=== PATIENT | male | born 1935 | race Caucasian/White ===

== ENCOUNTER → 2016-07-06 | Outpatient (REF) | payer MEDICARE, OTHER ==
[2016-07-06 15:37] LABS: ALBUMIN 3.6 GM/DL (3.2-5.2); ALBUMIN/GLOBULIN RATIO 1.38 (1.00-1.93); ALKALINE PHOSPHATASE 65 U/L (45-117); ALT/SGPT 30 U/L (12-78); ANION GAP 6 MEQ/L (8-16); AST/SGOT 16 U/L (15-37); BILIRUBIN,TOTAL 0.9 MG/DL (0.2-1.0); BLOOD UREA NITROGEN 25 MG/DL (7-18); CALCIUM LEVEL 9.1 MG/DL (8.8-10.2); CARBON DIOXIDE LEVEL 32 MEQ/L (21-32); CHLORIDE LEVEL 106 MEQ/L (98-107); CHOLESTEROL LEVEL 185 MG/DL (<200); GLOMERULAR FILTRATION RATE > 60.0 (>42); GLUCOSE, FASTING 101 MG/DL (83-110); POTASSIUM SERUM 4.3 MEQ/L (3.5-5.1); SODIUM LEVEL 144 MEQ/L (136-145); TOTAL PROTEIN 6.2 GM/DL (6.4-8.2); TRIGLYCERIDES LEVEL 104 MG/DL (<150)
== END ==
LOC: M SFHCLACO 08:57
PROVIDERS: ATTEND Physician Assistant
DX: I10 Essential (primary) hypertension (principal); E78.2 Mixed hyperlipidemia

== ENCOUNTER → 2016-10-05 | Outpatient (REF) | payer MEDICARE, OTHER ==
[2016-10-05 16:08] LABS: ALBUMIN 3.3 GM/DL (3.2-5.2); ALBUMIN/GLOBULIN RATIO 1.32 (1.00-1.93); ALKALINE PHOSPHATASE 64 U/L (45-117); ALT/SGPT 25 U/L (12-78); ANION GAP 6 MEQ/L (8-16); AST/SGOT 15 U/L (15-37); BLOOD UREA NITROGEN 17 MG/DL (7-18); CALCIUM LEVEL 8.7 MG/DL (8.8-10.2); CARBON DIOXIDE LEVEL 30 MEQ/L (21-32); CHLORIDE LEVEL 109 MEQ/L (98-107); CHOLESTEROL LEVEL 171 MG/DL (<200); CREATININE FOR GFR 1.12 MG/DL (0.70-1.30); GLOMERULAR FILTRATION RATE > 60.0 (>42); GLUCOSE, FASTING 102 MG/DL (83-110); POTASSIUM SERUM 4.6 MEQ/L (3.5-5.1); SODIUM LEVEL 145 MEQ/L (136-145); TOTAL PROTEIN 5.8 GM/DL (6.4-8.2); TRIGLYCERIDES LEVEL 112 MG/DL (<150)
== END ==
LOC: M SFHCLACO 09:07
PROVIDERS: ATTEND Physician Assistant
DX: I10 Essential (primary) hypertension (principal); E29.1 Testicular hypofunction; J44.9 Chronic obstructive pulmonary disease, unspecified; M25.562 Pain in left knee

== ENCOUNTER → 2016-10-12 | Outpatient (REF) | payer MEDICARE, OTHER ==
[2016-10-12 16:04] LABS: MEAN CORPUSCULAR HEMOGLOBIN 33.4 pg (27.0-33.0); MEAN CORPUSCULAR HGB CONC 33.9 g/dl (32.0-36.5); MEAN CORPUSCULAR VOLUME 98.7 fl (80.0-96.0); RED CELL DISTRIBUTION WIDTH 12.1 % (11.5-14.5); WHITE BLOOD COUNT 6.4 K/mm3 (4.0-10.0)
[2016-10-15 00:07] LABS: Lyme Disease IgG/IgM Antibodie <0.91 ISR (0.00-0.90); Lyme Disease IgM Ab Quantitati <0.80 index (0.00-0.79)
== END ==
LOC: M SFHCLACO 13:36
PROVIDERS: ATTEND Physician Assistant
DX: J44.9 Chronic obstructive pulmonary disease, unspecified (principal); R53.83 Other fatigue; W57.XXXA Bitten or stung by nonvenomous insect and other nonvenomous arthropods, initial encounter; X58.XXXA Exposure to other specified factors, initial encounter; Y92.9 Unspecified place or not applicable; Y93.9 Activity, unspecified; Y99.9 Unspecified external cause status
CPT/HCPCS: 36415; 85027; 86617; G0463

== ENCOUNTER → 2017-04-21 | Outpatient (REF) | payer MEDICARE, OTHER ==
[2017-04-21 15:09] LABS: ALBUMIN 3.5 GM/DL (3.2-5.2); ALBUMIN/GLOBULIN RATIO 1.35 (1.00-1.93); ALKALINE PHOSPHATASE 54 U/L (45-117); ALT/SGPT 25 U/L (12-78); ANION GAP 6 MEQ/L (8-16); AST/SGOT 15 U/L (7-37); BILIRUBIN,TOTAL 1.1 MG/DL (0.2-1.0); BLOOD UREA NITROGEN 23 MG/DL (7-18); CALCIUM LEVEL 9.1 MG/DL (8.8-10.2); CARBON DIOXIDE LEVEL 32 MEQ/L (21-32); CHLORIDE LEVEL 106 MEQ/L (98-107); CHOLESTEROL LEVEL 192 MG/DL (<200); CREATININE FOR GFR 1.16 MG/DL (0.70-1.30); GLOMERULAR FILTRATION RATE > 60.0 (>42); GLUCOSE, FASTING 107 MG/DL (83-110); POTASSIUM SERUM 4.7 MEQ/L (3.5-5.1); SODIUM LEVEL 144 MEQ/L (136-145); TOTAL PROTEIN 6.1 GM/DL (6.4-8.2); TRIGLYCERIDES LEVEL 109 MG/DL (<150)
== END ==
LOC: M SFHCLACO 09:32
PROVIDERS: ATTEND Physician Assistant
DX: I10 Essential (primary) hypertension (principal); E78.2 Mixed hyperlipidemia; E29.1 Testicular hypofunction

== ENCOUNTER → 2017-11-08 | Outpatient (REF) | payer MEDICARE, OTHER ==
[2017-11-08 14:58] LABS: ALBUMIN 3.5 GM/DL (3.2-5.2); ALBUMIN/GLOBULIN RATIO 1.21 (1.00-1.93); ALKALINE PHOSPHATASE 61 U/L (45-117); ALT/SGPT 27 U/L (12-78); ANION GAP 5 MEQ/L (8-16); AST/SGOT 16 U/L (7-37); BLOOD UREA NITROGEN 22 MG/DL (7-18); CALCIUM LEVEL 8.7 MG/DL (8.8-10.2); CARBON DIOXIDE LEVEL 31 MEQ/L (21-32); CHLORIDE LEVEL 109 MEQ/L (98-107); CHOLESTEROL LEVEL 172 MG/DL (<200); CHOLESTEROL RISK RATIO 3.071 (<5); GLUCOSE, FASTING 95 MG/DL (70-100); HDL CHOLESTEROL 56 MG/DL (>40); NON-HDL-C 116 MG/DL; POTASSIUM SERUM 4.7 MEQ/L (3.5-5.1); SODIUM LEVEL 145 MEQ/L (136-145); TOTAL PROTEIN 6.4 GM/DL (6.4-8.2); TRIGLYCERIDES LEVEL 105 MG/DL (<150)
== END ==
LOC: M SFHCLACO 08:46
DX: I10 Essential (primary) hypertension (principal); E78.2 Mixed hyperlipidemia
CPT/HCPCS: 80053

== ENCOUNTER → 2018-10-02 | Outpatient (REF) | payer MEDICARE, OTHER ==
[2018-10-02 15:33] LABS: BASO % 0.5 % (0.0-1.0); EOS # 0.2 10^3/uL (0.0-0.50); EOS % 3.1 % (0.0-3.0); HEMATOCRIT 45.8 % (42.0-52.0); HEMOGLOBIN 15.2 g/dl (13.5-17.5); LYMPH # 1.7 10^3/uL (1.5-4.5); LYMPH % 23.1 % (24.0-44.0); MEAN CORPUSCULAR HEMOGLOBIN 32.6 pg (27.0-33.0); MEAN CORPUSCULAR HGB CONC 33.2 g/dl (32.0-36.5); MEAN CORPUSCULAR VOLUME 98.3 fl (80.0-96.0); MONO # 0.7 10^3/uL (0.0-0.8); MONO % 10.1 % (0.0-5.0); NEUTROPHILS # 4.6 10^3/uL (1.8-7.7); NEUTROPHILS % 62.9 % (36.0-66.0); PLATELET COUNT, AUTOMATED 163 10^3/uL (150-450); RED BLOOD COUNT 4.66 10^6/uL (4.30-6.10); WHITE BLOOD COUNT 7.4 10^3/uL (4.0-10.0)
[2018-10-02 15:44] LABS: ALBUMIN 3.6 GM/DL (3.2-5.2); BILIRUBIN,TOTAL 0.9 MG/DL (0.2-1.0); CALCIUM LEVEL 9.1 MG/DL (8.8-10.2); CREATININE FOR GFR 1.25 MG/DL (0.70-1.30); GLOMERULAR FILTRATION RATE 59.2 (>35); INR 0.93; MAGNESIUM LEVEL 2.2 MG/DL (1.8-2.4); POTASSIUM SERUM 4.2 MEQ/L (3.5-5.1); PROTHROMBIN TIME 12.6 SECONDS (12.1-14.4)
[2018-10-02 15:45] LABS: PARTIAL THROMBOPLASTIN TIME 28.9 SECONDS (25.4-37.6)
== END ==
LOC: M SFHCPLAZ 13:10
PROVIDERS: ATTEND Family Medicine
DX: Z01.818 Encounter for other preprocedural examination (principal); M17.0 Bilateral primary osteoarthritis of knee; Z79.01 Long term (current) use of anticoagulants; I50.32 Chronic diastolic (congestive) heart failure
CPT/HCPCS: 80053; 83735; 83880; 85025; 85610; 85730; G0463

== ENCOUNTER 2019-01-04 15:46 | Emergency (ER) | payer MEDICARE, OTHER ==
[~2019-01-04] VITALS: Ht 177.8 cm; Wt 114.3 kg
[2019-01-04] MEDS ORDERED: EPLE25TA (16:18)
[2019-01-04] MEDS ORDERED: NABU-119 (16:18)
[2019-01-04] MEDS ORDERED: METO1TAB33 (16:18)
[2019-01-04] MEDS ORDERED: LISI-538 (16:18)
[2019-01-04] MEDS ORDERED: CRES20TA2 (16:18)
[2019-01-04] MEDS ORDERED: PROAAER10 (16:18)
[2019-01-04] MEDS ORDERED: FURO40TA2 (16:18)
[2019-01-04] MEDS ORDERED: ISOVUE-370 76% 100ML VIAL (Q9967) As Ordered ONE (17:13)
[2019-01-04 17:39] LABS: BASO % 0.5 % (0.0-1.0); EOS # 0.2 10^3/uL (0.0-0.50); EOS % 3.7 % (0.0-3.0); HEMATOCRIT 40.5 % (42.0-52.0); HEMOGLOBIN 13.3 g/dl (13.5-17.5); LYMPH # 1.3 10^3/uL (1.5-4.5); MEAN CORPUSCULAR HEMOGLOBIN 31.6 pg (27.0-33.0); MEAN CORPUSCULAR HGB CONC 32.8 g/dl (32.0-36.5); MEAN CORPUSCULAR VOLUME 96.2 fl (80.0-96.0); MONO # 0.6 10^3/uL (0.0-0.8); MONO % 10.2 % (0.0-5.0); NEUTROPHILS # 3.8 10^3/uL (1.8-7.7); NEUTROPHILS % 63.3 % (36.0-66.0); PLATELET COUNT, AUTOMATED 184 10^3/uL (150-450); RED BLOOD COUNT 4.21 10^6/uL (4.30-6.10)
[2019-01-04 17:51] LABS: BLOOD UREA NITROGEN 13 MG/DL (7-18); CALCIUM LEVEL 8.8 MG/DL (8.8-10.2); CARBON DIOXIDE LEVEL 34 MEQ/L (21-32); CHLORIDE LEVEL 106 MEQ/L (98-107); CREATININE FOR GFR 1.13 MG/DL (0.70-1.30); GLOMERULAR FILTRATION RATE > 60.0 (>35); GLUCOSE, FASTING 92 MG/DL (70-100); SODIUM LEVEL 146 MEQ/L (136-145)
--- NOTE | 2019-01-04 18:50 | REPVR ---
EXAM: CT Angiography Chest With Contrast EXAM DATE/TIME: 01/04/2019 5:11 PM CLINICAL HISTORY: 83 years old, male; Dyspnea; Additional info: R/O pe TECHNIQUE: Imaging protocol: Axial computed tomographic angiography images of the chest with intravenous contrast using CT angiography protocol. Coronal and sagittal reformatted images were created and reviewed. 3D rendering: MIP reconstructed images were created and reviewed. Radiation optimization: All CT scans at this facility use at least one of these dose optimization techniques: automated exposure control; mA and/or kV adjustment per patient size (includes targeted exams where dose is matched to clinical indication); or iterative reconstruction. Contrast material: ISOVUE 370;Contrast volume: 75 ml;Contrast route: IV; COMPARISON: CR CHEST 2 VIEWS 01/04/2019 10:48 AM FINDINGS: Pulmonary arteries: No pulmonary emboli. Aorta: No aortic aneurysm. No aortic dissection. Lungs: Bilateral scattered atelectasis and/or scarring. Mild paraseptal emphysematous changes. No focal infiltrate, consolidation, or mass. Mild bilateral bronchial wall thickening. Pleural space: No pneumothorax. No pleural effusion. Heart: No cardiomegaly. No pericardial effusion. Mediastinum: Small hiatal hernia. Liver: Hepatic cysts measuring up to 4.5 cm. Kidneys and ureters: Partially visualized probable right renal cyst. Lymph nodes: Unremarkable. No enlarged lymph nodes. Bones/joints: No acute fracture. Normal alignment. Degenerative changes in the spine. Soft tissues: Bilateral gynecomastia. IMPRESSION: 1. No pulmonary embolism. 2. Mild bronchitis. 3. Nonacute/incidental findings above. Electronically signed by: Fidel Jiménez On 01/04/2019 18:50:04 PM
[2019-01-04] MEDS ORDERED: PRED10TA2 PO (19:15)
[2019-01-04 20:04] VITALS: BP 130/77
== END 2019-01-04 20:35 | disposition home or self-care (01) ==
LOC: M ED 15:46
DX: J44.9 Chronic obstructive pulmonary disease, unspecified (principal); R60.9 Edema, unspecified; I11.0 Hypertensive heart disease with heart failure; I50.9 Heart failure, unspecified; E78.5 Hyperlipidemia, unspecified; Z79.899 Other long term (current) drug therapy; Z88.0 Allergy status to penicillin
CPT/HCPCS: 36415; 71046; 71275; 80048; 83880; 85025; 85027; 85379; 93041; 94760; 99285; Q9967

== ENCOUNTER → 2019-01-04 | Outpatient (CLI) | payer MEDICARE, OTHER ==
[~2019-01-04] MED LIST: CRES20TA2; EPLE25TA; FURO40TA2; LISI-538; METO1TAB33; NABU-119; PRED10TA2 PO; PROAAER10
--- NOTE | 2019-01-04 11:11 | REP ---
Clinical: Dyspnea. Technique: PA and lateral. Comparison: 08/31/2010. Findings: Cardiomegaly cannot be excluded. Lung evans demonstrate chronic interstitial changes. Subtle superimposed atelectasis cannot definitively be excluded. No consolidation. No effusion. No pneumothorax. Skeletal structures intact. Impression: Mild cardiomegaly suggested. Chronic changes. Subtle basilar atelectasis cannot be excluded. Electronically Signed by Duglas Jordan MD 01/04/2019 11:02 A
[2019-01-04 14:01] LABS: HEMATOCRIT 42.1 % (42.0-52.0); HEMOGLOBIN 13.5 g/dl (13.5-17.5); MEAN CORPUSCULAR HEMOGLOBIN 31.3 pg (27.0-33.0); MEAN CORPUSCULAR HGB CONC 32.1 g/dl (32.0-36.5); MEAN CORPUSCULAR VOLUME 97.7 fl (80.0-96.0); PLATELET COUNT, AUTOMATED 200 10^3/uL (150-450); RED BLOOD COUNT 4.31 10^6/uL (4.30-6.10); WHITE BLOOD COUNT 6.5 10^3/uL (4.0-10.0)
== END ==
LOC: M SMT 10:37
PROVIDERS: ATTEND Internal Medicine Pulmonary Disease
DX: R06.00 Dyspnea, unspecified (principal)

== ENCOUNTER 2020-07-23 21:10 | Emergency (ER) | payer MEDICARE, OTHER ==
[~2020-07-23] VITALS: Ht 177.8 cm; Wt 122.7 kg
[~2020-07-23 21:10] MED LIST changes: -LISI-538; +LISI20TA33; -NABU-119; +NABU-53 PO
--- OUTSIDE RECORDS SUMMARY | 2020-07-23 21:15 | CCD | Continuity of Care Document ---
Author Author Virtual Assistant, [employer] Organization Unknown Address Unknown Phone Unavailable Care Team Providers Care Park Worker Supervisor Name Role Phone Alex Orosco Unavailable Uriah Andujar MD Unavailable Pulmonary, Rehab Unavailable Unavailable Leno Oakley MD Unavailable Unavailable Problems ASTHMA (J45.909) (493.90) MD Luis Felipe Andujar Comments: possible. Elevated exhaled nitric oxide level CAD (CORONARY ARTERY DISEASE) (I25.10) MD Vianey Andujar (414.00) CARDIOMYOPATHY (I42.9) (425.4) MD Luis Felipe Andujar CAROTID ARTERY DISORDER (I77.9) (447.9) MD Luis Felipe Andujar CHEST PAIN (R07.9) (786.50) MD Luis Felipe Andujar COPD, SEVERE (J44.9) (496) MD Luis Felipe Andujar Prognosis: Clinically stable but remained short of breath. Refill on hi s medication sent to the pharmacy. Reassess in 6 months. He raised the question of endobronchial valves which would require referral to a specialized center.The patient was seen using telephone health communications. The patient understands that telemedicine i s the use of electronic information and communication technologies by a healthcare provider to deliver services to individuals when he/she is located a t a different site than the provider, and understands that there is some level of risk that the individuals PHI could be heard or otherwise accessed by a third constitution party while in transit. Consent for telephone health services was hereby verbally obtained in order to provide health care services to the patient via telemedicine.We spent 15 min. via eduardo o conferencing, reviewing symptoms, diagnosis and medications. as of 15-Apr-2020 DYSPHAGIA (R13.10) (537.20) MD Luis Felipe Andujar Comments : chokes on liquids following Prognosis: The patient states his attempted passage of nasogastric tube. dysphagia is better at this time. I Modified bariu m swallow not done due to told him if it recurs to let us know and Covid 19. we will reorder the modified barium swallow. as of 15-Apr-2020 EMPHYSEMA (J43.9) (492.8) MD Luis Felipe Andujar HEART FAILURE (I50.9) (428.9) MD Luis Felipe Andujar HYPERLIPIDEMIA (E78.5) (272.4) MD Luis Felipe Andujar HYPERTENSION (I10) (401.9) MD Luis Felipe Andujar PROSTATE CA (C61) (185) MD Luis Felipe Andujar SHORTNESS OF BREATH (R06.02) (786.05) MD Luis Felipe Andujar Comments: with exertion VALVULAR HEART DISEASE (I38) (424.90) MD Aroldo Andujar Allergies and Adverse Reactions No Known Drug Allergies (Allergy) Onset: 25-Jul-2019 Penicillins (Allergy) Reaction: Hives Medications Aspirin 81 MG Oral Tablet Delayed Release; daily (81 MG) Carvedilol 12.5 MG Oral Tablet; two times daily (12.5 MG) Crestor 20 MG Oral Tablet; daily (20 MG) Diclofenac Sodium 75 MG Oral Tablet Delayed Release; two times daily (75 MG) Eplerenone 25 MG Oral Tablet; daily (2 5 MG) Furosemide 40 MG Oral Tablet; daily (4 0 MG) Lisinopril 20 MG Oral Tablet; daily (2 0 MG) Metoprolol Succinate ER 100 MG Oral Tablet Extended Release 24 Hour; daily (100 MG) Multiple Vitamin Oral Tablet; 1 (one) daily Nabumetone 750 MG Oral Tablet; (750 MG ) ProAir HFA 108 (90 Base) MCG/ACT Ordered: 31-Jul-2019 Sta rt: 31-Jul-2019 Inhalation Aerosol Solution; 2 Puff Comments: Medi cation taken as needed. four times daily as needed for 30 days Quantity: 1 {Inhaler} Refills: 5 Stiolto Respimat 2.5-2.5 MCG/ACT Ordered: 15-May-2020 Sta rt: 15-May-2020 Inhalation Aerosol Solution; 2 (two) Aerosol Soln daily for 30 days Quantity: 1 {Inhaler} Refills: 5 Procedures EXHALED NITRIC OXIDE MEASUREMENT (99961) Status: Co mpleted 31-Jul-2019 REST/ EXERCISE OXIMETRY (64739) Status: Completed 2 11-Jul-2019 Alpha 1 antitrypsin level Status: Completed 2019 Comments: Normal. MM, 129 Chest X-ray Status: Completed 0 Comments: [place]. mild hyperinflation. Slight right basilar atelectasis. Similar 01/04/19. Colectomy Status: Completed CTA Status: Completed 9 Comments: No pulmonary embolus. Few scattered areas of atelectasis or scarring. FeNO Status: Completed Comments: 07/31/2019 76 ppb Hernia Repair Status: Completed Comments: 3 PFT Status: Completed 31-Jul-19 20 Comments: Severe Obstruction. Without Reversibility. Forced vital capacity 2.57 (64%), FEV1 1.28 (45%), FEV1/FVC 50%. Tonsillectomy Status: Completed PRE AND POST (75493)Result: Hemoptysis: Status: Comp leted No 31-Jul-2019 Family History Brother 1 Status: Active Comments: Emphysema . Father Status: Active Comments: Emphysema . Social History Alcohol use:; Denies alcohol use. Marital status:; . 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 Tobacco use:; Former smoker. Comments: [age], 1 ppd Ex-smoker Male Plan of Treatment EXHALED GAS NITRIC OXIDE MEASUREMENT Start: 04-Apr-2020 I ntent (MOLES/VOLUME) (91025) PRE AND POST W/ RT (25671) Start: 04-Apr-2020 Intent DLCO (CARBON MONOXIDE DIFFUSING Start: 30-Sep-2019 Intent CAPACITY) (86524) EXHALED GAS NITRIC OXIDE MEASUREMENT Start: 30-Sep-2019 I ntent (MOLES/VOLUME) (72200) PRE AND POST (75059) Start: 30-Sep-2019 Intent THORACIC GAS VOLUME: AIRWAY CLOSING Start: 30-Sep-2019 In tent VOLUME MEASUREMENT: PULM FUNCTION TEST BY GAS (85657) TOTAL VITAL CAPACITY (78397) Start: 30-Sep-2019 Intent MODIFIED BARIUM SWALLOW (79603) Start: 31-Jul-2019 Intent [id number] (55314) Start: 31-Jul-[address] 10:34 COPD, SEVERE : Chronic Obstructive Pulmonary Disease (COPD) Indication:COPD, SEVERE Results No Known Results No Result Information Available Vital Signs 15-Apr-2020 14:30 Weight 270 lb Height 70 in BMI 38.74 kg/m2 BSA 2.37 m2 31-Jul-2019 9:59 Comments: spo2 with exertio n 97% Temperature 97.8 f Pulse 80 /min Comments: Pattern: Regular Respiration Rate 20 Comments: Pattern: Unlabore d /min O2 SAT 98 % Comments: Room air BP Systolic 118 Comments: Patient Position: Sitting; mm[Hg] Cuff Location: Left Arm; Cu ff Size: Large BP Diastolic 70 Comments: Patient Position: Sitting; mm[Hg] Cuff Location: Left Arm; Cu ff Size: Large Weight 265 lb Height 70 in BMI 38.02 kg/m2 BSA 2.35 m2 Advance Directives HIPAA - Effective on 07/31/2019. Effective: Expiration date unspecified 31-Jul-2019 Encounters Office Visit 15-Apr-2020 14:15 Encounter Reason: To 15-Apr-2020 14:37 COPD - The referring [facility] provider is OLE DORADO (The patient [facility] has a history of CAD, and cardiomyopathy. Ejection fraction 2013 was 40-45% and more recent study in September 2018 was normal. He also has carotid artery disorder, valvular heart disease with mitral regurgitation. His had congestive heart failure in e past. Also hypertension, dyslipidemia, prostate carcinoma, and COPD. He denies childhood respiratory diseas e or asthma. Denies allergic rhinitis. He has never had pneumonia. He smoked one pack of cigarettes daily from age 17 to age 52. His brother and father had emphysema. He was previously seen by a manager sterile in [place], Dr. Castañeda. He states he was tried on Incruse ellipta and Trelegy ellipta but they made him worse. He states he has never been hospitalized for lung disease or required prednisone. His exertional dyspnea which sometimes results in urinary incontinence. Denies cough or wheezing. He states during her hospitalization for small bowel obstruction as an attempt to pass a nasogastric tube whic h resulted in pain in his throat. He reports dysphagia for liquids since that time unless he bends forward.). last office visit was 6 month(s) ago. N o changes in management were made at the last visit. 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 Symptoms include dyspnea on exertion (ANY ACTIVITY, BEFORE), while symptoms do not include wheezing, non-productive cough or productive cough. Onset was gradual. There is no known event that preceded symptom onset. The patient describes this as severe and unchanged. Symptoms are exacerbated by activity, while symptoms are not exacerbated by smoking . Symptoms are relieved by inhaler use an d rest. Associated symptoms include leg edema (LEFT, AFTER KNEE REPLACEMENT), while associated symptoms do not includ e fever. Current treatment includes inhaled albuterol, inhaled long-acting beta-2 agonists and inhaled anticholinergics. By report there is good compliance with treatment, good tolerance of treatment and fair symptom control. Pertinent medical history includes smoking (has quit), while pertinent medical history does not include steroid dependency, prior intubation and ventilator therapy or tracheostomy. The patient is currently able to do activities of daily living with limitations., [ADDITIONAL REASON] ASTHMA, FOLLOW UP - The patient's asthm a causes daytime symptoms 1 to 2 times pe r month. The patient's asthma is not disturbing sleep. Encounter Diagnosis: COPD, SEVERE, ASTHMA, DYSPHAGIA Office Visit 05-Oct-2019 13:00 To Encounter Reason: 05-Oct-2019 13:08 COPD - The referring [facility] provider is OLE DORADO (The patient [facility] has a history of CAD, and cardiomyopathy. Ejection fraction 2013 was 40-45% and more recent study in September 2018 was normal. He also has carotid artery disorder, valvular heart disease with mitral regurgitation. His had congestive heart failure in past. Also hypertension, dyslipidemia, prostate carcinoma, and COPD. He denies childhood respiratory diseas e or asthma. Denies allergic rhinitis. He has never had pneumonia. He smoked one pack of cigarettes daily from age 17 to age 52. His brother and father had emphysema. He was previously seen by a manager sterile in [place], Dr. Castañeda. He states he was tried on Incruse ellipta and Trelegy ellipta but they made him worse. He states he has never been hospitalized for lung disease or required prednisone. His exertional dyspnea which sometimes results in urinary incontinence. Denies cough or wheezing. He states during her hospitalization for small bowel obstruction as an attempt to pass a nasogastric tube whic h resulted in pain in his throat. He reports dysphagia for liquids since that time unless he bends forward.). Th e last office visit was 2 month(s) ago. Management changes made at the last visit include adding STIOLTO and ordering BLOOD WORK AND MBS. 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 Symptoms include dyspnea on exertion (ANY ACTIVITY, GRADUALLY WORSE) and non-productive cough (OCCASIONALLY), while symptoms do not include wheezing or productive cough. Onset was gradual. There is no known event that preceded symptom onset. The patient describes this as severe and unchanged. Symptoms are exacerbated by activity, while symptoms are not exacerbated by smoking . Symptoms are relieved by inhaler use. Associated symptoms include leg edema, while associated symptoms do not includ e hemoptysis. Current treatment includes inhaled albuterol, inhaled long-acting beta-2 agonists and inhaled anticholinergics. By report there is good compliance with treatment, good tolerance of treatment and fair symptom control. Pertinent medical history includes smoking (has quit), while pertinent medical history does not include steroid dependency, prior intubation and ventilator therapy or tracheostomy. The patient is currently able to do activities of daily living with limitations., [ADDITIONAL REASON] ASTHMA, FOLLOW UP - The patient's asthm a causes daytime symptoms 1 to 2 times pe r month. The patient's asthma is not disturbing sleep. Encounter Diagnosis: ASTHMA, COPD, SEVERE, DYSPHAGIA Historical Summary 08-Aug-2019 13:06 To 08-Aug-2019 13:07 [facility] Office Historical Summary 31-Jul-2019 10:00 To 31-Jul-2019 10:15 [facility] Historical Summary 31-Jul-2019 10:00 To 25-Jul-2019 8:26 [facility] Office Visit 31-Jul-2019 10:00 Encounter Reason: To 31-Jul-2019 10:52 COPD - The referring [facility] provider is OLE DORADO (The patient [facility] has a history of CAD, and cardiomyopathy. Ejection fraction 2013 was 40-45% and more recent study in September 2018 was normal. He also has carotid artery disorder, valvular heart disease with mitral regurgitation. His had congestive heart failure in the past. Also hypertension, dyslipidemia, prostate carcinoma, and COPD. He denie s childhood respiratory disease or asthma . Denies allergic rhinitis. He has never had pneumonia. He smoked one pack of cigarettes daily from age 17 to age 52. His brother and father had emphysema. He was previously seen by a manager sterile in [place], Dr. Castañeda. He states he was tried on Incruse ellipta and Trelegy ellipta but they made him worse. He states he has never been hospitalized for lung disease or required prednisone. His exertional dyspnea which sometimes results in urinary incontinence. Denies cough or wheezing. He states during her hospitalization for small bowel obstruction as an attempt to pass a nasogastric tube which resulted in pain in his throat. He reports dysphagia fo r liquids since that time unless he bends forward.). 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 Symptoms include dyspnea on exertion (ANY ACTIVITY), while symptoms do not include wheezing, non-productive cough or productive cough. Onset was gradual. There is no known event that preceded symptom onset . The patient describes this as severe an d unchanged. Symptoms are exacerbated by activity, while symptoms are not exacerbated by smoking. Symptoms are relieved by inhaler use. Associated symptoms include leg edema, while associated symptoms do not include hemoptysis. Current treatment includes inhaled albuterol. By report there is good compliance with treatment, good tolerance of treatment and fair symptom control. Pertinent medical history includes smoking (has quit), while pertinent medical history does not include steroid dependency, prior intubation and ventilator therapy or tracheostomy. The patient is currently able to do activities of daily living with limitations. Encounter Diagnosis: ASTHMA, EMPHYSEMA, COPD, SEVERE, DYSPHAGIA Payers Medicare [place] Group Number: NONE [address] [facility] [address] [place] tel: [facility] Group Number: NONE [address] [facility] [id number] [place] tel: COVID19 [facility] Group Number: [id number] [facility] [id number] [place] tel: Jamey Norton [address] [place] [id number] [place] tel:
--- OUTSIDE RECORDS SUMMARY | 2020-07-23 21:15 | CCD | Continuity of Care Document ---
Author Author Salesforce Developer, [employer] Organization Unknown Address Unknown Phone Unavailable Care Team Providers Care Underliner Name Role Phone Alex Orosco Unavailable Uriah [...] heard or otherwise accessed by a third alliance party while in transit. Consent for telephone health services was hereby verbally obtained in order to provide health care services to the patient via telemedicine.We spent 15 min. via eduardo o conferencing, reviewing symptoms, diagnosis and medications. as of 15-Apr-2020 DYSPHAGIA (R13.10) (037.20) MD Luis Felipe Andujar Comments : chokes [...] Refills: 5 Procedures EXHALED NITRIC OXIDE MEASUREMENT (04517) Status: Co mpleted 31-Jul-2019 REST/ EXERCISE OXIMETRY (92286) Status: Completed 2 11-Jul-2019 Alpha 1 antitrypsin level Status: Completed 2019 Comments: Normal. MM, 129 Chest X-ray Status: Completed 0 Comments: [place]. mild hyperinflation. Slight right basilar atelectasis. Similar [...] 50%. Tonsillectomy Status: Completed PRE AND POST (97053)Result: Hemoptysis: Status: Comp leted No 31-Jul-2019 Family History Brother 1 Status: Active Comments: Emphysema . Father Status: Active Comments: Emphysema . Social History Alcohol use:; Denies alcohol use. Marital status:; . 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 Tobacco use:; Former smoker. Comments: [age], 1 ppd Ex-smoker Male Plan of Treatment EXHALED GAS NITRIC OXIDE MEASUREMENT Start: 04-Apr-2020 I ntent (MOLES/VOLUME) (12412) PRE AND POST W/ RT (14734) Start: 04-Apr-2020 Intent DLCO (CARBON MONOXIDE DIFFUSING Start: 30-Sep-2019 Intent CAPACITY) (45748) EXHALED GAS NITRIC OXIDE MEASUREMENT Start: 30-Sep-2019 I ntent (MOLES/VOLUME) (88902) PRE AND POST (69530) Start: 30-Sep-2019 Intent THORACIC GAS VOLUME: AIRWAY CLOSING Start: 30-Sep-2019 In tent VOLUME MEASUREMENT: PULM FUNCTION TEST BY GAS (65559) TOTAL VITAL CAPACITY (78307) Start: 30-Sep-2019 Intent MODIFIED BARIUM SWALLOW (99127) Start: 31-Jul-2019 Intent [id number] (97670) Start: 31-Jul-[address] 10:34 COPD, SEVERE [...] To 15-Apr-2020 14:37 COPD - The referring [facility] provider is OLE DORADO (The patient [...] emphysema. He was previously seen by a die cutter operator in [place], Dr. Castañeda. He states he was tried [...] Reason: 05-Oct-2019 13:08 COPD - The referring [facility] provider is OLE DORADO (The patient [...] emphysema. He was previously seen by a die cutter operator in [place], Dr. Castañeda. He states he was tried [...] Historical Summary 08-Aug-2019 13:06 To 08-Aug-2019 13:07 [facility] Office Historical Summary 31-Jul-2019 10:00 To 25-Jul-2019 8:26 [facility] Office Office Visit 31-Jul-2019 10:00 Encounter Reason: To 31-Jul-2019 10:52 COPD - The referring [facility] provider is OLE DORADO (The patient [facility] has a history of CAD, and cardiomyopathy. Ejection fraction 2012 was 40-45% and more recent study in [...] emphysema. He was previously seen by a die cutter operator in [place], Dr. Castañeda. He states he was tried [...] Encounter Diagnosis: ASTHMA, EMPHYSEMA, COPD, SEVERE, DYSPHAGIA Historical Summary 31-Jul-2019 10:00 To 31-Jul-2019 10:15 [facility] Office Payers Medicare [place] Group Number: NONE [address] [facility] [address] tel: [facility] Group Number: NONE [address] [facility] [id number] [place] tel: COVID19 [facility] Group Number: [id number] [facility] [id number] [place] tel: Jamey Norton [address] [place] [id number] [place] tel:
--- OUTSIDE RECORDS SUMMARY | 2020-07-23 21:15 | CCD | Summary of Care ---
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 [place] [address] Allergies Comments Active Allergy Reactions Severity Noted Date Spironolactone 05/05/2017 Reaction: RASH Penicillins 10/12/2012 documented as of this encounter (statuses as of 07/16/2020) Medications End Date Status Medication Sig Dispensed Refills Start Date Active metoprolol (TOPROL-XL) 50 Take 100 mg 0 MG 24 hr tablet by mouth daily Active simvastatin (ZOCOR) 20 MG Take 20 mg by 0 tablet mouth nightly Active lisinopril Take 20 mg by 0 (PRINIVIL,ZESTRIL) 20 MG mouth daily tablet Active eplerenone (INSPRA) 25 MG Take 25 mg by 0 tablet mouth daily Active furosemide (LASIX) 40 MG Take 40 mg by 0 tablet mouth Two Times Daily Active aspirin 81 MG tablet Take 81 mg by 0 mouth daily Active nabumetone (RELAFEN) 500 Take 750 mg 0 MG tablet by mouth Two Times Daily Active PROAIR HFA 108 (90 Base) Inhale 2 0 09/20 /201 MCG/ACT inhaler puffs into 7 the lungs as needed Active albuterol (PROVENTIL) daily 0 05/04/20 1 (2.5 MG/3ML) 0.083% 7 nebulizer solution Active Ibuprofen (ADVIL) 200 MG Take 400 mg 0 CAPS by mouth every morning 11/19/2020 Active leuprolide (LUPRON DEPOT) Inject 22.5 1 each 12 injection 22.5 mg for mg into the 0 3-month administration muscle every 3 (three) months Additional Information Patient not taking. Reported on 07/16/2020 10:01 AM Active Stiolto Respimat 2.5-2.5 0 MCG/ACT Inhalation 0 Aerosol Solution Active Tamsulosin HCl 0.4 MG Take 1 30 capsule 2 Oral Capsule capsule by 0 (FLOMAX)Indications: mouth daily Prostate cancer Active Ketoconazole 2 % External 0 Cream (NIZORAL) 0 12/23/2020 Active Rosuvastatin Calcium 20 Take 20 mg by 0 MG Oral Tablet (Crestor) mouth 0 documented as of this encounter (statuses as of 07/16/2020) Active Problems Problem Noted Date Prostate cancer 03/30/2019 Cancer Staging: Clinical stage from : Stage IIC (cT1c, cN0, cM0, PSA: 8.6, Grade Group: 4) - Signed by A gustavo Mcleod MD on 12/13/2019 Elevated PSA Enlarged prostate Low testosterone in male documented as of this encounter (statuses as of 07/16/2020) Social History Date Tobacco Use Types Packs/Day Years Used Quit: 1989 Former Smoker Cigarettes 1 Smokeless Tobacco: Chew Current User Drinks/Week oz/Week Comments Alcohol Use daily Yes Sex Assigned at Date Recorded Not on file Date Recorded COVID-19 Exposure Response 07/16/2020 9:52 AM EST In the last month, have you been in contact with No / Unsure someone who was confirmed or suspected to have Coronavirus / COVID-19? documented as of this encounter Last Filed Vital Signs Reading Time Taken Comments Vital Sign - - Blood Pressure - - Pulse - - Temperature - - Respiratory Rate - - Oxygen Saturation - - Inhaled Oxygen Concentration - - Weight 177.8 cm (5' 10") 07/16/2020 9:53 AM EST Height - - Body Mass Index documented in this encounter Progress Notes * Justin Pfeiffer MD - 07/16/2020 10:30 AM EST Radiation Oncology Prostate Cancer Follow-up Due to Covid pandemic, this is a telephonic visit which was performed without th e use of video technology due to patient inability to connect with video. The pa tient was informed of the risks including security breach, technological failure , inability to perform a physical exam which could delay or prevent an accurate diagnosis, and potential complications from treatment decisions rendered over a telephonic platform. The patient understands and consented to the use of a telep honic visit/telephone call. 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 The patient has completed a course radiotherapy. Radiation: Pelvic lymphatics and prostate to a dose of 4500 cGy in 180 cGy daily fractions using 6 MV photons (25 fractions total). Sequential boost to prostate to a dose of 3420 cGy in 180 cGy daily fractions us ing 6 MV photons (19 fractions total). Radiation Completed Date 02/12/2020 Systemic Therapy: LT ADT initiated 03/24/2019. Latest 3month- depot 03/2020. Oncologic follow up note: Mr. Norton is a 84 y.o. y.o. gentleman with the above history of prostate cance r who completed radiotherapy last month. He feels well and has no new/progressi ve bony pains. He has no other symptoms concerning for locoregional prostate can cer recurrence of suspicious for its distal spread. IPSS is 13/35 with significa nt urgency. No hematuria or BRBPR. ALEXANDRU is N/A. With regard to the rest of his g eneral health he is stable. Current Outpatient Medications on File Prior to Visit Medication Sig Dispense Refill albuterol (PROVENTIL) (2.5 MG/3ML) 0.083% nebulizer solution daily aspirin 81 MG tablet Take 81 mg by mouth daily eplerenone (INSPRA) 25 MG tablet Take 25 mg by mouth daily furosemide (LASIX) 40 MG tablet Take 40 mg by mouth Two Times Daily Ibuprofen (ADVIL) 200 MG CAPS Take 400 mg by mouth every morning Ketoconazole 2 % External Cream (NIZORAL) lisinopril (PRINIVIL,ZESTRIL) 20 MG tablet Take 20 mg by mouth daily metoprolol (TOPROL-XL) 50 MG 24 hr tablet Take 100 mg by mouth daily nabumetone (RELAFEN) 500 MG tablet Take 750 mg by mouth Two Times Daily PROAIR HFA 108 (90 Base) MCG/ACT inhaler Inhale 2 puffs into the lungs as needed Rosuvastatin Calcium 20 MG Oral Tablet (Crestor) Take 20 mg by mouth simvastatin (ZOCOR) 20 MG tablet Take 20 mg by mouth nightly Stiolto Respimat 2.5-2.5 MCG/ACT Inhalation Aerosol Solution Tamsulosin HCl 0.4 MG Oral Capsule (FLOMAX) Take 1 capsule by mouth daily 30 capsule 2 leuprolide (LUPRON DEPOT) injection 22.5 mg for 3-month administration In ject 22.5 mg into the muscle every 3 (three) months (Patient not taking: Stacia holbrook on 07/16/2020) 1 each 12 No current facility-administered medications on file prior to visit. Allergies Allergen Reactions Aldactone [Spironolactone] Penicillins Reaction: RASH Exam: Not applicable as this is a telephonic encounter Post-RT Labs: PSA TST 07/2020 0.06 <3 03/2020 0.16 <3 Assessment Plan: Mr. Norton completed his radiation therapy 1 month ago and has no evidence of recurrence. PSA is in keeping with biochemical response. Patient tells me that he decided to discontinue further ADT. He has had close to 18 months in total. I would like to see him in 6 months for continued follow-up with PSA/TST prior t o return. He knows to contact my office with any concerns at any point, should t hey arise. Thank you very much for continuing to involve me in care of this pleasant gentle man. Sincerely, Justin Pfeiffer MD, [facility] Radiation Oncologist Branch Store Manager [facility] documented in this encounter Nursing Notes * Mala Barone LPN - 07/16/2020 10:30 AM EST Patient has a phone telemedicine visit with Dr. Pfeiffer. I completed the IP SS score sheet, patient has a score of 13/35. He is mostly satisfied with his q uality of life due to urinary symptoms. Patient states he is not going to receiv e any further Lupron injections and he would like to discuss with Dr. Coronado documented in this encounter Plan of Treatment Order Schedule Name Type Priority Associated Diag noses Expected: 01/05/2021 (Approximate), Expi res: 07/16/2021 PSA Diagnostic Lab Routine Prostate cancer Expected: 01/05/2021 (Approximate), Expi res: 07/16/2021 Testosterone total male Lab Routine Prosta te cancer Health Maintenance Due Date Last Done Comments MMR Vaccines (1 of 1 - 1936 Standard series) Varicella Vaccines (1 of 1936 2 - 2-dose childhood series) Pneumococcal Vaccine: 12/01/1941 Pediatrics (0 to 5 Years) and At-Risk Patients (6 to 64 Years) (1 of 3 - PCV13) Zoster Vaccines (1 of 2) 12/01/1987 DTaP,Tdap,and Td Vaccines 02/27/1999 01/30/1999 (2 - Tdap) Pneumococcal Vaccine: 65+ 2002 Years (1 of 1 - PPSV23) Influenza Vaccine 03/06/2020 03/07/2019, 04/20/2018, 03/21/2017, Additional history exists HIB Vaccines Aged Out No longer eligible based on patient's age to complete this topic Hepatitis A Vaccines Aged Out No longer eligibl e based on patient's age to complete this topic Hepatitis B Vaccines Aged Out No longer eligibl e based on patient's age to complete this topic IPV Vaccines Aged Out No longer eligible based on patient's age to complete this topic documented as of this encounter Results Not on filedocumented in this encounter Visit Diagnoses Diagnosis Prostate cancer - Primary Malignant neoplasm of prostate documented in this encounter
--- OUTSIDE RECORDS SUMMARY | 2020-07-23 21:16 | CCD ---
Author Author [facility] Organization [facility] Address Unknown Phone Unavailable Care Team Providers Care Bale Piler Name Role Phone Vianey JEFFERS Unavailable Unavailable Michael DIEGO MD Unavailable Unavailable Michael DIEGO MD Unavailable Unavailable Michael DIEGO MD Unavailable Unavailable Michael DIEGO MD Unavailable Unavailable Michael DIEGO MD Unavailable Unavailable Michael DIEGO MD Unavailable Unavailable Michael DIEGO MD Unavailable Unavailable Michael DIEGO MD Unavailable Unavailable Michael DIEGO MD Unavailable Unavailable Michael DIEGO MD Unavailable Unavailable Michael DIEGO MD Unavailable Unavailable Michael DIEGO MD Unavailable Unavailable Michael DIEGO MD Unavailable Unavailable Michael DIEGO MD Unavailable Unavailable Michael DIEGO MD Unavailable Unavailable Michael DIEGO MD Unavailable Unavailable Michael DIEGO MD Unavailable Unavailable Michael DIEGO MD Unavailable Unavailable Michael DIEGO MD Unavailable Unavailable Michael DIEGO MD Unavailable Unavailable Michael DIEGO MD Unavailable Unavailable Michael DIEGO MD Unavailable Unavailable Michael DIEGO MD Unavailable Unavailable Michael DIEGO MD Unavailable Unavailable FULEIHAN, Michael GARCIA MD Unavailable Unavailable FULEIHAN, Michael GARCIA MD Unavailable Unavailable FULEIHAN, Michael GARCIA MD Unavailable Unavailable FULEIHAN, Michael GARCIA MD Unavailable Unavailable FULEIHAN, Michael GARCIA MD Unavailable Unavailable FULEIHAN, Michael GARCIA MD Unavailable Unavailable FULEIHAN, Michael GARCIA MD Unavailable Unavailable FULEIHAN, Michael GARCIA MD Unavailable Unavailable FULEIHAN, Michael GARCIA MD Unavailable Unavailable FULEIHAN, Michael GARCIA MD Unavailable Unavailable FULEIHAN, Michael GARCIA MD Unavailable Unavailable FULEIHAN, Michael GARCIA MD Unavailable Unavailable FULEIHAN, Michael GARCIA MD Unavailable Unavailable FULEIHAN, Michael GARCIA MD Unavailable Unavailable FULEIHAN, Michael GARCIA MD Unavailable Unavailable FULEIHAN, Michael GARCIA MD Unavailable Unavailable FULEIHAN, Michael GARCIA MD Unavailable Unavailable FULEIHAN, Michael GARCIA MD Unavailable Unavailable FULEIHAN, Michael GARCIA MD Unavailable Unavailable FULEIHAN, Michael GARCIA MD Unavailable Unavailable FULEIHAN, Michael GARCAI MD Unavailable Unavailable FULEIHAN, Michael GARCIA MD Unavailable Unavailable FULEIHAN, Michael GARCIA MD Unavailable Unavailable FULEIHAN, Michael GARCIA MD Unavailable Unavailable FULEIHAN, Michael GARCIA MD Unavailable Unavailable FULEIHAN, Michael GARCIA MD Unavailable Unavailable FULEIHAN, Michael GARCIA MD Unavailable Unavailable FULEIHAN, Michael GARCIA MD Unavailable Unavailable FULEIHAN, Michael GARCIA MD Unavailable Unavailable FULEIHAN, Michael GARCIA MD Unavailable Unavailable FULEIHAN, Michael GARCIA MD Unavailable Unavailable FULEIHAN, Michael GARCIA MD Unavailable Unavailable FULEIHAN, Michael GARCIA MD Unavailable Unavailable FULEIHAN, Michael GARCIA MD Unavailable Unavailable FULEIHAN, Michael GARCIA MD Unavailable Unavailable FULEIHAN, Michael GARCIA MD Unavailable Unavailable FULEIHAN, Michael GARCIA MD Unavailable Unavailable FULEIHAN, Michael GARCIA MD Unavailable Unavailable FULEIHAN, Michael GARCIA MD Unavailable Unavailable FULEIHAN, Michael GARCIA MD Unavailable Unavailable FULEIHAN, Michael GARCIA MD Unavailable Unavailable FULEIHAN, Michael GARCIA MD Unavailable Unavailable FULEIHAN, Michael GARCIA MD Unavailable Unavailable FULEIHAN, Michael GARCIA MD Unavailable Unavailable FULEIHAN, Michael GARCIA MD Unavailable Unavailable FULEIHAN, Michael GARCIA MD Unavailable Unavailable FULEIHAN, Michael GARCIA MD Unavailable Unavailable FULEIHAN, Michael GARCIA MD Unavailable Unavailable FULEIHAN, Michael GARCIA MD Unavailable Unavailable FULEIHAN, Michael GARCIA MD Unavailable Unavailable FULEIHAN, Michael GARCIA MD Unavailable Unavailable FULEIHAN, Michael GARCIA MD Unavailable Unavailable FULEIHAN, Michael GARCIA MD Unavailable Unavailable FULEIHAN, Michael GARCIA MD Unavailable Unavailable FULEIHAN, Michael GARCIA MD Unavailable Unavailable FULEIHAN, Michael GARCIA MD Unavailable Unavailable FULEIHAN, Michael GARCIA MD Unavailable Unavailable FULEIHAN, Michael GARCIA MD Unavailable Unavailable FULEIHAN, Michael GARCIA MD Unavailable Unavailable FULEIHAN, Michael GARCIA MD Unavailable Unavailable FULEIHAN, Michael GARCIA MD Unavailable Unavailable Makhuli, N Zahi Unavailable Unavailable Makhuli, N Zahi Unavailable Unavailable Makhuli, N Zahi Unavailable Unavailable Makhuli, N Zahi Unavailable Unavailable Makhuli, N Zahi Unavailable Unavailable Makhuli, N Zahi Unavailable Unavailable Makhuli, N Zahi Unavailable Unavailable Makhuli, N Zahi Unavailable Unavailable Makhuli, N Zahi Unavailable Unavailable Makhuli, N Zahi Unavailable Unavailable Makhuli, N Zahi Unavailable Unavailable Makhuli, N Zahi Unavailable Unavailable Makhuli, N Zahi Unavailable Unavailable Makhuli, N Zahi Unavailable Unavailable Makhuli, N Zahi Unavailable Unavailable Makhuli, N Zahi Unavailable Unavailable Makhuli, N Zahi Unavailable Unavailable Makhuli, N Zahi Unavailable Unavailable Makhuli, N Zahi Unavailable Unavailable Makhuli, N Zahi Unavailable Unavailable Makhuli, N Zahi Unavailable Unavailable Makhuli, N Zahi Unavailable Unavailable Makhuli, N Zahi Unavailable Unavailable Makhuli, N Zahi Unavailable Unavailable Makhuli, N Zahi Unavailable Unavailable Makhuli, N Zahi Unavailable Unavailable Makhuli, N Zahi Unavailable Unavailable Makhuli, N Zahi Unavailable Unavailable Makhuli, N Zahi Unavailable Unavailable Makhuli, N Zahi Unavailable Unavailable Makhuli, N Zahi Unavailable Unavailable Makhuli, N Zahi Unavailable Unavailable Makhuli, N Zahi Unavailable Unavailable Makhuli, N Zahi Unavailable Unavailable Makhuli, N Zahi Unavailable Unavailable Makhuli, N Zahi Unavailable Unavailable Makhuli, N Zahi Unavailable Unavailable Makhuli, N Zahi Unavailable Unavailable Makhuli, N Zahi Unavailable Unavailable Makhuli, N Zahi Unavailable Unavailable Makhuli, N Zahi Unavailable Unavailable Makhuli, N Zahi Unavailable Unavailable Makhuli, N Zahi Unavailable Unavailable Makhuli, N Zahi Unavailable Unavailable Makhuli, N Zahi Unavailable Unavailable Makhuli, N Zahi Unavailable Unavailable Alex HERRERA Unavailable Unavailable Fish, B Alexandro POLK Unavailable Unavailable Fish, B Alexandro POLK Unavailable Unavailable Fish, B Alexandro POLK Unavailable Unavailable Fish, B Alexandro POLK Unavailable Unavailable Fish, B Alexandro POLK Unavailable Unavailable Fish, B Alexandro POLK Unavailable Unavailable Fish, B Alexandro POLK Unavailable Unavailable Fish, B Alexandro POLK Unavailable Unavailable Fish, B Alexandro POLK Unavailable Unavailable Fish, B Alexandro POLK Unavailable Unavailable Fish, B Alexandro POLK Unavailable Unavailable Fish, B Alexandro POLK Unavailable Unavailable Fish, B Alexandro POLK Unavailable Unavailable Fish, B Alexandro POLK Unavailable Unavailable Fish, B Alexandro POLK Unavailable Unavailable Fish, B Alexandro POLK Unavailable Unavailable Fish, B Alexandro POLK Unavailable Unavailable Fish, B Alexandro POLK Unavailable Unavailable Fish, B Alexandro POLK Unavailable Unavailable Fish, B Alexandro POLK Unavailable Unavailable Fish, B Alexandro POLK Unavailable Unavailable Fish, B Alexandro POLK Unavailable Unavailable Fish, B Alexandro POLK Unavailable Unavailable Fish, B Alexandro POLK Unavailable Unavailable Fish, B Alexandro POLK Unavailable Unavailable Fish, B Alexandro POLK Unavailable Unavailable Fish, B Alexandro POLK Unavailable Unavailable Fish, B Alexandro POLK Unavailable Unavailable Fish, B Alexandro POLK Unavailable Unavailable Fish, B Alexandro POLK Unavailable Unavailable Fish, B Alexandro POLK Unavailable Unavailable Fish, B Alexandro POLK Unavailable Unavailable Fish, B Alexandro POLK Unavailable Unavailable Fish, B Alexandro POLK Unavailable Unavailable Fish, B Alexandro POLK Unavailable Unavailable Fish, B Alexandro POLK Unavailable Unavailable Fish, B Alexandro POLK Unavailable Unavailable Fish, B Alexandro POLK Unavailable Unavailable Fish, B Alexandro POLK Unavailable Unavailable Fish, B Alexandro POLK Unavailable Unavailable Fish, B Alexandro POLK Unavailable Unavailable Fish, B Alexandro POLK Unavailable Unavailable Fish, B Alexandro POLK Unavailable Unavailable Fish, B Alexandro POLK Unavailable Unavailable Fish, B Alexandro POLK Unavailable Unavailable Fish, B Alexandro POLK Unavailable Unavailable Fish, B Alexandro POLK Unavailable Unavailable Fish, B Alexandro POLK Unavailable Unavailable Fish, B Alexandro POLK Unavailable Unavailable Fish, B Alexandro POLK Unavailable Unavailable Fish, B Alexandro POLK Unavailable Unavailable Fish, B Alexandro POLK Unavailable Unavailable Fish, B Alexandro POLK Unavailable Unavailable Alex TURNER Unavailable Unavailable Alex TURNER Unavailable Unavailable Alex TURNER Unavailable Unavailable Alex TURNER Unavailable Unavailable YUE, M CHRISSIE PA Unavailable Unavailable YUE, M CHRISSIE PA Unavailable Unavailable YUE, M CHRISSIE PA Unavailable Unavailable YUE, M CHRISSIE PA Unavailable Unavailable YUE, M CHRISSIE PA Unavailable Unavailable YUE, M CHRISSIE PA Unavailable Unavailable YUE, M CHRISSIE PA Unavailable Unavailable YUE, M CHRISSIE PA Unavailable Unavailable YUE, M CHRISSIE PA Unavailable Unavailable YUE, M CHRISSIE PA Unavailable Unavailable YUE, M CHRISSIE PA Unavailable Unavailable YUE, M CHRISSIE PA Unavailable Unavailable YUE, M CHRISSIE PA Unavailable Unavailable YUE, M CHRISSIE PA Unavailable Unavailable YUE, M CHRISSIE PA Unavailable Unavailable YUE, M CHRISSIE PA Unavailable Unavailable YUE, M CHRISSIE PA Unavailable Unavailable YUE, M CHRISSIE PA Unavailable Unavailable YUE, M CHRISSIE PA Unavailable Unavailable YUE, M CHRISSIE PA Unavailable Unavailable YUE, M CHRISSIE PA Unavailable Unavailable YUE, M CHRISSIE PA Unavailable Unavailable YUE, M CHRISSIE PA Unavailable Unavailable YUE, M CHRISSIE PA Unavailable Unavailable YUE, M CHRISSIE PA Unavailable Unavailable YUE, M CHRISSIE PA Unavailable Unavailable YUE, M CHRISSIE PA Unavailable Unavailable YUE, M CHRISSIE PA Unavailable Unavailable YUE, M CHRISSIE PA Unavailable Unavailable YUE, M CHRISSIE PA Unavailable Unavailable YUE, M CHRISSIE PA Unavailable Unavailable YUE, M CHRISSIE PA Unavailable Unavailable YUE, M CHRISSIE PA Unavailable Unavailable YUE, M CHRISSIE PA Unavailable Unavailable YUE, M CHRISSIE PA Unavailable Unavailable YUE, M CHRISSIE PA Unavailable Unavailable YUE, M CHRISSIE PA Unavailable Unavailable YUE, M CHRISSIE PA Unavailable Unavailable YUE, M CHRISSIE PA Unavailable Unavailable YUE, M CHRISSIE PA Unavailable Unavailable YUE, M CHRISSIE PA Unavailable Unavailable YUE, M CHRISSIE PA Unavailable Unavailable YUE, M CHRISSIE PA Unavailable Unavailable YUE, M CHRISSIE PA Unavailable Unavailable YUE, M CHRISSIE PA Unavailable Unavailable YUE, M CHRISSIE PA Unavailable Unavailable YUE, M CHRISSIE PA Unavailable Unavailable YUE, M CHRISSIE PA Unavailable Unavailable YUE, M CHRISSIE PA Unavailable Unavailable YUE, M CHRISSIE PA Unavailable Unavailable YUE, M CHRISSIE PA Unavailable Unavailable YUE, M CHRISSIE PA Unavailable Unavailable YUE, M CHRISSIE PA Unavailable Unavailable YUE, M CHRISSIE PA Unavailable Unavailable YUE, M CHRISSIE PA Unavailable Unavailable YUE, M CHRISSIE PA Unavailable Unavailable YUE, M CHRISSIE PA Unavailable Unavailable YUE, M CHRISSIE PA Unavailable Unavailable YUE, M CHRISSIE PA Unavailable Unavailable YUE, M CHRISSIE PA Unavailable Unavailable YUE, M CHRISSIE PA Unavailable Unavailable YUE, M CHRISSIE PA Unavailable Unavailable YUE, M CHRISSIE PA Unavailable Unavailable YUE, M CHRISSIE PA Unavailable Unavailable YUE, M CHRISSIE PA Unavailable Unavailable YUE, M CHRISSIE PA Unavailable Unavailable YUE, M CHRISSIE PA Unavailable Unavailable YUE, M CHRISSIE PA Unavailable Unavailable Alex Mittal MD Unavailable Unavailable Alex Mittal MD Unavailable Unavailable Alex Mittal MD Unavailable Unavailable Alex Mittal MD Unavailable Unavailable Alex Mittal MD Unavailable Unavailable Alex Mittal MD Unavailable Unavailable Alex Mittal MD Unavailable Unavailable Alex Mittal MD Unavailable Unavailable Alex Mittal MD Unavailable Unavailable Alex Mittal MD Unavailable Unavailable Alex Mittal MD Unavailable Unavailable Alex Mittal MD Unavailable Unavailable Alex Mittal MD Unavailable Unavailable Alex Mittal MD Unavailable Unavailable Alex Mittal MD Unavailable Unavailable Alex Mittal MD Unavailable Unavailable Alex Mittal MD Unavailable Unavailable Alex Mittal MD Unavailable Unavailable Alex Mittal MD Unavailable Unavailable Alex Mittal MD Unavailable Unavailable Alex Mittal MD Unavailable Unavailable Alex Mittal MD Unavailable Unavailable Alex Mittal MD Unavailable Unavailable Alex Mittal MD Unavailable Unavailable Alex Mittal MD Unavailable Unavailable Alex Mittal MD Unavailable Unavailable Alex Mittal MD Unavailable Unavailable Alex Mittal MD Unavailable Unavailable Alex Mittal MD Unavailable Unavailable Alex Mittal MD Unavailable Unavailable Alex Mittal MD Unavailable Unavailable Alex Mittal MD Unavailable Unavailable Alex Mittal MD Unavailable Unavailable Alex Mittal MD Unavailable Unavailable Alex Mittal MD Unavailable Unavailable Alex Mittal MD Unavailable Unavailable Alex Mittal MD Unavailable Unavailable Alex Mittal MD Unavailable Unavailable Alex Mittal MD Unavailable Unavailable Alex Mittal MD Unavailable Unavailable Alex Mittal MD Unavailable Unavailable Alex Mittal MD Unavailable Unavailable Alex Mittal MD Unavailable Unavailable Alex Mittal MD Unavailable Unavailable Alex Mittal MD Unavailable Unavailable Alex Mittal MD Unavailable Unavailable Alex Mittal MD Unavailable Unavailable Alex Mittal MD Unavailable Unavailable Alex Mittal MD Unavailable Unavailable Alex Mittal MD Unavailable Unavailable Alex Mittal MD Unavailable Unavailable Alex Mittal MD Unavailable Unavailable Alex Mittal MD Unavailable Unavailable Alex Mittal MD Unavailable Unavailable Alex Mittal MD Unavailable Unavailable Alexis, J Elaina TAG CLERK Unavailable Unavailable Alexis, J Elaina TAG CLERK Unavailable Unavailable Alexis, J Elaina TAG CLERK Unavailable Unavailable Alexis, J Elaina TAG CLERK Unavailable Unavailable Alexis, J Elaina TAG CLERK Unavailable Unavailable Alexis, J Elaina TAG CLERK Unavailable Unavailable Alexis, J Elaina TAG CLERK Unavailable Unavailable Alexis, J Elaina TAG CLERK Unavailable Unavailable Alexis, J Elaina TAG CLERK Unavailable Unavailable Alexis, J Elaina TAG CLERK Unavailable Unavailable Alexis, J Elaina TAG CLERK Unavailable Unavailable Alexis, J Elaina TAG CLERK Unavailable Unavailable Alexis, J Elaina TAG CLERK Unavailable Unavailable Alexis, J Elaina TAG CLERK Unavailable Unavailable Alexis, J Elaina TAG CLERK Unavailable Unavailable Alexis, J Elaina TAG CLERK Unavailable Unavailable Alexis, J Elaina TAG CLERK Unavailable Unavailable Alexis, J Elaina TAG CLERK Unavailable Unavailable Alexis, J Elaina TAG CLERK Unavailable Unavailable Alexis, J Elaina TAG CLERK Unavailable Unavailable Alexis, J Elaina TAG CLERK Unavailable Unavailable Alexis, J Elaina TAG CLERK Unavailable Unavailable Alexis, J Elaina TAG CLERK Unavailable Unavailable Alexis, J Elaina TAG CLERK Unavailable Unavailable Alexis, J Elaina TAG CLERK Unavailable Unavailable Alexis, J Elaina TAG CLERK Unavailable Unavailable Alexis, J Elaina TAG CLERK Unavailable Unavailable Alexis, J Elaina TAG CLERK Unavailable Unavailable Alexis, J Elaina TAG CLERK Unavailable Unavailable Alexis, J Elaina TAG CLERK Unavailable Unavailable Alexis, J Elaina TAG CLERK Unavailable Unavailable Alexis, J Elaina TAG CLERK Unavailable Unavailable Alexis, J Elaina TAG CLERK Unavailable Unavailable Alexis, J Elaina TAG CLERK Unavailable Unavailable Makhuli, N Zahi Unavailable Unavailable Makhuli, N Zahi Unavailable Unavailable Makhuli, N Zahi Unavailable Unavailable Makhuli, N Zahi Unavailable Unavailable Makhuli, N Zahi Unavailable Unavailable Makhuli, N Zahi Unavailable Unavailable Makhuli, N Zahi Unavailable Unavailable Makhuli, N Zahi Unavailable Unavailable Makhuli, N Zahi Unavailable Unavailable Makhuli, N Zahi Unavailable Unavailable Makhuli, N Zahi Unavailable Unavailable Makhuli, N Zahi Unavailable Unavailable Makhuli, N Zahi Unavailable Unavailable Makhuli, N Zahi Unavailable Unavailable Makhuli, N Zahi Unavailable Unavailable Makhuli, N Zahi Unavailable Unavailable Makhuli, N Zahi Unavailable Unavailable Makhuli, N Zahi Unavailable Unavailable Makhuli, N Zahi Unavailable Unavailable Makhuli, N Zahi Unavailable Unavailable Makhuli, N Zahi Unavailable Unavailable Makhuli, N Zahi Unavailable Unavailable Makhuli, N Zahi Unavailable Unavailable Makhuli, N Zahi Unavailable Unavailable Makhuli, N Zahi Unavailable Unavailable Makhuli, N Zahi Unavailable Unavailable Makhuli, N Zahi Unavailable Unavailable Makhuli, N Zahi Unavailable Unavailable Makhuli, N Zahi Unavailable Unavailable Makhuli, N Zahi Unavailable Unavailable Makhuli, N Zahi Unavailable Unavailable Makhuli, N Zahi Unavailable Unavailable Makhuli, N Zahi Unavailable Unavailable Makhuli, N Zahi Unavailable Unavailable Makhuli, N Zahi Unavailable Unavailable Makhuli, N Zahi Unavailable Unavailable Makhuli, N Zahi Unavailable Unavailable Makhuli, N Zahi Unavailable Unavailable Makhuli, N Zahi Unavailable Unavailable Makhuli, N Zahi Unavailable Unavailable Makhuli, N Zahi Unavailable Unavailable Makhuli, N Zahi Unavailable Unavailable Makhuli, N Zahi Unavailable Unavailable Makhuli, N Zahi Unavailable Unavailable Makhuli, N Zahi Unavailable Unavailable Makhuli, N Zahi Unavailable Unavailable Justin Pfeiffer MD Unavailable Unavailable Justin Pfeiffer MD Unavailable Unavailable Justin Pfeiffer MD Unavailable Unavailable Justin Pfeiffer MD Unavailable Unavailable Justin Pfeiffer MD Unavailable Unavailable Justin Pfeiffer MD Unavailable Unavailable Justin Pfeiffer MD Unavailable Unavailable Justin Pfeiffer MD Unavailable Unavailable Justin Pfeiffer MD Unavailable Unavailable Justin Pfeiffer MD Unavailable Unavailable Justin Pfeiffer MD Unavailable Unavailable Justin Pfeiffer MD Unavailable Unavailable Justin Pfeiffer MD Unavailable Unavailable Justin Pfeiffer MD Unavailable Unavailable Justin Pfeiffer MD Unavailable Unavailable Justin Pfeiffer MD Unavailable Unavailable Justin Pfeiffer MD Unavailable Unavailable Justin Pfeiffer MD Unavailable Unavailable Justin Pfeiffer MD Unavailable Unavailable Justin Pfeiffer MD Unavailable Unavailable Justin Pfeiffer MD Unavailable Unavailable Justin Pfeiffer MD Unavailable Unavailable Justin Pfeiffer MD Unavailable Unavailable Justin Pfeiffer MD Unavailable Unavailable Justin Pfeiffer MD Unavailable Unavailable Justin Pfeiffer MD Unavailable Unavailable Justin Pfeiffer MD Unavailable Unavailable Justin Pfeiffer MD Unavailable Unavailable Justin Pfeiffer MD Unavailable Unavailable Justin Pfeiffer MD Unavailable Unavailable Justin Pfeiffer MD Unavailable Unavailable Justin Pfeiffer MD Unavailable Unavailable Justin Pfeiffer MD Unavailable Unavailable Justin Pfeiffer MD Unavailable Unavailable Justin Pfeiffer MD Unavailable Unavailable Justin Pfeiffer MD Unavailable Unavailable Justin Pfeiffer MD Unavailable Unavailable Margarette, Justin POLK Unavailable Unavailable Justin Pfeiffer MD Unavailable Unavailable FULEIHAN, Michael GARCIA MD Unavailable Unavailable FULEIHAN, Michael GARCIA MD Unavailable Unavailable FULEIHAN, Michael GARCIA MD Unavailable Unavailable FULEIHAN, Michael GARCIA MD Unavailable Unavailable FULEIHAN, Michael GARCIA MD Unavailable Unavailable FULEIHAN, Michael GARCIA MD Unavailable Unavailable FULEIHAN, Michael GARCIA MD Unavailable Unavailable FULEIHAN, Michael GARCIA MD Unavailable Unavailable FULEIHAN, Michael GARCIA MD Unavailable Unavailable FULEIHAN, Michael GARCIA MD Unavailable Unavailable FULEIHAN, Michael GARCIA MD Unavailable Unavailable FULEIHAN, Michael GARCIA MD Unavailable Unavailable FULEIHAN, Michael GARCIA MD Unavailable Unavailable FULEIHAN, Michael GARCIA MD Unavailable Unavailable FULEIHAN, Michael GARCIA MD Unavailable Unavailable FULEIHAN, Michael GARCIA MD Unavailable Unavailable FULEIHAN, Michael GARCIA MD Unavailable Unavailable FULEIHAN, Michael GARCIA MD Unavailable Unavailable FULEIHAN, Michael GARCIA MD Unavailable Unavailable FULEIHAN, Michael GARCIA MD Unavailable Unavailable FULEIHAN, Michael GARCIA MD Unavailable Unavailable FULEIHAN, Michael GARCIA MD Unavailable Unavailable FULEIHAN, Michael GARCIA MD Unavailable Unavailable FULEIHAN, Michael GARCIA MD Unavailable Unavailable FULEIHAN, Michael GARCIA MD Unavailable Unavailable FULEIHAN, Michael GARCIA MD Unavailable Unavailable FULEIHAN, Michael GARCIA MD Unavailable Unavailable FULEIHAN, Michael GARCIA MD Unavailable Unavailable FULEIHAN, Michael GARCIA MD Unavailable Unavailable FULEIHAN, Michael GARCIA MD Unavailable Unavailable FULEIHAN, Michael GARCIA MD Unavailable Unavailable FULEIHAN, Michael GARCIA MD Unavailable Unavailable FULEIHAN, Michael GARCIA MD Unavailable Unavailable FULEIHAN, Michael GARCIA MD Unavailable Unavailable FULEIHAN, Michael GARCIA MD Unavailable Unavailable FULEIHAN, Michael GARCIA MD Unavailable Unavailable FULEIHAN, Michael GARCIA MD Unavailable Unavailable FULEIHAN, Michael GARCIA MD Unavailable Unavailable FULEIHAN, Michael GARCIA MD Unavailable Unavailable FULEIHAN, Michael GARCIA MD Unavailable Unavailable FULEIHAN, Michael GARCIA MD Unavailable Unavailable FULEIHAN, Michael GARCIA MD Unavailable Unavailable FULEIHAN, Michael GARCIA MD Unavailable Unavailable FULEIHAN, Michael GARCIA MD Unavailable Unavailable FULEIHAN, Michael GARCIA MD Unavailable Unavailable FULEIHAN, Michael GARCIA MD Unavailable Unavailable FULEIHAN, Michael GARCIA MD Unavailable Unavailable FULEIHAN, Michael GARCIA MD Unavailable Unavailable FULEIHAN, Michael GARCIA MD Unavailable Unavailable FULEIHAN, Michael GARCIA MD Unavailable Unavailable FULEIHAN, Michael GARCIA MD Unavailable Unavailable FULEIHAN, Michael GARCIA MD Unavailable Unavailable FULEIHAN, Michael GARCIA MD Unavailable Unavailable FULEIHAN, Michael GARCIA MD Unavailable Unavailable FULEIHAN, Michael GARCIA MD Unavailable Unavailable FULEIHAN, Michael GARCIA MD Unavailable Unavailable FULEIHAN, Michael GARCIA MD Unavailable Unavailable FULEIHAN, Michael GARCIA MD Unavailable Unavailable FULEIHAN, Michael GARCIA MD Unavailable Unavailable FULEIHAN, Michael GARCIA MD Unavailable Unavailable FULEIHAN, Michael GARCIA MD Unavailable Unavailable FULEIHAN, Michael GARCIA MD Unavailable Unavailable FULEIHAN, Michael GARCIA MD Unavailable Unavailable FULEIHAN, Michael GARCIA MD Unavailable Unavailable FULEIHAN, Michael GARCIA MD Unavailable Unavailable FULEIHAN, Michael GARCIA MD Unavailable Unavailable FULEIHAN, Michael GARCIA MD Unavailable Unavailable FULEIHAN, Michael GARCIA MD Unavailable Unavailable FULEIHAN, Michael GARCIA MD Unavailable Unavailable FULEIHAN, Michael GARCIA MD Unavailable Unavailable FULEIHAN, Michael GARCIA MD Unavailable Unavailable FULEIHAN, Michael GARCIA MD Unavailable Unavailable FULEIHAN, Michael GARCIA MD Unavailable Unavailable FULEIHAN, Michael GARCIA MD Unavailable Unavailable FULEIHAN, Michael GARCIA MD Unavailable Unavailable FULEIHAN, Michael GARCIA MD Unavailable Unavailable FULEIHAN, Michael GARCIA MD Unavailable Unavailable FULEIHAN, Michael GARCIA MD Unavailable Unavailable FULEIHAN, Michael GARCIA MD Unavailable Unavailable FULEIHAN, Michael GARCIA MD Unavailable Unavailable FULEIHAN, Michael GARCIA MD Unavailable Unavailable FULEIHAN, Michael GARCIA MD Unavailable Unavailable FULEIHAN, Michael GARCIA MD Unavailable Unavailable FULEIHAN, Michael GARCIA MD Unavailable Unavailable FULEIHAN, Michael GARCIA MD Unavailable Unavailable Aridgides, Nat Goldman MD Unavailable Unavailable AridgidesNat MD Unavailable Unavailable AridgidesNat MD Unavailable Unavailable AridgidesNat MD Unavailable Unavailable Aridgides, Nat Goldman MD Unavailable Unavailable Aridgides, Nat Goldman MD Unavailable Unavailable Aridgides, Nat Goldman MD Unavailable Unavailable AridgidesNat MD Unavailable Unavailable Aridgides, Nat Goldman MD Unavailable Unavailable AridgidesNat MD Unavailable Unavailable AridgidesNat MD Unavailable Unavailable Aridgides, Nat Goldman MD Unavailable Unavailable Aridgides, Nat Goldman MD Unavailable Unavailable Aridgides, Nat Jones MD Unavailable Unavailable Nat Acevedo MD Unavailable Unavailable Nat Acevedo MD Unavailable Unavailable Nat Acevedo MD Unavailable Unavailable Nat Acevedo MD Unavailable Unavailable Nat Acevedo MD Unavailable Unavailable Nat Acevedo MD Unavailable Unavailable Nat Acevedo MD Unavailable Unavailable Nat Acevedo MD Unavailable Unavailable Nat Acevedo MD Unavailable Unavailable Nat Acevedo MD Unavailable Unavailable Nat Acevedo MD Unavailable Unavailable Nat Acevedo MD Unavailable Unavailable Nat Acevedo MD Unavailable Unavailable Nat Acevedo MD Unavailable Unavailable Nat Acevedo MD Unavailable Unavailable Nat Acevedo MD Unavailable Unavailable GREENKY, B JE MD Unavailable Unavailable GREENKY, B EJ MD Unavailable Unavailable GREENKY, B EJ MD Unavailable Unavailable GREENKY, B EJ MD Unavailable Unavailable GREENKY, B EJ MD Unavailable Unavailable GREENKY, B EJ MD Unavailable Unavailable GREENKY, B EJ MD Unavailable Unavailable GREENKY, B EJ MD Unavailable Unavailable GREENKY, B EJ MD Unavailable Unavailable GREENKY, B EJ MD Unavailable Unavailable GREENKY, B EJ MD Unavailable Unavailable GREENKY, B EJ MD Unavailable Unavailable GREENKY, B EJ MD Unavailable Unavailable GREENKY, B EJ MD Unavailable Unavailable GREENKY, B EJ MD Unavailable Unavailable GREENKY, B EJ MD Unavailable Unavailable GREENKY, B EJ MD Unavailable Unavailable GREENKY, B EJ MD Unavailable Unavailable GREENKY, B EJ MD Unavailable Unavailable GREENKY, B EJ MD Unavailable Unavailable GREENKY, B EJ MD Unavailable Unavailable GREENKY, B EJ MD Unavailable Unavailable GREENKY, B EJ MD Unavailable Unavailable GREENKY, B EJ MD Unavailable Unavailable GREENKY, B EJ MD Unavailable Unavailable GREENKY, B EJ MD Unavailable Unavailable GREENKY, B EJ MD Unavailable Unavailable GREENKY, B EJ MD Unavailable Unavailable GREENKY, B EJ MD Unavailable Unavailable GREENKY, B EJ MD Unavailable Unavailable GREENKY, B EJ MD Unavailable Unavailable GREENKY, B EJ MD Unavailable Unavailable GREENKY, B EJ MD Unavailable Unavailable GREENKY, B EJ MD Unavailable Unavailable GREENKY, B EJ MD Unavailable Unavailable GREENKY, B EJ MD Unavailable Unavailable GREENKY, B EJ MD Unavailable Unavailable GREENKY, B EJ MD Unavailable Unavailable GREENKY, B EJ MD Unavailable Unavailable GREENKY, B EJ MD Unavailable Unavailable GREENKY, B EJ MD Unavailable Unavailable GREENKY, B EJ MD Unavailable Unavailable GREENKY, B EJ MD Unavailable Unavailable GREENKY, B EJ MD Unavailable Unavailable GREENKY, B EJ MD Unavailable Unavailable GREENKY, B EJ MD Unavailable Unavailable GREENKY, B EJ MD Unavailable Unavailable GREENKY, B EJ MD Unavailable Unavailable GREENKY, B EJ MD Unavailable Unavailable GREENKY, B EJ MD Unavailable Unavailable GREENKY, B EJ MD Unavailable Unavailable GREENKY, B EJ MD Unavailable Unavailable GREENKY, B EJ MD Unavailable Unavailable GREENKY, B EJ MD Unavailable Unavailable GREENKY, B EJ MD Unavailable Unavailable GREENKY, B EJ MD Unavailable Unavailable GREENKY, B EJ MD Unavailable Unavailable GREENKY, B EJ MD Unavailable Unavailable GREENKY, B EJ MD Unavailable Unavailable GREENKY, B EJ MD Unavailable Unavailable GREENKY, B EJ MD Unavailable Unavailable GREENKY, B EJ MD Unavailable Unavailable GREENKY, B EJ MD Unavailable Unavailable GREENKY, B EJ MD Unavailable Unavailable GREENKY, B EJ MD Unavailable Unavailable GREENKY, B EJ MD Unavailable Unavailable GREENKY, B EJ MD Unavailable Unavailable GREENKY, B EJ MD Unavailable Unavailable GREENKY, B EJ MD Unavailable Unavailable GREENKY, B EJ MD Unavailable Unavailable GREENKY, B EJ MD Unavailable Unavailable GREENKY, B EJ MD Unavailable Unavailable GREENKY, B EJ MD Unavailable Unavailable GREENKY, B EJ MD Unavailable Unavailable GREENKY, B EJ MD Unavailable Unavailable GREENKY, B EJ MD Unavailable Unavailable GREENKY, B EJ MD Unavailable Unavailable GREENKY, B EJ MD Unavailable Unavailable GREENKY, B EJ MD Unavailable Unavailable GREENKY, B EJ MD Unavailable Unavailable GREENKY, B EJ MD Unavailable Unavailable GREENKY, B EJ MD Unavailable Unavailable GREENKY, B EJ MD Unavailable Unavailable GREENKY, B EJ MD Unavailable Unavailable GREENKY, B EJ MD Unavailable Unavailable GREENKY, B EJ MD Unavailable Unavailable GREENKY, B EJ MD Unavailable Unavailable GREENKY, B EJ MD Unavailable Unavailable GREENKY, B EJ MD Unavailable Unavailable GREENKY, B EJ MD Unavailable Unavailable BONIFACIO De La O, Marialuisa Unavailable Justin Pfeiffer MD Unavailable Unavailable Justin Pfeiffer MD Unavailable Unavailable Justin Pfeiffer MD Unavailable Unavailable Justin Pfeiffer MD Unavailable Unavailable Justin Pfeiffer MD Unavailable Unavailable Justin Pfeiffer MD Unavailable Unavailable Justin Pfeiffer MD Unavailable Unavailable Justin Pfeiffer MD Unavailable Unavailable Justin Pfeiffer MD Unavailable Unavailable Justin Pfeiffer MD Unavailable Unavailable Justin Pfeiffer MD Unavailable Unavailable Justin Pfeiffer MD Unavailable Unavailable Justin Pfeiffer MD Unavailable Unavailable Justin Pfeiffer MD Unavailable Unavailable Justin Pfeiffer MD Unavailable Unavailable Justin Pfeiffer MD Unavailable Unavailable Justin Pfeiffer MD Unavailable Unavailable Justin Pfeiffer MD Unavailable Unavailable Justin Pfeiffer MD Unavailable Unavailable Justin Pfeiffer MD Unavailable Unavailable Justin Pfeiffer MD Unavailable Unavailable Justin Pfeiffer MD Unavailable Unavailable Justin Pfeiffer MD Unavailable Unavailable Justin Pfeiffer MD Unavailable Unavailable Justin Pfeiffer MD Unavailable Unavailable Justin Pfeiffer MD Unavailable Unavailable Justin Pfeiffer MD Unavailable Unavailable Justin Pfeiffer MD Unavailable Unavailable Justin Pfeiffer MD Unavailable Unavailable Justin Pfeiffer MD Unavailable Unavailable Justin Pfeiffer MD Unavailable Unavailable Justin Pfeiffer MD Unavailable Unavailable Justin Pfeiffer MD Unavailable Unavailable Justin Pfeiffer MD Unavailable Unavailable Justin Pfeiffer MD Unavailable Unavailable Justin Pfeiffer MD Unavailable Unavailable Justin Pfeiffer MD Unavailable Unavailable Justin Pfeiffer MD Unavailable Unavailable Justin Pfeiffer MD Unavailable Unavailable DOWNCANDIDO, T EDMK POLK Unavailable Unavailable DOWNING, T EDWARD MD Unavailable Unavailable DOWNING, T EDWARD MD Unavailable Unavailable DOWNING, T EDWARD MD Unavailable Unavailable DOWNING, T EDWARD MD Unavailable Unavailable DOWNING, T EDWARD MD Unavailable Unavailable DOWNING, T EDWARD MD Unavailable Unavailable DOWNING, T EDWARD MD Unavailable Unavailable DOWNING, T EDWARD MD Unavailable Unavailable DOWNING, T EDWARD MD Unavailable Unavailable DOWNING, T EDWARD MD Unavailable Unavailable DOWNING, T EDWARD MD Unavailable Unavailable DOWNING, T EDWARD MD Unavailable Unavailable DOWNING, T EDWARD MD Unavailable Unavailable DOWNING, T EDWARD MD Unavailable Unavailable DOWNING, T EDWARD MD Unavailable Unavailable DOWNING, T EDWARD MD Unavailable Unavailable DOWNING, T EDWARD MD Unavailable Unavailable DOWNING, T EDWARD MD Unavailable Unavailable DOWNING, T EDWARD MD Unavailable Unavailable DOWNING, T EDWARD MD Unavailable Unavailable DOWNING, T EDWARD MD Unavailable Unavailable DOWNING, T EDWARD MD Unavailable Unavailable DOWNING, T EDWARD MD Unavailable Unavailable DOWNING, T EDWARD MD Unavailable Unavailable DOWNING, T EDWARD MD Unavailable Unavailable DOWNING, T EDWARD MD Unavailable Unavailable DOWNING, T EDWARD MD Unavailable Unavailable DOWNING, T EDWARD MD Unavailable Unavailable DOWNING, T EDWARD MD Unavailable Unavailable DOWNING, T EDWARD MD Unavailable Unavailable DOWNING, T EDWARD MD Unavailable Unavailable DOWNING, T EDWARD MD Unavailable Unavailable DOWNING, T EDWARD MD Unavailable Unavailable DOWNING, T EDWARD MD Unavailable Unavailable DOWNING, T EDWARD MD Unavailable Unavailable DOWNING, T EDWARD MD Unavailable Unavailable DOWNING, T EDWARD MD Unavailable Unavailable DOWNING, T EDWARD MD Unavailable Unavailable DOWNING, T EDWARD MD Unavailable Unavailable DOWNING, T EDWARD MD Unavailable Unavailable DOWNING, T EDWARD MD Unavailable Unavailable DOWNING, T EDWARD MD Unavailable Unavailable DOWNING, T EDWARD MD Unavailable Unavailable DOWNING, T EDWARD MD Unavailable Unavailable DOWNING, T EDWARD MD Unavailable Unavailable DOWNING, T EDWARD MD Unavailable Unavailable DOWNING, T EDWARD MD Unavailable Unavailable DOWNING, T EDWARD MD Unavailable Unavailable DOWNING, T EDWARD MD Unavailable Unavailable DOWNING, T EDWARD MD Unavailable Unavailable DOWNING, T EDWARD MD Unavailable Unavailable DOWNING, T EDWARD MD Unavailable Unavailable DOWNING, T EDWARD MD Unavailable Unavailable DOWNING, T EDWARD MD Unavailable Unavailable DOWNING, T EDWARD MD Unavailable Unavailable DOWNING, T EDWARD MD Unavailable Unavailable DOWNING, T EDWARD MD Unavailable Unavailable DOWNING, T EDWARD MD Unavailable Unavailable DOWNING, T EDWARD MD Unavailable Unavailable DOWNING, T EDWARD MD Unavailable Unavailable DOWNING, T EDWARD MD Unavailable Unavailable DOWNING, T EDWARD MD Unavailable Unavailable DOWNING, T EDWARD MD Unavailable Unavailable DOWNING, T EDWARD MD Unavailable Unavailable DOWNING, T EDWARD MD Unavailable Unavailable lAex TURNER Unavailable Unavailable Alex TURNER Unavailable Unavailable Alex TURNER Unavailable Unavailable Alex TURNER Unavailable Unavailable YUE, M CHRISSIE PA Unavailable Unavailable YUE, M CHRISSIE PA Unavailable Unavailable YUE, M CHRISSIE PA Unavailable Unavailable YUE, M CHRISSIE PA Unavailable Unavailable YUE, M CHRISSIE PA Unavailable Unavailable YUE, M CHRISSIE PA Unavailable Unavailable YUE, M CHRISSIE PA Unavailable Unavailable YUE, M CHRISSIE PA Unavailable Unavailable YUE, M CHRISSIE PA Unavailable Unavailable YUE, M CHRISSIE PA Unavailable Unavailable YUE, M CHRISSIE PA Unavailable Unavailable YUE, M CHRISSIE PA Unavailable Unavailable YEU, M CHRISSIE PA Unavailable Unavailable YUE, M CHRISSIE PA Unavailable Unavailable YUE, M CHRISSIE PA Unavailable Unavailable YUE, M CHRISSIE PA Unavailable Unavailable YUE, M CHRISSIE PA Unavailable Unavailable YUE, M CHRISSIE PA Unavailable Unavailable YUE, M CHRISSIE PA Unavailable Unavailable YUE, M CHRISSIE PA Unavailable Unavailable YUE, M CHRISSIE PA Unavailable Unavailable YUE, M CHRISSIE PA Unavailable Unavailable YUE, M CHRISSIE PA Unavailable Unavailable YUE, M CHRISSIE PA Unavailable Unavailable YUE, M CHRISSIE PA Unavailable Unavailable YUE, M CHRISSIE PA Unavailable Unavailable YUE, M CHRISSIE PA Unavailable Unavailable YUE, M CHRISSIE PA Unavailable Unavailable YUE, M CHRISSIE PA Unavailable Unavailable YUE, M CHRISSIE PA Unavailable Unavailable YUE, M CHRISSIE PA Unavailable Unavailable YUE, M CHRISSIE PA Unavailable Unavailable YUE, M CHRISSIE PA Unavailable Unavailable YUE, M CHRISSIE PA Unavailable Unavailable YUE, M CHRISSIE PA Unavailable Unavailable YUE, M CHRISSIE PA Unavailable Unavailable YUE, M CHRISSIE PA Unavailable Unavailable YUE, M CHRISSIE PA Unavailable Unavailable YUE, M CHRISSIE PA Unavailable Unavailable YUE, M CHRISSIE PA Unavailable Unavailable YUE, M CRHISSIE PA Unavailable Unavailable YUE, M CHRISSIE PA Unavailable Unavailable YUE, M CHRISSIE PA Unavailable Unavailable YUE, M CHRISSIE PA Unavailable Unavailable YUE, M CHRISSIE PA Unavailable Unavailable YUE, M CHRISSIE PA Unavailable Unavailable YUE, M CHRISSIE PA Unavailable Unavailable YUE, M CHRISSIE PA Unavailable Unavailable YUE, M CHRISSIE PA Unavailable Unavailable YUE, M CHRISSIE PA Unavailable Unavailable YUE, M CHRISSIE PA Unavailable Unavailable YUE, M CHRISSIE PA Unavailable Unavailable YUE, M CHRISSIE PA Unavailable Unavailable YUE, M CHRISSIE PA Unavailable Unavailable YUE, M CHRISSIE PA Unavailable Unavailable YUE, M CHRISSIE PA Unavailable Unavailable YUE, M CHRISSIE PA Unavailable Unavailable YUE, M CHRISSIE PA Unavailable Unavailable YUE, M CHRISSIE PA Unavailable Unavailable YUE, M CHRISSIE PA Unavailable Unavailable YEU, M CHRISSIE PA Unavailable Unavailable YUE, M CHRISSIE PA Unavailable Unavailable YUE, M CHRISSIE PA Unavailable Unavailable YUE, M CHRISSIE PA Unavailable Unavailable YUEAlex NAYAK Unavailable Unavailable Alex TURNER Unavailable Unavailable Alex TURNER Unavailable Unavailable YUEAlex NAYAK Unavailable Unavailable Re-disclosure Warning The records that you are about to access may contain information from federally-assisted alcohol or drug abuse programs. If such information is present, then the following federally mandated warning applies: This information has been disclosed to you from records protected by federal confidentiality rules (42 CFR part 2). The federal rules prohibit you from making any further disclosure of this information unless further disclosure is expressly permitted by the written consent of the person to whom it pertains or as otherwise permitted by 42 CFR part 2. A general authorization for the release of medical or other information is NOT sufficient for this purpose. The Federal rules restrict any use of the information to criminally investigate or prosecute any alcohol or drug abuse patient.The records that you are about to access may contain highly sensitive health information, the redisclosure of which is protected by Article 27-F of the [facility] Public Health law. If you continue you may have access to information: Regarding HIV / AIDS; Provided by facilities licensed or operated by the [facility] Office of Mental Health; or Provided by the [facility] Office for People With Developmental Disabilities. If such information is present, then the following [facility] mandated warning applies: This information has been disclosed to you from confidential records which are protected by state law. State law prohibits you from making any further disclosure of this information without the specific written consent of the person to whom it pertains, or as otherwise permitted by law. Any unauthorized further disclosure in violation of state law may result in a fine or intermediate sentence or both. A general authorization for the release of medical or other information is NOT sufficient authorization for further disc losure. 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 Expiration date unspecified Vonda murrieta [facility] ([facility] ) Allergies and Adverse Reactions Type Description Substance Reaction Status Data Source(s ) Allergy Allergy No Known Drug Allergies Active A [facility] ([facility]) Drug allergy Penicillins Penicillins Active [place] ( [facility]) Drug allergy Spironolactone Spironolactone Active [place] ([facility]) Drug allergy Penicillins Penicillins Active JESSICA ( [facility]) Drug allergy Spironolactone Spironolactone Active [place] ([facility]) Drug allergy Penicillins Penicillins Active JESSICA ( [facility]) Drug allergy Spironolactone Spironolactone Active [place] ([facility]) Drug allergy Penicillins Penicillins Active JESSICA ( [facility]) Drug allergy Spironolactone Spironolactone Active [place] ([facility]) Family History Family Member Name Family Member Gender Family Member Status Date o f Status Description Data Source(s) Unknown Female Problem [facility] ([facility]) Encounters Encounter Providers Location Date Indications Data Source(s ) Outpatient Attender: Justin Pfeiffer MD 01/21/2021 12:00:00 AM [facility] Outpatient Attender: Justin Pfeiffer [facility] 12:00:00 AM EST Malignant neoplasm of prostate [facility] Malignant neoplasm of prostate Outpatient Attender: Justin Pfeiffer MD 07/11/2020 02:50:00 PM [facility] Outpatient Attender: Justin Pfeiffer MD 06/18/2020 12:00:00 AM [facility] Office Visit<td><content ID="_[id number]">Office Visit</content>
<content><content styleCode="xLabel xSecondary">Encounter Reason</content>: <content [id number]" styleCode="xSecondary">COPD - The referring provider is CHRISSIE DORADO (The patient has a history of CAD, and cardiomyopathy. Ejection fraction 2013 was 40-45% and more recent study in September 2018 was normal. He also has carotid artery disorder, valvular heart disease with mitral regurgitation. His had congestive heart failure in the past. Also hypertension, dyslipidemia, prostate carcinoma, and COPD. He denies childhood respiratory disease or asthma. Denies allergic rhinitis. He has never had pneumonia. He smoked one pack of cigarettes daily from age 17 to age 52. His brother and father had emphysema. He was previously seen by a bench worker binding in [place], Dr. Castañeda. He states he was tried [...] that time unless he bends forward.). The last office visit was 6 month(s) ago. No changes in management were made at the [...] by smoking. Symptoms are relieved by inhaler use and rest. Associated symptoms include leg edema (LEFT, AFTER KNEE REPLACEMENT), while associated symptoms do not include fever. Current treatment includes inhaled albuterol, inhaled [...] to do activities of daily living with limitations.</content><content styleCode="xSecondary">, </content><content [id number]" styleCode="xSecondary"> [ADDITIONAL REASON] ASTHMA, FOLLOW UP - The patient's asthma causes daytime symptoms 1 to 2 times per month. The patient's asthma is not disturbing sleep. </content></content>
<content><content styleCode="xSecondary xLabel">Encounter Diagnosis</content>: <content ID="_[id number]" styleCode="xSecondary">COPD, SEVERE</content><content styleCode="xSecondary">, </content><content [id number]" styleCode="xSecondary">ASTHMA</content><content styleCode="xSecondary">, </content><content ID="_[id number]" styleCode="xSecondary">DYSPHAGIA</content></content></td><td><content styleCode="xSecondary">15-Apr-2020 14:15 </content><content styleCode="xLabel xSecondary"> To </content><content styleCode="xSecondary">15-Apr-2020 14:37</content>
<content styleCode="xSecondary">[facility] Office</content></td><td></td> [facility] 04/15/2020 02:15:00 PM EST - 04/15/2020 02:37:34 PM EST [ADDITIONAL REASON] ASTHMA, FOLLOW UP - The patient's asthma causes daytime symptoms 1 to 2 times per month. The patient's asthma is not disturbing sleep.COPD - The referring provider is CHRISSIE DORADO (The patient has a history of CAD, and cardiomyopathy. Ejection fraction 2013 was 40-45% and more recent study in September 2018 was normal. He also has carotid artery disorder, valvular heart disease with mitral regurgitation. His had congestive heart failure in the past. Also hypertension, dyslipidemia, prostate carcinoma, and COPD. He denies childhood respiratory disease or asthma. Denies allergic rhinitis. He has never had pneumonia. He smoked one pack of cigarettes daily from age 17 to age 52. His brother and father had emphysema. He was previously seen by a bench worker binding in [place], Dr. Castañeda. He states he was tried [...] since that time unless he bends forward.). T he last office visit was 6 month(s) ago. No changes in management were made at the [...] by smoking. Symptoms are relieved by inhaler use and rest. Associated symptoms include leg edema (LEFT, AFTER KNEE REPLACEMENT), while associated symptoms do not include fever. Current treatment includes inhaled albuterol, inhaled long-acting beta-2 agonists and inhaled anticholinergics. By report there is good compliance with treatment, good tolerance of treatment and fair symptom control. Pertinent medical history includes smoking (has quit), while pertinent medical history does not include steroid dependency, prior i ntubation and ventilator therapy or tracheostomy. The patient is currently able to do activities of daily living with limitations.DYSPHAGIAASTHMACOPD, SEVERE [employer] ([facility]) [ADDITIONAL REASON] ASTHMA, FOLLOW UP - The patient's asthma causes daytime symptoms 1 to 2 times per month. The patient's asthma is not disturbing sleep. COPD - The referring provider is CHRISSIE DORADO (The patient has a history of CAD, and cardiomyopathy. Ejection fraction 2013 was 40-45% and more recent study in September 2018 was normal. He also has carotid artery disorder, valvular heart disease with mitral regurgitation. His had congestive heart failure in the past. Also hypertension, dyslipidemia, prostate carcinoma, and COPD. He denies childhood respiratory disease or asthma. Denies allergic rhinitis. He has never had pneumonia. He smoked one pack of cigarettes daily from age 17 to age 52. His brother and father had emphysema. He was previously seen by a bench worker binding in [place], Dr. Castañeda. He states he was tried [...] since that time unless he bends forward.). T he last office visit was 6 month(s) ago. No changes in management were made at the [...] by smoking. Symptoms are relieved by inhaler use and rest. Associated symptoms include leg edema (LEFT, AFTER KNEE REPLACEMENT), while associated symptoms do not include fever. Current treatment includes inhaled albuterol, inhaled long-acting beta-2 agonists and inhaled anticholinergics. By report there is good compliance with treatment, good tolerance of treatment and fair symptom control. Pertinent medical history includes smoking (has quit), while pertinent medical history does not include steroid dependency, prior i ntubation and ventilator therapy or tracheostomy. The patient is currently able to do activities of daily living with limitations. DYSPHAGIA ASTHMA COPD, SEVERE Unknown<td ID="encounterTypeDescriptionI D0">Chart Update</td><td>Marialuisa De La O RN</td><td></td><td>03/28/2020</td><td></td> Attender: Marialuisa De La O RN 03/28/2020 05:38:00 PM EDT - 03/28/2020 11:59:00 PM EDT [place] ([facility]) Outpatient<td ID="encounterTypeDescripti onID1">Medication Order</td><td>Chrissie DORADO</td><td></td><td>03/25/2020</td><td></td> Attender: CHRISSIE DORADO 03/25/2020 05:00:00 PM EDT - 03/25/2020 11:59:00 PM EDT [place] ([facility]) Outpatient Attender: FAWAD JEFFERS 2019 12:00:00 AM EDT - 03/24/2020 02:04:07 PM EDT Malignant neoplasm of prostate [facility] Malignant neoplasm of prostate Outpatient Attender: Justin Pfeiffer MD 03/13/2020 12:00:[address] [facility] Outpatient Attender: Justin Pfeiffer MDReferrer: Matt BarA-[facility] 03/12/2020 12:00:00 AM EDT Malignant neoplasm of prostate [facility] Malignant neoplasm of prostate Outpatient Attender: Justin Pfeiffer MD 03/07/2020 02:44:00 PM EDT [facility] Outpatient Attender: Justin Pfeiffer MD [id number] 02/14/2020 10:30:24 AM [facility] Outpatient Attender: JOSE DIEGO MD [email or web address] 02/2020 12:00:00 AM EDT - 02/13/2020 01:24:17 PM EDT [facility] Outpatient Attender: Justin Pfeiffer MD 02/07/2020 12:00:00 AM [facility] Outpatient Attender: Justin Pfeiffer MDReferrer: Matt BarA-OSRONC 02/06/2020 12:00:00 AM EDT Malignant neoplasm of [facility] Malignant neoplasm of prostate Outpatient Referrer: Uriel Barboza 02/05/2020 12:00:00 AM E [facility] Unknown<td ID="encounterTypeDescriptionI D2">Correspondence</td><td>Chrissie DORADO</td><td></td><td>01/30/2020</td><td></td> Attender: CHRISSIE DORADO 01/30/2020 02:33:00 PM EDT - 01/30/2020 11:59:00 PM EDT [place] ([facility]) Outpatient Attender: Justin Pfeiffer MDReferrer: Matt BarA-[facility] 01/30/2020 12:00:00 AM [facility] Unknown<td ID="encounterTypeDescriptionI D3">PATIENT NOT SEEN</td><td>Chrissie Calderon Yue ESTRADA</td><td>[facility]</td><td>01/28/2020</td><td></td> Attender: CHRISSIE [facility] 01/28/2020 02:20:00 PM EDT - 01/28/2020 04:15:05 PM [facility]) Outpatient Attender: Jones Acevedo MD 01/25/2020 12:00:00 AM [facility] Outpatient Attender: Jones Acevedo MDReferrer: Edmond haskins MD OSRON 01/24/2020 12:00:00 AM [facility] Outpatient Attender: Justin Pfeiffer MDReferrer: Matt Barboza OSRON 01/17/2020 12:00:00 AM [facility] Outpatient Attender: Jones Acevedo MDReferrer: Uriel Capps i OSRON 01/10/2020 12:00:00 AM [facility] Outpatient Referrer: Uriel Barboza 01/07/2020 12:00:00 AM [facility] Outpatient Attender: Justin Ochoa rer: Edmond Mittal MD OSRON 01/03/2020 12:00:00 AM [facility] Outpatient Attender: Justin Ochoa rer: Edmond Mittal MD OSRON 12/27/2019 12:00:00 AM [facility] Outpatient Attender: Justin Pfeiffer MD 12/26/2019 12:00:00 AM [facility] Outpatient Attender: Justin Pfeiffer MDReferrer: Matt Barboza OSRONC 12/20/2019 12:00:00 AM [facility] Outpatient Referrer: ZAC CRAIG MD 12/18/2019 12:00:00 AM [facility] Outpatient Referrer: ZAC CRAIG MD 12/17/2019 12 :00:[address] [facility] Outpatient Attender: Justin Pfeiffer MDReferrer: Matt Barboza 07A-OSRONC 12/13/2019 12:00:[address] [facility] Outpatient Referrer: Uriel Saeedamalia 12/05/2019 12:00:[address] E [address] [facility] Outpatient Attender: ARLEEN HERRERA 2019 12:00:00 AM EDT - 11/26/2019 03:11:51 PM EDT Malignant neoplasm of prostate [facility] Malignant neoplasm of prostate Outpatient Attender: Justin Margarette MDRefer rer: Uriel Saeedamalia DipikaA-RONCACTR 11/26/2019 12:00:00 AM EDT - 11/26/2019 03:07:52 PM ED T Malignant neoplasm of prostate [facility] Malignant neoplasm of prostate Outpatient Referrer: Uriel Barboza 11/26/2019 12:00:00 AM E DT [facility] nurse Outpatient Attender: EJ MARQUEZ MDReferrer: CHRISSIE DORADO 11/20/2019 01:03:38 PM EDT [facility] Recurring Patient Attender: EJ MARQUEZ MDReferrer: CHRISSIE DORADO 11/19/2019 01:08:17 PM EDT [facility] Outpatient Referrer: ZAC CRAIG MD 10/18/2019 12:00:00 AM [facility] Office Visit<td><content ID="_[id number]">Office Visit</content>
<content><content styleCode="xLabel xSecondary">Encounter Reason</content>: <content [id number]" styleCode="xSecondary">COPD - The referring provider is CHRISSIE DORADO (The patient has a history of CAD, and cardiomyopathy. Ejection fraction 2013 was 40-45% and more recent study in September 2018 was normal. He also has carotid artery disorder, valvular heart disease with mitral regurgitation. His had congestive heart failure in the past. Also hypertension, dyslipidemia, prostate carcinoma, and COPD. He denies childhood respiratory disease or asthma. Denies allergic rhinitis. He has never had pneumonia. He smoked one pack of cigarettes daily from age 17 to age 52. His brother and father had emphysema. He was previously seen by a bench worker binding in [place], Dr. Castañeda. He states he was tried [...] that time unless he bends forward.). The last office visit was 2 month(s) ago. Management changes made at the last visit include adding STIOLTO and ordering BLOOD WORK AND MBS. 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 Symptoms include dyspnea on exertion (ANY ACTIVITY, GRADUALLY WORSE) and non-productive cough (OCCASIONALLY), while s ymptoms do not include wheezing or productive cough. Onset was gradual. There is no known event that preceded symptom onset. The patient describes this as severe and unchanged. Symptoms are exacerbated by activity, while symptoms are not exacerbated by smoking. Symptoms are relieved by inhaler use. Associated symptoms include leg edema, while associated symptoms do not include hemoptysis. Current treatment includes inhaled albuterol, inhaled [...] to do activities of daily living with limitations.</content><content styleCode="xSecondary">, </content><content ID="_[id number]" styleCode="xSecondary"> [ADDITIONAL REASON] ASTHMA, FOLLOW UP - The patient's asthma causes daytime symptoms 1 to 2 times per month. The patient's asthma is not disturbing sleep. </content></content>
<content><content styleCode="xSecondary xLabel">Encounter Diagnosis</content>: <content [id number]" styleCode="xSecondary">ASTHMA</content><content styleCode="xSecondary">, </content><content [id number]" styleCode="xSecondary">COPD, SEVERE</content><content styleCode="xSecondary">, </content><content [id number]" styleCode="xSecondary">DYSPHAGIA</content></content></td><td><content styleCode="xSecondary">05-Oct-2019 13:00 </content><content styleCode="xLabel xSecondary"> To </content><content styleCode="xSecondary">05-Oct-2019 13:08</content>
<content styleCode="xSecondary">[facility] Office</content></td><td></td> [facility] Office 10/05/2019 01:00:00 PM EDT - 10/05/2019 01:08:05 PM EDT [ADDITIONAL REASON] ASTHMA, FOLLOW UP - The patient's asthma causes daytime symptoms 1 to 2 times per month. The patient's asthma is not disturbing sleep.COPD - The referring provider is CHRISSIE DORADO (The patient has a history of CAD, and cardiomyopathy. Ejection fraction 2013 was 40-45% and more recent study in September 2018 was normal. He also has carotid artery disorder, valvular heart disease with mitral regurgitation. His had congestive heart failure in the past. Also hypertension, dyslipidemia, prostate carcinoma, and COPD. He denies childhood respiratory disease or asthma. Denies allergic rhinitis. He has never had pneumonia. He smoked one pack of cigarettes daily from age 17 to age 52. His brother and father had emphysema. He was previously seen by a bench worker binding in [place], Dr. Castañeda. He states he was tried [...] since that time unless he bends forward.). T he last office visit was 2 month(s) ago. [...] not include hemoptysis. Current treatment includes inhaled albuterol, inhaled [...] to do activities of daily living with limitations.DYSPHAGIACOPD, SEVEREASTHMA [facility] ([facility]) [ADDITIONAL REASON] ASTHMA, FOLLOW UP - The patient's asthma causes daytime symptoms 1 to 2 times per month. The patient's asthma is not disturbing sleep. COPD - The referring provider is CHRISSIE DORADO (The patient has a history of CAD, and cardiomyopathy. Ejection fraction 2013 was 40-45% and more recent study in September 2018 was normal. He also has carotid artery disorder, valvular heart disease with mitral regurgitation. His had congestive heart failure in the past. Also hypertension, dyslipidemia, prostate carcinoma, and COPD. He denies childhood respiratory disease or asthma. Denies allergic rhinitis. He has never had pneumonia. He smoked one pack of cigarettes daily from age 17 to age 52. His brother and father had emphysema. He was previously seen by a bench worker binding in [place], Dr. Castañeda. He states he was tried [...] since that time unless he bends forward.). T he last office visit was 2 month(s) ago. [...] not include hemoptysis. Current treatment includes inhaled albuterol, inhaled [...] do activities of daily living with limitations. DYSPHAGIA COPD, SEVERE ASTHMA Outpatient Referrer: Alexandro Conte MD 10/05/2019 10:05:00 AM EDT [facility] Outpatient Referrer: ZAC CRAIG MD 10/02/2019 12:00:[address] [facility] Outpatient 08/30/2019 12:00:[address] [facility] Outpatient Attender: Uriel Barboza 08/30/2019 12:00:00 AM E [facility] Outpatient Attender: Justin Ochoa rer: dEmond Mittal MD 07A-OSRONC 08/24/2019 12:00:00 AM EDT Malignant neoplasm of prostate [facility] Malignant neoplasm of prostate Outpatient Attender: Justin Ochoa rer: Uriel BarA-RONCACTR 08/17/2019 12:00:00 AM EDT - 08/17/2019 04:00:29 PM ED T Malignant neoplasm of prostate [facility] Malignant neoplasm of prostate Outpatient Attender: Justin Pfeiffer MDRefer rer: Uriel Barboza 07A-RONCACTR 08/17/2019 12:00:00 AM EDT - 08/17/2019 03:57:55 PM ED T Malignant neoplasm of prostate [facility] Malignant neoplasm of prostate Outpatient Attender: Uriel Barboza 08/13/2019 02:30:00 PM E DT [facility] Historical Summary<td><content [id number]">Historical Summary</content></td><td><content styleCode="xSecondary">08-Aug-2019 13:06 </content><content styleCode="xLabel xSecondary"> To </content><content styleCode="xSecondary">08-Aug-2019 13:07</content>
<content styleCode="xSecondary">[facility] Office</content></td><td></td> [facility] Office 08/08/2019 01:06:39 PM EST - 08/08/2019 01:07:33 PM EST [facility] ([facility]) Outpatient Attender: Elaina Espinoza NPAttender: GREG DIEGO MD [email or web address] 08/08/2019 12:00:00 AM EST - 08/08/2019 12:59:26 PM EST [facility] Outpatient Attender: ZAC CRAIG MD 07/31/2019 02:50:00 PM EST Lab [facility] Historical Summary<td><content [id number]">Historical Summary</content></td><td><content styleCode="xSecondary">31-Jul-2019 10:00 </content><content styleCode="xLabel xSecondary"> To </content><content styleCode="xSecondary">31-Jul-2019 10:15</content>
<content styleCode="xSecondary">[facility]</content></td><td></td> [facility] 07/31/2019 10:00:00 AM EST - 07/31/2019 10:15:39 AM EST [facility] ([facility]) Outpatient<td><content ID="_[id number]">Office Visit</content>
<content><content styleCode="xLabel xSecondary">Encounter Reason</content>: <content [id number]" styleCode="xSecondary">COPD - The referring provider is CHRISSIE DORADO (The patient has a history of CAD, and cardiomyopathy. Ejection fraction 2013 was 40-45% and more recent study in September 2018 was normal. He also has carotid artery disorder, valvular heart disease with mitral regurgitation. His had congestive heart failure in the past. Also hypertension, dyslipidemia, prostate carcinoma, and COPD. He denies childhood respiratory disease or asthma. Denies allergic rhinitis. He has never had pneumonia. He smoked one pack of cigarettes daily from age 17 to age 52. His brother and father had emphysema. He was previously seen by a bench worker binding in [place], Dr. Castañeda. He states he was tried on Incruse ellipt a and Trelegy ellipta but they made him [...] to do activities of daily living with limitations.</content></content>
<content><content styleCode="xSecondary xLabel">Encounter Diagnosis</content>: <content ID="_[id number]" styleCode="xSecondary">ASTHMA</content><content styleCode="xSecondary">, </content><content ID="_[id number]" styleCode="xSecondary">EMPHYSEMA</content><content styleCode="xSecondary">, </content><content [id number]" styleCode="xSecondary">COPD, SEVERE</content><content styleCode="xSecondary">, </content><content [id number]" styleCode="xSecondary">DYSPHAGIA</content></content></td><td><content styleCode="xSecondary">31-Jul-2019 10:00 </content><content styleCode="xLabel xSecondary"> To </content><content styleCode="xSecondary">31-Jul-2019 10:52</content>
<content styleCode="xSecondary">[facility] Office</content></td><td></td> [facility] Office 07/31/2019 10:00:00 AM EST - 07/31/2019 10:52:23 AM EST COPD - The referring provider is CHRISSIE DORADO (The patient has a history of CAD, and cardiomyopathy. Ejection fraction 2012 was 40-45% and more recent study in September 2018 was normal. He also has carotid artery disorder, valvular heart disease with mitral regurgitation. His had congestive heart failure in the past. Also hypertension, dyslipidemia, prostate carcinoma, and COPD. He denies childhood respiratory disease or asthma. Denies allergic rhinitis. He has never had pneumonia. He smoked one pack of cigarettes daily from age 17 to age 52. His brother and father had emphysema. He was previously seen by a bench worker binding in [place], Dr. Castañeda. He states he was tried [...] to do activities of daily living with limitations.DYSPHAGIACOPD, SEVEREEMPHYSEMAASTHMA [facility] ([facility]) COPD - The referring provider is CHRISSIE DORADO (The patient has a history of CAD, and cardiomyopathy. Ejection fraction 2012 was 40-45% and more recent study in September 2018 was normal. He also has carotid artery disorder, valvular heart disease with mitral regurgitation. His had congestive heart failure in the past. Also hypertension, dyslipidemia, prostate carcinoma, and COPD. He denies childhood respiratory disease or asthma. Denies allergic rhinitis. He has never had pneumonia. He smoked one pack of cigarettes daily from age 17 to age 52. His brother and father had emphysema. He was previously seen by a bench worker binding in [place], Dr. Castañeda. He states he was tried [...] do activities of daily living with limitations. DYSPHAGIA COPD, SEVERE EMPHYSEMA ASTHMA Historical Summary<td><content [id number]">Historical Summary</content></td><td><content styleCode="xSecondary">31-Jul-2019 10:00 </content><content styleCode="xLabel xSecondary"> To </content><content styleCode="xSecondary">25-Jul-2019 8:26</content>
<content styleCode="xSecondary">[facility]</content></td><td></td> [facility] Office 07/31/2019 10:00:00 AM EST - 07/25/2019 08:26:43 AM EST [facility] ([facility]) Unknown<td ID="encounterTypeDescriptionI D4">[Patient Encounter]</td><td>Chrissie DORADO</td><td></td><td>06/27/2019</td><td></td> Attender: CHRISSIE DORADO 06/27/2019 10:04:00 AM EST - 06/27/2019 11:59:00 PM EST [facility] ([facility]) Unknown<td ID="encounterTypeDescriptionI D5">Correspondence</td><td>Chrissie DORADO</td><td></td><td>06/13/2019</td><td></td> Attender: CHRISSIE DORADO 06/13/2019 11:26:00 AM EST - 06/13/2019 11:59:00 PM EST [facility] ([facility]) Outpatient Attender: CHRISSIE DORADO 06/08/2019 09:18:00 A M EST xray,lab [facility] xray,lab Unknown<td ID="encounterTypeDescriptionI D6">Chart Update</td><td>Marialuisa De La O RN</td><td></td><td>06/04/2019</td><td></td> Attender: Marialuisa De La O RN 06/04/2019 04:38:00 PM EST - 06/04/2019 11:59:00 PM EST [facility] ([facility]) Unknown<td ID="encounterTypeDescriptionI D7">Chart Update</td><td>Marialuisa De La O RN</td><td></td><td>06/04/2019</td><td></td> Attender: Marialuisa De La O RN 06/04/2019 07:38:00 AM EST - 06/04/2019 11:59:00 PM EST [facility] ([facility]) Unknown<td ID="encounterTypeDescriptionI D8">Problem List Update</td><td>Marialuisa De La O RN</td><td></td><td>05/28/2019</td><td></td> Attender: Marialuisa De La O RN 05/28/2019 04:21:00 PM EST - 05/28/2019 11:59:00 PM EST [place] ([facility]) Unknown<td ID="encounterTypeDescriptionI D9">Chart Update</td><td>Marialuisa De La O RN</td><td></td><td>05/25/2019</td><td></td> Attender: Marialuisa De La O RN 05/25/2019 01:25:00 PM EST - 05/25/2019 11:59:00 PM EST [place] ([facility]) Outpatient Attender: Uriel BarbozaReferrer: JOSE DIEGO MD 07A-XXHAURO 05/24/2019 12:00:00 AM EST - 05/24/2019 12:23:04 PM EST Other specified abnormal findings of blood chemistry [facility] Other specified abnormal findings of blo od chemistry Immunizations Vaccine Date Status Description Data Source(s) Influenza, high dose seasonal 03/26/2020 05:38:00 PM EDT complet ed Influenza, high-dose (over 65) 7 03/26/2020 Complete (Reported) Yenifer ent [place] ([facility]) INFLUENZA VIRUS VACCINE QUADRIVAL SPLIT 2019-(65 YR UP)/PF 03/26/2020 12:00:00 AM EDT completed [facility] Medications Medication Brand Name Start Date Product Form Dose Route Admi nistrative Instructions Pharmacy Instructions Status Indications Reaction Description Data Source(s) Stiolto Respimat 2.5-2.5 MCG/ACT Inhalation Aerosol Solution [id number] 05/15/2020 12:00:00 AM EST 2 {Aerosol_Soln} [id number] active Stiolto Respimat [facility] ([facility]) nabumetone 750 MG Oral Tablet Nabumetone 750 MG Oral T ablet Nabumetone 750 MG Oral Tablet 03/25/2020 12:00:00 AM EDT 1 active nabumetone 750 MG Oral Tablet [facility] Tamsulosin hydrochloride 0.4 MG Oral Cap ramon Tamsulosin HCl 0.4 MG Oral Capsule (FLOMAX) Tamsulosin HCl 0.4 MG Oral Capsule (FLOMAX) 03/12/2020 12:00 :00 AM EDT 0.4 mg Oral active Prostate cancer Take 1 c apsule by mouth daily [facility] Prostate cancer nabumetone 750 MG Oral Tablet Nabumetone 750 MG Oral T ablet Nabumetone 750 MG Oral Tablet 02/04/2020 12:00:00 AM EDT 1 aborte d nabumetone 750 MG Oral Tablet [facility] ([facility]) nabumetone 750 MG Oral Tablet Nabumetone 750 MG OR TAB S Nabumetone 750 MG OR TABS 12/27/2019 12:00:00 AM EDT 1 aborted nabumetone 750 MG Oral Tablet [facility] nabumetone 750 MG Oral Tablet Nabumetone 750 MG Oral T ablet Nabumetone 750 MG Oral Tablet 12/27/2019 12:00:00 AM EDT 1 aborte d nabumetone 750 MG Oral Tablet [facility] Furosemide 40 MG Oral Tablet Furosemide 40 MG Oral Tablet 12:00:00 AM EDT active furosemide 40 MG Oral Tablet [facility] 24 HR metoprolol succinate 100 MG Extend ed Release Oral Tablet Metoprolol Succinate ER 100 MG Oral Tablet Extended Release 24 Hour Metoprolol Succinate ER 100 MG Oral Tablet Extended Release 24 Hour 12/25/2019 12:00:00 AM EDT active 24 HR metoprolol succinate 1 00 MG Extended Release Oral Tablet [facility] Rosuvastatin calcium 20 MG Oral Tablet R osuvastatin Calcium 20 MG Oral Tablet (Crestor) Rosuvastatin Calcium 20 MG Oral Tablet (Crestor) 12/23 12:00:00 AM EDT 20 mg Oral active Take 20 mg by riri th [facility] Ketoconazole 20 MG/ML Topical Cream Ketoconazole 2 % E xternal Cream (NIZORAL) Ketoconazole 2 % External Cream (NIZORAL) 12/07/2019 12:00:00 AM EDT active [facility] 1.5 ML Leuprolide Acetate 15 MG/ML Prefi lled Syringe leuprolide (LUPRON DEPOT) injection 22.5 mg for 3-month administration leuprolide (LUPRON DEPOT) injection 22.5 mg for 3-month administration 11/21/2019 12:00:00 AM EDT 22 .5 mg Intramuscular active Inject 22.5 mg into the muscle every 3 (three) months [facility] Stiolto Respimat 2.5-2.5 MCG/ACT Inhalation Aerosol Solution [id number] 10/31/2019 12:00:00 AM EDT active [facility] Stiolto Respimat 2.5-2.5 MCG/ACT Inhalation Aerosol So lution Stiolto Respimat 2.5-2.5 MCG/ACT Inhalation Aerosol Solution 08/03/2019 12:00:00 AM EST active 10 ACTUAT olodat sandy 0.0025 MG/ACTUAT / tiotropium 0.0025 MG/ACTUAT Inhalation Titus [Stiolto] [facility] 200 ACTUAT Albuterol 0.09 MG/ACTUAT Mete red Dose Inhaler [ProAir] ProAir HFA 108 (90 Base) MCG/ACT Inhalation Aerosol Solution ProAir HFA 108 (90 Base) MCG/ACT Inhalation Aerosol Solution 07/31/2019 12:00:00 AM EST 2 {Puff} [id number] active ProAir HFA [facility] ([facility]) Medication taken as needed. Lisinopril 20 MG Oral Tablet Lisinopril 20 MG Oral Tablet 12:00:00 AM EST active lisinopril 20 MG Oral Tablet [facility] 24 HR metoprolol succinate 100 MG Extend ed Release Oral Tablet Metoprolol Succinate ER 100 MG Oral Tablet Extended Release 24 Hour Metoprolol Succinate ER 100 MG Oral Tablet Extended Release 24 Hour 05/29/2019 12:00:00 AM EST completed 24 HR metoprolol succinate 1 00 MG Extended Release Oral Tablet [facility] 200 ACTUAT Albuterol 0.09 MG/ACTUAT Mete red Dose Inhaler [ProAir] ProAir HFA 108 (90 Base) MCG/ACT Inhalation Aerosol Solution ProAir HFA 108 (90 Base) MCG/ACT Inhalation Aerosol Solution 05/29/2019 12:00:00 AM EST completed [id number] 200 ACTUAT albuterol 0.09 MG/ACTUAT Metered Dose Inhaler [ProAir] [facility] ([facility]) nabumetone 750 MG Oral Tablet Nabumetone 750 MG Oral T ablet Nabumetone 750 MG Oral Tablet 05/29/2019 12:00:00 AM EST aborte d nabumetone 750 MG Oral Tablet [facility] ([facility]) Furosemide 40 MG Oral Tablet Furosemide 40 MG Oral Tablet 12:00:00 AM EST 1 completed furosemide 40 MG Oral Tablet [facility] ([facility]) Adult Aspirin Regimen 81 MG Oral Tablet Delayed Releas e Adult Aspirin Regimen 81 MG Oral Tablet Delayed Release 05/29/2019 12:00:00 AM EST 1 active Miniprin [facility] ([facility]) Multiple Vitamin Oral Capsule Multiple Vitamin Oral Capsule 05/29/2019 12:00:00 AM EST active Multiple Vitamin [facility] ([facility]) Rosuvastatin 20 MG Oral Tablet Rosuvastatin 20 MG Oral Table t 05/29/2019 12:00:00 AM EST 1 active Rosuvast atin [facility] ([facility]) eplerenone 25 MG Oral Tablet Eplerenone 25 MG Oral Tab let Eplerenone 25 MG Oral Tablet 05/29/2019 12:00:00 AM EST 1 completed eplerenone 25 MG Oral Tablet [place] ([facility]) carvedilol 12.5 MG Oral Tablet Carvedilol 12.5 MG Oral Tablet Carvedilol 12.5 MG Oral Tablet 05/21/2019 12:00:00 AM EST abort ed carvedilol 12.5 MG Oral Tablet [place] ([facility]) Adult Aspirin Regimen 81 MG Oral Tablet Delayed Releas e Adult Aspirin Regimen 81 MG Oral Tablet Delayed Release 05/21/2019 12:00:00 AM EST aborted Miniprin [facility] ([facility]) Diclofenac Sodium 75 MG Delayed Release Oral Tablet Diclofenac Sodium 75 MG Oral Tablet Delayed Release Diclofenac Sodium 75 MG Oral Tablet Delayed Release 05/21/2019 12:00:00 AM EST aborted diclofenac sodium 75 MG Delayed Release Oral Tablet [facility] ([facility]) Rosuvastatin calcium 20 MG Oral Tablet [Crestor] Crest or 20 MG Oral Tablet Crestor 20 MG Oral Tablet 05/21/2019 12:00:00 AM EST completed rosuvastatin calcium 20 MG Oral Tablet [Crestor] [facility] ([facility]) Lisinopril 20 MG Oral Tablet Lisinopril 20 MG Oral Tablet 12:00:00 AM EST aborted lisinopril 20 MG Oral Tablet [facility] ([facility]) 24 HR metoprolol succinate 100 MG Extend ed Release Oral Tablet Metoprolol Succinate ER 100 MG Oral Tablet Extended Release 24 Hour Metoprolol Succinate ER 100 MG Oral Tablet Extended Release 24 Hour 05/21/2019 12:00:00 AM EST aborted 24 HR metoprolol succinate 1 00 MG Extended Release Oral Tablet [facility] ([facility]) nabumetone 750 MG Oral Tablet Nabumetone 750 MG Oral T ablet Nabumetone 750 MG Oral Tablet 05/21/2019 12:00:00 AM EST aborte d nabumetone 750 MG Oral Tablet [facility] ([facility]) Centravites Adults Oral Tablet Centravites Adults Oral Table t 05/21/2019 12:00:00 AM EST aborted Centrav ites Adults [facility] [facility]) 200 ACTUAT Albuterol 0.09 MG/ACTUAT Mete red Dose Inhaler [ProAir] ProAir HFA 108 (90 Base) MCG/ACT Inhalation Aerosol Solution ProAir HFA 108 (90 Base) MCG/ACT Inhalation Aerosol Solution 05/21/2019 12:00:00 AM EST aborted [id number] 200 ACTUAT albuterol 0.09 MG/ACTUAT Metered Dose Inhaler [ProAir] JESSICA ([facility]) Rosuvastatin 20 MG Oral Tablet Rosuvastatin 20 MG Oral Table t 05/21/2019 12:00:00 AM EST aborted Rosuvas tatin JESSICA ([facility]) eplerenone 25 MG Oral Tablet Eplerenone 25 MG Oral Tab let Eplerenone 25 MG Oral Tablet 05/21/2019 12:00:00 AM EST aborted eplerenone 25 MG Oral Tablet JESSICA ([facility]) Furosemide 40 MG Oral Tablet Furosemide 40 MG Oral Tablet 12:00:00 AM EST aborted furosemide 40 MG Oral Tablet JESSICA ([facility]) Insurance Providers Payer name Policy type / Coverage type Policy ID Covered republican ID Covered republican's relationship to palomares Policy Palomares Plan Information MEDICARE [id number] SP [id number] FOR LIFE [id number] SP [id number] MEDICARE A [id number] Self [id number] E92 FOR LIFE U [id number] Self [id number] SELF PAY FOR LIFE [id number] SP [id number] MEDICARE PART A [id number] SP [id number] SELF PAY MEDICARE PART A [id number] SP [id number] FOR LIFE [id number] SP 0 [id number] Medicare Part A [facility] Other 0 Self 0 MEDICARE [id number] Bettye [id number] E92 [id number] Bettye [id number] Medicare Part A [facility] Other 0 Self 0 DME Jurisdiction A NHIC C [id number] SELF [id number] For Life F [id number] SELF [id number] Medicare C [id number] SELF [id number] E92 MEDICARE C [id number] S [id number] E92 FOR LIFE O [id number] S [id number] SELF PAY FOR LIFE [id number] SP 0 [id number] MEDICARE PART A [id number] SP [id number] SELF PAY FOR LIFE [id number] SP 0 [id number] MEDICARE PART A [id number] SP [id number] [id number] MEDICARE PART A [id number] SP [id number] SELF PAY FOR LIFE [id number] SP 0 [id number] MEDICARE PART A [id number] SP [id number] Medicare Part A [facility] Other 0 Self 0 Medicare Part A [facility] Other 0 Self 0 Medicare Part A [facility] Other 0 Self 0 Medicare Part A [facility] Other 0 Self 0 NORIDIAN JE PART B C [id number] S [id number] Medicare Part B [facility] Other 0 Se lf 0 Medicare Part A [facility] Other 0 Self 0 ANSI-Commercial [id number] ANSI-Medicare Part B [id number] ANSI-Commercial [id number] ANSI-Medicare Part B [id number] Medicare Part B of [place] Other 0 Se lf 0 Medicare Part A of [place] Other 0 Self 0 SELF PAY FOR LIFE [id number] SP [id number] MEDICARE PART A [id number] SP [id number] ANSI-Commercial [id number] ANSI-Medicare Part B [id number] ANSI-Medicare Part B [id number] ANSI-Commercial [id number] PI PI MEDICARE PI PI ANSI-Commercial [id number] ANSI-Medicare Part B [id number] ANSI-Medicare Part B [id number] ANSI-Commercial [id number] ANSI-Commercial [id number] ANSI-Medicare Part B [id number] DME Jurisdiction A [facility] [id number] SELF [id number] MEDICARE [id number] SP [id number] A ANSI-Commercial [id number] ANSI-Medicare Part B [id number] SELF PAY FOR LIFE [id number] SP 0 [id number] MEDICARE PART A [id number] SP [id number] Medicare Part B [facility] Other 0 Se lf 0 Medicare Part A [facility] Other 0 Self 0 MEDICARE A [id number] Self [id number] A [place] [facility] (TFL) Medigap Part B [id number] Self [id number] Medicare Dme Supplies Medigap Part B [id number] Self [id number] Medicare [place] Medicare Primary [id number] Self [id number] SELF PAY FOR LIFE [id number] SP 0 [id number] MEDICARE PART A [id number] SP [id number] [place] [facility] (TFL) Medigap Part B [id number] Self [id number] Medicare Dme Supplies Medigap Part B [id number] Self [id number] Medicare [place] Medicare Primary [id number] Self [id number] ANSI-Medicare Part B [id number] ANSI-Commercial [id number] SELF PAY FOR LIFE SP 0 [id number] MEDICARE PART A [id number] SP [id number] ANSI-Medicare Part B [id number] ANSI-Commercial [id number] [employer] [facility] [id number] 0 [id number] Medicare Part B [facility] [id number] 0 [id number] FOR LIFE SP 0 [id number] MEDICARE [id number] SP [id number] A [facility] [id number] SP [id number] FOR LIFE U [id number] Self 0 [id number] FOR LIFE U [id number] Self [id number] [place] [facility] (TFL) Medigap Part B [id number] Self [id number] Medicare Dme Supplies Medigap Part B [id number] Self [id number] Medicare [place] Medicare Primary [id number] Self [id number] [place] [facility] (TFL) Medigap Part B Self Medicare Dme Supplies Medigap Part B Self Medicare [place] Medicare Primary Self FOR LIFE O [id number] S [id number] MEDICARE C [id number] S [id number] A [facility] [id number] SP [id number] SELF PAY 2 UNAVAILABLE 1 UNAVAILA BLE 6 [id number] MEDICARE 4 [id number] 1 [id number] A [facility] VONDA MCINTYRE [id number] UNAV AILABLE [address] [place] UNAVAILABLE [id number] UNAVAI LABLE [id number] A Problems, Conditions, and Diagnoses Code Display Name Description Problem Type Effective Dates Data Source(s) C61 Malignant neoplasm of prostate C61 - Malignant n eoplasm of prostate Diagnosis 07/11/2020 02:50:00 PM [facility] R06.02 Shortness of breath Shortness of breath Diagnosis 0 02/13/2020 12:39:06 PM EDT [facility] R60.0 Localized edema Localized edema Diagnosis 02/13/2020 12:3 9:06 PM EDT [facility] 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 and stenosis of bilateral [place] Diagnosis 02/13/2020 12:39:06 PM EDT [facility] J44.9 Chronic obstructive pulmonary disease, u nspecified Chronic obstructive pulmonary disease, u Diagnosis 02/13/2020 12:39:06 PM EDT [facility] I10 Essential (primary) hypertension Essential (primary) h ypertension Diagnosis 02/13/2020 12:39:06 PM EDT [facility] 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, unspecif ied Rheumatic mitral valve disease, unspecif Diagnosis 02/13/2020 12:39:06 PM EDT [facility] I42.9 Cardiomyopathy, unspecified Cardiomyopathy, unspecifie d Diagnosis 02/13/2020 12:39:06 PM EDT [facility] E78.2 Mixed hyperlipidemia Mixed hyperlipidemia Diagnosis 02/13/2020 12:39:06 PM EDT [facility] I50.82 Biventricular heart failure Biventricular heart failur e Diagnosis 02/13/2020 12:39:06 PM EDT [facility] ST SWALLOWING ST SWALLOWING Diagnosis 12/17/2019 02:30:[address] [facility] ct general ct general Diagnosis 11/26/2019 01:19:46 PM ED [facility] nurse nurse Diagnosis 11/26/2019 01:19:21 PM ED [facility] sim sim Diagnosis 08/24/2019 02:28:27 PM ED T [facility] Z79.899 Other senior care (current) drug therapy [employer] 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) drug therapy Diagnosis 08/08/2019 12:16:52 PM EST [facility] J44.9 Chronic obstructive pulmonary disease, u nspecified J44.9 - Chronic obstructive pulmonary disease, unspecified Diagnosis 07/31/2019 02:50: 00 PM EST [facility] R73.01 Impaired fasting glucose R73.01 - Impaired fasting glu cose Diagnosis 06/08/2019 09:18:00 AM [facility] I50.9 Heart failure, unspecified I50.9 - Heart failure, unsp ecified Diagnosis 06/08/2019 09:18:00 AM [facility] I10 Essential (primary) hypertension I10 - Essential (primary) hypertension Diagnosis 06/08/2019 09:18:00 AM [facility] E78.5 Hyperlipidemia, unspecified E78.5 - Hyperlipidemia, un specified Diagnosis 06/08/2019 09:18:00 AM [facility] R07.9 Chest pain, unspecified R07.9 - Chest pain, unspecifie d Diagnosis 06/08/2019 09:18:00 AM [facility] Surgeries/Procedures Procedure Description Date Indications Data Source(s) PHYSICIAN TELEPHONE EVALUATION 11-20 MIN 04/15/2020 02:15:00 PM EST - 04/15/2020 02:37:34 PM EST [facility] THER RAD SIMULAJ-AIDED FIELD SETTING COMPLEX CT SIMUL ATION AT RAD ONC (IN OFFICE) Routine 11/26/2019 2:02 PM EDT Prostate cancer 11/26/2019 06:02:00 PM EDT Prostate cancer [facility] Prostate cancer PHYSICIAN TELEPHONE EVALUATION 21-30 MIN 10/05/2019 01:00:00 PM EDT - 10/05/2019 01:08:05 PM EDT [facility] ([facility]) THER RAD SIMULAJ-AIDED FIELD SETTING COMPLEX CT SIMUL ATION AT RAD ONC (IN OFFICE) Routine 08/17/2019 10:01 AM EDT Prostate cancer 08/17/2019 02:01:00 PM EDT Prostate cancer [facility] Prostate cancer OFFICE OUTPATIENT NEW 60 MINUTES 020 10:00:00 AM EST - 07/31/2019 10:52:23 AM EST [facility] ([facility]) BRNCDILAT RSPSE SPMTRY PRE&POST-BRNCDILAT ADMN PRE AND POST ([id number])Result: Hemoptysis: No Status: Completed 31-Jul-201907/31/2019 09:59:11 AM EST - 07/31/2019 10:00:05 AM EST [facility] ([facility]) PFT PFT Status: Completed 0 07/31/2019 12:00:00 AM EST - 07/31/2019 12:00:00 AM EST [facility] ([facility]) Severe Obstruction. Without Reversibilit y. Forced vital capacity 2.57 (64%), FEV1 1.28 (45%), FEV1/FVC 50%. Alpha 1 antitrypsin level Alpha 1 antitrypsin level Status: Completed 31-Jul-201907/31/2019 12:00:00 AM EST - 07/31/2019 12:00:00 AM EST [facility] ([facility]) Normal. MM, 129 NONINVASIVE EAR/PULSE OXIMETRY MULTIPLE DETER REST/ EXERCIS E OXIMETRY (85336) Status: Completed 31-Jul-201907/31/2019 12:00:00 AM EST - 07/31/2019 12:00:00 AM EST [facility] ([facility]) NITRIC OXIDE GAS DETERMINATION EXHALED NITRIC OXIDE MEASUREMENT ([id number]) Status: Completed 31-Jul-2019 0 12:00:00 AM EST - 07/31/2019 12:00:00 AM EST [facility] ([facility]) Thoracic structure (body structure) Chest X-ray Status: Completed 08-Jun-201906/08/2019 12:00:00 AM EST - 06/08/2019 12:00:00 AM EST [facility] ([facility]) [place]. mild hyperinflation. Slight ri ght basilar atelectasis. Similar 01/04/19. Surgical / procedural history September 5- small bowel obstruction requiring small bowel resection Surgical / procedural history September 5- small bowel obstruction requiring small bowel resection 05/28/2019 12:00:00 AM EST [facility] of hernia repair x 2 History of hernia repair x 2 05/28/2019 12:00:00 AM EST [facility] Results ID Date Data Source [id number] 07/16/2020 10:26:41 AM EST [facility] Name Value Range Interpretation Code Description Data Carmela rce(s) Supporting Document(s) Progress Note [facility] LOTGSw0cCaTPDfSv35/VJAvxPZMja2IdQKohEQs6YPmuBQFyG6NeUSU9kC4oDFB3KQkGAtPgFcJpOaFl lbm [file] AgICAgICAgICAgICAgICAgICAgICAgICAgICAgICAgICAgICAgICAgICAgICAgICAgICAgICAgICAgIC AgICAgICAgICANCiAgICAgICAgICAgICAgICAgICAg ICAgICAgICAgICAgICAgICAgICAgICAgICAgICAgICAgICAgICAgICAgICAgICAgICAgICAgICAgICAg ICAgICAgICAgICAgICAgICAgICANCiAgICAgICAgICAgICAgICAgICAgICAgICAgICAgICAgICAgICAg ICAgICAgICAgICAgICAgICAgICAgICAgICAgICAgIC AgICAgICAgICAgICAgICAgICAgICAgICAgICAgICANCiAgICAgICAgICAgICAgICAgICAgICAgICAgIC AgICAgICAgICAgICAgICAgICAgICAgICAgICAgICAgICAgICAgICAgICAgICAgICAgICAgICAgICAgIC AgICAgICAgICAgICANCiAgICAgICAgICAgICAgICAg ICAgICAgICAgICAgICAgICAgICAgICAgICAgICAgICAgICAgICAgICAgICAgICAgICAgICAgICAgICAg ICAgICAgICAgICAgICAgICAgICAgICANCiAgICAgICAgICAgICAgICAgICAgICAgICAgICAgICAgICAg ICAgICAgICAgICAgICAgICAgICAgICAgICAgICAgIC AgICAgICAgICAgICAgICAgICAgICAgICAgICAgICAgICANCiAgICAgICAgICAgICAgICAgICAgICAgIC AgICAgICAgICAgICAgICAgICAgICAgICAgICAgICAgICAgICAgICAgICAgICAgICAgICAgICAgICAgIC AgICAgICAgICAgICAgICANCiAgICAgICAgICAgICAg ICAgICAgICAgICAgICAgICAgICAgICAgICAgICAgICAgICAgICAgICAgICAgICAgICAgICAgICAgICAg ICAgICAgICAgICAgICAgICAgICAgICAgICANCiAgICAgICAgICAgICAgICAgICAgICAgICAgICAgICAg ICAgICAgICAgICAgICAgICAgICAgICAgICAgICAgIC AgICAgICAgICAgICAgICAgICAgICAgICAgICAgICAgICAgICANCiAgICAgICAgICAgICAgICAgICAgIC AgICAgICAgICAgICAgICAgICAgICAgICAgICAgICAgICAgICAgICAgICAgICAgICAgICAgICAgICAgIC AgICAgICAgICAgICAgICAgICANCjw/tMToO7nleMXf qkQ6E3vbWh8CAc9RVO1sp3DmHWEjUMbbssOgWicLIrFbESMhKgiLRns0RXlyHZ9SiRAqK5XlU9PhPCje AH4IDJDuSFNbeJOyADYtYGUfIpE5ZSQrQZtzOY6ZtUIjCEpsODGoUFZfRoYgANClAIYoSVAcMQ7OFABn G927pgDlYp7XFz2NZyOnWG8fsj3KFmHzOJTxBckDMn l7KXqrTJ5MoRCanTAvAuPzZEQAEdLhZ7zsz1YlHpieZUJLRTskAM7Fx1KbhBGdTCc+Lv2UYF0hu5XfIW kwRuOhAA3apz5GTMjMDwIoJ9MemRgoLOTfm4esVLDcKV3axWKnCPO4EQWeUYlkmlRwfyDFKB8vv6rzAM EfH2srPynaPZVsUUYaPv9oPL1zYYSwLACwJtTwFUIX XX0KFJKpIQQzpXOhXWOoQQTJSV2NIYlhIDK7MLDgkcQjaHGkBSgxDN3CTWOraxJiYrKwJMEYQDz+Pg0K TC3gk3PeARmlJOCsUA7vmf7SXLfDQkWtQ9R8aEWuH9K1JIqxTo9IIFPjWDSyKzNdGSLKMDceNW3KCR7n dvQ5FZ5XrBWuHDDoTQTlvCUzOQc5G82rhYXuNDytIN 0KICA+Yaya+Kj0PXUQvVNEsOHOmRpMcYYBHObTwT5ImY4KGh3FyU3GxFR00xKlasqDjNFnuVX9FMG2mTF EnYBAJZF3LaBHmrQ8ymqNrKzUgGPWBLwYhD56uxJJoEIPlSMY6OYJqQo0WUNQbF3TlflRokPgsjpSeDQ UvATWQLP9DWTnkdtAkxSSeuKakBQ39tThhPS7IWl8F QkWoLI1jag0ItGJnSj4OLVSeGV1EUOCfIWAfAAXlHCD1GCTvVzFcJMxbMMBmWOAlMET2HBGgIUPiND3D CxYaVLClObP7RaDpPVNgLNZujm9FHHPfMIAgUvUjOEIbZAFsUGUkCCteWKAxVQNmMNQ5KZThMHGkCV2F MzIzCQZcNVZ6SLBhNQHeHLFbtq7JPXOjYVCwSXEvJT YaXTXwNIOnNWvqBRGjHCQ4KRJ7KMQiRPDsLO8FUvPsADYnZStfZTPjSKClLFOluj1OEPSxFMKqPPp7RT UoXXUlNKPhEXwwACBqMIY6JNi6QYGlHSPzOX2RYqKqTJIwYGVqKAYmSMDkZRIgno7VIEGuNIYuUGV7Fk FySEXaFYPvWHjhSXUyUUOfKDT6KYKvAKYiYO0ZNrHp JIMzPJV5DOQaKUYwSOFgtc5MKEOvQDUkOKN8XxVgPPCuBBNsODvySTVeXYZxANc4NGOaPUFkMI4ZCmMe CICfWaOeKXIaEWEtJKLbtp0VNLJuAFPfOoGgNJAhGYVhALNgCMhhMJDgGBPcVXF8UWTqFNWtOF9RJmJx KRPtPkAqFIdqKEVaWKOimh7PXOSgQQNkPCFkDNTrBP GlMHFtXRnpCJNuYEX2WYk7JAGnHKRrBP3FDtZaGXVfKqJkPvFmDPJvWOMwoj4RTFZwKDItLLL6MLAkHY AoOTKwIXcrEIMhRSA1MDTkFMEhZXFwQI3HLoDeJTAjPfd3OZPrVWNtLHPkvc3XHWPpJUHwGbU7UzYeIQ PkYFZuATroDQUgVVQ8OxVcYLFjQHIyJE0YKfPfNSol DBXJVmm3ORrnH4x2PWPyGR3ND9Hwz9EwDciyGSBVDEwbFE7mjyQsLLOfZr2JI9qQJaurAqGnLGO6I1Ax LZTvDjrzD7PwXwy6XTjrZHIwJDHcRa5sAWHeOXB0HOU5ENR8NCWiH4A1UnL3LXbnQ0HuLVR3ADLlVrIg AH9ZTb2HHvY6NSP3vSQgBx1FHmi7BSTGMpDsZP4PMZl= ID Date Data Source [id number] 07/11/2020 06:08:00 PM [facility] Name Value Range Interpretation Code Description Data Carmela rce(s) Supporting Document(s) PROSTATE SPECIFIC ANTIGEN 0.06 NG/ML 0.06-4.00 N [facility] [place] Do not interpret PSA results as absolut e evidence of the presence or absence of Malignant Disease. The obtained PSA value should be used in conjunction with information available from clinical evaluation and other diagnostic procedures. Following post-radical prostatectomy, the guidelines for biochemical recurrence of prostate cancer is a detectable or rising PSA value that is greater than or equal to 0.2 ng/ml with a second confirmatory level of greater than or equal to 0.2 ng/ml. The result for the PSA is determined using the [employer] System that utilizes a direct chemiluminometric technology. The result is not interchangeble with different assay methods. ID Date Data Source [id number] 07/14/2020 02:49:00 PM [facility] Access Point Name Value Range Interpretation Code Description Data Carmela rce(s) Supporting Document(s) Testosterone,Total,S < 3 ng/dL 264-916 L [facility] Adult male reference interval is based on a population of healthy nonobese males (BMI <30) between 19 and 39 years old. Safia et.al. JCEM 2017,102;5943-0475. PMID: [id number]. Performed at: RN - [facility] [address] [id number] [employer] Program Coordinator: Jillian Hernandez MD, Phone: [phone] ID Date Data Source [id number] 03/12/2020 12:39:38 PM EDT [facility] Name Value Range Interpretation Code Description Data Carmela rce(s) Supporting Document(s) Progress Note [facility] AANIRb1nJtVNEbCy58/AJQahGKNjb7GdBHojAIs2PIohZCFcJ4NiRGF6pS2kOHL8WBzJLrLzUsRbJTN1 [facility] [file] AgICAgICAgICAgICAgICAgICAgICAgICAgICAgICAgICAgICAgICAgICAgICAgICAgICAgICAgICAgIC AgICAgICAgICAgICAgICAgICAgICAgICANCiAgICAg ICAgICAgICAgICAgICAgICAgICAgICAgICAgICAgICAgICAgICAgICAgICAgICAgICAgICAgICAgICAg ICAgICAgICAgICAgICAgICAgICAgICAgICAgICAgICAgICANCiAgICAgICAgICAgICAgICAgICAgICAg ICAgICAgICAgICAgICAgICAgICAgICAgICAgICAgIC AgICAgICAgICAgICAgICAgICAgICAgICAgICAgICAgICAgICAgICAgICAgICANCiAgICAgICAgICAgIC AgICAgICAgICAgICAgICAgICAgICAgICAgICAgICAgICAgICAgICAgICAgICAgICAgICAgICAgICAgIC AgICAgICAgICAgICAgICAgICAgICAgICAgICANCiAg ICAgICAgICAgICAgICAgICAgICAgICAgICAgICAgICAgICAgICAgICAgICAgICAgICAgICAgICAgICAg ICAgICAgICAgICAgICAgICAgICAgICAgICAgICAgICAgICAgICANCiAgICAgICAgICAgICAgICAgICAg ICAgICAgICAgICAgICAgICAgICAgICAgICAgICAgIC AgICAgICAgICAgICAgICAgICAgICAgICAgICAgICAgICAgICAgICAgICAgICAgICANCiAgICAgICAgIC AgICAgICAgICAgICAgICAgICAgICAgICAgICAgICAgICAgICAgICAgICAgICAgICAgICAgICAgICAgIC AgICAgICAgICAgICAgICAgICAgICAgICAgICAgICAN CiAgICAgICAgICAgICAgICAgICAgICAgICAgICAgICAgICAgICAgICAgICAgICAgICAgICAgICAgICAg ICAgICAgICAgICAgICAgICAgICAgICAgICAgICAgICAgICAgICAgICANCiAgICAgICAgICAgICAgICAg ICAgICAgICAgICAgICAgICAgICAgICAgICAgICAgIC AgICAgICAgICAgICAgICAgICAgICAgICAgICAgICAgICAgICAgICAgICAgICAgICAgICANCiAgICAgIC AgICAgICAgICAgICAgICAgICAgICAgICAgICAgICAgICAgICAgICAgICAgICAgICAgICAgICAgICAgIC AgICAgICAgICAgICAgICAgICAgICAgICAgICAgICAg ICANCjw/cGKvX7ywaYIeqlM2P5nrBq6DCt4QHU5rf9OxLFOfJAstkwNxLmtRLcFyHWJkZdeXCyt3RKnj IP9TtPSfC7AyF1KhVXroDQ6SLUKfDXUofRIyELVwIGXtMpW3FZUxBOgqTP6WlEDyCMlmGNUeKYRlHeKr SGUlWEChKJXtMS8YCSHuZ724laTlKl3WXi8ZGuAeAN 5lzc7BMeKxNUVqPyhXLeb5GJvsBB4BnAUkqICpOwRjXEYGTzMpS2lsz8WbIgjhZXYANVedAR6Js9BaeC AxDQo+Ae1HXS2vz1IhHRdoEbXkFN9lbp7OHWqOHlGpL1BaaDpsVVNcr2imJANtPV4rsNZjLNW3WDEgHF enzkZscdGAVS3ls9flIZEsQ7sqJpqsJFHcDYReODTb Qh7jUWDpQHQuRpAmUVXEXF7MIYDgUUWicLVdTZClOLRTOC6TFReyWOM5YZQaseUcpRAmJFhrPP6LKMBl bnQgMjYgMCBSDQo+Xd3BHE3ju0UuAAdwDNSbFA0knr7FSYuXOyPoV8Y7bWSuS7M2SQfaCu0OFWBzZHKa DkZyWXAIZCfqMS1RHS3nupM2MZ2RlJRiHDJaXVAnjE NtJYy5Z10ozQXmIJfhPN3COFV+Yaya+Ah0VPEWkOWKmVJRqCuSjHJIBQgMeO5HvV1UAu5RnB1YsJI29yB iytrEuUThnFR2ABA3nYSMePCGIWC0LbRRatZ0zcdLaIgMeBQWZWnXpY66duSPpIHSkIIR4KFFzSj8ADD HvS5SqygFnnBvcxhStSQVyAEYOIK3KDVaxhaYuoZFc fGwjXK26nUzlAQ8IQh2JCjBmCP2bxe5LmEVdWr7GFBWxMP5TJYAuVNDmFWPfVKS0UGXxUqFaJAbzEAGn ZWUgMVX3XGVvVKDyHT4JRvBoQOCsTwU6HbXmGEDzAKTjyg3WNJVhMSOxLyamQCQqSEPuSVRjPSadCTZi PMGhFFK5WQZmQJUaUE4ZEpNiMHLrNLC5MWijNKGuAP Wqjk3NGUMhKIPeZHXtXvLvBHGzCWWgFYhnCZCbILY0QZA0CESoGQNtNF2FWgJgHEWlOTd8SJDiEFChQW Xtkx8IIIGuRPHdAVW0DJZaAMRoMRMsCOuwGWWzHXT3HAn6HKMpQVTtEQ7YPbVtMRGuFLj8LBJgPGMwZP Vkhi5IJQZeGCIuYBr5HYHsRFKqMFJwSTecUIAkRDC4 MOV6RMJzCANiHH2NYmOxKHQzWZF2GMZtFGAqWKDatg6ORTJpTLNhPJE7RXRbOPTnVDYnTJwmHZFaJTZu AcmxKUIeZCItAI0GBsFfJIPcThC8UTJmPKXqNNUxbn7QUAFaRVOvAwCyZNNpYNFeDZHbDIwhZHGbRNNn ZrN6VSHcJCTaHJ7QNyMfLBBaEfI8KTpvNJSwHLXhbi 3GOOHoIXPzObY8WpSxKEGpVAIuBObcGDDaQSS5XNt4IVXmAJFyXP4VUpSaZJZaTbG2GtTsHPVqUDLwvs 1YVYWyQSDaINl2CrAzXBCuDOFuDHgoLGPhUYQ5QtfoOGZxFSNcHM4QDvKhLIGuHzV1JgBtAPYrKHCjcv 5PVVVmHRQnViz3HVTmYZBoSXHrOFxzZJExLDN8WKHo DBQaTBLhOV3SOsIrEFkaCAGCTem7UIfaQ8k8SEAiZO3DB0Gji3GhXvwtXSGNZCcoDO7thgCfZXAqDw9H E1bTXcg2IwS4DyJiHVNgPLNmUVIfKQN5QJm3MwB6GjUyQBW4ES0oRJmbFYqsBHIuL2D3KWP6C4W7RpXm PHZsLvvoYWS5Zjo8McKbEB7WZw0KTvE0NQC7hFTkEk5MUyynWVTRZfZyVA2NMPo= ID Date Data Source [id number] 03/07/2020 06:07:00 PM [employer] Access Point Name Value Range Interpretation Code Description Data Carmela rce(s) Supporting Document(s) PROSTATE SPECIFIC ANTIGEN 0.16 NG/ML 0.06-4.00 N [facility] Do not interpret PSA results as absolut e evidence of the presence or absence of Malignant Disease. The obtained PSA value should be used in conjunction with information available from clinical evaluation and other diagnostic procedures. Following post-radical prostatectomy, the guidelines for biochemical recurrence of prostate cancer is a detectable or rising PSA value that is greater than or equal to 0.2 ng/ml with a second confirmatory level of greater than or equal to 0.2 ng/ml. The result for the PSA is determined using the [employer] System that utilizes a direct chemiluminometric technology. The result is not interchangeble with different assay methods. ID Date Data Source [id number] 03/09/2020 07:12:00 PM [employer] Access Point Name Value Range Interpretation Code Description Data Carmela rce(s) Supporting Document(s) Testosterone,Total,S < 3 ng/dL [phone] L [facility] Adult male reference interval is based on a population of healthy nonobese males (BMI <30) between 19 and 39 years old. Safia et.al. JCEM 2017,102;9571-8193. PMID: [id number]. Performed at: [facility] [address] [id number] [employer] Safety Program Coordinator: Jillian Hernandez MD, Phone: [phone] ID Date Data Source [id number] 02/14/2020 10:30:24 AM EDT [facility] Name Value Range Interpretation Code Description Data Carmela rce(s) Supporting Document(s) Progress Note [facility] PSEZBf9tFdWZKmTe53/ENTknRRJji2YjSSvbQVy5OCfuPUUpT5LkMJE8eD8xIGI4IFbUDeTsSnQvYMAy lbm [file] AgICAgICAgICAgICAgICAgICAgICAgICAgICAgICAg ICAgICAgICAgICAgICAgICAgICAgICAgICAgICAgICAgICAgICAgICAgICAgICAgICAgICAgDQogICAg ICAgICAgICAgICAgICAgICAgICAgICAgICAgICAgICAgICAgICAgICAgICAgICAgICAgICAgICAgICAg ICAgICAgICAgICAgICAgICAgICAgICAgICAgICAgIC AgICAgDQogICAgICAgICAgICAgICAgICAgICAgICAgICAgICAgICAgICAgICAgICAgICAgICAgICAgIC AgICAgICAgICAgICAgICAgICAgICAgICAgICAgICAgICAgICAgICAgICAgICAgDQogICAgICAgICAgIC AgICAgICAgICAgICAgICAgICAgICAgICAgICAgICAg ICAgICAgICAgICAgICAgICAgICAgICAgICAgICAgICAgICAgICAgICAgICAgICAgICAgICAgICAgDQog ICAgICAgICAgICAgICAgICAgICAgICAgICAgICAgICAgICAgICAgICAgICAgICAgICAgICAgICAgICAg ICAgICAgICAgICAgICAgICAgICAgICAgICAgICAgIC AgICAgICAgDQogICAgICAgICAgICAgICAgICAgICAgICAgICAgICAgICAgICAgICAgICAgICAgICAgIC AgICAgICAgICAgICAgICAgICAgICAgICAgICAgICAgICAgICAgICAgICAgICAgICAgDQogICAgICAgIC AgICAgICAgICAgICAgICAgICAgICAgICAgICAgICAg ICAgICAgICAgICAgICAgICAgICAgICAgICAgICAgICAgICAgICAgICAgICAgICAgICAgICAgICAgICAg DQogICAgICAgICAgICAgICAgICAgICAgICAgICAgICAgICAgICAgICAgICAgICAgICAgICAgICAgICAg ICAgICAgICAgICAgICAgICAgICAgICAgICAgICAgIC AgICAgICAgICAgDQogICAgICAgICAgICAgICAgICAgICAgICAgICAgICAgICAgICAgICAgICAgICAgIC AgICAgICAgICAgICAgICAgICAgICAgICAgICAgICAgICAgICAgICAgICAgICAgICAgICAgDQogICAgIC AgICAgICAgICAgICAgICAgICAgICAgICAgICAgICAg ICAgICAgICAgICAgICAgICAgICAgICAgICAgICAgICAgICAgICAgICAgICAgICAgICAgICAgICAgICAg KZNgHDs0Z9ozZHQoCXUuQN1fDKr3Fi3+IBsHHmJzSVA4cvWqqA3WAX1ca4MgPPbsIVFkf9EePDe3JF4L NVVkLOnmHS4WTFtveg6SNTCvEUOniJBRq9onQsVkWH B4IBZcFcvhXQ5GMNLpB9cembArUZPtRVMPXFfbDGCNWM3XQbZfQ0SyfJ23CMIASx9+DQplbmRvYmoNCj D3WKAaq9PoNQe3EA9QZGNbDvzqx4MxTaXrAAZHKHsoGE6OJNR3VDV1AZRaSi5DBVQvA414ujXuVL0WSb 2QOpNxXX6chx4NXiUyCTMoDftMQsa8NFqpCV0GwCDo GLtEss0byoFyeoTTb8SeezJzwKKVfYY7EO2aPMSkWwXwRYNxi2J4kAVoECSrVJ0WRMX2VBqyRY8fWLXz OWDqVaR8WJWPUH2UEWLmVBTszREcEPIxXOYAFP9WZMbdRQJ7EOMgboGeyEAyOKjwUK2FBRRziiFiUiXj MCBSDQo+Hx6JTQ6oz8QzZUlgOnJrKW3jjs1BDFpHXb WsR2O9lKIhI3V8LIjfSe2EURYlGNWkCuOvRCQBXKdpSG8CGV8ymeL6FA0TcVHfYXDfMGHlyIBvZOi5X8 8qnBKxVFlpZL7HVLP+Yaya+Qp3NGDUaRNAuHVIfIgQiJFGDTrElW8SoQ6GGh4YpU3SaSD44qAnvelUrAQ khKV8XRN8dZJNsUWZDDS1YhRVrlG0jsfKuLHRmTCOE VxLnA05qcXAtSPFiZYTtZPUvLe3RVAQzZ2CbatItkLfrcgYmPBSdYXCBWI4ECQyojxXqkOCxeJcjPY36 hIeyOA3LVu0OSnGqGI5vni2JpDEmAx1PSRQrQu1WPIKtDMXqQVGmONX8OGMoZcLuXZesTHHdORKwEUW5 QHHfPFHfUL7XXeHdWQPvHeSkSFjcOBJaVZAlka7NWF EbALCfCmbaEbHwKEXaHLVyNPgzXRXqQRIoMDO8EYPaGLWhRL1CHfFkKBJoEXN5OJYcUNDxAPMfsk7WOK JwGHEbHzkgWvAgJWWbQCVmYEmaVANcSVT1SrC8KIAuMNBdUM3JAeOxNVKyTGV3LzilLANaPBDuje4CLN QnQECpCIa2KnZhATHqDPZhJExnUHZnHBE1QVayBNRi CZCbLM1TObJvFGDsANWdIuMaPPCuCFEdbf9YPCEfEWYjAoPmPxSuWRSpJJCrLGnrLDJyIJP0QwF7SRQw TZWdSK9CJyKeFEDgIOn7RJDgFEAwUCNwwf9NQKJtKMUpHHp2XLKyPEJcOJEoCIaiIEMqHDZ6JVd0XWLm COSlQC9ILmIuYLMhCEwbYLMyAHBqMXTniw9XZPSfFZ AgBJIlKkWkESPeMJPgEVdjNONlFHL0Dxn8WHNmAUNcZA7HYtOfFMAfPfB5ZuIvJWQoAWNlls0WYACwPI LjOGlxDXDfETBwVYOlSMidHVXwJHZeWDm7IIOjHLQpWZ9OIhXdPZAnClK4MNLxEKRsBNDghy2UZEVaHE ZdKqrxTxRhIAWmEFOlWRmaBMTiIDSkRDB2BORgTWPp RZ1VYuLjWRRcNhKoZcOlEYWaWZWrxp3BpCDzcOrzsg2YWUbRYp0ZbBcbWIN5ZKbdWl4hkROlPkAnNHWG Vr1AhcKxELWxCEHKDAfbILXjOTXqFTEtOnX1JpNbOoBeHIf7QNpwXBD6RFLvGHBdWMx7BfW6C2XwIRNx CSolQWIaULYqAtZ0FRY1Gpe0RJEvKNI8TWI+IF0g DQo+Qu6Ky8JgwyT2skUrHIazBrZdHQ9UAPWFT7RTMm== ID Date Data Source [id number] 02/06/2020 10:21:11 AM EDT [facility] Name Value Range Interpretation Code Description Data Carmela rce(s) Supporting Document(s) Progress Note [facility] WAPPXw3lBfNRVsLk28/RIVbmDIKqy8EuSKesDFi7TSqbCJIiO2AgBCX1hL4bZBY5MAsTEnRaJzGwVGWx lbm [file] BMhpGJRlSNT8ANZ+WH0vXTm+Jp2Ud0EtjkR3unKlBYkiCbp7VV0EXORXD1TFYw== ID Date Data Source [id number] 01/30/2020 09:46:46 AM EDT [facility] Name Value Range Interpretation Code Description Data Carmela rce(s) Supporting Document(s) Progress Note [facility] VCOYHz0xFzHAZtUj87/VXZcyWLQxg6TaXOedGJc3KUasCWFiY8KgLCY9lK7jCYX4PEwATzJjXcZdCRQ4 lbm [file] AgICAgICAgICAgICAgICAgICAgICAgICAgICAgICAgICAgICAgICAgICAgICAgICAgICAgICAgICAgIC AgICAgICAgICAgICANCiAgICAgICAgICAgICAgICAg ICAgICAgICAgICAgICAgICAgICAgICAgICAgICAgICAgICAgICAgICAgICAgICAgICAgICAgICAgICAg ICAgICAgICAgICAgICAgICAgICAgICANCiAgICAgICAgICAgICAgICAgICAgICAgICAgICAgICAgICAg ICAgICAgICAgICAgICAgICAgICAgICAgICAgICAgIC AgICAgICAgICAgICAgICAgICAgICAgICAgICAgICAgICANCiAgICAgICAgICAgICAgICAgICAgICAgIC AgICAgICAgICAgICAgICAgICAgICAgICAgICAgICAgICAgICAgICAgICAgICAgICAgICAgICAgICAgIC AgICAgICAgICAgICAgICANCiAgICAgICAgICAgICAg ICAgICAgICAgICAgICAgICAgICAgICAgICAgICAgICAgICAgICAgICAgICAgICAgICAgICAgICAgICAg ICAgICAgICAgICAgICAgICAgICAgICAgICANCiAgICAgICAgICAgICAgICAgICAgICAgICAgICAgICAg ICAgICAgICAgICAgICAgICAgICAgICAgICAgICAgIC AgICAgICAgICAgICAgICAgICAgICAgICAgICAgICAgICAgICANCiAgICAgICAgICAgICAgICAgICAgIC AgICAgICAgICAgICAgICAgICAgICAgICAgICAgICAgICAgICAgICAgICAgICAgICAgICAgICAgICAgIC AgICAgICAgICAgICAgICAgICANCiAgICAgICAgICAg ICAgICAgICAgICAgICAgICAgICAgICAgICAgICAgICAgICAgICAgICAgICAgICAgICAgICAgICAgICAg ICAgICAgICAgICAgICAgICAgICAgICAgICAgICANCiAgICAgICAgICAgICAgICAgICAgICAgICAgICAg ICAgICAgICAgICAgICAgICAgICAgICAgICAgICAgIC AgICAgICAgICAgICAgICAgICAgICAgICAgICAgICAgICAgICAgICANCiAgICAgICAgICAgICAgICAgIC AgICAgICAgICAgICAgICAgICAgICAgICAgICAgICAgICAgICAgICAgICAgICAgICAgICAgICAgICAgIC AgICAgICAgICAgICAgICAgICAgICANCjw/kZLbV6lz zIQcgoY0N8ztKh6NIf8MJI2pl7PdXXMhVDvtcgYcUqnRFwLpTUCaAfxKKpd5SLrhZT3OyEDvO9ZaQ2Cm NUscKM8CNSKrGSCzgQJfDBDxFDMtHbR0IAGiNYghHH6ZpBZaVQsdGYImZMZuMkLzYEUjLHKdNRKtWL2K AIGyC048tlUjHu3SXg8CRhNjAT9xnq2FJaGdWRVdZu xSNch7TXihZY7TgVAygTMrNuWtNGQKLoMsR2ecx7UbLdhfYTFUGYnnFH3Bh0QmhTAyRVy+Zb0GYX9or3 WbEOfgHoGcGO8vah8EIRoXXmIfV8AoyUouTHEee8aaQBNkAQ8btCTyCVS4OMKnBQhoykYoxaZCWQ6nw9 efSLSkM6hmZkfiIQXuCSItDG9hMh3kUYYqHIJ8KkK9 LDRVNX3MFGCjZTEocWHxBIBxVYRUMG1SALeyTBT1YSNwdoSngZQuGBhgHH8OIJPousEgTeZcGUJKKNi+ Jp0JQE1yj4FjFSzzHBUoPG7cdv9SDLiCNuZfD9Q3fQKdY1L4IIptSq6SHNMwBWDfBxVfAZUOZUxwYE6K WQ3drfE3MJ8LfMRfUSEpZAWwuXRbXKe3F47lnHUjDC bcIJ6HUWR+Yaya+Vo5XNGVbTIQyLZSjSbVuRASYOoDdG5ZyQ9UVe9PlL6VvWJ06vPwscrMmYDkbTF6NNA 6gZCPdUKGZSA7GaTDnqS2kgoNzEaUkNXUJZqVcY61nsLMdKOKuWTS4KVHzEz1RJRNlM0LzorCyeNpzwa TfJHZkPNLHSD2SQMmzeoPadBJtsCpmPT21iOvhUH8I Qg8PKoPkRL2rwe8NiPUfDm2NHHQrCV1RIZUhUVImYGXaKUH5LRZcGxFvHRjmVCQuBGOsUYA2FRAnNGJk CV6KAnIfVKSgWlX0LiTtNQXeERPdrr4VUPZzUFYjWlF1QZLcVPNmYEQrCZlpNUKeZIXeTXC8PRLfODSz PK4GGrYvAWQcVWV8JNgrLAPeEPMhvj2TLWNoJHNwZa F5QyZgCNEkTBLbNDdvPGBlDLZ9QHxcQLApTGKuSF0YHxSyGHRcRUrjXuDiQZJlGWSvmz0NCORyBDAfFU L6LHLcPYWeEODcRBkwMQOsXZC3Oco6EUSnVPYyBY5MWmIyOHGmAYkvCgqiCWAqUVGxpj3AMNFxGIFaJU BnQbFuYVOxKCMjIXheAALzJZB8IfM5WNZaEGGtWS9U YnGnAYJaITE3CpktDJSbGLHlyo4ALZUgRQRvRIm5OCYgSCEhOKZjGKrdYBXzDYYaDRR0WNFuVFFaRJ0R ApApBDVxBbTxUUusQIDfPIZkbt1BPHOsZBAgAzroLkEiLRAmKGVqNWeqRHRwOFXhQCUlCUVcNPNfDR4S KzPxWZIrWgMjZLIbANGjJWFkyk7JYZOfMDXmLfHkLO VrKDXyROTaYTyzIOJnHOM7DbbqEANaGLBoLN7FLhMdFSYkVhN8BiGgVGCjYOLclc9FGBDaMBJfBSUuWX TgUZBzEKZxZNnePKIaKHT9AGI7NXLrFEEdAF3TAwXgKFFrTtG0CXYsMLMnHEOxhw3ZRVGoCZKkMmH4Xm QfECRtDWHcTFdlIJDvIKH2OcK1APUhDBHoDI7MXlSa MRayNGGCFle3LDdcX1d4BMTkXH6GV1Joa5RbRmsgOELAONrpRP3kgnUfOLXnWk4PY6wSAzemKczwDLXv NBm9HVEjQVXsVcs8OnOnISP1ZLG7Jeb2Qt2zFNHgK6RgFWXePKu6YzJ8KyVvEyZsISCeDQB4MItxENW1 RvWjSJ9JSm2SWuL2MZB5xZJlKt9MXkR0QqlVLfQfHE7MSZx= ID Date Data Source [id number] 01/30/2020 09:46:25 AM EDT [facility] Name Value Range Interpretation Code Description Data Carmela rce(s) Supporting Document(s) Progress Note [facility] MVAPZh4mLfNXGrRl31/ROWujSOUyq6XcCBoxLHx6PCtjTWJkZ6CqUAG5vJ2bSVF8SEuRGhRnRwYiPSX0 lbm [file] N9MmmbTZurHo3sSELRVf3+VXvwmBWtnGjwUEAKRbJ4ARZ3NExnZMYGEz4X ID Date Data Source [id number] 01/24/2020 09:58:05 AM EDT [facility] Name Value Range Interpretation Code Description Data Carmela rce(s) Supporting Document(s) Progress Note [facility] RZIGFr9lGeVTBkGx68/GYNjjPWKis5RcFLpzTDs7VFdqJFNhK8BnBNE2oE8pEOQ8VFvPEsRmGoGrTDVh lbm [file] ID Date Data Source [id number] 01/10/2020 10:05:41 AM EDT [facility] Name Value Range Interpretation Code Description Data Carmela rce(s) Supporting Document(s) Progress Note [facility] UNVGUi7fXbESJgAt32/ZOHiwEJPmx5QaOGfrFQy0YKwdFLQsA8RrGSX7xL2cMNO7ALyXEvZaFlUwXJC6 lbm [file] QyXjHOSaYQNzVZI0CxSbQY2oMBLKJq3+HQegtGEnzXqpINWNVdS1QILcFBelSPCSRd6N ID Date Data Source [id number] 01/03/2020 10:14:44 AM EDT [facility] Name Value Range Interpretation Code Description Data Carmela rce(s) Supporting Document(s) Progress Note [facility] YJDQOr8yVaBTSoDs44/NSAzjKVTpb1DcWKwaMUa3IDgwLYSwZ0XeLFC6fH7gSNP1ECyIEjVcXbGgSvKs lbm [file] AwMDAwMzQwOSAwMDAwMCBuDQowMDAwMDAzNjEzIDAw RRPgOL9CXwKmSJQtNWL4ZOpcKUOyVYOrnb5CJMRfAGAzTkBiBdRmYTFuUKRnKKssZSQhCXM3ZeJwAJUb DDWgKE8SWgRrXNRhGMz1VzVeAPYvWLKosk5OJQTsTRJdJQQ4JJRvPKHoXXMcJTpvQEGoUTL0HYlcAPSn KSTzKY5FDvZrBKZwMEz0IdArGAIvVLJleu9ZOWAwYO XdUFjdVIHdRJRpWXOtPSkhBXCmWHWqCUS7FTJhIUQaWF7RGpTbOKHaYQNqTBOrHBMvHBQzwp8HMIIbSW QtQhF3GPLbRERzKWKjRJaaQCMmFKWuWBV6UYRdSRKzTH5GBsJnRLZzDwUiChooQZWbWAQlqd1XUYBzVB KkKjPiQSUdFVYmMCMpTTnyWSAfQDXvJCh2ZRCbOKEu YZ3BQlNyRTIbWpX3ZBgaIYSvONHcmn2UQPEeAONyZXAcEnPcHWIaQKTyXTfgJOOrGMK5Onw3WXYtHMWd XJ1QQgHdAPVgWoMsIUHrJYZzDRKbxr2BYORhTWUaOjU2VSLmDMUlHNJzRNvkCSNiVTI7OyTkMHHaRHSz IP4TRsWbWIZbQdI1GFFnXKNxNAGlgf7OfKDxrDvjgq 8CBByAGe0QsRwvJNZ7BPxyAb3orOIiLEEcUCMVVl3CylMeXFHuOZJWRGtlYVLsOTSlXJMlKLZ3LGV6XB MvJyApPBolRNWzAgmtZKN6QIk3UvJ3YfRpYLYpZGW5EBRlVSYqRUQ5RGG4JFH9L2MnRYKyRAi+IF0gDQ o+Oa1Tv8JmvwD9vvEwUXucSkKbKQ0QRLEJJ8GYPm== ID Date Data Source [id number] 12/27/2019 10:20:57 AM EDT [facility] Name Value Range Interpretation Code Description Data Carmela rce(s) Supporting Document(s) Progress Note [facility] LKGUCb4dFsEHJnBs63/JKTtySENzh5CkYHagIFi7CDqxTJHtO5TnECT4rE3yTJL1OReYNcBcPbJgBqCw lbm [file] AgICAgICAgICAgICAgICAgICAgICAgICAgICAgICAg ICAgICAgICAgICAgICAgICAgICAgICAgICAgICAgICAgICAgICAgICAgICAgICAgICAgICAgICAgICAg ICAgICAgICANCiAgICAgICAgICAgICAgICAgICAgICAgICAgICAgICAgICAgICAgICAgICAgICAgICAg ICAgICAgICAgICAgICAgICAgICAgICAgICAgICAgIC AgICAgICAgICAgICAgICAgICANCiAgICAgICAgICAgICAgICAgICAgICAgICAgICAgICAgICAgICAgIC AgICAgICAgICAgICAgICAgICAgICAgICAgICAgICAgICAgICAgICAgICAgICAgICAgICAgICAgICAgIC ANCiAgICAgICAgICAgICAgICAgICAgICAgICAgICAg ICAgICAgICAgICAgICAgICAgICAgICAgICAgICAgICAgICAgICAgICAgICAgICAgICAgICAgICAgICAg ICAgICAgICAgICANCiAgICAgICAgICAgICAgICAgICAgICAgICAgICAgICAgICAgICAgICAgICAgICAg ICAgICAgICAgICAgICAgICAgICAgICAgICAgICAgIC AgICAgICAgICAgICAgICAgICAgICANCiAgICAgICAgICAgICAgICAgICAgICAgICAgICAgICAgICAgIC AgICAgICAgICAgICAgICAgICAgICAgICAgICAgICAgICAgICAgICAgICAgICAgICAgICAgICAgICAgIC AgICANCiAgICAgICAgICAgICAgICAgICAgICAgICAg ICAgICAgICAgICAgICAgICAgICAgICAgICAgICAgICAgICAgICAgICAgICAgICAgICAgICAgICAgICAg ICAgICAgICAgICAgICANCiAgICAgICAgICAgICAgICAgICAgICAgICAgICAgICAgICAgICAgICAgICAg ICAgICAgICAgICAgICAgICAgICAgICAgICAgICAgIC AgICAgICAgICAgICAgICAgICAgICAgICANCiAgICAgICAgICAgICAgICAgICAgICAgICAgICAgICAgIC AgICAgICAgICAgICAgICAgICAgICAgICAgICAgICAgICAgICAgICAgICAgICAgICAgICAgICAgICAgIC AgICAgICANCiAgICAgICAgICAgICAgICAgICAgICAg ICAgICAgICAgICAgICAgICAgICAgICAgICAgICAgICAgICAgICAgICAgICAgICAgICAgICAgICAgICAg ICAgICAgICAgICAgICAgICANCjw/wNJbW1uweUVzqvB9Q6wpNl3QQf8EWK1pk2QvAQAeQOiiuqRqSezN OkOwXKAuRxsWOwu8PYdvYV4AaUAnB0IqU3ReHVsoTC 0MBFOwCOMwfRNbJOHzMRKxEnW2EKRcLYuiEE7HsVRmCLuvJMOgKWLkJmBbSBCxRYZrSWZgTQ8WMRCcA2 11wtLfJy3MCc0ZCoPnSD1brx5PAxMxRILcVrdIDfr6MIjaFI2HyHRpgPYnYjBlPJNNGpMuY8mco3OdCt anJGTFZUasYB4An1GvsUXbIQt+Uh5ZQE1en4XdXUhv OqKzPV7dlj1RCEmDBwVzX4CraVmpPSEbr3iaPEDjZC1iuKGzCGR4CYSaEQobsbHptjHYUL8cq6yvVGRa H1feAampAMGwEQAwPk1mWs3dXRHnERU2MyQpEEKEAN8QSNUrXEObfIKmFCKlPHOVMT0PQSbxLKM5AZKf uwRiaRWhXHvsKM8MENPlifNiTpZhLQJUXZq+Pg0KZW 1zf9WuQTggNSYjXA7aeq0POIzUEjIuW8C4yJEuW4E2DHfeSi9TOWTxOIXqDrVaBDGOSHmqET1ZLH8qpb E9ME5OkYLtUCGgAWJwiZYgEDh7C57kfAAnTIdeUO7HBOM+Yaya+Bl2QJUDfWRVaPGKsRaEtEBECXbEyV7 DrQ9JXk1QlM6DvMC16jOsewgUjBUzhNA2VAY7jCKIa UXLKWD9NoYMrnE3zwvDwLyZoCAOVAbLaH81fvPHhVXQoKNB2CNOoOn3JDJKnT8NbayMykDhhxxMbPNBk BNEOPB3JNMiwumEqaTNnpVokTY31sPfmBK9GXy2YTjUlUF5wdq1AdJDyLe9OSBFuQY0IWLDeXZAiAIHf XMQ4IKJjVqGkKJybHCMtYGFtUHX8MXXtRZGhUM3ERx BjSYQcRyD1TVfjEPXcBQPiom1QADAsXAHxMsK0IeWpHCMeZXPaJQsmLZVbXYHuSTL8UGErXQMoSJ0EKz KkKLAzHLS9HAheQPUjWHKbnx0OUOAcWJDjGiB9KrJgFJTgLNDyGFifESEsRJX8IULuLQKxJTFfCF1DPm ZrIFKgLKffNSKcSRBzVYEgvk6VLYUmZROhZHO6XsNy IUPrSDDjLFyeUJPdJJM9VxS1OMZqEVEaLV2MRrIkIFCqBIvnQmHuEXAiSNUyfk9NQOJiYMHfRVFcWvPm MJKuBDWrTNwlHEOyOVK5JaK8GKBfZKOmNU6KMrVpVJJzEOE2FzEuDOFlJVLiee7QTODpSQWePNs3XnVq IENmDZEfUMhgHFDaXXHpXAZ9DIYqSSAxLP4HBrEtWL UqZbX0DGPcWSKcUJApgr7XFMFkKLIkTawhWIKhIRSbNGWxXRycYNWoWQLiEZJ1PUJiFLNbYT6SQnJjJZ ToGyUzNodhYDRrYAZlbr7MYYOvKEYiPeRbJMZvQSYtNXFyNJfeFFCjZLK9ZwX2TIKmHPIlDT3NGeOmFE PjVcL7YUdmKKEiUDKzbf4XQZIbPKVfYNuzYENbFPDk ZVOtBEvcQBLuFZO8SJEgRXQbVKRkWV3VAkMrVYRxVhT6TWJqERYmGMIowj1JIMJmWWQgNqQ4DdMeQJVh VKKgUDmvGGBgOSI1NCEfVBVfIBYjGI8ENxOqQUhaPVBVPtm9KGtnM8c7SFWqSI9PI3Usp4ZkHolqZMVP KNesUM3qhxJcFCQqDv6NA0gWBtu3CZM5XGSmSaGjBw D4CfN9NYqaWzAzQIiiOSIaRBVvKJ6yAGGqBKI1FRPgIDF9XAZ0YGF2F1U8BWVgRyU7SvEzFiLiJsFoKS 9YQf2BAjU8XLM6cFLxIb2BOufxSdUVZoSaBS5WTCs= ID Date Data Source [id number] 12/20/2019 10:34:29 AM EDT [facility] Name Value Range Interpretation Code Description Data Carmela rce(s) Supporting Document(s) Progress Note [facility] HUTHKu0aIgUYHoZf65/ZCZegTRFke4TuNObwXBl9AXnbIBCmS0KzSBN2gK7aFOX9BBqXSsRpKdFiJhM6 lbm [file] 0gDQo+Zt5Fx9ClqwV3quJpRWpzGuDlWH2FHLFRE8TWCz== ID Date Data Source [id number] 12/20/2019 10:04:48 AM EDT [facility] Name Value Range Interpretation Code Description Data Carmela rce(s) Supporting Document(s) Progress Note [facility] XZBCSf3nQhFFPoGi12/ZKTbsQVEoj6JhWTomCRv9YDwtNJQlJ2HeXHT2iI0uTDV9ZIvNLbHaStXjNgJ9 lbm [file] AgICAgICAgICAgICAgICAgICAgICAgICAgICAgICAgICAgICAgICAgICAgICAgICAgICAgICAgICAgIC AgICAgDQogICAgICAgICAgICAgICAgICAgICAgICAg ICAgICAgICAgICAgICAgICAgICAgICAgICAgICAgICAgICAgICAgICAgICAgICAgICAgICAgICAgICAg ICAgICAgICAgICAgICAgDQogICAgICAgICAgICAgICAgICAgICAgICAgICAgICAgICAgICAgICAgICAg ICAgICAgICAgICAgICAgICAgICAgICAgICAgICAgIC AgICAgICAgICAgICAgICAgICAgICAgICAgDQogICAgICAgICAgICAgICAgICAgICAgICAgICAgICAgIC AgICAgICAgICAgICAgICAgICAgICAgICAgICAgICAgICAgICAgICAgICAgICAgICAgICAgICAgICAgIC AgICAgICAgDQogICAgICAgICAgICAgICAgICAgICAg ICAgICAgICAgICAgICAgICAgICAgICAgICAgICAgICAgICAgICAgICAgICAgICAgICAgICAgICAgICAg ICAgICAgICAgICAgICAgICAgDQogICAgICAgICAgICAgICAgICAgICAgICAgICAgICAgICAgICAgICAg ICAgICAgICAgICAgICAgICAgICAgICAgICAgICAgIC AgICAgICAgICAgICAgICAgICAgICAgICAgICAgDQogICAgICAgICAgICAgICAgICAgICAgICAgICAgIC AgICAgICAgICAgICAgICAgICAgICAgICAgICAgICAgICAgICAgICAgICAgICAgICAgICAgICAgICAgIC AgICAgICAgICAgDQogICAgICAgICAgICAgICAgICAg ICAgICAgICAgICAgICAgICAgICAgICAgICAgICAgICAgICAgICAgICAgICAgICAgICAgICAgICAgICAg ICAgICAgICAgICAgICAgICAgICAgDQogICAgICAgICAgICAgICAgICAgICAgICAgICAgICAgICAgICAg ICAgICAgICAgICAgICAgICAgICAgICAgICAgICAgIC AgICAgICAgICAgICAgICAgICAgICAgICAgICAgICAgDQogICAgICAgICAgICAgICAgICAgICAgICAgIC AgICAgICAgICAgICAgICAgICAgICAgICAgICAgICAgICAgICAgICAgICAgICAgICAgICAgICAgICAgIC YgAZWkRGCoKYXcUKXjAAu7F5xfIGXkROHjGN4vDBf6 Jz8+CViAZlWgNNC6pcYrqD8ISX0ny4FrXGobIOYps4OqBTv7KG7JVSCiEJltIQ5UTLbqcb4TPXKaMYUw qMDSd9bbJaKfRPB3IKNrJspgPD9PEBJpZ2ecmpQvGKCvNIHYCCfkXEEIFPilFZQXOL9UHfBqK2CmqW78 IDMNCj4+SUlpkjMzXuzYHnY3FBRzj7DdWUk7EO7RPN OxSwnpn9VjJppnYTNVZEmmUW9CBDK1XLW4ZESpRy0GDAZaI394tcEbIH6ZHw4NOxSvNH6enk1RQjsyMW ToXdaWDic6FMqfZB6XxGKfVAkJie7udeRzooEKp9VudjQjhOWMtGB9FB8gOODnMbRhEDCpm4I1dXUoIR HkVK0LYRE6DFptYL7gPZDaJZZ6BhPnIZKRTX5ZOGLh COWfkHYcMPMbBVKKQS4MCEszGZY5BGYwmrPsdEUrYEeaZE6ILPFnivKtWgTaSSTWKGi+Vr7UUO7en0Lo MJpnKJZaRG6fkc4ESDvOKqLfE0U7qDAmQ3X1MBneXk8AZCBhBCJrIaEmIKUUIBplYX6LQY8zypL2AL3Q dWHkJBPaWGJqeWLiVQz0I39xfMEuNXkuUF8CECZ+Pi A+Yd7OTQApEGBzWEOhTbRcBUCXZiOyB1DcA8PPk4RaI3NpMI93vFlziiPfXHpjLN1YCM5pYAHlGXHJZG 4OpAQuzV3owpKkXxOxRMVKZiSkJ63riZMqTEWkVTQ7KNBeVu0WPSSqV2TixcJhgAkwdlDcHBBfGYKSIV 5COZbqwvSrxRJmuEmnQN38cDieVM0CFp8UFfKwVV2c oq8DrAKeRu9FCSIcIQ0DLPLbDMYkKEApVYD1CQCoYxXkFZsrOPQxYOSrABY4PRVfUWBaLA5OXjZmPSYc ZtX9LWPxJGHtDXBwkw7JSNVzENWjQcH6GcCfDFUyAEHsBJpeDPRnWDFhDNG8DPIxHUPdEE9ZIpTaUSJf GUG4ABFvUCKgMOIawv7GARSgFPYhUxZ2LlKcLSOlCJ HsIKbrDADiTAE5DUBuWIXdWGOwEM6QEaVoZCVlOEgbUIhwGEAuWENqmu6CZJRxZJWoNZQ1IfNnWOStOW QlYMjnGFRyDDR0MhxiRXLfJXIgUF2QDeReXGPgFIypNjUjORDtCVZcpk6JCBYaYCYpLTTkOGRuIWKzEN ZlEPgcEAMnSMX7XzUwZUDnPXUwNL0RKlNnLFMkRFX8 CqAsJDVnXGEmde6MRDFtMZBqUCb8FfLvOLSkSRQwTBipSCNiWOKwDNXxIAWbVCPkSG9KVwDrTTPzZfWt GXBsPTPpFLPwwc8NRAYyXPDpLzbiYCWhFZBeKOAzLDtyBMIlDEZhWLR5NRNgQVLsRA9RNmTkVEGwMxHi KsMsAOIcBPLene8MMAKxPAFiCtRtZMSxGNAhTWKdRO kuGBZbTMY3CvX4TIBfGEUzGO8HUiYsHQTuXbC9SUXdCCWvPLMwfh3DZIVfGLViCXPdKFUmSFZnUFMtYU hqSWDuZGP8KZH5TFVmJTUbQP3FMpVlUKOkYhL1BZjmYJYqCWMxfm7RGJPqTXHfCjS5ORPnBGIxOZFdKI jgOCDnQSA1XmN2ZNHuMRZwZB3YHgOtMWthMEGMBsv9 AAkkX4i4LDDjTP1OA4Krd7RcOvemEJRYODuuRT2ybvMwRUYqJs7KB5jNQqohUDVqHtKiAdIpLgS6LRWf VDPpCOE6AOMgFuL9ZZAxZO8kUQG9MDPeBMZ3ShPnXlM5UAP4R3SaPAFlAUPzWSU8MnD9JgDxLT4REz3M TtC4AQL2hZEiZj7HTvJ9QcIXBrSaLC7PYHz= ID Date Data Source [id number] 11/26/2019 02:57:30 PM EDT [facility] Name Value Range Interpretation Code Description Data Carmela rce(s) Supporting Document(s) Progress Note [facility] XQLLIl4dKlLFAiYe02/KBDoeGSVsl3EyXApbEEs3TTohXLEdL1GuGVU9eW2sBMB2XNgGGsHhZeWoVtOi lbm [file] o= ID Date Data Source [id number] 11/26/2019 04:59:18 PM EDT [facility] PCName: Vonda NortonDOB: 1935Provider: Alan Marquez: 11/19/2019 AssessmentREASON FOR VISIT:Vonda Norton is in today for a follow-up check. 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 He has no pain or soreness. He wants to go ahead with right knee replacement, as his left knee bothers him terribly.He is going to go through radiation treatment for prostate cancer and he wants to delay knee replacement surgery on the right side until the radiation is over. His urologist said it will be five weeks of radiation, five times a week. Even if the patient wanted a knee replacement before then, he doesn't have time.PHYSICAL EXAMINATION:The patient is awake alert and oriented x3. The patient has appropriate mood and affect. The upper extremities have normal strength, sensation, reflexes, muscle tone and coordination. There are no skin lesions in either upper extremity. There are normal pulses in both wrists. These javier acteristics are important in the event that the patient may need crutches for ambulation in the future. Examination of the left knee shows a well-healed surgical incision, full extension and flexion to almost 130 degrees. No instability. Gait is smooth is smooth on the left side. Patella tracks centrally. Examination of the right knee: The patient ambulates with antalgia. There is a varus thrust on the right side with ambulation.The right knee has 5 of varus malalignment. Range of motion is from 5-115 of flexion. There is subtle laxity of the lateral collateral ligament. No gross instability is noted. Crepitation is noted with range of motion most notably in the medial and patellofemoral compartments. There is a 1+ effusion. Tenderness is most marked medially but subtle tenderness is also present in the lateral and patellofemoral compartments. The right lower extremity shows normal strength, sensation, reflex and coordination. There are normal pulses in the foot. There are no skin lesions. X-RAYS:Previous x-rays were reviewed. Standing AP views of both knees show a Mathis knee replacement on the left side, in good position, with no sign of loosening or wear. There is end-stage nonm-se-ufaw arthritis of the right knee, in the medial and patellofemoral compartments, with tibiofemoral subluxationX- rays were ordered obtained and interpreted by me today including an AP of the pelvis: There is minor joint space narrowing in both hips symmetrically there is no obvious metastases in the pelvis other some degenerative change in the lumbar spine..DIAGNOSIS:1. Excellent progress status post left knee replacement surgery on . End-stage primary osteoarthritis of the right knee3. Unremarkable evaluation of both hips him the pelvisTREATMENT:He wishes to go ahead with right knee replacement surgery in February or March. Plan Albumin; Status:Active; Requested for:19Nov2019; Perform:Outside Facility; Order Comments:Please fax results to blood conservation: [phone]; Due:29Nov2019; Last Updated By:Jacinta Cummings; 11/19/2019 1:51:21 PM;Ordered; For:Iron reutilization anemia, Osteoarthritis of right knee, Preoperative testing, Right knee pain; Ordered By:Ej Marquez; Ferritin; Status:Active; Requested for:19Nov2019; Perform:Outside Facility; Due:29Nov2019; Last Updated By:Jacinta Cummings; 11/19/2019 1:51:21 PM;Ordered; For:Preoperative testing; Ordered By:Ej Marquez; HGB ( Hemoglobin ); Status:Active; Requested for:19Nov2019; Perform:Outside Facility; Due:29Nov2019; Last Updated By:Jacinta Cummings; 11/19/2019 1:51:21 PM;Ordered; For:Preoperative testing; Ordered By:Ej Marqeuz; Iron Panel (IRON TOTAL, % SATURATION, TIBC, UIBC); Status:Active; Requestedfor:19Nov2019; Perform:Outside Facility; Due:29Nov2019; Last Updated By:Jacinta Cummings; 11/19/2019 1:51:21 PM;Ordered; For:Preoperative testing; Ordered By:Ej Marquez; X-Ray I Pelvis - 1 view (XRays were ordered, obtained and interpreted today in theoffice. Indication: pain/dysfunction.); Status:Complete; Done: 19Nov2019 Perform:SOS29; Due:03Dec2019; Last Updated By:Dee Mane; 11/19/2019 1:27:14 PM;Ordered; For:Pain in pelvis; Ordered By:Ej Marquez;Weight Bearing Status : Weight bearing Physical Therapy (SOS) Pre-Op Physical Therapy Treatment Status: Complete Done:19Nov2019 Ordered;For: Preoperative testing; Ordered By: Ej Marquez Performed: Due: 03Dec2019; Last Updated By: Jacinta Cummings; 11/19/2019 1:51:21 PMSurgical Procedure and Date : TBD - Right TKAPT Protocol : Evaluate and treat as indicated, per protocol or as previously written.Laterality and Body Part : Right knee Signatures Electronically signed by : Sol Barajas, ; Nov 20 2019 11:28AM EST Electronically signed by : Ej Marquez M.D.; Nov 20 2019 1:03PM EST Electronically signed by : Ej Marquez M.D.; Nov 26 2019 4:59PM EST (Author) Name Value Range Interpretation Code Description Data Carmela rce(s) Supporting Document(s) ID Date Data Source [id number] 08/24/2019 03:01:30 PM EDT [facility] Name Value Range Interpretation Code Description Data Carmela rce(s) Supporting Document(s) Progress Note [facility] IGJHEa8yVmWSIdCy42/AGStxPZDxf9FxQNbgIGv3MKnpNSTiD6MlJQP0mW5oZOS4CBiNIxDaIlExGzVi [facility] [file] oPDQYZkHIvrfp3Lw4bv8jgxQDSV0IuH1p3uO3kZ9CoukMtmhdKDRCbj/Wfpk8D3j3zxSkqJd+OeCx/lace stripper [file] 2bOKJJKd3+MPpceFXwkPegWHHXZlRdNrQ0DTklULMNYf0K ID Date Data Source [id number] 08/24/2019 02:25:24 PM EDT [facility] Name Value Range Interpretation Code Description Data Carmela rce(s) Supporting Document(s) Progress Note [facility] PZODMh0qVkYGJqLv32/CKFxcFVNgz8RoICauZPg2VFhlNBJfH1ShZCH3fZ4lQIS7YErFKfRzHtFrPiRg lbm [file] B6Z9SJcoWbyyCAFgDDF3Cj3yWQGLUf0+TKbayYTbtIfoFMQHLzZ6UON1GLayVPGDRp0H ID Date Data Source [id number] 08/17/2019 02:10:02 PM EDT [facility] Name Value Range Interpretation Code Description Data Carmela rce(s) Supporting Document(s) Progress Note [facility] DBUTUm6vBoZITuEp65/GWQzoCEJsg3BoCEqxFYy8XUqkHAFvC0WgBNG0dB8kEJY0HYoEKzXrHmIjAyMq lbm [file] REKHA+KFnzYBvusNl8bUUpTPSzHk2PNDJfURYrMMLzGSQvQRZkGLKaCWYvUFVoILRcSTFxPTMdUDBqWKRi ICAgICAgICAgICAgICAgICAgICAgICAgICAgICAgICAgICAgICAgICAgICAgICAgICAgICAgICAgICAg NX7VXJCiHDNzANRoCFLmHVThRXFtGDZtRUMdFSToGX AgICAgICAgICAgICAgICAgICAgICAgICAgICAgICAgICAgICAgICAgICAgICAgICAgICAgICAgICAgIC FbIUFaZARjWDGqDB0MWJNwUKMjXUOxDETqSAYhQOWdHUHmDONjXEKhCIMfASDxCGQfZWTkBCCxNIAsCE AgICAgICAgICAgICAgICAgICAgICAgICAgICAgICAg LSBjKQLuXERpAEIgBRPgATJcJHJuCU4RUZYuPXOsWAFdKVQsCJAqSZKvBCIgNYLcQFUiLIHrRJJhIUIw ICAgICAgICAgICAgICAgICAgICAgICAgICAgICAgICAgICAgICAgICAgICAgICAgICAgICAgICAgICAg CIMnYM2ZQCImQECrCXPeKJIfQRIhGHIrAQVmNSYrRO AgICAgICAgICAgICAgICAgICAgICAgICAgICAgICAgICAgICAgICAgICAgICAgICAgICAgICAgICAgIC MdEGReGZZlLGUjTRXoKB5CRCFaNVTvVNHcUUPdJQGzHEGpNJUvHHKfRYHtYDXvFGSwXAQrTBDwKZKiUP AgICAgICAgICAgICAgICAgICAgICAgICAgICAgICAg RQKfIFHfBFTkXOIgQMAyOSXfSNQtBVJsMN8PUZBqUIDtAKKvVDBtVKNwGQDmVBJxQWPaEBHjSCFxEVCn ICAgICAgICAgICAgICAgICAgICAgICAgICAgICAgICAgICAgICAgICAgICAgICAgICAgICAgICAgICAg MAQrPTIzTB9BXBAxTRAdLRYmTVUtOGSoDHGgVTOvGD AgICAgICAgICAgICAgICAgICAgICAgICAgICAgICAgICAgICAgICAgICAgICAgICAgICAgICAgICAgIC DgMLXlDVDuFYOdRSKbNCByZB9UZAQkKJOpFRJzSMVzVESiIQQnHPJvZQCxVCEiGARzQSYwNPHlSBAiXW AgICAgICAgICAgICAgICAgICAgICAgICAgICAgICAg MGAvEKAqWGEzGIXrPBKxJLYfUYJxFZKrQIQcCJ9LGWZuVIDaZEVcBVZeQQKtLEOvSXJiSWQrBJTfHAOe ICAgICAgICAgICAgICAgICAgICAgICAgICAgICAgICAgICAgICAgICAgICAgICAgICAgICAgICAgICAg BKYdOUCxLMXnTV1QZZ45yPEqz6Q8JIUzIY6owcb/Pg 6FKKosccLvaLDrTD9GDsYeNU2ucp9FCxQrRB0jso9LXPrBYeCmD2L3qOKkYKUdILAIJeQmN70vQVuvHi 88BYjsMYPzKbRrIVv6Ay4DWeOrE7raJQTxRyS6UKPvTaPmXJpaKY7Uv4TlyJFeDWv+Bo7VKK0jw7KwOZ meJZLpQU2faz8ZOEaPIpNsR6ObkqT0PKKhITIkYm1I OLXkETMutAYkGLEiOCVVAzSfH3OpqR72UPBJXe3+WXysjxObGgeKCiNwSMOba2BjQDb7DD0LYLOwIKx9 kSUyJNPpQ0Apw5EsJy81CEHwFocgXOfcIXWlIiNGZJdqYI1cRF6XUWK3EUNjFSYvCtYdVLHuLHcjEFXQ HPwYNgHuJ5Zdy9FjBbL8BBBjLdYeVAuhNMQdZxT8RH 40bRqbWG9JKLNrNRVhLE78GNK1MOItHh7FBg3XSmHfNF0ioy3VWhVjRKKbIkkYSjl6AGnnEW1GzTHsG5 RadGOhs1gEQgMwP1ANAHG1UGXxXh6FALMgWnUbIGXfFVhpSV7lYGWfDBFIkEsvzkA5FI4DBC2gwxYcLR 3RXgAgIo1lEk3WBzMgA6DdW3JgNGWbSTFJNKwlGW4M JSggND1yYR1Tw5RRaUNemT5onf0XSQCgANWaCarpqb5PWcooK1Z4iElqHUKhJLdmPVRUXCagVR9ZOFYh CLN9JBLcBFLzTJFNQfFyK41oCZ3UX9Zux81uFsI3BCWaEaMtTAdzQZ81qEhbjeXxdXEseGwrMG1TCz7+ DQplbmRvYmoNCnhyZWYNCjAgMjINCjAwMDAwMDAwMD YeZcM1VxQsNo6WQINxFRFgWRQgQoHmPUBwUMEjIYscCCDrJAU6HBF1RGAzESEcGP0INhZlOGTjLKw3Be VzFKKqZIAprb4WJVPdIIPuDPT4OyOiHETlZCGwZTggNQPyDZWcKfh3OAXtPAPqUH6LLfYbNDEeCRW6Fw gfGCBmHFKiod2XMKPaQBSxTebzCoXiHDHhOAHyFGkk ABWhNJQ0PYKaRVReTIReZC0PDdGgMCWeAUCuZYGbEFIsPCUqho3ZMKHzFYFnMXO1WSCgDUJeNFBcNOrw MBNvCIW1LaziFDKuXTGfQD9DKdWsFYXtBQS1UuJmJGMxDPYkhb3RDAPtWJQbTwjoOKLbAVXrGGBqAYnf TOZqZAY3KgPbEEUnBQAwBQ8WGwGgWIAgUHz9NYVrBZ OjHVUklo5GFOKnHRYqVjQ1NKReKSVoVUOiHVfgQWNpABK9XKI9GYAcTWNwBU7HZzZuRPMtQUsbNjMzRB TxYVSxqy6RWZKqNSZzOAK1HXTcBTClSLHiITgcRQCtKYM8UbL0BCDhGTQbFX1TUpHpTWTqUDn5JSYaLB ElKMPrco4NlDAhxEzuci1SNXwNQm7SzLnmCFVdDLzj Ki8xxCWfEBMbFFYQFp5SlsBvQDWtKGZJVZqzWKZlTTZwJqJiLTujFJKpHvC0Nif2ETDrRIq9AMk3Ymm9 N2GoCtK7ElZsVlQiY2QqSXQfSdO2VbF5RKH5ZEh3NAQtARvqGwK+WG0zWZe+Lh9Wy7JwclC1rxMeRPcf NSIyRP5BIPMVF0DUKl== ID Date Data Source [id number] 08/13/2019 05:57:00 PM EDT [facility] Name Value Range Interpretation Code Description Data Carmela rce(s) Supporting Document(s) PROSTATE SPECIFIC ANTIGEN 1.13 NG/ML 0.06-4.00 N [facility] Do not interpret PSA results as absolut e evidence of the presence or absence of Malignant Disease. The obtained PSA value should be used in conjunction with information available from clinical evaluation and other diagnostic procedures. Following post-radical prostatectomy, the guidelines for biochemical recurrence of prostate cancer is a detectable or rising PSA value that is greater than or equal to 0.2 ng/ml with a second confirmatory level of greater than or equal to 0.2 ng/ml. The result for the PSA is determined using the [employer] System that utilizes a direct chemiluminometric technology. The result is not interchangeble with different assay methods. ID Date Data Source [id number] 08/07/2019 07:18:00 AM [facility] Name Value Range Interpretation Code Description Data Carmela rce(s) Supporting Document(s) Fgzwg-1-yulsxkzdkdo 119 mg/dL 101-187 [facility] Phenotype (P1) MM . [facility] Phenotype Population A-1- AT Concentration Incidence % Reference Interval MM 86.5% 96 - 189 MS 8.0% 83 - 161 MZ 3.9% 60 - 111 FM 0.4% 93 - 191 SZ 0.3% 42 - 75 SS 0.1% 62 - 119 ZZ 0.05% 16 - 38 FS 0.05% 70 - 128 FZ Unknown 44 - 88 FF Unknown Unknown Performed at: - [facility] [address] [id number] [employer] Program Coordinator: Jillian Hernandez MD, Phone: [phone] Performed at: [facility] [address] [id number] [employer] Safety Program Coordinator: Damian Bernard MD, Phone: [phone] ID Date Data Source [id number] 06/08/2019 09:43:00 [place] [address] Patient Name: Vonda Norton Exam Date: 06/08/19 : 1935 Ordering Doctor: Chrissie Turner Attending Doctor: Chrissie Turner CC: FRONTAL AND LATERAL CHEST TWO VIEWS INDICATION: CHEST PAIN COMPARISON: 08/07/2012 FINDINGS: Mediastinal and hilar structures are normal. Cardiac silhouette is unremarkable. Right upper lung appears more emphysematous prior. Interval development of linear parenchymal densities right base most likely present atelectasis/scar. No pneumonia or edema. No pleural effusions or pneumothorax. IMPRESSION: Interval change suggesting increased right upper lung emphysema and right lower lung atelectasis/scar. Otherwise no acute abnormality or interval change. Professional interpretation performed by [facility] Medical Imaging at [facility] . End of diagnostic report: [id number] Signed: Waldemar Buckley MD 06/08/19 0946 Interpreted by: Waldemar BuckleyTranscribed by: Waldemar Buckley Name Value Range Interpretation Code Description Data Carmela rce(s) Supporting Document(s) ID Date Data Source [id number] 06/08/2019 09:30:00 AM EST [facility] ([facility]) Name Value Range Interpretation Code Description Data Carmela rce(s) Supporting Document(s) Reported Physicians See Note Reported Physicians [place] ([facility]) Note: Reported Physicians:Ordering: Chrissie PickeringAttending: Chrissie Turner ID Date Data Source [id number] 06/08/2019 09:30:00 AM EST [facility] ([facility]) Name Value Range Interpretation Code Description Data Carmela rce(s) Supporting Document(s) Thyrotropin [Units/volume] in Serum or Plasma by Detec tion limit <= 0.05 mIU/L 2.728 uIU/ML Normal TSH [place] ([facility]) Note: Patients should not be tested for 72 hours post fluorescein dye angiography. A false depression of result may occur.Responsible Observer: TSH TSH 300.5500 (A) ID Date Data Source [id number] 06/08/2019 09:30:00 AM EST [facility] ([facility]) Name Value Range Interpretation Code Description Data Carmela rce(s) Supporting Document(s) Deprecated Cholesterol.in LDL/Cholestero l.in HDL [Mass ratio] in Serum or Plasma 2.8 Normal CHOL/HDL RATIO [place] ([facility] ) Note: Responsible Observer: CHOL/HDL RAT IO CHOL/HDL RATIO 300.4700 (A) Cholesterol crystals [Presence] in Stone by Infrared spectroscop y 163 MG/DL Normal CHOLESTEROL [place] ([facility]) Note: Responsible Observer: CHOL CHOLEST SANDY 300.4350 (A) Cholesterol in HDL [Mass/volume] in Serum or Plasma ultracen trifugate 58 MG/DL Normal HDL CHOLESTEROL [place] ([facility]) Note: Responsible Observer: HDL HDL CHOL ESTEROL 300.4600 (A) Triglyceride [Mass/volume] in Serum or Plasma 154 MG/DL Above high normal TRIGLYCERIDES [place] ([facility]) Note: Responsible Observer: TRIG TRIGLYC ERIDES 300.4300 (A) Cholesterol in LDL [Mass/volume] in Serum or Plasma by Direct as say 74 MG/DL Normal LDL CHOLESTEROL [place] ([facility]) Note: Responsible Observer: LDL LDL CHOL ESTEROL 300.4400 (A) ID Date Data Source [id number] 06/08/2019 09:30:00 AM EST [facility] ([facility]) Name Value Range Interpretation Code Description Data Carmela rce(s) Supporting Document(s) Hemoglobin A1c/Hemoglobin.total in Blood 6.1 % Normal GLYCOSYLATED HGBA1C [place] ([facility]) Note: Responsible Observer: HGB A1C GLYC OSYLATED HGBA1C 300.0800 (A) ID Date Data Source [id number] 06/08/2019 09:30:00 AM EST [facility] ([facility]) Name Value Range Interpretation Code Description Data Carmela rce(s) Supporting Document(s) Alkaline phosphatase isoenzyme [Units/volume] in Serum or Plasma 66 U/L Normal ALKALINE PHOSPHATASE [place] ([facility]) Note: Responsible Observer: ALK PHOS ALK WALT PHOSPHATASE 300.3110 (A) Albumin/Globulin [Mass Ratio] in Amniotic fluid 2.4 G/DL Normal ALB/GLOB RATIO [place] ([facility]) Note: Responsible Observer: A/G RATIO AL B/GLOB RATIO 300.4100 (A) Albumin [Mass/volume] in Synovial fluid 4.0 G/DL Normal ALBUMIN [place] ([facility]) Note: Responsible Observer: ALB ALBUMIN 300.3900 (A) Aspartate aminotransferase [Enzymatic activity/volume] in Serum or Plasma 23 U/L Normal AST [place] ([facility]) Note: Responsible Observer: AST/SGOT AST 300.3050 (A) Alanine aminotransferase [Enzymatic activity/volume] in Seru m or Plasma 33 U/L Normal ALT [place] ([facility]) Note: Responsible Observer: ALT/SGPT ALT 300.3100 (A) Urea nitrogen/Creatinine [Mass Ratio] in Serum or Plasma 20 Normal BUN/CREAT RATIO [facility] ([facility]) Note: Responsible Observer: BUN/CREAT RA HARRY BUN/CREAT RATIO 300.0450 (A) Bilirubin.total [Mass/volume] in Serum or Plasma 0.8 MG/DL Normal BILIRUBIN,TOTAL [place] ([facility]) Note: Responsible Observer: TOTAL BILI T OTAL BILIRUBIN 300.2700 (A) CA 9.6 MG/DL Normal CA [facility] ([facility]) Note: Responsible Observer: CA CALCIUM 300.2200 (A) BLOOD UREA NITRO 20 MG/DL Normal BLOOD UREA NITRO [place] ([facility]) Note: Responsible Observer: BUN BLOOD UR EA NITROGEN 300.0350 (A) Creatine/Creatinine [Mass Ratio] in Urine 1.0 MG/DL Sandhya l CREATININE [place] ([facility]) Note: Responsible Observer: CREAT CREATI NINE 300.0400 (A) Chloride [Moles/volume] in Serum, Plasma or Blood 106 MEQ/L Normal CHLORIDE [place] ([facility]) Note: Responsible Observer: CL CHLORIDE 300.0200 (A) Carbon dioxide, total [Moles/volume] in Serum or Plasma 29 MEQ/L Normal CARBON DIOXIDE [place] ([facility]) Note: Responsible Observer: CO2 CARBON D IOXIDE 300.0250 (A) GFR 71.7 ML/MIN GFR [place] ([facility]) Note: Stage G2 - Mildly decreased kidne y function GFR normal is >=90 The MDRD GFR calculation is considered valid between the ages of 18 and 75 years only. The GFR is an estimate of the Glomerular Filtration Rate. It is considered accurate in evaluating patients with Chronic Kidney Disease,but may underestimate kidney function in Healthy Patients.Responsible Observer: GFR GFR 300.0410 (A) Globulin [Mass/volume] in Serum by calculation 1.7 G/DL Normal GLOBULIN [place] ([facility]) Note: Responsible Observer: GLOB GLOBULI N 300.4050 (A) Anion gap in Blood 15 Normal ANION GAP [place] ([facility] [place]) Note: Responsible Observer: ANION GAP AN ION GAP 300.0300 (A) Sodium [Moles/volume] in Serum, Plasma or Blood 146 MEQ/L Above high normal SODIUM [place] ([facility]) Note: Responsible Observer: NA SODIUM 3 00.0100 (A) Protein [Mass/volume] in Synovial fluid 5.7 G/DL B elow low normal TOTAL PROTEIN [place] ([facility]) Note: Responsible Observer: TP TOTAL PRO TEIN 300.3750 (A) Glucose [Presence] in Urine 103 MG/DL Above high normal G LUCOSE [place] ([facility]) Note: Responsible Observer: GLU GLUCOSE 300.0500 (A) Potassium [Mass/volume] in Blood 4.3 MEQ/L Normal POT ASSIUM [place] ([facility]) Note: Responsible Observer: K POTASSIUM 300.0150 (A) ID Date Data Source [id number] 06/08/2019 09:30:00 AM EST [place] ([facility]) Name Value Range Interpretation Code Description Data Carmela rce(s) Supporting Document(s) BASO # (AUTO) 0.03 10\\^3/uL Normal BASO # (AUTO) [place] ([facility]) Note: Responsible Observer: BASO # (AUTO ) BASO # (AUTO) 100.1500 (A) BASO % (AUTO) 0.5 % Normal BASO % (AUTO) [place] ([facility]) Note: Responsible Observer: BASO % (AUTO ) BASO % (AUTO) 100.1250 (A) EOS # (AUTO) 0.22 10\\^3/uL Normal EOS # (AUTO) [place] ( [facility]) Note: Responsible Observer: EOS # (AUTO) EOS # (AUTO) 100.1450 (A) GRAN # (AUTO) 3.49 10\\^3/uL Normal GRAN # (AUTO) [place] ([facility]) Note: Responsible Observer: GRAN # (AUTO ) GRAN #(AUTO) 100.1325 (A) EOS % (AUTO) 3.5 % Normal EOS % (AUTO) [place] ([facility]) Note: Responsible Observer: EOS % (AUTO) EOS % (AUTO) 100.1200 (A) Hemoglobin [Mass/volume] in Blood 14.1 G/DL Normal HE MOGLOBIN [place] ([facility]) Note: Responsible Observer: HGB HEMOGLOB IN 100.0300 (A) GRAN % (AUTO) 54.8 % Normal GRAN % (AUTO) [place] ([facility]) Note: Responsible Observer: GRAN % (AUTO ) GRAN % (AUTO) 100.1000 (A) Hematocrit [Volume Fraction] of Blood by Automated count 42.5 % Normal HEMATOCRIT [place] ([facility]) Note: Responsible Observer: HCT HEMATOCR IT 100.0400 (A) IG # (AUTO) 0.0 10\\^3/uL IG # (AUTO) [place] ([facility]) Note: Responsible Observer: IG # (AUTO) IG # (AUTO) 100.1260 (A) IG % (AUTO) 0.2 % IG % (AUTO) [place] ([facility]) Note: Responsible Observer: IG % (AUTO) IG % (AUTO) 100.1255 (A) LYMPH # (AUTO) 2.0 k/uL Normal LYMPH # (AUTO) [place] ( [facility]) Note: Responsible Observer: LYMPH # (AUT O) LYMPH # (AUTO) 100.1350 (A) LYMPH % (AUTO) 30.9 % Normal LYMPH % (AUTO) [place] ( [facility]) Note: Responsible Observer: LYMPH % (AUT O) LYMPH % (AUTO) 100.1100 (A) Erythrocyte mean corpuscular hemoglobin [Entitic mass] by Automated count 31.9 PG Normal MCH [place] ([facility]) Note: Responsible Observer: MCH MCH 100 .0600 (A) Erythrocyte mean corpuscular volume [Entitic volume] by Auto mated count 96.2 FL Normal MCV [place] ([facility]) Note: Responsible Observer: MCV MCV 100 .0550 (A) Erythrocyte mean corpuscular hemoglobin concentration [Mass/volume] by Automated count 33.2 G/DL Normal MCHC [place] ([facility]) Note: Responsible Observer: MCHC MCHC 1 00.0650 (A) MONO # (AUTO) 0.64 k/uL Normal MONO # (AUTO) [place] ([facility]) Note: Responsible Observer: MONO # (AUTO ) MONO # (AUTO) 100.1400 (A) MONO % (AUTO) 10.1 % Normal MONO % (AUTO) [place] ([facility]) Note: Responsible Observer: MONO % (AUTO ) MONO% (AUTO) 100.1150 (A) Platelets [#/volume] in Plasma by Automated count 185 10\\^3/uL Normal PLATELET COUNT [place] ([facility]) Note: Responsible Observer: PLT PLATELET COUNT 100.0850 (A) MPV 11.3 FL Normal MPV [place] ([facility]) Note: Responsible Observer: MPV MPV 100 .0950 (A) Erythrocytes [#/volume] in Blood by Automated count 4.42 10\\^6/uL Normal RED BLOOD COUNT [place] ([facility]) Note: Responsible Observer: RBC RED BLOO D COUNT 100.0250 (A) Leukocytes [#/volume] in Blood by Automated count 6.35 10\\^3/uL Normal WHITE BLOOD COUNT [place] ([facility]) Note: Responsible Observer: WBC WHITE BL OOD COUNT 100.0150 (A) Erythrocyte distribution width [Ratio] by Automated count 11.9 % Normal RDW [place] ([facility]) Note: Responsible Observer: RDW RDW 100 .0700 (A) ID Date Data Source [id number] 06/08/2019 01:04:00 PM [facility] Has Patient Fasted For The Past 12 Hour s? N Has Patient Fasted For The Past 12 Hours? Y Has Patient Fasted For The Past 12 Hour s? N Has Patient Fasted For The Past 12 Hours? Y Has Patient Fasted For The Past 12 Hour s? N Has Patient Fasted For The Past 12 Hours? Y Has Patient Fasted For The Past 12 Hour s? N Has Patient Fasted For The Past 12 Hours? Y Name Value Range Interpretation Code Description Data Cramela rce(s) Supporting Document(s) WHITE BLOOD COUNT 6.35 10^3/uL 4.00-10.50 [facility] ealt RED BLOOD COUNT 4.42 10^6/uL 4.30-5.80 [facility] th HEMOGLOBIN 14.1 G/DL 13.0-17.5 [facility] HEMATOCRIT 42.5 % 41.0-53.0 [facility] MCV 96.2 FL 80.0-100.0 [facility] MCH 31.9 PG 27.0-34.0 [facility] MCHC 33.2 G/DL 32-36 [facility] RDW 11.9 % 11.5-14.5 [facility] PLATELET COUNT 185 10^3/uL 130-400 [facility] MPV 11.3 FL 8.7-13.2 [facility] GRAN % (AUTO) 54.8 % 42.0-75.0 N [facility] LYMPH % (AUTO) 30.9 % 20.0-51.0 N [facility] MONO % (AUTO) 10.1 % 2.0-15.0 N [facility] EOS % (AUTO) 3.5 % 0.0-11.0 N [facility] BASO % (AUTO) 0.5 % 0.0-2.0 N [facility] IG % (AUTO) 0.2 % 1.00-5.00 [facility] IG # (AUTO) 0.0 10^3/uL <0.5 [facility] GRAN # (AUTO) 3.49 10^3/uL 1.50-6.50 N [facility] LYMPH # (AUTO) 2.0 k/uL 1.0-5.0 N [facility] MONO # (AUTO) 0.64 k/uL 0.20-1.50 N [facility] EOS # (AUTO) 0.22 10^3/uL 0.00-1.10 N [facility] BASO # (AUTO) 0.03 10^3/uL 0.00-0.20 N [facility] ID Date Data Source [id number] 06/08/2019 01:32:00 PM EST [facility] Has Patient Fasted For The Past 12 Hour s? N Has Patient Fasted For The Past 12 Hours? Y Has Patient Fasted For The Past 12 Hour s? N Has Patient Fasted For The Past 12 Hours? Y Has Patient Fasted For The Past 12 Hour s? N Has Patient Fasted For The Past 12 Hours? Y Has Patient Fasted For The Past 12 Hour s? N Has Patient Fasted For The Past 12 Hours? Y Name Value Range Interpretation Code Description Data Carmela rce(s) Supporting Document(s) SODIUM 146 MEQ/L 135-145 H [facility] POTASSIUM 4.3 MEQ/L 3.5-5.3 N [facility] CHLORIDE 106 MEQ/L 94-110 N [facility] CARBON DIOXIDE 29 MEQ/L 22-33 N [facility] ANION GAP 15 5-16 N [facility] BLOOD UREA NITRO 20 MG/DL 7-25 N [facility] CREATININE 1.0 MG/DL 0.6-1.4 N [facility] GFR 71.7 ML/MIN [facility] Stage G2 - Mildly decreased kidney func tion GFR normal is >=90 The MDRD GFR calculation is considered valid between the ages of 18 and 75 years only. The GFR is an estimate of the Glomerular Filtration Rate. It is considered accurate in evaluating patients with Chronic Kidney Disease,but may underestimate kidney function in Healthy Patients. BUN/CREAT RATIO 20 8-36 N [facility] GLUCOSE 103 MG/DL 70-100 H [facility] CA 9.6 MG/DL 8.7-10.5 N [facility] BILIRUBIN,TOTAL 0.8 MG/DL 0.1-1.3 N [facility] AST 23 U/L 5-40 N [facility] ALT 33 U/L 5-48 N [facility] ALKALINE PHOSPHATASE 66 U/L 40-140 [facility] TOTAL PROTEIN 5.7 G/DL 5.9-8.3 L [facility] ALBUMIN 4.0 G/DL 3.0-5.1 N [facility] GLOBULIN 1.7 G/DL 1.5-3.5 N [facility] ALB/GLOB RATIO 2.4 G/DL 1.0-2.7 N [facility] ID Date Data Source [id number] 06/08/2019 01:32:00 PM [facility] Access Point Has Patient Fasted For The Past 12 Hour s? N Has Patient Fasted For The Past 12 Hours? Y Has Patient Fasted For The Past 12 Hour s? N Has Patient Fasted For The Past 12 Hours? Y Has Patient Fasted For The Past 12 Hour s? N Has Patient Fasted For The Past 12 Hours? Y Has Patient Fasted For The Past 12 Hour s? N Has Patient Fasted For The Past 12 Hours? Y Name Value Range Interpretation Code Description Data Carmela rce(s) Supporting Document(s) GLYCOSYLATED HGBA1C 6.1 % 4.1-6.5 N [facility] ID Date Data Source [id number] 06/08/2019 01:32:00 PM [facility] Access Point Has Patient Fasted For The Past 12 Hour s? N Has Patient Fasted For The Past 12 Hours? Y Has Patient Fasted For The Past 12 Hour s? N Has Patient Fasted For The Past 12 Hours? Y Has Patient Fasted For The Past 12 Hour s? N Has Patient Fasted For The Past 12 Hours? Y Has Patient Fasted For The Past 12 Hour s? N Has Patient Fasted For The Past 12 Hours? Y Name Value Range Interpretation Code Description Data Carmela rce(s) Supporting Document(s) TRIGLYCERIDES 154 MG/DL 45-150 H [facility] CHOLESTEROL 163 MG/DL 125-200 N [facility] LDL CHOLESTEROL 74 MG/DL 50-130 N [facility] HDL CHOLESTEROL 58 MG/DL 39-96 [facility] CHOL/HDL RATIO 2.8 0-4.9 N [facility] ID Date Data Source [id number] 06/08/2019 01:32:00 PM [facility] Has Patient Fasted For The Past 12 Hour s? N Has Patient Fasted For The Past 12 Hours? Y Has Patient Fasted For The Past 12 Hour s? N Has Patient Fasted For The Past 12 Hours? Y Has Patient Fasted For The Past 12 Hour s? N Has Patient Fasted For The Past 12 Hours? Y Has Patient Fasted For The Past 12 Hour s? N Has Patient Fasted For The Past 12 Hours? Y Name Value Range Interpretation Code Description Data Carmela rce(s) Supporting Document(s) TSH 2.728 uIU/ML 0.470-4.200 N [facility] Patients should not be tested for 72 ho urs post fluorescein dye angiography. A false depression of result may occur. ID Date Data Source [id number] 05/25/2019 10:21:44 AM [facility] Name Value Range Interpretation Code Description Data Carmela rce(s) Supporting Document(s) Progress Note [facility] MZIHLq5dKqKGQoFg98/BKIuoPTWmr3GbHNdxOWz6AZvzSUEnD2XsIYH4hO0rCII0ZNsDJyVkHLllUsGj lbm [file] AgICAgICAgICAgICAgICAgICAgICAgICAgICAgICAg ICAgICAgICAgICAgICAgICAgICAgICAgICAgICAgICAgICAgICAgICAgICANCiAgICAgICAgICAgICAg ICAgICAgICAgICAgICAgICAgICAgICAgICAgICAgICAgICAgICAgICAgICAgICAgICAgICAgICAgICAg ICAgICAgICAgICAgICAgICAgICAgICAgICANCiAgIC AgICAgICAgICAgICAgICAgICAgICAgICAgICAgICAgICAgICAgICAgICAgICAgICAgICAgICAgICAgIC AgICAgICAgICAgICAgICAgICAgICAgICAgICAgICAgICAgICANCiAgICAgICAgICAgICAgICAgICAgIC AgICAgICAgICAgICAgICAgICAgICAgICAgICAgICAg ICAgICAgICAgICAgICAgICAgICAgICAgICAgICAgICAgICAgICAgICAgICAgICANCiAgICAgICAgICAg ICAgICAgICAgICAgICAgICAgICAgICAgICAgICAgICAgICAgICAgICAgICAgICAgICAgICAgICAgICAg ICAgICAgICAgICAgICAgICAgICAgICAgICAgICANCi AgICAgICAgICAgICAgICAgICAgICAgICAgICAgICAgICAgICAgICAgICAgICAgICAgICAgICAgICAgIC AgICAgICAgICAgICAgICAgICAgICAgICAgICAgICAgICAgICAgICANCiAgICAgICAgICAgICAgICAgIC AgICAgICAgICAgICAgICAgICAgICAgICAgICAgICAg ICAgICAgICAgICAgICAgICAgICAgICAgICAgICAgICAgICAgICAgICAgICAgICAgICANCiAgICAgICAg ICAgICAgICAgICAgICAgICAgICAgICAgICAgICAgICAgICAgICAgICAgICAgICAgICAgICAgICAgICAg ICAgICAgICAgICAgICAgICAgICAgICAgICAgICAgIC ANCiAgICAgICAgICAgICAgICAgICAgICAgICAgICAgICAgICAgICAgICAgICAgICAgICAgICAgICAgIC AgICAgICAgICAgICAgICAgICAgICAgICAgICAgICAgICAgICAgICAgICANCiAgICAgICAgICAgICAgIC AgICAgICAgICAgICAgICAgICAgICAgICAgICAgICAg ICAgICAgICAgICAgICAgICAgICAgICAgICAgICAgICAgICAgICAgICAgICAgICAgICAgICANCjw/eHBh V1ulzPYsrfP8M4zeHk6IHi6ISX2im8CwWUYtZKprmyXyAucURfGkSZZvOkpRBcz7PCbdHQ7JuTKiK4Tn R3PpNElhFG7FYQUpGHWggMLuFYOaIZUmVeU2EMOgVS quHX3HoAToWOucUHBoJRViEP7ECYUfL941ezOxUV0UNq8XElWkSE5brr6BHfOmGOIyWggPJpr0BFjfJE 4MwVVgzGWkPlAgJGMCAmEuM6qvi7ZnKfUkTLZUAUobHG4Ok6VkzVWiYXx+Hj6JEU7cq2LnSIblQyKoBG 6dgh9DFItTIjCzE4XnzAfwOWYju1xdOPBxRD0msOWx SQO8IIddxBduAvWIJOhfwPsfEXWSNGEoxOSgXq9mNO1tVJK3FNWtEkDlPBUMAJ5OZVBbZWMpnZRkWMAe HGMPGU0GDZgtCVH0SBOojkRoqXXlHPntHW3QJHHwziDwDsMzGVGNJSm+Ku8NJK0zq2LmENllZNCqUC7a tk2UNEoDTuIyB0Y2zIEtJ7L3EZgmFl9WKQPhZSOhQp QhNNBMVFfvPD9KRM1nlwG0SI1MiZEsNQDoKWOulDWiUTh6V65jsRPfPAzzSL1VLSU+Yaya+Ls6NHMOhVY VnAVGeDfOnVZWWBqEcG6KlZ6CZk2YdS6KnHT51eQjiidNdGJiiGQ7SKE3gJHMnDBZRXW8MuNCuqP4uys PnQyDhVZLCVzBjD99htMWrMRMdLGBkWVFiKg1ATRCe U2TnvfZetKqxhfAoJUYkKOYGRD5GBPrjeqTxfYCzmFpgBO87yEwaWB6NHe8KJoWzQN1nwa4DbSOuIi4S AUVfKB2QFVRmLBIcYWIuICV3IMUnCkEgJFmqPLRpDVFaGHV6JKSrMVSfSH7GTnIoPGIqKLx4RpVsJOAa JHLrsx5PPSIvSJZkHNLiTeUoWASwZWBlVIynEZBoZR WeCOW0FSBqDLQnZM7SFfCzUPRsHKJxHKRkUHTrEBAywx6ALJIhHMPoDoO0ENOoEIDzPPEaRZqjKTCdMO L2RrDfFGVbCQUqVO9XUhOpBURaLRT1ZOqdQKLaHWZhci8MUBUfFZNoFBVaMVFmBVQgURMfIDqfBNDyUX O7VOh4BIEvMEPlBY5YLyCqRLHkBCB4XWytXFGdPEOn vg5SFNQmORZbVFo3BcSsURGwFRFfRHjxBEKfJPM0AjXgHRQlELHhKM1RWsJgXVTwWTr9LRcsENDjPJDc yn8QMAKxNNXsWvf7TlIeUBIrVBQmUKvfRBHuJIV0MGf0OULaGVWyYZ2CCbAePEGdANmiDTDyJKGmNDTg dz5XQWZuYETcBXG6TTSnKVIlKVAyVVdaOKRwQEZ4Fs wkPDSxMNWdXD7CEgJmIDWmIJo9AFMwJJKgYHMhei3HXWBaAXSxOXy1YsVpVYQpPMMfYCgvNGJqESJqGF B7ZPQuFEFtHV2FWnXgAKQvSvU0VfKdXFYgARWejd7KNREpOKHrGMAgHaBxADPyOTLnZJr7lzPevYIwEV u1NO5CE8IkyrUaTdABRv5Xm855IFA0PKXgPe4DV4ef Ej1mRZWhRRPAUs3DSIp0EHJqJXTdY6RwLLA3IYHpYCVpNeStOSk0PyGzZmN8BxV+UGhcPHLuTmE7I8Wy VLJ8MOLgYwQ2AHY3RTw7TMGkUlN2QH7mISBNXe1+AHmpiVOtoAkuLHDFCgMaBHnvOOveANHMDd7B Procedure Social History Code Duration Value Status Description Data Source(s ) Alcohol intake 07/16/2020 12:00:00 AM EST Current drinker of al cohol (finding) completed Current drinker of alcohol (finding) [facility] Tobacco use and exposure 07/16/2020 12:00:00 AM EST Current user co mpleted Current user [facility] Cigarettes smoked current (pack per day) - Reported 07/16/19 12:00:00 AM EST UNK completed [facility] Smoking 07/16/2020 12:00:00 AM EST Former smoker completed Former smoker [facility] Alcohol intake 03/12/2020 12:00:00 AM EDT Current drinker of al cohol (finding) completed Current drinker of alcohol (finding) [facility] Alcohol intake 02/06/2020 12:00:00 AM EDT Current drinker of al cohol (finding) completed Current drinker of alcohol (finding) [facility] Alcohol intake 01/24/2020 12:00:00 AM EDT Current drinker of al cohol (finding) completed Current drinker of alcohol (finding) [facility] Alcohol intake 01/17/2020 12:00:00 AM EDT Current drinker of al cohol (finding) completed Current drinker of alcohol (finding) [facility] Alcohol intake 12/27/2019 12:00:00 AM EDT Current drinker of al cohol (finding) completed Current drinker of alcohol (finding) [facility] Cigarettes smoked current (pack per day) - Reported 12/27/19 12:00:00 AM EDT UNK completed [facility] Smoking 12/27/2019 12:00:00 AM EDT Former smoker completed Former smoker [facility] Alcohol intake 12/20/2019 12:00:00 AM EDT Current drinker of al cohol (finding) completed Current drinker of alcohol (finding) [facility] Cigarettes smoked current (pack per day) - Reported 12/20/19 12:00:00 AM EDT UNK completed [facility] Smoking 12/20/2019 12:00:00 AM EDT Former smoker completed Former smoker [facility] Alcohol intake 12/13/2019 12:00:00 AM EDT Current drinker of al cohol (finding) completed Current drinker of alcohol (finding) [facility] Cigarettes smoked current (pack per day) - Reported 12/13/19 12:00:00 AM EDT UNK completed [facility] Smoking 12/13/2019 12:00:00 AM EDT Former smoker completed Former smoker [facility] Alcohol intake 08/24/2019 12:00:00 AM EDT Current drinker of al cohol (finding) completed Current drinker of alcohol (finding) [facility] Cigarettes smoked current (pack per day) - Reported 08/24/19 12:00:00 AM EDT UNK completed [facility] Smoking 08/24/2019 12:00:00 AM EDT Former smoker completed Former smoker [facility] Alcohol intake 08/17/2019 12:00:00 AM EDT Current drinker of al cohol (finding) completed Current drinker of alcohol (finding) [facility] Cigarettes smoked current (pack per day) - Reported 08/17/19 12:00:00 AM EDT UNK completed [facility] Smoking 08/17/2019 12:00:00 AM EDT Former smoker completed Former smoker [facility] Vital Signs ID Date Data Source UNK Name Value Range Interpretation Code Description Data Source(s) Body surface area Derived from formula 2.37 m2 2.37 m2 [facility] ([facility]) Body mass index (BMI) [Ratio] 38.74 kg/m2 38.74 kg/m2 [facility] ([facility]) Body height 70 [in_us] 70 [in_us] [facility] ([facility]) Body weight 270 [lb_av] 270 [lb_av] [employer] ([facility]) PhenX - pain, abdominal - type and intensity protocol 0 0 [facility] unable to obtain vitals Body weight 270 [lb_av] 270 [lb_av] [facility] unable to obtain vitals Body surface area Derived from formula 2.35 m2 2.35 m2 [facility] ([facility]) Body mass index (BMI) [Ratio] 38.02 kg/m2 38.02 kg/m2 [employer] ([facility]) Body height 70 [in_us] 70 [in_us] [facility] ([facility] ) Body weight 265 [lb_av] 265 [lb_av] [employer] ([facility]) Diastolic blood pressure 70 mm[Hg] 70 mm[Hg] [employer] ([facility]) Patient Position: Sitting; Cuff Location : Left Arm; Cuff Size: Large Systolic blood pressure 118 mm[Hg] 118 mm[Hg] [facility] [employer] ([facility]) Patient Position: Sitting; Cuff Location : Left Arm; Cuff Size: Large Oxygen saturation in Arterial blood by Pulse oximetry 98 % 98 % [facility] ([facility]) Room air Respiratory rate 20 /min 20 /min [facility] [facility] ([facility]) Pattern: Unlabored Heart rate 80 /min 80 /min [facility] Pattern: Regular Body temperature 97.8 [degF] 97.8 [degF] [employer] [facility] ([facility]) ID Date Data Source [id number] 07/16/2020 11:23:38 AM [facility] Name Value Range Interpretation Code Description Data Source(s) PREFERRED NAME [facility] ID Date Data Source [id number] 07/16/2020 11:24:04 AM [facility] Name Value Range Interpretation Code Description Data Source(s) PREFERRED NAME [facility] Body height Measured 70 in 70 in [facility] PREFERRED NAME [facility] ID Date Data Source [id number] 03/24/2020 02:05:54 PM [facility] Name Value Range Interpretation Code Description Data Source(s) WEIGHT RECORDED 270.4 lb 270.4 lb [facility] Body height Measured 70 in 70 in [facility] ID Date Data Source [id number] 07/14/2020 11:07:54 AM [facility] Name Value Range Interpretation Code Description Data Source(s) PREFERRED NAME [facility] Body height Measured 70 in 70 in [facility] ID Date Data Source [id number] 03/10/2020 08:55:37 AM [facility] Name Value Range Interpretation Code Description Data Source(s) Body height Measured 70 in 70 in [facility] ID Date Data Source [id number] 01/30/2020 09:40:59 AM [facility] Name Value Range Interpretation Code Description Data Source(s) WEIGHT RECORDED 270 lb 270 lb [facility] ID Date Data Source [id number] 01/24/2020 09:58:05 AM [facility] Name Value Range Interpretation Code Description Data Source(s) WEIGHT RECORDED 270.2 lb 270.2 lb [facility] Body height Measured 70 in 70 in [facility] ID Date Data Source [id number] 01/30/2020 09:46:25 AM [facility] Value Range Interpretation Code Description Data Source(s) Body height Measured 70 in 70 in [facility] ID Date Data Source [id number] 01/10/2020 10:00:36 AM [facility] Value Range Interpretation Code Description Data Source(s) WEIGHT RECORDED 272.4 lb 272.4 lb [facility] Body height Measured 70 in 70 in [facility] ID Date Data Source [id number] 12/27/2019 10:20:57 AM [facility] Value Range Interpretation Code Description Data Source(s) Body height Measured 70 in 70 in [facility] ID Date Data Source [id number] 12/20/2019 10:34:29 AM [facility] Value Range Interpretation Code Description Data Source(s) Body height Measured 70 in 70 in [facility] ID Date Data Source [id number] 12/20/2019 10:04:48 AM [facility] Value Range Interpretation Code Description Data Source(s) Body height Measured 70 in 70 in [facility] ID Date Data Source [id number] 11/26/2019 03:40:34 PM [facility] Value Range Interpretation Code Description Data Source(s) WEIGHT RECORDED 270 lb 270 lb [facility] Body height Measured 70 in 70 in [facility] ID Date Data Source [id number] 05/25/2019 10:21:47 AM EST [facility] Value Range Interpretation Code Description Data Source(s) WEIGHT RECORDED 266 lb 266 lb [facility] Body height Measured 70 in 70 in [facility] Patient Treatment Plan of Care Planned Activity Planned Date Details Description Data Source (s) Stiolto Respimat 2.5-2.5 MCG/ACT Inhalation Aerosol So lution 05/15/2020 12:00:00 AM EST [facility] ([facility]) nabumetone 750 MG Oral Tablet 03/25/2020 12:00:00 AM [facility]) Tamsulosin hydrochloride 0.4 MG Oral Capsule 03/12/2020 12:00:00 AM [facility] nabumetone 750 MG Oral Tablet 02/04/2020 12:00:00 AM [facility]) nabumetone 750 MG Oral Tablet 12/27/2019 12:00:00 AM [facility]) Rosuvastatin calcium 20 MG Oral Tablet 12/24/2019 12:00:00 AM [facility] Ketoconazole 20 MG/ML Topical Cream 12/07/2019 12:00:00 AM [facility] 1.5 ML Leuprolide Acetate 15 MG/ML Prefilled Syringe 12:00:00 AM [facility] Stiolto Respimat 2.5-2.5 MCG/ACT Inhalation Aerosol So lution 10/31/2019 12:00:00 AM [facility] 200 ACTUAT Albuterol 0.09 MG/ACTUAT Metered Dose Inhal er [ProAir] 07/31/2019 12:00:00 AM EST [facility] ([facility])
[2020-07-23 21:19] VITALS: BP 167/75
[2020-07-23] MEDS ORDERED: GLUCAGON INJ 1MG VIAL IV STA (21:29)
[2020-07-23] MEDS ORDERED: FLOM0.4C39 PO (21:35)
[2020-07-23] MEDS ORDERED: SIMV20TA22 PO (21:35)
--- OUTSIDE RECORDS SUMMARY | 2020-07-23 21:48 | CCD ---
Author Author [facility] Organization [facility] Address Unknown Phone Unavailable Care Team Providers Care Lodging Facilities Attendant Name Role Phone Vianey JEFFERS Unavailable Unavailable [...] M CHRISSIE PA Unavailable Unavailable YUE, M CHRSISIE PA Unavailable Unavailable YUE, M CHRISSIE PA [...] Mittal MD Unavailable Unavailable Alexis, J Elaina FINANCE BROKER Unavailable Unavailable Alexis, J Elaina FINANCE BROKER Unavailable Unavailable Alexis, J Elaina FINANCE BROKER Unavailable Unavailable Alexis, J Elaina FINANCE BROKER Unavailable Unavailable Alexis, J Elaina FINANCE BROKER Unavailable Unavailable Alexis, J Elaina FINANCE BROKER Unavailable Unavailable Alexis, J Elaina FINANCE BROKER Unavailable Unavailable Alexis, J Elaina FINANCE BROKER Unavailable Unavailable Alexis, J Elaina FINANCE BROKER Unavailable Unavailable Alexis, J Elaina FINANCE BROKER Unavailable Unavailable Alexis, J Elaina FINANCE BROKER Unavailable Unavailable Alexis, J Elaina FINANCE BROKER Unavailable Unavailable Alexis, J Elaina FINANCE BROKER Unavailable Unavailable Alexis, J Elaina FINANCE BROKER Unavailable Unavailable Alexis, J Elaina FINANCE BROKER Unavailable Unavailable Alexis, J Elaina FINANCE BROKER Unavailable Unavailable Alexis, J Elaina FINANCE BROKER Unavailable Unavailable Alexis, J Elaina FINANCE BROKER Unavailable Unavailable Alexis, J Elaina FINANCE BROKER Unavailable Unavailable Alexis, J Elaina FINANCE BROKER Unavailable Unavailable Alexis, J Elaina FINANCE BROKER Unavailable Unavailable Alexis, J Elaina FINANCE BROKER Unavailable Unavailable Alexis, J Elaina FINANCE BROKER Unavailable Unavailable Alexis, J Elaina FINANCE BROKER Unavailable Unavailable Alexis, J Elaina FINANCE BROKER Unavailable Unavailable Alexis, J Elaina FINANCE BROKER Unavailable Unavailable Alexis, J Elaina FINANCE BROKER Unavailable Unavailable Alexis, J Elaina FINANCE BROKER Unavailable Unavailable Alexis, J Elaina FINANCE BROKER Unavailable Unavailable Alexis, J Elaina FINANCE BROKER Unavailable Unavailable Alexis, J Elaina FINANCE BROKER Unavailable Unavailable Alexis, J Elaina FINANCE BROKER Unavailable Unavailable Alexis, J Elaina FINANCE BROKER Unavailable Unavailable Alexis, J Elaina FINANCE BROKER Unavailable Unavailable Makhuli, N Zahi Unavailable Unavailable [...] Unavailable Unavailable Justin Pfeiffer MD Unavailable Unavailable Jsutin Pfeiffer MD Unavailable Unavailable Justin Pfeiffer MD [...] Unavailable Justin Pfeiffer MD Unavailable Unavailable Margarette, Justni POLK Unavailable Unavailable Justin Pfeiffer MD Unavailable [...] Unavailable Nat Acevedo MD Unavailable Unavailable Nat Aceevdo MD Unavailable Unavailable Nat Acevedo MD Unavailable Unavailable Nat Acevedo MD Unavailable Unavailable Nat Acevedo MD Unavailable Unavailable Nat Acevedo MD Unavailable Unavailable Nat Acevedo MD Unavailable Unavailable Nat Acevedo MD Unavailable Unavailable Nat Acevedo MD Unavailable Unavailable Nat Acevedo MD Unavailable Unavailable Nat Acevedo MD Unavailable Unavailable Nat Acevedo MD Unavailable Unavailable GREENKY, B EJ MD [...] Unavailable DOWNING, T EDWARD MD Unavailable Unavailable Alex TURNER Unavailable Unavailable Alex [...] M CHRISSIE PA Unavailable Unavailable YUE, M CHRISISE PA Unavailable Unavailable YUE, M CHRISSIE PA [...] is protected by Article 27-F of the [facility] Public Health law. If you continue you may have access to information: Regarding HIV / AIDS; Provided by facilities licensed or operated by the [facility] Office of Mental Health; or Provided by the [facility] Office for People With Developmental Disabilities. If such information is present, then the following [facility] mandated warning applies: This information has [...] law may result in a fine or senior care sentence or both. A general authorization for the release of medical or other information is NOT sufficient authorization for further disc losure. Advance Directives Directive Description Transmission Assembler Wire Tester Status Observation Descr iption Data Source(s) 24980-8 HIPAA - Effective on 07/31/2019. Expiration date unspecified Vonda murrieta [facility] ([facility] Allergies and Adverse Reactions Type Description Substance Reaction Status Data Source(s ) Allergy Allergy No Known Drug Allergies Active [facility] ([facility]) Drug allergy Penicillins Penicillins Active [facility] ( [facility]) Drug allergy Spironolactone Spironolactone Active [facility] [...] Attender: Justin Pfeiffer MD 01/21/2021 12:00:00 AM [facility] Outpatient Attender: Justin Pfeiffer MDReferrer: [facility] 07/16/2020 12:00:00 AM EST Malignant neoplasm of prostate [facility] Malignant neoplasm of prostate Outpatient Attender: Justin Pfeiffer MD 07/11/2020 02:50:00 PM [facility] Outpatient Attender: Justin Pfeiffer MD 06/18/2020 12:00:00 AM [facility] Office Visit<td><content ID="_[id number]">Office Visit</content>
<content><content styleCode="xLabel xSecondary">Encounter Reason</content>: <content ID="_[id number]" styleCode="xSecondary">COPD - The referring provider is CHRISSIE [...] emphysema. He was previously seen by a warm in in [place], Dr. Castañeda. He states he was tried [...] of daily living with limitations.</content><content styleCode="xSecondary">, </content><content ID="_[id number]" styleCode="xSecondary"> [ADDITIONAL REASON] ASTHMA, FOLLOW UP - The patient's asthma causes daytime symptoms 1 to 2 times per month. The patient's asthma is not disturbing sleep. </content></content>
<content><content styleCode="xSecondary xLabel">Encounter Diagnosis</content>: <content ID="_[id number]" styleCode="xSecondary">COPD, SEVERE</content><content styleCode="xSecondary">, </content><content ID="_[id number]" styleCode="xSecondary">ASTHMA</content><content styleCode="xSecondary">, </content><content ID="_[id number]" styleCode="xSecondary">DYSPHAGIA</content></content></td><td><content styleCode="xSecondary">15-Apr-2020 14:15 </content><content styleCode="xLabel xSecondary"> To </content><content styleCode="xSecondary">15-Apr-2020 14:37</content>
<content styleCode="xSecondary">[facility]</content></td><td></td> [facility] 04/15/2020 02:15:00 PM EST - 04/15/2020 [...] emphysema. He was previously seen by a warm in in [place], Dr. Castañeda. He states he was tried [...] emphysema. He was previously seen by a warm in in [place], Dr. Castañeda. He states he was tried [...] EDT - 03/28/2020 11:59:00 PM EDT [facility]ESS[facility] ([facility]) Outpatient<td ID="encounterTypeDescripti onID1">Medication Order</td><td>Chrissie DORADO</td><td></td><td>03/25/2020</td><td></td> Attender: CHRISSIE DORADO 03/25/2020 05:00:00 PM EDT - 03/25/2020 11:59:00 PM EDT JESSICA ([facility]) Outpatient Attender: FAWAD JEFFERS 2019 12:00:00 AM EDT - 03/24/2020 02:04:07 PM EDT Malignant neoplasm of prostate [facility] Malignant neoplasm of prostate Outpatient Attender: Justin Pfeiffer MD 03/13/2020 12:00:00 AM EDT [facility] Outpatient Attender: Justin Pfeiffer MDReferrer: Matt BarA-OSRONC 03/12/2020 12:00:00 AM EDT Malignant neoplasm of prostate [facility] Malignant neoplasm of prostate Outpatient Attender: Justin Pfeiffer MD 03/07/2020 02:44:00 PM EDT Lab [facility] Outpatient Attender: Justin Pfeiffer MD 07A-RONCACTR 02/14/2020 10:30:24 AM [facility] Outpatient Attender: JOSE DIEGO MD SJP.CT-SJP.SYR 02/2020 12:00:00 AM EDT - 02/13/2020 01:24:17 PM EDT [facility] Outpatient Attender: Justin Pfeiffer MD 02/07/2020 12:00:00 AM [facility] Outpatient Attender: Justin Pfeiffer MDReferrer: Matt BarA-OSRONC 02/06/2020 12:00:00 AM EDT Malignant neoplasm of [facility] Malignant neoplasm of prostate Outpatient Referrer: Uriel Barboza 02/05/2020 12:00:00 AM E [facility] Unknown<td ID="encounterTypeDescriptionI D2">Correspondence</td><td>Chrissie DORADO</td><td></td><td>01/30/2020</td><td></td> Attender: CHRISSIE DORADO 01/30/2020 02:33:00 PM EDT - 01/30/2020 11:59:00 PM EDT JESSICA ([facility]) Outpatient Attender: Justin Pfeiffer MDReferrer: Matt BarA-OSRONC 01/30/2020 12:00:00 AM [facility] Unknown<td ID="encounterTypeDescriptionI D3">PATIENT NOT SEEN</td><td>Chrissie aClderon Yue ESTRADA</td><td>[facility]</td><td>01/28/2020</td><td></td> Attender: CHRISSIE [facility] 01/28/2020 02:20:00 PM EDT - 01/28/2020 04:15:05 PM [facility]) Outpatient Attender: Jones Acevedo MD 01/25/2020 12:00:00 AM [facility] Outpatient Attender: Jones Acevedo MDReferrer: Edmond haskins MD OSRON 01/24/2020 12:00:00 AM [facility] Outpatient Attender: Justin Pfeiffer MDReferrer: Matt Barboza OSRON 01/17/2020 12:00:00 AM [facility] Outpatient Attender: Jones Acevedo MDReferrer: Uriel Capps i OSRON 01/10/2020 12:00:00 AM [facility] Outpatient Referrer: Uriel Barboza 01/07/2020 12:00:00 AM [facility] Outpatient Attender: Justin Ochoa rer: Edmond Mittal MD OSRON 01/03/2020 12:00:00 AM [facility] Outpatient Attender: Justin Ochoa rer: Edmond Mittal MD OSRON 12/27/2019 12:00:00 AM [facility] Outpatient Attender: Justin Pfeiffer MD 12/26/2019 12:00:00 AM [facility] Outpatient Attender: Justin Pfeiffer MDReferrer: Matt Barboza OSRONC 12/20/2019 12:00:00 AM [facility] Outpatient Referrer: ZAC CRAIG MD 12/18/2019 12:00:00 AM [facility] Outpatient Referrer: ZAC CRAIG MD 12/17/2019 12 :00:00 AM T [facility] Outpatient Attender: Justin Pfeiffer MDReferrer: Matt Barboza 07A-OSRONC 12/13/2019 12:00:00 AM EDT [facility] Outpatient Referrer: Uriel Saeedamalia 12/05/2019 12:00:00 AM E DT [facility] Outpatient Attender: ARLEEN HERRERA 2019 12:00:00 AM EDT - 11/26/2019 03:11:51 PM EDT Malignant neoplasm of prostate [facility] Malignant neoplasm of prostate Outpatient Attender: Justin Margarette MDRefer rer: Uriel Saeedamalia DipikaA-RONCACTR 11/26/2019 12:00:00 AM EDT - 11/26/2019 03:07:52 PM ED T Malignant neoplasm of prostate [facility] Malignant neoplasm of prostate Outpatient Referrer: Uriel Barboza 11/26/2019 12:00:00 AM E DT [facility] nurse Outpatient Attender: EJ AMRQUEZ MDReferrer: CHRISSIE DORADO 11/20/2019 01:03:38 PM EDT [facility] Recurring Patient Attender: EJ MARQUEZ MDReferrer: CHRISSIE DORADO 11/19/2019 01:08:17 PM EDT [facility] Outpatient Referrer: ZAC CRAIG MD 10/18/2019 12:00:00 AM [facility] Office Visit<td><content ID="_[id number]">Office Visit</content>
<content><content styleCode="xLabel xSecondary">Encounter Reason</content>: <content [id number]" styleCode="xSecondary">COPD - The referring provider is CHRISSIE [...] emphysema. He was previously seen by a warm in in [place], Dr. Castañeda. He states he was tried [...] of daily living with limitations.</content><content styleCode="xSecondary">, </content><content ID="_[id number]" styleCode="xSecondary"> [ADDITIONAL REASON] ASTHMA, FOLLOW UP - The patient's asthma causes daytime symptoms 1 to 2 times per month. The patient's asthma is not disturbing sleep. </content></content>
<content><content styleCode="xSecondary xLabel">Encounter Diagnosis</content>: <content ID="_[id number]" styleCode="xSecondary">ASTHMA</content><content styleCode="xSecondary">, </content><content [id number]" styleCode="xSecondary">COPD, SEVERE</content><content styleCode="xSecondary">, </content><content [id number]" styleCode="xSecondary">DYSPHAGIA</content></content></td><td><content styleCode="xSecondary">05-Oct-2019 13:00 </content><content styleCode="xLabel xSecondary"> To </content><content styleCode="xSecondary">05-Oct-2019 13:08</content>
<content styleCode="xSecondary">[facility]</content></td><td></td> [facility] 10/05/2019 01:00:00 PM EDT - 10/05/2019 [...] emphysema. He was previously seen by a warm in in [place], Dr. Castañeda. He states he was tried [...] emphysema. He was previously seen by a warm in in [place], Dr. Castañeda. He states he was tried [...] Alexandro Conte MD 10/05/2019 10:05:00 AM EDT [facility] Outpatient Referrer: ZAC CRAIG MD 10/02/2019 12:00:00 AM EDT [facility] Outpatient 08/30/2019 12:00:00 AM T [facility] Outpatient Attender: Uriel Barboza 08/30/2019 12:00:00 AM E [facility] Outpatient Attender: Justin Ochoa rer: Edmond Mittal MD 07A-OSRONC 08/24/2019 12:00:00 AM EDT Malignant neoplasm of prostate [facility] Malignant neoplasm of prostate Outpatient Attender: Justin Ochoa rer: Uriel BarA-RONCACTR 08/17/2019 12:00:00 AM EDT - 08/17/2019 04:00:29 PM ED T Malignant neoplasm of prostate [facility] Malignant neoplasm of prostate Outpatient Attender: Justin Pfeiffer MDRefer rer: Uriel Barboza 07A-RONCACTR 08/17/2019 12:00:00 AM EDT - 08/17/2019 03:57:55 PM ED T Malignant neoplasm of prostate [facility] Malignant neoplasm of prostate Outpatient Attender: Uriel Barboza 08/13/2019 02:30:00 PM E DT [facility] Historical Summary<td><content [id number]">Historical Summary</content></td><td><content styleCode="xSecondary">08-Aug-2019 13:06 </content><content styleCode="xLabel xSecondary"> To </content><content styleCode="xSecondary">08-Aug-2019 13:07</content>
<content styleCode="xSecondary">[facility]</content></td><td></td> [facility] 08/08/2019 01:06:39 PM EST - 08/08/2019 01:07:33 PM EST [facility] ([facility]) Outpatient Attender: Elaina Espinoza NPAttender: GREG DIEGO MD SJP.CT-SJP.SYR 08/08/2019 12:00:00 AM EST - 08/08/2019 12:59:26 PM EST [facility] Outpatient Attender: ZAC CRAIG MD 07/31/2019 02:50:00 PM EST [facility] Historical Summary<td><content [id number]">Historical Summary</content></td><td><content styleCode="xSecondary">31-Jul-2019 10:00 </content><content styleCode="xLabel xSecondary"> To </content><content styleCode="xSecondary">31-Jul-2019 10:15</content>
<content styleCode="xSecondary">[facility]</content></td><td></td> [facility] 07/31/2019 10:00:00 AM EST - 07/31/2019 10:15:39 AM EST [facility] ([facility]) Outpatient<td><content ID="_[id number]">Office Visit</content>
<content><content styleCode="xLabel xSecondary">Encounter Reason</content>: <content [id number]" styleCode="xSecondary">COPD - The referring provider is CHRISSIE [...] emphysema. He was previously seen by a warm in in [place], Dr. Castañeda. He states he was tried [...] with limitations.</content></content>
<content><content styleCode="xSecondary xLabel">Encounter Diagnosis</content>: <content ID="_[id number]" styleCode="xSecondary">ASTHMA</content><content styleCode="xSecondary">, </content><content [id number]" styleCode="xSecondary">EMPHYSEMA</content><content styleCode="xSecondary">, </content><content [id number]" styleCode="xSecondary">COPD, SEVERE</content><content styleCode="xSecondary">, </content><content [id number]" styleCode="xSecondary">DYSPHAGIA</content></content></td><td><content styleCode="xSecondary">31-Jul-2019 10:00 </content><content styleCode="xLabel xSecondary"> To </content><content styleCode="xSecondary">31-Jul-2019 10:52</content>
<content styleCode="xSecondary">[facility]</content></td><td></td> [facility] 07/31/2019 10:00:00 AM EST - 07/31/2019 [...] emphysema. He was previously seen by a warm in in [place], Dr. Castañeda. He states he was tried [...] emphysema. He was previously seen by a warm in in [place], Dr. Castañeda. He states he was tried [...] DYSPHAGIA COPD, SEVERE EMPHYSEMA ASTHMA Historical Summary<td><content [id number]">Historical Summary</content></td><td><content styleCode="xSecondary">31-Jul-2019 10:00 </content><content styleCode="xLabel xSecondary"> To </content><content styleCode="xSecondary">25-Jul-2019 8:26</content>
<content styleCode="xSecondary">[facility]</content></td><td></td> [facility] 07/31/2019 10:00:00 AM EST [...] DORADO 06/08/2019 09:18:00 A M EST xray,lab [facility] xray,lab Unknown<td ID="encounterTypeDescriptionI D6">Chart Update</td><td>Marialuisa De [...] De La O RN</td><td></td><td>05/28/2019</td><td></td> Attender: Marialuisa De LaO RN 05/28/2019 04:21:00 PM EST - 05/28/2019 11:59:00 PM EST [facility] ([facility]) Unknown<td ID="encounterTypeDescriptionI D9">Chart Update</td><td>Marialuisa De La O RN</td><td></td><td>05/25/2019</td><td></td> Attender: Marialuisa De La O RN 05/25/2019 01:25:00 PM EST - 05/25/2019 11:59:00 PM EST [place] ([facility]) Outpatient Attender: Uriel BarbozaReferrer: JOSE DIEGO MD 07A-XXHAURO 05/24/2019 12:00:00 AM EST - 05/24/2019 12:23:04 PM EST Other specified abnormal findings of blood chemistry [facility] Other specified abnormal findings of blo od chemistry Immunizations Vaccine Date Status Description Data Source(s) Influenza, high dose seasonal 03/26/2020 05:38:00 PM EDT complet ed Influenza, high-dose (over 65) 7 03/26/2020 Complete (Reported) Yenifer ent [facility] ([facility]) INFLUENZA VIRUS VACCINE QUADRIVAL SPLIT 2019-(65 YR UP)/PF 03/26/2020 12:00:00 AM EDT completed [facility] Medications Medication Brand Name Start Date Product Form Dose Route Admi nistrative Instructions Pharmacy Instructions Status Indications Reaction Description Data Source(s) Stiolto Respimat 2.5-2.5 MCG/ACT Inhalation Aerosol Solution [id number] 05/15/2020 12:00:00 AM EST 2 {Aerosol_Soln} [id number] active Stiolto Respimat [facility] ([facility]) nabumetone 750 MG Oral Tablet Nabumetone 750 MG Oral T ablet Nabumetone 750 MG Oral Tablet 03/25/2020 12:00:00 AM EDT 1 active nabumetone 750 MG Oral Tablet [facility] Tamsulosin hydrochloride 0.4 MG Oral Cap ramon Tamsulosin HCl 0.4 MG Oral Capsule (FLOMAX) Tamsulosin HCl 0.4 MG Oral Capsule (FLOMAX) 03/12/2020 12:00 :00 AM EDT 0.4 mg Oral active Prostate cancer Take 1 c apsule by mouth daily [facility] Prostate cancer nabumetone 750 MG Oral Tablet Nabumetone 750 MG Oral T ablet Nabumetone 750 MG Oral Tablet 02/04/2020 12:00:00 AM EDT 1 aborte d nabumetone 750 MG Oral Tablet [facility] ([facility]) nabumetone 750 MG Oral Tablet Nabumetone 750 MG OR TAB S Nabumetone 750 MG OR TABS 12/27/2019 12:00:00 AM EDT 1 aborted nabumetone 750 MG Oral Tablet [facility] nabumetone 750 MG Oral Tablet Nabumetone 750 MG Oral T ablet Nabumetone 750 MG Oral Tablet 12/27/2019 12:00:00 AM EDT 1 aborte d nabumetone 750 MG Oral Tablet [facility] Furosemide 40 MG Oral Tablet Furosemide 40 MG Oral Tablet 12:00:00 AM EDT active furosemide 40 MG Oral Tablet [facility] 24 HR metoprolol succinate 100 MG Extend ed Release Oral Tablet Metoprolol Succinate ER 100 MG Oral Tablet Extended Release 24 Hour Metoprolol Succinate ER 100 MG Oral Tablet Extended Release 24 Hour 12/25/2019 12:00:00 AM EDT active 24 HR metoprolol succinate 1 00 MG Extended Release Oral Tablet [facility] Rosuvastatin calcium 20 MG Oral Tablet R osuvastatin Calcium 20 MG Oral Tablet (Crestor) Rosuvastatin Calcium 20 MG Oral Tablet (Crestor) 12/23 12:00:00 AM EDT 20 mg Oral active Take 20 mg by riri th [facility] Ketoconazole 20 MG/ML Topical Cream Ketoconazole 2 % E xternal Cream (NIZORAL) Ketoconazole 2 % External Cream (NIZORAL) 12/07/2019 12:00:00 AM EDT active [facility] 1.5 ML Leuprolide Acetate 15 MG/ML Prefi lled Syringe leuprolide (LUPRON DEPOT) injection 22.5 mg for 3-month administration leuprolide (LUPRON DEPOT) injection 22.5 mg for 3-month administration 11/21/2019 12:00:00 AM EDT 22 .5 mg Intramuscular active Inject 22.5 mg into the muscle every 3 (three) months [facility] Stiolto Respimat 2.5-2.5 MCG/ACT Inhalation Aerosol Solution [id number] 10/31/2019 12:00:00 AM EDT active [facility] Stiolto Respimat 2.5-2.5 MCG/ACT Inhalation Aerosol So lution Stiolto Respimat 2.5-2.5 MCG/ACT Inhalation Aerosol Solution 08/03/2019 12:00:00 AM EST active 10 ACTUAT olodat sandy 0.0025 MG/ACTUAT / tiotropium 0.0025 MG/ACTUAT Inhalation Rescue [Stiolto] [facility] 200 ACTUAT Albuterol 0.09 MG/ACTUAT Mete red Dose Inhaler [ProAir] ProAir HFA 108 (90 Base) MCG/ACT Inhalation Aerosol Solution ProAir HFA 108 (90 Base) MCG/ACT Inhalation Aerosol Solution 07/31/2019 12:00:00 AM EST 2 {Puff} [id number] active ProAir HFA [facility] ([facility]) Medication taken as needed. Lisinopril 20 MG Oral Tablet Lisinopril 20 MG Oral Tablet 12:00:00 AM EST active lisinopril 20 MG Oral Tablet [facility] 24 HR metoprolol succinate 100 MG Extend ed Release Oral Tablet Metoprolol Succinate ER 100 MG Oral Tablet Extended Release 24 Hour Metoprolol Succinate ER 100 MG Oral Tablet Extended Release 24 Hour 05/29/2019 12:00:00 AM EST completed 24 HR metoprolol succinate 1 00 MG Extended Release Oral Tablet [facility] 200 ACTUAT Albuterol 0.09 MG/ACTUAT Mete red Dose Inhaler [ProAir] ProAir HFA 108 (90 Base) MCG/ACT Inhalation Aerosol Solution ProAir HFA 108 (90 Base) MCG/ACT Inhalation Aerosol Solution 05/29/2019 12:00:00 AM EST completed [id number] 200 ACTUAT albuterol 0.09 MG/ACTUAT Metered Dose Inhaler [ProAir] JESSICA ([facility]) nabumetone 750 MG Oral Tablet Nabumetone 750 MG Oral T ablet Nabumetone 750 MG Oral Tablet 05/29/2019 12:00:00 AM EST aborte d nabumetone 750 MG Oral Tablet [facility] ([facility]) Furosemide 40 MG Oral Tablet Furosemide 40 MG Oral Tablet 12:00:00 AM EST 1 completed furosemide 40 MG Oral Tablet [facility] ([facility]) Adult Aspirin Regimen 81 MG Oral Tablet Delayed Releas e Adult Aspirin Regimen 81 MG Oral Tablet Delayed Release 05/29/2019 12:00:00 AM EST 1 active Miniprin [facility] ([facility]) Multiple Vitamin Oral Capsule Multiple Vitamin Oral Capsule 05/29/2019 12:00:00 AM EST active Multiple Vitamin [facility] ([facility]) Rosuvastatin 20 MG Oral Tablet Rosuvastatin 20 MG Oral Table t 05/29/2019 12:00:00 AM EST 1 active Rosuvast atin [facility] ([facility]) eplerenone 25 MG Oral Tablet Eplerenone 25 MG Oral Tab let Eplerenone 25 MG Oral Tablet 05/29/2019 12:00:00 AM EST 1 completed eplerenone 25 MG Oral Tablet [facility] ([facility]) carvedilol 12.5 MG Oral Tablet Carvedilol 12.5 MG Oral Tablet Carvedilol 12.5 MG Oral Tablet 05/21/2019 12:00:00 AM EST abort ed carvedilol 12.5 MG Oral Tablet [place] ([facility]) Adult Aspirin Regimen 81 MG Oral Tablet Delayed Releas e Adult Aspirin Regimen 81 MG Oral Tablet Delayed Release 05/21/2019 12:00:00 AM EST aborted Miniprin JESSICA ([facility]) Diclofenac Sodium 75 MG Delayed Release Oral Tablet Diclofenac Sodium 75 MG Oral Tablet Delayed Release Diclofenac Sodium 75 MG Oral Tablet Delayed Release 05/21/2019 12:00:00 AM EST aborted diclofenac sodium 75 MG Delayed Release Oral Tablet JESSICA ([facility]) Rosuvastatin calcium 20 MG Oral Tablet [Crestor] Crest or 20 MG Oral Tablet Crestor 20 MG Oral Tablet 05/21/2019 12:00:00 AM EST completed rosuvastatin calcium 20 MG Oral Tablet [Crestor] JESSICA ([facility]) Lisinopril 20 MG Oral Tablet Lisinopril 20 MG Oral Tablet 12:00:00 AM EST aborted lisinopril 20 MG Oral Tablet [facility] ([facility]) 24 HR metoprolol succinate 100 MG Extend ed Release Oral Tablet Metoprolol Succinate ER 100 MG Oral Tablet Extended Release 24 Hour Metoprolol Succinate ER 100 MG Oral Tablet Extended Release 24 Hour 05/21/2019 12:00:00 AM EST aborted 24 HR metoprolol succinate 1 00 MG Extended Release Oral Tablet JESSICA ([facility]) nabumetone 750 MG Oral Tablet Nabumetone 750 MG Oral T ablet Nabumetone 750 MG Oral Tablet 05/21/2019 12:00:00 AM EST aborte d nabumetone 750 MG Oral Tablet JESSICA ([facility]) Centravites Adults Oral Tablet Centravites Adults Oral Table t 05/21/2019 12:00:00 AM EST aborted Centrav ites Adults JESSICA ([facility]) 200 ACTUAT Albuterol 0.09 MG/ACTUAT Mete red Dose Inhaler [ProAir] ProAir HFA 108 (90 Base) MCG/ACT Inhalation Aerosol Solution ProAir HFA 108 (90 Base) MCG/ACT Inhalation Aerosol Solution 05/21/2019 12:00:00 AM EST aborted [id number] 200 ACTUAT albuterol 0.09 MG/ACTUAT Metered Dose Inhaler [ProAir] JESSICA ([facility]) Rosuvastatin 20 MG Oral Tablet Rosuvastatin 20 MG Oral Table t 05/21/2019 12:00:00 AM EST aborted Rosuvas tatin [facility]ESSICA ([facility]) eplerenone 25 MG Oral Tablet Eplerenone 25 MG Oral Tab let Eplerenone 25 MG Oral Tablet 05/21/2019 12:00:00 AM EST aborted eplerenone 25 MG Oral Tablet [facility]ESSICA ([facility]) Furosemide 40 MG Oral Tablet Furosemide 40 MG Oral Tablet 12:00:00 AM EST aborted furosemide 40 MG Oral Tablet [facility]ESSICA ([facility]) Insurance Providers Payer name Policy type / Coverage type Policy ID Covered green party ID Covered green party's relationship to palomares Policy Paloma[place] Plan Information MEDICARE [id number] SP [id number] FOR LIFE [id number] SP [id number] MEDICARE A [id number] Self [id number] FOR LIFE U [id number] Self [id number] SELF PAY FOR LIFE [id number] SP [id number] MEDICARE PART A [id number] SP [id number] SELF PAY MEDICARE PART A [id number] SP [id number] FOR LIFE [id number] SP 0 [id number] Medicare Part A [facility] Other 0 Self 0 MEDICARE [id number] Bettye [id number] E92 [id number] Bettye [id number] Medicare Part A [facility] Other 0 Self 0 DME Jurisdiction A NHIC C [id number] SELF [id number] For Life F [id number] SELF [id number] Medicare C [id number] SELF [id number] MEDICARE C [id number] S [id number] E92 FOR LIFE O [id number] S [id number] SELF PAY FOR LIFE [id number] SP 0 [id number] MEDICARE PART A [id number] SP [id number] SELF PAY FOR LIFE [id number] SP 0 [id number] MEDICARE PART A [id number] SP [id number] MEDICARE PART A [id number] SP [id number] SELF PAY FOR LIFE [id number] SP 0 [id number] MEDICARE PART A [id number] SP [id number] Medicare Part A [facility] Other 0 Self 0 Medicare Part A [facility] Other 0 Self 0 Medicare Part A [facility] Other 0 Self 0 Medicare Part A [facility] Other 0 Self 0 NORIDIAN JE PART B C [id number] S [id number] Medicare Part B [facility] Other 0 Se lf 0 Medicare Part A [facility] Other 0 Self 0 ANSI-Commercial [id number] ANSI-Medicare Part B [id number] ANSI-Commercial [id number] ANSI-Medicare Part B [id number] Medicare Part B [place] Other 0 Se lf 0 Medicare Part A of [place] Other 0 Self 0 SELF PAY FOR LIFE [id number] SP [id number] MEDICARE PART A [id number] SP [id number] ANSI-Commercial [id number] ANSI-Medicare Part B [id number] ANSI-Medicare Part B [id number] ANSI-Commercial [id number] PI PI MEDICARE PI PI ANSI-Commercial [id number] ANSI-Medicare Part B [id number] ANSI-Medicare Part B [id number] ANSI-Commercial [id number] ANSI-Commercial [id number] ANSI-Medicare Part B [id number] DME Jurisdiction A [facility] [id number] SELF [id number] MEDICARE [id number] SP [id number] A ANSI-Commercial [id number] ANSI-Medicare Part B [id number] SELF PAY FOR LIFE [id number] SP 0 [id number] MEDICARE PART A [id number] SP [id number] Medicare Part B [facility] Other 0 Se lf 0 Medicare Part A [facility] Other 0 Self 0 MEDICARE A [id number] Self [id number] A [place] [facility] (TFL) Medigap Part B [id number] Self [id number] Medicare Dme Supplies Medigap Part B [id number] Self [id number] [place] Primary [id number] Self [id number] SELF PAY FOR LIFE [id number] SP 0 [id number] MEDICARE PART A [id number] SP [id number] [place] [facility] (TFL) Medigap Part B [id number] Self [id number] Medicare Dme Supplies Medigap Part B [id number] Self [id number] [place] Primary [id number] Self [id number] ANSI-Medicare Part B [id number] ANSI-Commercial [id number] SELF PAY FOR LIFE SP 0 [id number] MEDICARE PART A [id number] SP [id number] ANSI-Medicare Part B [id number] ANSI-Commercial [id number] [facility] [id number] [id number] [facility] [id number] 0 [id number] FOR LIFE SP 0 [id number] MEDICARE [id number] SP [id number] A [facility] [id number] SP [id number] FOR LIFE U [id number] Self 0 [id number] FOR LIFE U [id number] Self [id number] [place] [facility] (TFL) Medigap Part B [id number] Self [id number] Medicare Dme Supplies Medigap Part B [id number] Self [id number] [place] Primary [id number] Self [id number] [place] [facility] (TFL) Medigap Part B Self Medicare Dme Supplies Medigap Part B Self [place] Primary Self FOR LIFE O [id number] S [id number] MEDICARE C [id number] S [id number] A [facility] [id number] SP [id number] SELF PAY 2 UNAVAILABLE 1 UNAVAILA BLE 6 [phone] MEDICARE 4 [id number] 1 [id number] A PGBA VONDA MCINTYRE [id number] UNAV AILABLE [address] VONDA [place] UNAVAILABLE [id number] UNAVAI LABLE [id number] A Problems, Conditions, and Diagnoses Code Display Name Description Problem Type Effective Dates Data Source(s) C61 Malignant neoplasm of prostate C61 - Malignant n eoplasm of prostate Diagnosis 07/11/2020 02:50:00 PM [facility] R06.02 Shortness of breath Shortness of breath Diagnosis 0 02/13/2020 12:39:06 PM EDT [facility] R60.0 Localized edema Localized edema Diagnosis 02/13/2020 12:3 9:06 PM EDT [facility] 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 and stenosis of bilateral [place] Diagnosis 02/13/2020 12:39:06 PM EDT [facility] J44.9 Chronic obstructive pulmonary disease, u nspecified Chronic obstructive pulmonary disease, u Diagnosis 02/13/2020 12:39:06 PM EDT [facility] I10 Essential (primary) hypertension Essential (primary) h ypertension Diagnosis 02/13/2020 12:39:06 PM EDT [facility] 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, unspecif ied Rheumatic mitral valve disease, unspecif Diagnosis 02/13/2020 12:39:06 PM EDT [facility] I42.9 Cardiomyopathy, unspecified Cardiomyopathy, unspecifie d Diagnosis 02/13/2020 12:39:06 PM EDT [facility] E78.2 Mixed hyperlipidemia Mixed hyperlipidemia Diagnosis 02/13/2020 12:39:06 PM EDT [facility] I50.82 Biventricular heart failure Biventricular heart failur e Diagnosis 02/13/2020 12:39:[address] [facility] [address] [facility]ING ST SWALLOWING Diagnosis 12/17/2019 02:30:00 PM EDT [facility] ct general ct general Diagnosis 11/26/2019 01:19:46 PM ED [facility] nurse nurse Diagnosis 11/26/2019 01:19:21 PM ED [facility] sim sim Diagnosis 08/24/2019 02:28:27 PM ED T [facility] Z79.899 Other intermediate (current) drug therapy O ther intermission coordinator (current) drug therapy Diagnosis 08/08/2019 12:16:52 PM EST [facility] J44.9 Chronic obstructive pulmonary disease, u nspecified J44.9 - Chronic obstructive pulmonary disease, unspecified Diagnosis 07/31/2019 02:50: 00 PM EST [facility] R73.01 Impaired fasting glucose R73.01 - Impaired fasting glu cose Diagnosis 06/08/2019 09:18:00 AM [facility] I50.9 Heart failure, unspecified I50.9 - Heart failure, unsp ecified Diagnosis 06/08/2019 09:18:00 AM [facility] I10 Essential (primary) hypertension I10 - Essential (primary) hypertension Diagnosis 06/08/2019 09:18:00 AM [facility] E78.5 Hyperlipidemia, unspecified E78.5 - Hyperlipidemia, un specified Diagnosis 06/08/2019 09:18:00 AM [facility] R07.9 Chest pain, unspecified R07.9 - Chest pain, unspecifie d Diagnosis 06/08/2019 09:18:00 AM [facility] Surgeries/Procedures Procedure Description Date Indications Data Source(s) PHYSICIAN TELEPHONE EVALUATION 11-20 MIN 04/15/2020 02:15:00 PM EST - 04/15/2020 02:37:34 PM EST [facility] ([facility]) THER RAD SIMULAJ-AIDED FIELD SETTING COMPLEX CT SIMUL ATION AT RAD ONC (IN OFFICE) Routine 11/26/2019 2:02 PM EDT Prostate cancer 11/26/2019 06:02:00 PM EDT Prostate cancer [facility] Prostate cancer PHYSICIAN TELEPHONE EVALUATION 21-30 MIN 10/05/2019 01:00:00 PM EDT - 10/05/2019 01:08:05 PM EDT [facility] ([facility]) THER RAD SIMULAJ-AIDED FIELD SETTING COMPLEX CT SIMUL ATION AT RAD ONC (IN OFFICE) Routine 08/17/2019 10:01 AM EDT Prostate cancer 08/17/2019 02:01:00 PM EDT Prostate cancer [facility] Prostate cancer OFFICE OUTPATIENT NEW 60 MINUTES 020 10:00:00 AM EST - 07/31/2019 10:52:23 AM EST [facility] ([facility]) BRNCDILAT RSPSE SPMTRY PRE&POST-BRNCDILAT ADMN PRE AND POST ([id number])Result: Hemoptysis: No Status: Completed 31-Jul-201907/31/2019 09:59:11 AM [...] OXIMETRY MULTIPLE DETER REST/ EXERCIS E OXIMETRY ([id number]) Status: Completed 31-Jul-201907/31/2019 12:00:00 AM EST - 07/31/2019 12:00:00 AM EST [facility] ([facility]) NITRIC OXIDE GAS DETERMINATION EXHALED NITRIC OXIDE MEASUREMENT ([id number]) Status: Completed 31-Jul-2019 0 12:00:00 AM EST - 07/31/2019 12:00:00 AM EST [facility] ([facility]) Thoracic structure (body structure) Chest X-ray Status: Completed 08-Jun-201906/08/2019 12:00:00 AM EST - 06/08/2019 12:00:00 AM EST [facility] ([facility]) [place]. mild hyperinflation. Slight ri ght basilar atelectasis. Similar 01/04/19. Surgical / procedural history September 5- small bowel obstruction requiring small bowel resection Surgical / procedural history September 5- small bowel obstruction requiring small bowel resection 05/28/2019 12:00:00 AM EST [facility] History of hernia repair x 2 History of hernia repair x 2 05/28/2019 12:00:00 AM EST [facility] Results ID Date Data Source [id number] 07/16/2020 10:26:41 AM EST [facility] Name Value Range Interpretation Code Description Data Carmela rce(s) Supporting Document(s) Progress Note [facility] GSONYt7pMoZYNlLc51/BWTezWNFmo4DsRRwaETo5JFnuHXIkH3WwWGH4rJ3yOCZ2WCqSVuWtXvVoGpZl lbm [file] AgICAgICAgICAgICAgICAgICAgICAgICAgICAgICAgICAgICAgICAgICAgICAgICAgICAgICAgICAgIC AgICAgICAgICANCiAgICAgICAgICAgICAgICAgICAg ICAgICAgICAgICAgICAgICAgICAgICAgICAgICAgICAgICAgICAgICAgICAgICAgICAgICAgICAgICAg ICAgICAgICAgICAgICAgICAgICANCiAgICAgICAgICAgICAgICAgICAgICAgICAgICAgICAgICAgICAg ICAgICAgICAgICAgICAgICAgICAgICAgICAgICAgIC AgICAgICAgICAgICAgICAgICAgICAgICAgICAgICANCiAgICAgICAgICAgICAgICAgICAgICAgICAgIC AgICAgICAgICAgICAgICAgICAgICAgICAgICAgICAgICAgICAgICAgICAgICAgICAgICAgICAgICAgIC AgICAgICAgICAgICANCiAgICAgICAgICAgICAgICAg ICAgICAgICAgICAgICAgICAgICAgICAgICAgICAgICAgICAgICAgICAgICAgICAgICAgICAgICAgICAg ICAgICAgICAgICAgICAgICAgICAgICANCiAgICAgICAgICAgICAgICAgICAgICAgICAgICAgICAgICAg ICAgICAgICAgICAgICAgICAgICAgICAgICAgICAgIC AgICAgICAgICAgICAgICAgICAgICAgICAgICAgICAgICANCiAgICAgICAgICAgICAgICAgICAgICAgIC AgICAgICAgICAgICAgICAgICAgICAgICAgICAgICAgICAgICAgICAgICAgICAgICAgICAgICAgICAgIC AgICAgICAgICAgICAgICANCiAgICAgICAgICAgICAg ICAgICAgICAgICAgICAgICAgICAgICAgICAgICAgICAgICAgICAgICAgICAgICAgICAgICAgICAgICAg ICAgICAgICAgICAgICAgICAgICAgICAgICANCiAgICAgICAgICAgICAgICAgICAgICAgICAgICAgICAg ICAgICAgICAgICAgICAgICAgICAgICAgICAgICAgIC AgICAgICAgICAgICAgICAgICAgICAgICAgICAgICAgICAgICANCiAgICAgICAgICAgICAgICAgICAgIC AgICAgICAgICAgICAgICAgICAgICAgICAgICAgICAgICAgICAgICAgICAgICAgICAgICAgICAgICAgIC AgICAgICAgICAgICAgICAgICANCjw/sRBkP0rfpCJo liJ1G6wtHg0BAp0LTY4sn3SnJRImFAwkbpDaHtqDYuCzIGZhNpqCUwd1DUkxEP9MtCKkK5LvY8NnPScm YE8WXNQoTAHnnZEuLDPyXLFjFoF5LXTbUQelOP4BxMFnXRkkVSJhXMOhFyLhLLVjIADtICOdCF8PJCFs B141vvFsCm8JKs5RAyOkKV8zbv2GYqMlREPqYwjWPz z3QHrwXR9MlAXblSRcUqNnXKTUZbPbX4vza2ZvXanlNKSWSSscKZ0Gj3SqzPRvWVk+Gh5SKA6av1VeTM gkMtOaBB1sqt4EOWtGMpFxS7FucGymYSObs3fsKXHqVK8kvYRrGPC5PFXuVVluzqMbbuZDXY9jg1ynHF AdX9ubLvlcJDBcXDWsPx1lGF6wTNKxZZCuUsOaSYGW HP6WPERkVEWbaOVmCGOyJCRHWS7BFOihSKF3WYGkumOuhEJySXvqJH4XUIIdmxDoSaQwVQWHJBx+Pg0K ZR2tq6EkHWjhKEYbZV6yxq2CRWrFQlNfP5N3xMHpX1S6MJgySm2EYGZlOWCwWsTeUILZSNbgJU5LXI2y yjK8TE1LpNZlBLZdULTexPMeEWd2D27bhBJaQKioPC 0KICA+Yaya+Fk0CNOUsUSPsNSCzGrXlGLDCItJaR5ZeV9TAk8TcT5JxXD27pTvqdvHdCLlsUI3EUY4mHJ SyMQTQYJ3TwJEraV2rklJyYoPrKOLHYvYdS31guOLhSPXmIBL5CHFzHi9BYJOqZ0OgzwKbdWneimFiSE DgTCFADD4ZCVcdilDugOUbhQvfRZ16wKnmFF0TOg8K HgBkGV0jpq2UwKHvUx9XKSWhFC7JLJTlEQZkYBBzDSA8RYUcGfOwPOyaCEBvAWGiLCY0VVNwJXApMO2F CtJxPVKcGoW2UpVaTRWmCJVlxl0SGDOvRFYpBpYtQBCnKYJxZSFiKTrfTBMbKSGqDLF1QFOxKCMoEF2I FaCxXAHfQZQ8YEHjVBBzIBQhsn5DIFDpNTMrXWUrMD JpNNPaHKPiRYniQCKtVQV9FNK5DYWtSVIeMI7MQcFxLUQuJBpwESDhZWQpGEGuuj7AEUWrSNTnYNc3KT TiWMQtQKUvKCqgKAPiJJN2SMv8OQCcJLGcQM0MQtTvIGMeNHYqHKVrBLMhFEXeaf1TPAMrXPJkBVW0Lw LcODVhVCGzQGrpRCOrSOIwKZZ1MQHdREDxLP9HFuFd DWKwFKO6AJSuSKFxLFIosx9PGHWsDLNcRRX4YoOaSYFqUUNmIFvrXZClQPIiXNv5GUXfCTTgWE2QQnTn OGLcXlJqOYQlPNJmFAKcdd8TZWPhTEYwXjZaKUIfFDLcVTTxYMljNIWvAACgTVI4ZZHyXQSoLS1VZwUr QSOiZiVwMYcuQQDkDOHplh8RJLZgPQAvCTPePTQkYI PuNRHwCWqaHIUxZAP5YRp0FTSbSKSeRG8FIaPcZRMiGuHhHwIxORLyCPYxvu2BLZDwUYVcDXB6WTRwDF WsXVYzJRdqFKIqKIM3BPHxFXDcCQZmAX0CRoSzEGBmGqg7EWYjJYTkCNTcsj7TXAMxHEUeGhR0EiPeSG KiPUBjBOgeVIRjPCI6BeEyPWLmJBVdIL1XIrLyBGec BTIUFyx5VYglD6o9PKOkSG1PS8Fwn8MfSgedVRVMYIieSH4xyjGeLTQvJw5XU7sXToruMzMnLII5Y9Rf FOHkTtkaX4HeSkl3MAfvPAKdQZXiMy3gVHTcIJJ1MPS7NGK2HPHrD0H9IyN5FYczD3RpMEE8YEZnHdZe XL9QKz6KGsN7RXH1eJRfEt6RBve7HFQEChTjSY8XRUh= ID Date Data Source [id number] 07/11/2020 06:08:00 PM [facility] Name Value Range Interpretation Code Description Data Carmela rce(s) Supporting Document(s) PROSTATE SPECIFIC ANTIGEN 0.06 NG/ML 0.06-4.00 N [facility] [employer] Do not interpret PSA results as absolut [...] for the PSA is determined using the Tabula System that utilizes a direct chemiluminometric technology. The result is not interchangeble with different assay methods. ID Date Data Source [id number] 07/14/2020 02:49:00 PM [facility] [employer] [facility] Name Value Range Interpretation Code Description Data Carmela rce(s) Supporting Document(s) Testosterone,Total,S < 3 ng/dL [phone] L [facility] Adult male reference interval is based on a population of healthy nonobese males (BMI <30) between 19 and 39 years old. Safia et.al. JCEM 2017,102;4580-1451. PMID: [id number]. Performed at: RN - [facility] [address] [id number] Circuit Board Assembler: Jillian Hernandez MD, Phone: [phone] ID Date Data Source [id number] 03/12/2020 12:39:38 PM EDT [facility] Name Value Range Interpretation Code Description Data Carmela rce(s) Supporting Document(s) Progress Note [facility] TCCVYu9dRrRUUrDe94/RCIbpKRVtc3CbCNlhPPy2SYpqEGWvJ3GfMOY7vU2pFNJ1QGwUZxXzToFzHJB8 [facility] [file] AgICAgICAgICAgICAgICAgICAgICAgICAgICAgICAgICAgICAgICAgICAgICAgICAgICAgICAgICAgIC AgICAgICAgICAgICAgICAgICAgICAgICANCiAgICAg ICAgICAgICAgICAgICAgICAgICAgICAgICAgICAgICAgICAgICAgICAgICAgICAgICAgICAgICAgICAg ICAgICAgICAgICAgICAgICAgICAgICAgICAgICAgICAgICANCiAgICAgICAgICAgICAgICAgICAgICAg ICAgICAgICAgICAgICAgICAgICAgICAgICAgICAgIC AgICAgICAgICAgICAgICAgICAgICAgICAgICAgICAgICAgICAgICAgICAgICANCiAgICAgICAgICAgIC AgICAgICAgICAgICAgICAgICAgICAgICAgICAgICAgICAgICAgICAgICAgICAgICAgICAgICAgICAgIC AgICAgICAgICAgICAgICAgICAgICAgICAgICANCiAg ICAgICAgICAgICAgICAgICAgICAgICAgICAgICAgICAgICAgICAgICAgICAgICAgICAgICAgICAgICAg ICAgICAgICAgICAgICAgICAgICAgICAgICAgICAgICAgICAgICANCiAgICAgICAgICAgICAgICAgICAg ICAgICAgICAgICAgICAgICAgICAgICAgICAgICAgIC AgICAgICAgICAgICAgICAgICAgICAgICAgICAgICAgICAgICAgICAgICAgICAgICANCiAgICAgICAgIC AgICAgICAgICAgICAgICAgICAgICAgICAgICAgICAgICAgICAgICAgICAgICAgICAgICAgICAgICAgIC AgICAgICAgICAgICAgICAgICAgICAgICAgICAgICAN CiAgICAgICAgICAgICAgICAgICAgICAgICAgICAgICAgICAgICAgICAgICAgICAgICAgICAgICAgICAg ICAgICAgICAgICAgICAgICAgICAgICAgICAgICAgICAgICAgICAgICANCiAgICAgICAgICAgICAgICAg ICAgICAgICAgICAgICAgICAgICAgICAgICAgICAgIC AgICAgICAgICAgICAgICAgICAgICAgICAgICAgICAgICAgICAgICAgICAgICAgICAgICANCiAgICAgIC AgICAgICAgICAgICAgICAgICAgICAgICAgICAgICAgICAgICAgICAgICAgICAgICAgICAgICAgICAgIC AgICAgICAgICAgICAgICAgICAgICAgICAgICAgICAg ICANCjw/hZPwP1vpaKZkwmS0K4ajFb9MWk3FOL3xb7MlKPKcBTvjiyIgIgkISuXaLBPwOguHTrg9TBgx EW7LvBTkJ3RoZ4AfUGnmBQ6EBYItMJNbnLTaIHPvNFWsXbI3VPXmGMscVX8AoKPlGGpjZFLqLWQdQoKp KZReJAHaXOVcNN8NGWPfX064fkKdEu7CPu1BRmRsMT 2nol9PBwAtXRZwVlaUZfq5NWufIZ7IuFIlwPXeTaEfVNDUScStS8rhf2QcJvkvOJAZYHfpAY2Im5TxmH AxDQo+Zq2CYQ9ke7EuQOjsDoPqRO6nix5RLBrIUhXoM0StrFgcUKBgx5njYZDlAN0gwHKuAHT3QLEwVQ vqceLmytCHOH4dz9wmWSQrE0nnKtnuZBLbIYXaOUEd Qm9aAWWkHRJlXkDkHCCCWV6SCDKtRNEegNKyNVHfZNVEVI9WBKgqTPY2DXDxkaFqnXYoASmcIS5KVVZp bnQgMjYgMCBSDQo+Jo8WRK1kt7VjNZjcKFBhYA2res0ATKtTGvRcW9E1zUSgC9Y9FMhrXs6MOFSiHSJb PbTvFSXIFQxvFM0RSC7osjU8RW9RpXSvBUMeRQUjeV BuQLf7M18cdMHpXLuoDM3PGNT+Yaya+Of8HSHOqPRCeCCCpYnXlYSBVBdRcN2UxE2FNy1SdX2KvNF01kH vvvvNcAIadVY9CNC4pLSRqZUKMCA9NsFNctT5oozFfZaLpFQXNDkRoV19cdVTmASJvGOF1MCZzRa5RWC BdF1AcflMhuEzafbFwHSXhTRBRCK0GOHklbeYrhVPk sKewJI67dBznTP9VEw3IUbLuXV9oux1TzCVhWd3EFXLxYK5QPVKdZMIeOHFpTMV3XXAwOqKjUUhwHNPm MYGwRYQ0WKEiEKDgYP2VVpKvEAVzCcO1RpGsRWTiZEPvmc9ZPHAhAGGwSewjQWYoLBHfDJUuKPidBQIv NBQdBKF8IJVhNBDsUR4MOmJbLGVwKPU6SKzoEPDhLX Iybz7NLPVrWUZwZEByUnDdPVCkICOuKBmmIKJrUSU5BXP9FRVrTGKxIB1DIiQcJLKbDIw0IKXnUKDhCL Izmr2FGGNoMYGoQQS1ZJOjLJPsJJAbGSolEOBuWEL5JPb6WLWaUZEaEO7WGmLuZFNlJDf4VVUpYLJbVH Nlkd0REAQfYDTgKYe6VDDjANExWKAbGXrqVLIeZBY4 DMG7EPXpRYTdPB0ZIvUvSLApAIB0MAJhHJWeMLNvsz2YXNHaRTAmALH2SJFqVTDcXFYbJGnrFWMqTOVi TflsCKWmHMUaXX8MIlBfFOTjUuV7IBHtWEByXLLibi8RLOEyVEGmRuUjECZtCEEdXTHfXKkwWYXaMYFx MkO2OSQeMFVfPT4TDlBaTCKeFyR8DWrjVUQdUQGbqn 5DJZZqVJVjOoM3WxUvFTCkAEIzNUodACSqUCI5IJn0JTSbYZXsQS5WYdHeVHMzDqN5YmHaOJSeLNZedn 2RNFHxZSWtWJd6KaLuWIYpQNQpYCfsYSArDFV3JukvFKGhSDKaPS0SVhAdBPOqTgM9WvFeVUQyCOLlja 9WDTPyAWZmLki9YPTaZGBmCAFhVSuuAHYpZOA4CHLu JXYzJCPfOB5PEvAxWBvtAMGOHie3TDrtO9v8TCMgGV0YH8Bvf8KaYidoOYPSIYctRH1bhdXySALdFu7F Q5wMXkt6LjE0ZiWrTSQkUQRjNEScRVC2OJc0HiD3OpMuHDI6KT3fJCpfVQgxVJZyW1M3GOW4I2T8YgPp VPWqPiamWJH8Ojn8WlEdPV5XNe8NTaH7TTA7qHGiUo8DBkwyFIVIZbXkAY3CLLj= ID Date Data Source [id number] 03/07/2020 06:07:00 PM [facility] Name Value Range Interpretation Code Description Data Carmela rce(s) Supporting Document(s) PROSTATE SPECIFIC ANTIGEN 0.16 NG/ML 0.06-4.00 N [facility] Do not interpret PSA results as absolut [...] for the PSA is determined using the Tabula System that utilizes a direct chemiluminometric technology. The result is not interchangeble with different assay methods. ID Date Data Source [id number] 03/09/2020 07:12:00 PM [facility] Name Value Range Interpretation Code Description Data Carmela rce(s) Supporting Document(s) Testosterone,Total,S < 3 ng/dL [id number] L [place] [facility] Adult male reference interval is based on a population of healthy nonobese males (BMI <30) between 19 and 39 years old. Safia et.al. JCEM 2017,102;2261-7050. PMID: [id number]. Performed at: [facility] [place] [address] [id number] [employer] Assembler: Jillian Hernandez MD, Phone: [phone] ID Date Data Source [id number] 02/14/2020 10:30:24 AM EDT [facility] Name Value Range Interpretation Code Description Data Carmela rce(s) Supporting Document(s) Progress Note [facility] VIJQEq8bFaEOTiYk96/BGTfpLZMef0UpONavBIc4KOedMDLgU1NcBNE1yR3gIZD6IOlRAkZeQwTmMKVi lbm [file] AgICAgICAgICAgICAgICAgICAgICAgICAgICAgICAg ICAgICAgICAgICAgICAgICAgICAgICAgICAgICAgICAgICAgICAgICAgICAgICAgICAgICAgDQogICAg ICAgICAgICAgICAgICAgICAgICAgICAgICAgICAgICAgICAgICAgICAgICAgICAgICAgICAgICAgICAg ICAgICAgICAgICAgICAgICAgICAgICAgICAgICAgIC AgICAgDQogICAgICAgICAgICAgICAgICAgICAgICAgICAgICAgICAgICAgICAgICAgICAgICAgICAgIC AgICAgICAgICAgICAgICAgICAgICAgICAgICAgICAgICAgICAgICAgICAgICAgDQogICAgICAgICAgIC AgICAgICAgICAgICAgICAgICAgICAgICAgICAgICAg ICAgICAgICAgICAgICAgICAgICAgICAgICAgICAgICAgICAgICAgICAgICAgICAgICAgICAgICAgDQog ICAgICAgICAgICAgICAgICAgICAgICAgICAgICAgICAgICAgICAgICAgICAgICAgICAgICAgICAgICAg ICAgICAgICAgICAgICAgICAgICAgICAgICAgICAgIC AgICAgICAgDQogICAgICAgICAgICAgICAgICAgICAgICAgICAgICAgICAgICAgICAgICAgICAgICAgIC AgICAgICAgICAgICAgICAgICAgICAgICAgICAgICAgICAgICAgICAgICAgICAgICAgDQogICAgICAgIC AgICAgICAgICAgICAgICAgICAgICAgICAgICAgICAg ICAgICAgICAgICAgICAgICAgICAgICAgICAgICAgICAgICAgICAgICAgICAgICAgICAgICAgICAgICAg DQogICAgICAgICAgICAgICAgICAgICAgICAgICAgICAgICAgICAgICAgICAgICAgICAgICAgICAgICAg ICAgICAgICAgICAgICAgICAgICAgICAgICAgICAgIC AgICAgICAgICAgDQogICAgICAgICAgICAgICAgICAgICAgICAgICAgICAgICAgICAgICAgICAgICAgIC AgICAgICAgICAgICAgICAgICAgICAgICAgICAgICAgICAgICAgICAgICAgICAgICAgICAgDQogICAgIC AgICAgICAgICAgICAgICAgICAgICAgICAgICAgICAg ICAgICAgICAgICAgICAgICAgICAgICAgICAgICAgICAgICAgICAgICAgICAgICAgICAgICAgICAgICAg QMJwROa2N6wnRATzZQReEN1fUSq7Lp2+HUdXLaOkEQQ4klKsoS0CSY2qv4FdJSivWLYnc4RwRUc0OB2W VXAcSTfrQV9DACmvnj7TKAZaEBEyyQWFi3zjHqClLD K4HYPhUbtlDE9LRFAlG5ckmgJxSYGkEEQBXVwoWRHDSF9CVxMzW1OtzD84UFLNFc1+DQplbmRvYmoNCj B1DJCmc9DjQIq2JZ5CPBJpOkxjh8AjYpJxCDDZNSovDY1QSQR8OUR6WOZlJs2AFTPyI960nbAbDD9FAi 5FRxMwIW1msq9RXaZzDZXtIngIUwq0OCmgKN3NhQKc NVjLjl5steVigrENv8BdfpFgiVNPwIY8ZH0sRTZuXeVrQNFdk1B8hSKsKUFcSC3BRTP3FGhvKA0pMTNd ZLNvLiY4QQUVJK9WGZFnRPPbqGLxMFOtLPMAFE9RYIhbGSC3PRYordWclCBbFFwdDV8QJNEhmhKrUwQm MCBSDQo+Ul8ZJW5sq3UlHNriDeLkMK4vxv8SWJaHGd LeX3Q4cPMyQ2E8BFerGy1MDRDpVJAuQqYeLESMXMkeHZ1OBC2ndpW2BP2OkXWcYHOeWRNtzPOeHRt4K1 2xySGmDBmyDS9DZGN+Yaya+Ka6KOVHwVADjBCVnGqWfYDAPZhOiB2SjD2BZa7RjN5SpIW76hKbmamKhHQ srUS8GJZ3iXCRtRLQNKZ8OtRAwlB0lygAlACHaDCSH ViNjF64qqARcGDOzLSPpKPJeQv0UIMKwN5UhteAwrSxawyThGXHkJYNSDQ3HUUxocgZiuXXkfXndNV58 jLybJY4FDg2LNqVoAY7aka1VcIZkXc5QNGDqVo9GHAWdUULhYRTcMRM5EUOhVmXiIRwoPGOtXWKnMEI6 MQKdPQOiYY3LGgTkTZQaYjEzDHxeMXEpFFOurd0RCF GjSTAcZsuhPpZkEKBvEWNtECwuLIOgEPHvQDU3GQMeKHWnCZ2DQsPsLXPyHCG6IPThDPNmZBRwhm5YJS ZsYBBmZimeZoWqTCZlGLDlCGcwQGVkGAQ5CkP4AUFjSYLxUS0PKnLuAEItKDF4ZijmRPLrNVGptf7MAE XqJTEaRHk6TlOeDJDbVKKhDPoxIPXuHXK9KHcpCQDf RWVrEA2QDzUyPTFhQGFxAiDuVPXfIEPbsp7GIRLcZTRgDtGdIfUoTEPzUIRnCZruTQPgYAX7JwZ0HKOd MJKjYX9DXiFfBYYaLXv5MVHeAEBgCMWrlq7DLMNiVNAdPBv9BIRsFDNdJHZtDMoeYRKnPFQ7TBc8JHGc SXCqAU2FBjRjCWHjVTdkMJZlWSKbMQYcev4YBDNiIG PhAWZePjQiHMRiIYDrPXtqCEQmJSJ7Vuf9KZFpMXIkIV3EGoIjASFyHiL3YtKxKWDcUBAbsi8JXLAfOA SsGOpxUXHwBSQgKHEsOKleSOLyNXEmJRq4UIJuRYYgRU3DEnLzQLKhSvG3VIWvZXGhLPWwut3TXQOeRT LaPkshEoMpNWDhMMFnPYvfYISyIVFyKQL9EGSfJZMa IL3TNfMrHRGkJdWuFrKaJKWvXYLbui3FgRUwwWziyj1RYVfZGh0GlDvgDPY6RWsmJf5rlFVlRrGjWDEW Fb4QisOkYYIqXVTXZGvhCEOgJQNnMSKqPwH3RaKwNmZaHDz2YTkxEPX4LXOgPIKfZHs2DvN2U9YxJTJq GUgtMBOdCIRuFlJ3WZD1Rjk9KQIgQSJ6EEO+IF0g DQo+Ii1Lx9RmmmC6rsPqJAyvGlOrSU7LJHNTN3LIFx== ID Date Data Source [id number] 02/06/2020 10:21:11 AM EDT [facility] Name Value Range Interpretation Code Description Data Carmela rce(s) Supporting Document(s) Progress Note [facility] OTJIYj8jTmVKNwGo95/TDCqhLKYwb8ZiMNqfVBe2VIgtPJMqW0JjWPO0nV6wEEH8YRuGAuLdIkXhZNDr lbm [file] PYznYMVeXAA2IJJ+XO6vBXl+Nk3Wx9LzxsD7xuAwVWihUeu9NA5JEIDXE5CTNk== ID Date Data Source [id number] 01/30/2020 09:46:46 AM EDT [facility] Name Value Range Interpretation Code Description Data Carmela rce(s) Supporting Document(s) Progress Note [facility] QCGGFl1nZvIYLbWv44/UUOnkSGWpg9FpCLrvEBu0VSerWQXtN1KhVLT1nX1gVQE8WFkOThPvPuVbBWS3 lbm [file] AgICAgICAgICAgICAgICAgICAgICAgICAgICAgICAgICAgICAgICAgICAgICAgICAgICAgICAgICAgIC AgICAgICAgICAgICANCiAgICAgICAgICAgICAgICAg ICAgICAgICAgICAgICAgICAgICAgICAgICAgICAgICAgICAgICAgICAgICAgICAgICAgICAgICAgICAg ICAgICAgICAgICAgICAgICAgICAgICANCiAgICAgICAgICAgICAgICAgICAgICAgICAgICAgICAgICAg ICAgICAgICAgICAgICAgICAgICAgICAgICAgICAgIC AgICAgICAgICAgICAgICAgICAgICAgICAgICAgICAgICANCiAgICAgICAgICAgICAgICAgICAgICAgIC AgICAgICAgICAgICAgICAgICAgICAgICAgICAgICAgICAgICAgICAgICAgICAgICAgICAgICAgICAgIC AgICAgICAgICAgICAgICANCiAgICAgICAgICAgICAg ICAgICAgICAgICAgICAgICAgICAgICAgICAgICAgICAgICAgICAgICAgICAgICAgICAgICAgICAgICAg ICAgICAgICAgICAgICAgICAgICAgICAgICANCiAgICAgICAgICAgICAgICAgICAgICAgICAgICAgICAg ICAgICAgICAgICAgICAgICAgICAgICAgICAgICAgIC AgICAgICAgICAgICAgICAgICAgICAgICAgICAgICAgICAgICANCiAgICAgICAgICAgICAgICAgICAgIC AgICAgICAgICAgICAgICAgICAgICAgICAgICAgICAgICAgICAgICAgICAgICAgICAgICAgICAgICAgIC AgICAgICAgICAgICAgICAgICANCiAgICAgICAgICAg ICAgICAgICAgICAgICAgICAgICAgICAgICAgICAgICAgICAgICAgICAgICAgICAgICAgICAgICAgICAg ICAgICAgICAgICAgICAgICAgICAgICAgICAgICANCiAgICAgICAgICAgICAgICAgICAgICAgICAgICAg ICAgICAgICAgICAgICAgICAgICAgICAgICAgICAgIC AgICAgICAgICAgICAgICAgICAgICAgICAgICAgICAgICAgICAgICANCiAgICAgICAgICAgICAgICAgIC AgICAgICAgICAgICAgICAgICAgICAgICAgICAgICAgICAgICAgICAgICAgICAgICAgICAgICAgICAgIC AgICAgICAgICAgICAgICAgICAgICANCjw/hPXqX1nq xREsrlA7T1rwVz4NLx8MCI0ma6QhIHJsZAihcaObWonOEtEyDKOhEovIMcg3XLkuXB8PnYLuL6LiV6Oo SNfmCZ6UDINaQBHrnRIuLLIsLRMuKpE9SZGoKVrbIR6EpQYxNGuyLQMzETYiYqStVDHxCWJlXNGiVN0X IGIhG444wlYbBh2SOe8KGyAlGE3ogu9DEkCfUOMrYx qROgm7PYejFV9QyOOwpTBoUdVvOKIDNfHqM3nrn1PoZnwnYCDNFEceRM4Fc0TxoTOkRSa+Nj0CLB4pb3 TiDUscNpTfYD0inz3XCMwBTbQeS6PuqSjeMDVod2pbRTXgQM2zyDHfRGJ5PFCvJPwedgVolzSHVP7tt6 mhRPTvQ5rzPwefMDJqYPNeGP0uXi7fFJEhEXS3AcQ9 XZBYQZ2IYIBdGJJdpQXdPELdUNCVXI8SVGlwPWH5PNYydjTqvJSwXJbqJV8PPBBfkdLtFsJqVJDCTVk+ Cg2SHH0in5MsDQepDQPaGY1oqr4JPHrEZxBgW4N1oJNrL6I8VIdyAn1PCRQiONScNnTcQQXFNSmcFA9V MQ5ndvN7YO6ZvVSqVBDrSJTelQAyEDp7Y14mzGWhMN peBV7WCPV+Yaya+Nt6NNJBnIOCoIKGwNnJdMJOCXxMgI5RlD7WEw5SwG0JvKL18rIausvAnPIjdOV8QMF 7dENXsESVHHH2DbFRxaL7gdmVaEcHwQNKEBsTyJ60toAGhEQPzYOJ0HABpVl1ZJWAdG9FadcMwlJwnsb SnMGKuUJIZWJ9QWRlepdFjyTXtwFyiJK93zLcfGA1P Pp4GQrMrVZ3iud4EvHBbSi8QQJZnRI2SKBXsOTUcDHLbVHI9XBScHnEdZXfzVBXvNVWeNFW9NICoQWEf IC4JEtUjYPDyRaW2UdErDMGoKUQvhe2SZEOhTUShAoV7BCZiBPGhJHUoODwbQYTwQPOeJEU3RFNoXGLo JL2KMgNzRNIvKOP0INudZPJtKPXnfv8LPXLxEUDmOe L7StZbMCBjDYOlIUvzBCQzMJG7HExdIXHxRWMiCP2CPlZwREXtRVoyAuRoZJHsLIAyit6GCZUaUJCwEH M1OXLmPOYcQMLtZJhjVSFdXOB8Avo1PCQzVBKsGX7YHqTqVDKbJPyaGromIUEiIPZhlv0TFSQmMRLeKI KxXzIxHDHbCWAbJJarKTEvJMI3KfS6YNTiAXRkQP9X JjGjAGBfNZR3NhkmRCOyBYGyjo8BZJYyXHXjGIu8SKXuKLRhWLHcBWisUNBvQMPzSXQ3RRTeGFIdSG1B UfDrIUIhWlQjSTegBZZfFDSgjd7VFKUeTDPwZfdnWhOdURXxSPQkPVxlLQAmLOZkMKSyJDXyDCTvLU0U SyTfECYnUoHyCNAeDISzXCFzfh6JOZLwYTSbHjHyFS RhGOMlCNUvWPqwMDAlOTE8GwbdJKSlUZWnWF9ZDoWiKRXfNyL0XySgPNUsMBJwpe1BEPSoNEIrWUPxSB FgYLYlMMSxAFzlVZCaCJZ6IUR5GFCiGVExRX4ZLqMsVFBzPwJ2JPLzRBVrWMRtke9RKCXtKJRdGfH1Yo PzXOSrHUOxDSirLVXdFVL6TrB4ZRBxGNJvIA0OXfVd TJfgKXZWXls4PRfeU9f4MHIkNL9EO1Qvx4IjBzrcFITDAHebRZ7fkoMaDJOkHe3WU2oHSpxcSilfUEWg LSs8HZYlUJRvJsu7CfTrVDY7KPD0Qhj8Uu3sDCAkW0RpONJoISi5QnY0JxYnXoYbPKBvURU3IXhcITL5 MrEaHZ4WAr0PJcM1ZSP6eMHaYt1RFwO1IxwXJmBbMK3IQCv= ID Date Data Source [id number] 01/30/2020 09:46:25 AM EDT [facility] Name Value Range Interpretation Code Description Data Carmela rce(s) Supporting Document(s) Progress Note [facility] ZVMIEo8rOsERHxEd28/JPRprURShr5WaTLjhAPx4XZqiOHNlU5XkGIL0gV9vBQU4VXcEKiTwPpNkPLE4 lbm [file] X2WadgOMbjJe5pFMWOEl5+PDlyxNQanEsaIXQQOrP3ZGM0TPnbMUTNAj7M ID Date Data Source [id number] 01/24/2020 09:58:05 AM EDT [facility] Name Value Range Interpretation Code Description Data Carmela rce(s) Supporting Document(s) Progress Note [facility] TCSYMg6tFqLHHxVa08/YBJrlDYYpl9IpQAitGYw1DDtaICIdK9MqWPV7vR4gRZS1VKbVBfUlGyMwATEv lbm [file] ID Date Data Source [id number] 01/10/2020 10:05:41 AM EDT [facility] Name Value Range Interpretation Code Description Data Carmela rce(s) Supporting Document(s) Progress Note [facility] WWINKd0wZkBVVtJo97/ILVfdBGBnv5PwLSscDAs0HCywWHXcT4HcMDX4uO9bJBP8LVsFUxMhTiAwYKG8 lbm [file] HjJxESFyLZAeHTD5HjPeVI6oJZIYCg4+BQndvQYuaYteRYAKWqN1FZVtHTgpOZWONp6I ID Date Data Source [id number] 01/03/2020 10:14:44 AM EDT [facility] Name Value Range Interpretation Code Description Data Carmela rce(s) Supporting Document(s) Progress Note [facility] GQFKUl9gKpMKCoNl63/CBVcdBBKjh2ArFKwwJMy9SJumPXQzF7FwJLE4aQ3rDNO4TAsDPnGjMgMaSgTw lbm [file] AwMDAwMzQwOSAwMDAwMCBuDQowMDAwMDAzNjEzIDAw KVAxMQ1XSbRvIJKxLVB7GZstUZOqVWRfvx9YQXQqBZOmAoBkZwOoIPLxKHXjDQenOBFmYBQ9DfAcJWYb BVWbJY4ZZxWbBXXkWKv0KfSyMACcBOJjns4EZCMlMUAgGKI9OZWaJSQbZFQpVQnrFHLcSGJ4WOubAAOc MDAhIM4UAnUsFXOaWSi4CyMcMUQmDOLipe5SSHTqYC DoMPjjVCJsNATsLXHhCYdlWNUoUCPpNGZ0BQNpWSWtOX1TZpHqKCMlCPUbBDXhFJXyZGMpnf2BCMEgDK XrTbY5YARkWRPaJQDdMDktAXHeHJWkTIX9WRGmWFGfOR6ACgRmFLCiRwNsKzpcOSKhQTXcbp9SVJWuJW PdNtGcVCPaANPvHFWvRRqvMKAyNXOwQYl3CIMhZPGa AS4XJnOxBVLiOgB1BKjyTNWlFIQbsf5EYHOmTHUiXBHzDzHqEKBvXNBtPTjyQLTmMHQ2Sno3OQDgTFDq YU2ESrDbMAXbTfCoLCLlTCMpFVScsp1KHHDeYEImFhV7JKLsVOEyGIQgFJvbIDVmWGP9JnTyITUnJTHo KY5FOxJhDMTuMgR8CUAwQAQeYEMblp7JyQKmiFgqgg 1QPDjSZk5FkOtuSRD7STpwCv5uwUTmXWElESWBNs1JfnKaCRMmNJDSVQyhITZbZFDbWYJzPBM2DRG2QB HpUvRgDWyoMOSpSjkeEID5IVl3KpS5YsYjNZNeXAR4IILdKNHaMAA4ARS6DYY8K5SrBVByVFx+IF0gDQ o+Uu8Yc2JhgzI5niDnLIibOvJeYC8QHRJXK8AYGi== ID Date Data Source [id number] 12/27/2019 10:20:57 AM EDT [facility] Name Value Range Interpretation Code Description Data Carmela rce(s) Supporting Document(s) Progress Note [facility] PYXEYh2bIwEDRbIf91/TXXgiBDZzq6PnRGmqFJm2FXejPULfZ4YlPLF0kX1fLJA8FZoNShXyGbTcNpKz lbm [file] AgICAgICAgICAgICAgICAgICAgICAgICAgICAgICAg ICAgICAgICAgICAgICAgICAgICAgICAgICAgICAgICAgICAgICAgICAgICAgICAgICAgICAgICAgICAg ICAgICAgICANCiAgICAgICAgICAgICAgICAgICAgICAgICAgICAgICAgICAgICAgICAgICAgICAgICAg ICAgICAgICAgICAgICAgICAgICAgICAgICAgICAgIC AgICAgICAgICAgICAgICAgICANCiAgICAgICAgICAgICAgICAgICAgICAgICAgICAgICAgICAgICAgIC AgICAgICAgICAgICAgICAgICAgICAgICAgICAgICAgICAgICAgICAgICAgICAgICAgICAgICAgICAgIC ANCiAgICAgICAgICAgICAgICAgICAgICAgICAgICAg ICAgICAgICAgICAgICAgICAgICAgICAgICAgICAgICAgICAgICAgICAgICAgICAgICAgICAgICAgICAg ICAgICAgICAgICANCiAgICAgICAgICAgICAgICAgICAgICAgICAgICAgICAgICAgICAgICAgICAgICAg ICAgICAgICAgICAgICAgICAgICAgICAgICAgICAgIC AgICAgICAgICAgICAgICAgICAgICANCiAgICAgICAgICAgICAgICAgICAgICAgICAgICAgICAgICAgIC AgICAgICAgICAgICAgICAgICAgICAgICAgICAgICAgICAgICAgICAgICAgICAgICAgICAgICAgICAgIC AgICANCiAgICAgICAgICAgICAgICAgICAgICAgICAg ICAgICAgICAgICAgICAgICAgICAgICAgICAgICAgICAgICAgICAgICAgICAgICAgICAgICAgICAgICAg ICAgICAgICAgICAgICANCiAgICAgICAgICAgICAgICAgICAgICAgICAgICAgICAgICAgICAgICAgICAg ICAgICAgICAgICAgICAgICAgICAgICAgICAgICAgIC AgICAgICAgICAgICAgICAgICAgICAgICANCiAgICAgICAgICAgICAgICAgICAgICAgICAgICAgICAgIC AgICAgICAgICAgICAgICAgICAgICAgICAgICAgICAgICAgICAgICAgICAgICAgICAgICAgICAgICAgIC AgICAgICANCiAgICAgICAgICAgICAgICAgICAgICAg ICAgICAgICAgICAgICAgICAgICAgICAgICAgICAgICAgICAgICAgICAgICAgICAgICAgICAgICAgICAg ICAgICAgICAgICAgICAgICANCjw/tWNqQ2dspWUrgtK9O5fyNi2ZRj9WIX6rq1LfBGFiDIndzoGaMkeE KoZkLGJjTldEIki7FSpxRW1RdBGyW2FsS0YiNIldFF 5XUTClKEKmtEUtOBJxLONhHrU9PQMtGXxqMU6OxMSuFUhfMKVeAYJfUkBsDKZbHUIbGBQnSZ4SQEAoE1 10laGzJp9WTc2WQdLrFM1fkk9XEgPjSUXaDztGAjd7MZrvEQ4ExQZpfHNkFuOkRYIBIsGoN5ctb9UbUc xkVWPNWPukNJ4Wc1OngPXyOKq+Np2WUQ6cb9PiSJav DsHzAL2gry6VEPcDCwFwG7QsjJhbMPAcm1gtZOBwTJ2eoYMdJYP5AWLsGIiksoPnpmHXWF4ao7knIWPk J9ieJhpmJTAyNKCtYw4pHd8wZVWoQAS2ToQeMWXNMN4SPORgOPGwzGRnMYYqTTZTMN8VRPkyRIH1ZELp csRqxZCsARgnGK8UBLOkpbNyMoGpQBMVBOg+Pg0KZW 3cq5TmKNmfBZGoSQ1irs3JPXrLOvBgZ0D9lOUbQ8K7YNzrHa3JUYUtDMHyNiKfJVCUQQzoGA9VWD7ezi S5XU7XsAEpPLNcQJJfdKBrKWi2P53dkPUnSSclXE4NSZV+Yaya+Ww7JKVNqULPqCSDjBrGrSFFIHgNwB9 OxO7MWf6YhM7ItAM84sQendkLoLSxaPK4SVB6rZEJz ECSBQW3HvMEwrN2hotTrVhYuLHJCCxDzL07fxSZuFACtMHV0GNAfKn7XUTGmD7CachLeoFvqurIcRTEf XRNMKQ5DKMrwiqRtfVOrgGolLG78nSngXI4HJt3ATiKfMW1uuq8BhDYhAy9DOELlVN5BYHRyEEJaUXHb SXF4CLMuJmSuIOpkGRGhVOSxGFZ5TYCdZVPaOU9EOj OqBRPzWxL7VOpiQRJwXUOszd7ZOKSyODRwWeJ4EvRmTQUoXFAiJMmpJXUtBKTqJZR3YRMfZEMcWQ2LWy OtCBLmVNJ7JBibCAFxHWCtqx6FVEQqODXaXsI1QnYkCPAhXLVyWCdxRBPbWAA0JPYaJUIqKERqEO2PAc NhJJViEIugQQEyFBNnPBKwci8RAVMqSRXjMJJ4TeBo XHLiFUFdDGcvSBCjDEK0TjE7XQOeZEHaCH8PPjPfTSDtRTmtOaXpAQQcOHImes0SXIVfPJAdMXXgLyAj VUXpJGLnILljMIOdHKN7PmJ3MYUxLQQcAL3AEvIfXBEnWXF2YpKnHLYqMBLfny5WLEAqEVIdBLu9JhWd YOLgFBGuXHjmZAYqZNJwZED6VQVnPIYyTW2BHkPbHE HjZpQ7WNOzEBTxWEVkew7MPDGsDVEnCywpDAXqKSFfVPKmPGpoWTNzVPMzMNG3ZZTlSKNlPG2SPfKcRI WhEeUkLswiAAYmXFIjcn7ZIXUtJOUgSqBxXTEtYTWuKZXvUDbzQCPrBZS5IpV5UDLiHVLeLN0HLzBwQW JpYfU7ZNxgDRTyWBRgxs3VPSTpTXKvTTdfRISuQJRl XFDfUFzcZQVaJDD0HBJtZDQlNFWcZO4GApWlQMRiNxW4KWOvEHBsFBZrxv4HPNFzEUJtZhU6ThNdDEQj QJHyIIbyHCIlGRA1DKFeSSAyVNIzGS1RVwNtVJxqCCOXEsg5HAggM0m6FGZmLZ3DR6Vgb3JjPvdgPXQD JNcbBM7dauPzJYLjOo3EY9tEQyo4VST7SMDzYzEkNi B6ViC9RVjjVyPqOBlsOBRqJYZnGY5oOWHoFFX8PGAgKBB0JGK1VBQ8X9Z1IAAoAuA9DrPlCuZwKaSbZT 5MYh9ZTeL4YHI9uUXcFm3JTelgRlPFEnHpXX4ZWTg= ID Date Data Source [id number] 12/20/2019 10:34:29 AM EDT [facility] Name Value Range Interpretation Code Description Data Carmela rce(s) Supporting Document(s) Progress Note [facility] NUCWAr4xPvCMMwXy43/MDYnfACPwj8CxKLlyMIx9UTauRRVuU0NtSXQ8hH9qINQ0PSzCBfJmZbNhOaH1 lbm [file] 0gDQo+Kl2Bm7FhxiY9omMqJIavHvHhIH0IGHNDA3QUVk== ID Date Data Source [id number] 12/20/2019 10:04:48 AM EDT [facility] Name Value Range Interpretation Code Description Data Carmela rce(s) Supporting Document(s) Progress Note [facility] AXJENa4hTuXETgBl02/IMHqbHVIts5YwNOupDMt5NPkrFINiR4WuHAI1lY9cQPH5IWcJAgVaQnFyIkN0 lbm [file] GaU8LGQ5iNFfUs4CWxV5RiNOJyFkKT3XSJp= ID Date Data Source [id number] 11/26/2019 02:57:30 PM EDT [facility] Name Value Range Interpretation Code Description Data Carmela rce(s) Supporting Document(s) Progress Note [facility] DFOIWw2gPuJLGgCh24/TEPoyLMMnl8TmXHhaYYe5ATakZOVgK6CoSZX4yJ5oWYZ9JYhLTgYfShUxKjSs lbm [file] o= ID Date Data Source [id number] 11/26/2019 04:59:18 PM EDT [facility] PCName: Vonda NortonDOB: 1935Provider: Alan [...] of loosening or wear. 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, in the [...] Order Comments:Please fax results to [facility]: [phone]; Due:29Nov2019; Last Updated By:Jacinta Cummings; 11/19/2019 1:51:21 [...] 1:51:21 PM;Ordered; For:Preoperative testing; Ordered By:Ej Marquez; Iron Panel (IRON TOTAL, % SATURATION, TIBC, [...] rce(s) Supporting Document(s) ID Date Data Source [id number] 08/24/2019 03:01:30 PM EDT [facility] Name Value Range Interpretation Code Description Data Carmela rce(s) Supporting Document(s) Progress Note [facility] PAUBEa0qHwDGXsRz55/BSVtnOOOmu2HdEPtyPRs1HMyiXQIwA3MgSDZ0iC0sLYL3SZuGIyQzLhIdKpBg [facility] [file] mWJOQVuBLqlbh6Eh7ph9anjPINY7JiL4w5xB4bC8MhgzIbnptTXAMew/Vwgj4U5w3heUjpTk+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 [file] 3nXBHTSb5+XQfbbZDsfHmuJNTGGvJzQfQ9ADmnANOTEk3O ID Date Data Source [id number] 08/24/2019 02:25:24 PM EDT [facility] Name Value Range Interpretation Code Description Data Carmela rce(s) Supporting Document(s) Progress Note [facility] SGXBUq9gPvXMIwQb04/RPXvyEKNvx2SvTHmyBZe6CQxnZTZiL2HpVNJ9vS2vYPW3WHwCLrQgAdRbOvZr lbm [file] I2V5RWziVwbrSFXqMKQ9Xk5mKGEHLc3+HCoeeROcwWryXSZYQhX1QQF7EOstRONUBb4N ID Date Data Source [id number] 08/17/2019 02:10:02 PM EDT [facility] Name Value Range Interpretation Code Description Data Carmela rce(s) Supporting Document(s) Progress Note [facility] EMRRQu6wRzGXQbTm61/OXVxtOZQfu8AaGScmMPr1DHbyDROoR9RqHGV3bI5oCBY6DFqMVmTbEdBnGhOo lbm [file] REKHA+PByiEDwpkPy6vYIzWCEjPl6ZXTKyEKDnALOzSDIeJLKuXLQzJQHvGAXvLDWsNIGvSBJqAOKpWCXw ICAgICAgICAgICAgICAgICAgICAgICAgICAgICAgICAgICAgICAgICAgICAgICAgICAgICAgICAgICAg LY3SAXNrLYXlWLKpGXMtWIQsHOAdUIPiRYGwPKJlTJ AgICAgICAgICAgICAgICAgICAgICAgICAgICAgICAgICAgICAgICAgICAgICAgICAgICAgICAgICAgIC IeOZDiVRQbOUAlNK0OJJGoEAJnAKKzCAHwFNYpAHBoEQMfYPBwUEJtHIUdQBZvRAAmQCUyRGNqERKlUG AgICAgICAgICAgICAgICAgICAgICAgICAgICAgICAg KKKxOUDsCFMhBDGzHACcKTCaWMHuXX2OAXXhTSMoDLVuOTEuUJUcZXOpOUOzHEZoFOBiWIJaEWWkZQKd ICAgICAgICAgICAgICAgICAgICAgICAgICAgICAgICAgICAgICAgICAgICAgICAgICAgICAgICAgICAg ESZcRD5BOOAvGVRzMHGrKJNzYCGmRVMpXEFzSEZoCQ AgICAgICAgICAgICAgICAgICAgICAgICAgICAgICAgICAgICAgICAgICAgICAgICAgICAgICAgICAgIC GlPTDmZTIcYGZwOFPoPL7LQAYuARQxMAQfBPSiLLOgVKMhGIEhMSMeGDEsPLLuGSOaVEYsCIEwOJPgQJ AgICAgICAgICAgICAgICAgICAgICAgICAgICAgICAg VZCaKRBiERVsKAQtCNZiYDNdLQSwXKLjIC9JPDBbEWAjVTBwTGVgBSPrKBEuDZFsZADnBHIlDFRjQXLi ICAgICAgICAgICAgICAgICAgICAgICAgICAgICAgICAgICAgICAgICAgICAgICAgICAgICAgICAgICAg PZKrMZPmIU3ATQTiHIJeVNFmHTVwZSVcZOSjLQViWD AgICAgICAgICAgICAgICAgICAgICAgICAgICAgICAgICAgICAgICAgICAgICAgICAgICAgICAgICAgIC CcYGRsVFRaRNZwBHUxMTFdYR6JPEOwNMSoGPCdYUVfYAQoGFGbTMVqDEBbSYOjTEUeOKWmDQVyGFNfNV AgICAgICAgICAgICAgICAgICAgICAgICAgICAgICAg EIGjBDMtVBBiKXRjUQXmPREiUORdYEHsNQBxJZ9WPVNnRXZcWCBjMRHdNOHpVWCoUPTaNVBqACGfDMCu ICAgICAgICAgICAgICAgICAgICAgICAgICAgICAgICAgICAgICAgICAgICAgICAgICAgICAgICAgICAg SNHsSUKbCWRqKP9RBO77lTBrk8M9IIAwAA8tcqd/Pg 0GYSyrrfZkaUIuOH8ZFdZfOU2tzy9YZzDxNP9itr7NKJjWBaHiO2Z8qXPfZIQlZDHCTdEzD64tQCvhMd 91LQriHMMsLuCwMYl1Rv7SHpWhK9nxXAGgUsR9SIQtSrUdGVkaHI8Fp9IayNKsOKd+Ak4UFC8qa4UpLJ xdGOGuSV7stx8MEKnSLvWjQ4XzvlB0HJIrWSDwLm8O JPAhCJYhyOYvFMLgHAMNRhNaR8HfuX03KVQBPg4+WEtrrlVvQvrNOdIaVBPlo4QtYHy8MX4KSQRgOOh9 aGJnOLAkP9Ndb3XsEf09LYMmEapeFFnaNCYsMhNMNPviQF8rUW7FTHZ3VKGbXIKyNsFjJKCuNEglJBCU UTxXBdVpP1Qtb6MqYjI3YIDyJuJdHDmgIQAnDhP4WZ 97eSmkMJ2URBQtIWNnBZ10WNF1SMLaXi8INg1BXuZrIV8zcy9IXvYzTDVqSivJZnw2CSzzKN8VwCEhM5 ZlyYPxk1bJSiMiQ2NQGNS9MXPsFi6DQLKaYvNqIHSnSUbrQW1dLHBiWNXAyFayiuD1NP5QEK9tphVlQH 0CWxWdYs4gHc1FSlDjB8QkO8PlVNHlVOBTEOsaEA4E RUzjMN3jRS8Wj8YZuNDnwW2bdl5RFMWmYBXlYrohym8ERgslJ5E1eIkoINPaLKgeLBCTZVelLP6QRMSu HGP9LXPySFCfQMSXOlHaJ31zWV8CR4Fmo40mMhO5IQWbEaOiYMtwEH86eCwwpzNikLTgjGypCY1QPb7+ DQplbmRvYmoNCnhyZWYNCjAgMjINCjAwMDAwMDAwMD BlPvQ4EqJqYe2UCPSjNZCiBOBjLlSlVXFrYGFzMOhrJQAcVMP7AIM3HAGeZCCvUL1MJfSrUCHuPLb9Vg PeKIPsOTYyft0MZUUuBPKpPWQ1KvRlRIKeLVWlESnaEIBgFUDoSfn7YDQjFECnSM1VHbIeAAXlBPJ7Gz yyWPUcGAQvno7UMNJuKQRnLhbkFcDtVJOcMLMvECzb WPDxGRN8LXFjWRUiCEJrXJ6SZyDiFKRxRPEoMKYkQMTmHYDroe0VCSMbFJCzPNC0TFQiMXMvZKFdWMez NMEdYIN7LkuqAZNqNAOrWC4DWrOxTJKmJDU7DhOfXKSaLUJqtv2KRNQzTKQgRdshHPQrYNNnZTBbBXrc ETPlZJX1MpGlFDBsDMLgFQ9XGpNzJVLaCWc8KRZiNM MgYYEqxi4XULIeHZLrLsT8RLUvESFiYUBiQNvsPDFiXNG5RRB1ZWSfXVOyKK2FAiSxKMHwQUwtHtSgZN BxTXZxra2XRTJgJNXyLJZ5IBApYDMnGMLxTYlsBMXvPXV9XjO3AZAcKSGyNQ6PAsSbFIIwRSr8DWMuTJ NiCJWywp8UkHDvzRpwbe0IJLfNOx1QmLdwISFjPRky Dk2bbOHaNZTwQKSKWe9VscTpGLGoITBKDSazWLTvYWXgRvCnEEduKHRrCdP0Jmb3AZJvEWr3JSe0Uyr5 Q6UnYkD8CrPoGsLkP8UtOCAlKpH5SqF9QCC6TFj6GAMfNTsyVqP+BY2eOGh+Ud1Xu9SdzwP8unSxGRko SDIxJK9LNTMFP0ZBCq== ID Date Data Source [id number] 08/13/2019 05:57:00 PM [facility] Value Range Interpretation Code Description Data Carmela rce(s) Supporting Document(s) PROSTATE SPECIFIC ANTIGEN 1.13 NG/ML 0.06-4.00 N Osw [facility] [employer] Do not interpret PSA results as absolut [...] for the PSA is determined using the [employer] System that utilizes a direct chemiluminometric technology. The result is not interchangeble with different assay methods. ID Date Data Source [id number] 08/07/2019 07:18:00 AM [facility] Name Value Range Interpretation Code Description Data Carmela rce(s) Supporting Document(s) Hszzu-4-jvrprarmqkf 119 mg/dL 101-187 [facility] Phenotype (P1) MM . [facility] Phenotype Population A-1- AT Concentration Incidence % Reference Interval MM 86.5% 96 - 189 MS 8.0% 83 - 161 MZ 3.9% 60 - 111 FM 0.4% 93 - 191 SZ 0.3% 42 - 75 SS 0.1% 62 - 119 ZZ 0.05% 16 - 38 FS 0.05% 70 - 128 FZ Unknown 44 - 88 FF Unknown Unknown Performed at: - [facility] [address] [id number] [employer] As[employer]er: Jillian Hernandez MD, Phone: [phone] Performed at: [facility] [id number] [employer] As[employer]er: Damian Bernard MD, Phone: [phone] ID Date Data Source [id number] 06/08/2019 09:43:00 [place] [address] Patient Name: Vonda Norton Exam Date: 06/08/19 [...] or interval change. Professional interpretation performed by [facility] at [facility] . End of diagnostic report: [id number] Signed: Waldemar Buckley MD 06/08/19 0946 Interpreted by: Waldemar BuckleyTranscribed by: Waldemar Buckley Name Value Range Interpretation Code Description Data Carmela rce(s) Supporting Document(s) ID Date Data Source [id number] 06/08/2019 09:30:00 AM EST [facility] ([facility]) Name Value Range Interpretation Code Description Data Carmela rce(s) Supporting Document(s) Reported Physicians See Note Reported Physicians [place] ([facility]) Note: Reported Physicians:Ordering: Chrissie PickeringAttending: Chrissie Turner ID Date Data Source [id number] 06/08/2019 09:30:00 AM EST [facility] ([facility]) Name Value Range Interpretation Code Description Data Carmela rce(s) Supporting Document(s) Thyrotropin [Units/volume] in Serum or Plasma by Detec tion limit <= 0.05 mIU/L 2.728 uIU/ML Normal TSH [place] ([facility]) Note: Patients should not be tested for 72 hours post fluorescein dye angiography. A false depression of result may occur.Responsible Observer: TSH TSH 300.5500 (A) ID Date Data Source [id number] 06/08/2019 09:30:00 AM EST [facility] ([facility]) Name Value Range Interpretation Code Description Data Carmela rce(s) Supporting Document(s) Deprecated Cholesterol.in LDL/Cholestero l.in HDL [Mass ratio] in Serum or Plasma 2.8 Normal CHOL/HDL RATIO [place] ([facility] ) Note: Responsible Observer: CHOL/HDL RAT IO CHOL/HDL RATIO 300.4700 (A) Cholesterol crystals [Presence] in Stone by Infrared spectroscop y 163 MG/DL Normal CHOLESTEROL [place] ([facility]) Note: Responsible Observer: CHOL CHOLEST SANDY 300.4350 (A) Cholesterol in HDL [Mass/volume] in Serum or Plasma ultracen trifugate 58 MG/DL Normal HDL CHOLESTEROL [place] ([facility]) Note: Responsible Observer: HDL HDL CHOL ESTEROL 300.4600 (A) Triglyceride [Mass/volume] in Serum or Plasma 154 MG/DL Above high normal TRIGLYCERIDES [place] ([facility]) Note: Responsible Observer: TRIG TRIGLYC ERIDES 300.4300 (A) Cholesterol in LDL [Mass/volume] in Serum or Plasma by Direct as say 74 MG/DL Normal LDL CHOLESTEROL [place] ([facility]) Note: Responsible Observer: LDL LDL CHOL ESTEROL 300.4400 (A) ID Date Data Source [id number] 06/08/2019 09:30:00 AM EST [facility] ([facility]) Name Value Range Interpretation Code Description Data Carmela rce(s) Supporting Document(s) Hemoglobin A1c/Hemoglobin.total in Blood 6.1 % Normal GLYCOSYLATED HGBA1C [place] ([facility]) Note: Responsible Observer: HGB A1C GLYC OSYLATED HGBA1C 300.0800 (A) ID Date Data Source [id number] 06/08/2019 09:30:00 AM EST [facility] ([facility]) Name Value Range Interpretation Code Description Data Carmela rce(s) Supporting Document(s) Alkaline phosphatase isoenzyme [Units/volume] in Serum or Plasma 66 U/L Normal ALKALINE PHOSPHATASE [place] ([facility]) Note: Responsible Observer: ALK PHOS ALK WALT PHOSPHATASE 300.3110 (A) Albumin/Globulin [Mass Ratio] in Amniotic fluid 2.4 G/DL Normal ALB/GLOB RATIO [place] ([facility]) Note: Responsible Observer: A/G RATIO AL B/GLOB RATIO 300.4100 (A) Albumin [Mass/volume] in Synovial fluid 4.0 G/DL Normal ALBUMIN [place] ([facility]) Note: Responsible Observer: ALB ALBUMIN 300.3900 (A) Aspartate aminotransferase [Enzymatic activity/volume] in Serum or Plasma 23 U/L Normal AST [place] ([facility]) Note: Responsible Observer: AST/SGOT AST 300.3050 (A) Alanine aminotransferase [Enzymatic activity/volume] in Seru m or Plasma 33 U/L Normal ALT [place] ([facility]) Note: Responsible Observer: ALT/SGPT ALT 300.3100 (A) Urea nitrogen/Creatinine [Mass Ratio] in Serum or Plasma 20 Normal BUN/CREAT RATIO [facility] ([facility]) Note: Responsible Observer: BUN/CREAT RA HARRY BUN/CREAT RATIO 300.0450 (A) Bilirubin.total [Mass/volume] in Serum or Plasma 0.8 MG/DL Normal BILIRUBIN,TOTAL [facility] ([facility]) Note: Responsible Observer: TOTAL BILI T OTAL BILIRUBIN 300.2700 (A) CA 9.6 MG/DL Normal CA [facility]) Note: Responsible Observer: CA CALCIUM 300.2200 (A) BLOOD UREA NITRO 20 MG/DL Normal BLOOD UREA NITRO [facility] ([facility]) Note: Responsible Observer: BUN BLOOD UR EA NITROGEN 300.0350 (A) Creatine/Creatinine [Mass Ratio] in Urine 1.0 MG/DL Sandhya l CREATININE [facility] ([facility]) Note: Responsible Observer: CREAT CREATI NINE 300.0400 (A) Chloride [Moles/volume] in Serum, Plasma or Blood 106 MEQ/L Normal CHLORIDE [facility] ([facility]) Note: Responsible Observer: CL CHLORIDE 300.0200 (A) Carbon dioxide, total [Moles/volume] in Serum or Plasma 29 MEQ/L Normal CARBON DIOXIDE [facility] ([facility]) Note: Responsible Observer: CO2 CARBON D IOXIDE 300.0250 (A) GFR 71.7 ML/MIN GFR [facility] ([facility]) Note: Stage G2 - Mildly decreased kidne [...] by calculation 1.7 G/DL Normal GLOBULIN [facility] ([facility]) Note: Responsible Observer: GLOB GLOBULI N 300.4050 (A) Anion gap in Blood 15 Normal ANION GAP [facility] ([facility] [facility]) Note: Responsible Observer: ANION GAP AN ION GAP 300.0300 (A) Sodium [Moles/volume] in Serum, Plasma or Blood 146 MEQ/L Above high normal SODIUM JESSICA ([facility]) Note: Responsible Observer: NA SODIUM 3 00.0100 (A) Protein [Mass/volume] in Synovial fluid 5.7 G/DL B elow low normal TOTAL PROTEIN JESSICA ([facility]) Note: Responsible Observer: TP TOTAL PRO TEIN 300.3750 (A) Glucose [Presence] in Urine 103 MG/DL Above high normal G LUCOSE JESSICA ([facility]) Note: Responsible Observer: GLU GLUCOSE 300.0500 (A) Potassium [Mass/volume] in Blood 4.3 MEQ/L Normal POT ASSIUM JESSICA ([facility]) Note: Responsible Observer: K POTASSIUM 300.0150 (A) ID Date Data Source [id number] 06/08/2019 09:30:00 AM EST JESSICA ([facility]) Name Value Range Interpretation Code Description Data Carmela rce(s) Supporting Document(s) BASO # (AUTO) 0.03 10\\^3/uL Normal BASO # (AUTO) JESSICA ([facility]) Note: Responsible Observer: BASO # (AUTO ) BASO # (AUTO) 100.1500 (A) BASO % (AUTO) 0.5 % Normal BASO % (AUTO) JESSICA ([facility]) Note: Responsible Observer: BASO % (AUTO ) BASO % (AUTO) 100.1250 (A) EOS # (AUTO) 0.22 10\\^3/uL Normal EOS # (AUTO) JESSICA ( [facility]) Note: Responsible Observer: EOS # (AUTO) EOS # (AUTO) 100.1450 (A) GRAN # (AUTO) 3.49 10\\^3/uL Normal GRAN # (AUTO) JESSICA ([facility]) Note: Responsible Observer: GRAN # (AUTO ) GRAN #(AUTO) 100.1325 (A) EOS % (AUTO) 3.5 % Normal EOS % (AUTO) JESSICA ([facility]) Note: Responsible Observer: EOS % (AUTO) EOS % (AUTO) 100.1200 (A) Hemoglobin [Mass/volume] in Blood 14.1 G/DL Normal HE MOGLOBIN JESSICA ([facility]) Note: Responsible Observer: HGB HEMOGLOB IN 100.0300 (A) GRAN % (AUTO) 54.8 % Normal GRAN % (AUTO) JESSICA ([facility]) Note: Responsible Observer: GRAN % (AUTO ) GRAN % (AUTO) 100.1000 (A) Hematocrit [Volume Fraction] of Blood by Automated count 42.5 % Normal HEMATOCRIT [place] ([facility]) Note: Responsible Observer: HCT HEMATOCR IT 100.0400 (A) IG # (AUTO) 0.0 10\\^3/uL IG # (AUTO) JESSICA ([facility]) Note: Responsible Observer: IG # (AUTO) IG # (AUTO) 100.1260 (A) IG % (AUTO) 0.2 % IG % (AUTO) JESSICA ([facility]) Note: Responsible Observer: IG % (AUTO) IG % (AUTO) 100.1255 (A) LYMPH # (AUTO) 2.0 k/uL Normal LYMPH # (AUTO) JESSICA ( [facility]) Note: Responsible Observer: LYMPH # (AUT O) LYMPH # (AUTO) 100.1350 (A) LYMPH % (AUTO) 30.9 % Normal LYMPH % (AUTO) JESSICA ( [facility]) Note: Responsible Observer: LYMPH % (AUT O) LYMPH % (AUTO) 100.1100 (A) Erythrocyte mean corpuscular hemoglobin [Entitic mass] by Automated count 31.9 PG Normal MCH [place] ([facility]) Note: Responsible Observer: MCH MCH 100 .0600 (A) Erythrocyte mean corpuscular volume [Entitic volume] by Auto mated count 96.2 FL Normal MCV [place] ([facility]) Note: Responsible Observer: MCV MCV 100 .0550 (A) Erythrocyte mean corpuscular hemoglobin concentration [Mass/volume] by Automated count 33.2 G/DL Normal MCHC [place] ([facility]) Note: Responsible Observer: MCHC MCHC 1 00.0650 (A) MONO # (AUTO) 0.64 k/uL Normal MONO # (AUTO) JESSICA ([facility]) Note: Responsible Observer: MONO # (AUTO ) MONO # (AUTO) 100.1400 (A) MONO % (AUTO) 10.1 % Normal MONO % (AUTO) JESSICA ([facility]) Note: Responsible Observer: MONO % (AUTO ) MONO% (AUTO) 100.1150 (A) Platelets [#/volume] in Plasma by Automated count 185 10\\^3/uL Normal PLATELET COUNT [place] ([facility]) Note: Responsible Observer: PLT PLATELET COUNT 100.0850 (A) MPV 11.3 FL Normal MPV JESSICA ([facility]) Note: Responsible Observer: MPV MPV 100 .0950 (A) Erythrocytes [#/volume] in Blood by Automated count 4.42 10\\^6/uL Normal RED BLOOD COUNT [place] ([facility]) Note: Responsible Observer: RBC RED BLOO D COUNT 100.0250 (A) Leukocytes [#/volume] in Blood by Automated count 6.35 10\\^3/uL Normal WHITE BLOOD COUNT [place] ([facility]) Note: Responsible Observer: WBC WHITE BL OOD COUNT 100.0150 (A) Erythrocyte distribution width [Ratio] by Automated count 11.9 % Normal RDW [place] ([facility]) Note: Responsible Observer: RDW RDW 100 .0700 (A) ID Date Data Source [id number] 06/08/2019 01:04:00 PM [facility] Has Patient Fasted For The Past 12 [...] Code Description Data Carmela rce(s) Supporting Document(s) WHITE BLOOD COUNT 6.35 10^3/uL 4.00-10.50 [facility] ealt RED BLOOD COUNT 4.42 10^6/uL 4.30-5.80 [facility] th HEMOGLOBIN 14.1 G/DL 13.0-17.5 [facility] HEMATOCRIT 42.5 % 41.0-53.0 [facility] MCV 96.2 FL 80.0-100.0 [facility] MCH 31.9 PG 27.0-34.0 [facility] MCHC 33.2 G/DL 32-36 [facility] RDW 11.9 % 11.5-14.5 [facility] PLATELET COUNT 185 10^3/uL 130-400 [facility] MPV 11.3 FL 8.7-13.2 [facility] GRAN % (AUTO) 54.8 % 42.0-75.0 [facility] [employer] [employer] LYMPH % (AUTO) 30.9 % 20.0-51.0 [facility] [employer] MONO % (AUTO) 10.1 % 2.0-15.0 [facility] [facility] EOS % (AUTO) 3.5 % 0.0-11.0 [facility] [employer] BASO % (AUTO) 0.5 % 0.0-2.0 [facility] [employer] IG % (AUTO) 0.2 % 1.00-5.00 [place] [employer] IG # (AUTO) 0.0 10^3/uL <0.5 [employer] GRAN # (AUTO) 3.49 10^3/uL 1.50-6.50 [facility] [employer] LYMPH # (AUTO) 2.0 k/uL 1.0-5.0 [facility] [employer] MONO # (AUTO) 0.64 k/uL 0.20-1.50 [facility] [employer] EOS # (AUTO) 0.22 10^3/uL 0.00-1.10 [facility] [employer] BASO # (AUTO) 0.03 10^3/uL 0.00-0.20 [facility] [employer] ID Date Data Source [id number] 06/08/2019 01:32:00 PM EST [employer] [facility] [facility] Has Patient Fasted For The Past 12 [...] Supporting Document(s) SODIUM 146 MEQ/L 135-145 [place] [employer] POTASSIUM 4.3 MEQ/L 3.5-5.3 [facility] [employer] CHLORIDE 106 MEQ/L 94-110 [facility] CARBON DIOXIDE 29 MEQ/L 22-33 [facility] [employer] ANION GAP 15 5-16 [facility] [employer] BLOOD UREA NITRO 20 MG/DL 7-25 [place] [employer] CREATININE 1.0 MG/DL 0.6-1.4 [facility] [employer] GFR 71.7 ML/MIN [place] [employer] Stage G2 - Mildly decreased kidney func tion GFR normal is >=90 The MDRD GFR calculation is considered valid between the ages of 18 and 75 years only. The GFR is an estimate of the Glomerular Filtration Rate. It is considered accurate in evaluating patients with Chronic Kidney Disease,but may underestimate kidney function in Healthy Patients. BUN/CREAT RATIO 20 8-36 [facility] [employer] GLUCOSE 103 MG/DL 70-100 [place] [employer] CA 9.6 MG/DL 8.7-10.5 [place] [employer] BILIRUBIN,TOTAL 0.8 MG/DL 0.1-1.3 [place] [employer] AST 23 U/L 5-40 [facility] [employer] ALT 33 U/L 5-48 [place] [employer] ALKALINE PHOSPHATASE 66 U/L 40-140 [facility] TOTAL PROTEIN 5.7 G/DL 5.9-8.3 L [place] [employer] ALBUMIN 4.0 G/DL 3.0-5.1 [facility] [employer] GLOBULIN 1.7 G/DL 1.5-3.5 [place] [employer] ALB/GLOB RATIO 2.4 G/DL 1.0-2.7 [facility] [employer] [facility] ID Date Data Source [id number] 06/08/2019 01:32:00 PM [facility] [employer] Has Patient Fasted For The Past 12 [...] Document(s) GLYCOSYLATED HGBA1C 6.1 % 4.1-6.5 [place] [facility] ID Date Data Source [id number] 06/08/2019 01:32:00 PM [facility] [employer] Has Patient Fasted For The Past 12 [...] Supporting Document(s) TRIGLYCERIDES 154 MG/DL 45-150 [facility] CHOLESTEROL 163 MG/DL 125-200 [facility] LDL CHOLESTEROL 74 MG/DL 50-130 [facility] HDL CHOLESTEROL 58 MG/DL 39-96 [facility] CHOL/HDL RATIO 2.8 0-4.9 [facility] ID Date Data Source [id number] 06/08/2019 01:32:00 PM [facility] Has Patient Fasted For The Past 12 [...] Supporting Document(s) TSH 2.728 uIU/ML 0.470-4.200 [facility] Patients should not be tested for 74 ho urs post fluorescein dye angiography. A false depression of result may occur. ID Date Data Source [id number] 05/25/2019 10:21:44 AM [facility] Name Value Range Interpretation Code Description Data Carmela rce(s) Supporting Document(s) Progress Note [facility] MUAJHl4zRjSMJjSt42/VWHaeYTMxf7VaDXwxJXy2YNpdYCHmU7CdVWU8cE4wFBG8ZPoSPuPlOGmhIzSq lbm [file] AgICAgICAgICAgICAgICAgICAgICAgICAgICAgICAg ICAgICAgICAgICAgICAgICAgICAgICAgICAgICAgICAgICAgICAgICAgICANCiAgICAgICAgICAgICAg ICAgICAgICAgICAgICAgICAgICAgICAgICAgICAgICAgICAgICAgICAgICAgICAgICAgICAgICAgICAg ICAgICAgICAgICAgICAgICAgICAgICAgICANCiAgIC AgICAgICAgICAgICAgICAgICAgICAgICAgICAgICAgICAgICAgICAgICAgICAgICAgICAgICAgICAgIC AgICAgICAgICAgICAgICAgICAgICAgICAgICAgICAgICAgICANCiAgICAgICAgICAgICAgICAgICAgIC AgICAgICAgICAgICAgICAgICAgICAgICAgICAgICAg ICAgICAgICAgICAgICAgICAgICAgICAgICAgICAgICAgICAgICAgICAgICAgICANCiAgICAgICAgICAg ICAgICAgICAgICAgICAgICAgICAgICAgICAgICAgICAgICAgICAgICAgICAgICAgICAgICAgICAgICAg ICAgICAgICAgICAgICAgICAgICAgICAgICAgICANCi AgICAgICAgICAgICAgICAgICAgICAgICAgICAgICAgICAgICAgICAgICAgICAgICAgICAgICAgICAgIC AgICAgICAgICAgICAgICAgICAgICAgICAgICAgICAgICAgICAgICANCiAgICAgICAgICAgICAgICAgIC AgICAgICAgICAgICAgICAgICAgICAgICAgICAgICAg ICAgICAgICAgICAgICAgICAgICAgICAgICAgICAgICAgICAgICAgICAgICAgICAgICANCiAgICAgICAg ICAgICAgICAgICAgICAgICAgICAgICAgICAgICAgICAgICAgICAgICAgICAgICAgICAgICAgICAgICAg ICAgICAgICAgICAgICAgICAgICAgICAgICAgICAgIC ANCiAgICAgICAgICAgICAgICAgICAgICAgICAgICAgICAgICAgICAgICAgICAgICAgICAgICAgICAgIC AgICAgICAgICAgICAgICAgICAgICAgICAgICAgICAgICAgICAgICAgICANCiAgICAgICAgICAgICAgIC AgICAgICAgICAgICAgICAgICAgICAgICAgICAgICAg ICAgICAgICAgICAgICAgICAgICAgICAgICAgICAgICAgICAgICAgICAgICAgICAgICAgICANCjw/eHBh P1zthSGqviE8L4cnHf7WIp1UQG8ex4EmRCAnWZcqeyMfXioRLpAxXLRiSluMUgu0AZflIX7CcPDmT4Ij Y8PmSAoeRV9XRBGuEFJwqNKsISWaUWEdPiX4GEMnNO cdMS9HxTXxSCxiSNQtRDIbFK9HZXFvX050zwPoEQ4CSs8WNkWxSJ1ncv2HPrUdMJPwPtlGImv3DWenFO 5EsWMgdNUyQeLfKESPWnGtM9nct1VaThJeIKDIBSnkPD0Rl5RflUOgLUb+By5WQV4mf4PtFGoiZtClCG 7azo4CXFoUFjXvJ1RrmZviOWVlz9rnIFUkEZ3zeKDg LIG1RHqqrNnoBqTLVBdobYbtGEEDXMKfyJYjQl3gQV6wFKL0JTQxVdXaSKQTLL5TGPMdRKVfjRXgLYBl RBZDRT1DYRkdGZH6ULUusoTtrEMgSEtpTE2JNARpvhDnLkMhHLVWGXk+Fs2WNN7uv9AqTRuwZZBbCP4q gg4NNZgBWsSeH4Q1xNZaB3P9SLvlWs2CXQMwMYPhNm JlVYQMMPmzIL9FFX3zmxR0NL7YqCJdSUWjAPXuvNLjGIs4O14ufHPlUVmgFA1NYTN+Yaya+Hf9FCKTnSJ GfDHCmYyNeSMKJBuMjP9VsB1YWb1UtT9KkQM10sGayfaHsYKrtXC2XAR4rUFYyVOXENO2SxZYseE1gyz BrDjLhSWYAOeXxE61ifBSvOBEvZJGtTZOaVw6OBYOy W9EezdUixYzxiiRjEGOcEMWWVM3ZVBnwncDaiFNqaKzwMI46gMufWN9AUe1PXrWyXV1qsk0WkJNvOe9X GRHvQI3CEHAkIARpBGWiQCD9KFJzYtRhPOykRLPlICHuMHW9ZCZqKZJdPW3JZwVcHROzQUq6VxLuFUZo FRBmzc9MOAZqLOMgEKOhMkKvAGVvQJIiHDkbZREhYL ImGFE4PSLmGMIyGV0ZCwFkAYZgDGOeWANcFVOdSZTutq2RDJRaWNGwAqC3CWLxDYHbHHOzPUhrSFZuTX K3OtPzMMXuDIKmIX0ERdEtRCVmIPO6IZxoPIBgEVPcre9PYOWnCZJcHGOqGGSiVESqXRJsNLvqUABqVP Z2JIs8QDPzUEMeGN5QPlEsZDSnNXP7IVluGXIyQIBi uc2FNSVpFCWrVGg4IpJuGWUqWHMxWIjuFJAcYCT9BaZtQMEeLVYsKQ9KIsXvFDGuNZa0ZSffZBFhTBTz lj9FGHXoOUKqJyn2VxSiFCWoYGWhTCfdRHXnZFZ3DWr1YJBhAUZlML2NYjGoXLOzCVkaANAiZZLjCTTy ie2IDPDlTMCzHRC1OEOnPIIbAPEjIRqnQTMjFRG1Pa coWYIpTXExBU5FJjGaTTXuSKu2KHYcBLZxPKHjsk3XPXYbKBImVKa4IhPqTLYeBZMlBPzjTCTdPKOtTL Z8PVUyKKSfXH3HQjQeRAGkSjZ7FdOnWMAvYVJhya6VNXUsXPDsBNGyUkRpMUZjBIIhAAd6sgHoiNTfUU p4FC4MH8ZbmyZuDxEAUc0Em704GID1HMCjSy8TD1xp Wt2rUAGfBIECIx2QCWo7GBWtWXMrB8JbURU8THQxEOMcIjOsYLn5ZeEkGoP1RqS+REooRBEnBiU2G0Wd LHJ0UTAaGmA7KYU8EJl3KCWnChK8LV0aGRNRXk2+SGozkWRvtPepQDWFDeLiZGwgEUfoCPHSCf0N Procedure Social History Code Duration Value Status Description Data Source(s ) Alcohol intake 07/16/2020 12:00:00 AM EST Current drinker of al cohol (finding) completed Current drinker of alcohol (finding) [facility] Tobacco use and exposure 07/16/2020 12:00:00 AM EST Current user co mpleted Current user [facility] Cigarettes smoked current (pack per day) - Reported 07/16/19 12:00:00 AM EST UNK completed [facility] Smoking 07/16/2020 12:00:00 AM EST Former smoker completed Former smoker [facility] Alcohol intake 03/12/2020 12:00:00 AM EDT Current drinker of al cohol (finding) completed Current drinker of alcohol (finding) [facility] Alcohol intake 02/06/2020 12:00:00 AM EDT Current drinker of al cohol (finding) completed Current drinker of alcohol (finding) [facility] Alcohol intake 01/24/2020 12:00:00 AM EDT Current drinker of al cohol (finding) completed Current drinker of alcohol (finding) [facility] Alcohol intake 01/17/2020 12:00:00 AM EDT Current drinker of al cohol (finding) completed Current drinker of alcohol (finding) [facility] Alcohol intake 12/27/2019 12:00:00 AM EDT Current drinker of al cohol (finding) completed Current drinker of alcohol (finding) [facility] Cigarettes smoked current (pack per day) - Reported 12/27/19 12:00:00 AM EDT UNK completed [facility] Smoking 12/27/2019 12:00:00 AM EDT Former smoker completed Former smoker [facility] Alcohol intake 12/20/2019 12:00:00 AM EDT Current drinker of al cohol (finding) completed Current drinker of alcohol (finding) [facility] Cigarettes smoked current (pack per day) - Reported 12/20/19 12:00:00 AM EDT UNK completed [facility] Smoking 12/20/2019 12:00:00 AM EDT Former smoker completed Former smoker [facility] Alcohol intake 12/13/2019 12:00:00 AM EDT Current drinker of al cohol (finding) completed Current drinker of alcohol (finding) [facility] Cigarettes smoked current (pack per day) - Reported 12/13/19 12:00:00 AM EDT UNK completed [facility] Smoking 12/13/2019 12:00:00 AM EDT Former smoker completed Former smoker [facility] Alcohol intake 08/24/2019 12:00:00 AM EDT Current drinker of al cohol (finding) completed Current drinker of alcohol (finding) [facility] Cigarettes smoked current (pack per day) - Reported 08/24/19 12:00:00 AM EDT UNK completed [facility] Smoking 08/24/2019 12:00:00 AM EDT Former smoker completed Former smoker [facility] Alcohol intake 08/17/2019 12:00:00 AM EDT Current drinker of al cohol (finding) completed Current drinker of alcohol (finding) [facility] Cigarettes smoked current (pack per day) - Reported 08/17/19 12:00:00 AM EDT UNK completed [facility] Smoking 08/17/2019 12:00:00 AM EDT Former smoker completed Former smoker [facility] Vital Signs ID Date Data Source UNK Name Value Range Interpretation Code Description Data Source(s) Body surface area Derived from formula 2.37 m2 2.37 m2 [employer] ([facility]) Body mass index (BMI) [Ratio] 38.74 kg/m2 38.74 kg/m2 [employer] ([facility]) Body height 70 [in_us] 70 [in_us] [employer] ([facility]) Body weight 270 [lb_av] 270 [lb_av] [employer] ([facility]) PhenX - pain, abdominal - type and intensity protocol 0 0 JESSICA [facility] unable to obtain vitals Body weight 270 [lb_av] 270 [lb_av] JESSICA ([facility]) unable to obtain vitals Body surface area Derived from formula 2.35 m2 2.35 m2 [employer] ([facility]) Body mass index (BMI) [Ratio] 38.02 kg/m2 38.02 kg/m2 [employer] ([facility]) Body height 70 [in_us] 70 [in_us] [employer] ([facility] Body weight 265 [lb_av] [...] Heart rate 80 /min 80 /min [employer] [facility] Pattern: Regular Body temperature 97.8 [degF] 97.8 [degF] [employer] ([facility]) ID Date Data Source [id number] 07/16/2020 11:23:38 AM [facility] Name Value Range Interpretation Code Description Data Source(s) PREFERRED NAME [facility] ID Date Data Source [id number] 07/16/2020 11:24:04 AM [facility] Name Value Range Interpretation Code Description Data Source(s) PREFERRED NAME [facility] Body height Measured 70 in 70 in [facility] PREFERRED NAME [facility] ID Date Data Source [id number] 03/24/2020 02:05:54 PM [facility] Name Value Range Interpretation Code Description Data Source(s) WEIGHT RECORDED 270.4 lb 270.4 lb [facility] Body height Measured 70 in 70 in [facility] ID Date Data Source [id number] 07/14/2020 11:07:54 AM [facility] Name Value Range Interpretation Code Description Data Source(s) PREFERRED NAME [facility] Body height Measured 70 in 70 in [facility] ID Date Data Source [id number] 03/10/2020 08:55:37 AM [facility] Name Value Range Interpretation Code Description Data Source(s) Body height Measured 70 in 70 in [facility] ID Date Data Source [id number] 01/30/2020 09:40:59 AM [facility] Name Value Range Interpretation Code Description Data Source(s) WEIGHT RECORDED 270 lb 270 lb [facility] ID Date Data Source [id number] 01/24/2020 09:58:05 AM [facility] Name Value Range Interpretation Code Description Data Source(s) WEIGHT RECORDED 270.2 lb 270.2 lb [facility] Body height Measured 70 in 70 in [facility] ID Date Data Source [id number] 01/30/2020 09:46:25 AM [facility] Value Range Interpretation Code Description Data Source(s) Body height Measured 70 in 70 in [facility] ID Date Data Source [id number] 01/10/2020 10:00:36 AM [facility] Value Range Interpretation Code Description Data Source(s) WEIGHT RECORDED 272.4 lb 272.4 lb [facility] Body height Measured 70 in 70 in [facility] ID Date Data Source [id number] 12/27/2019 10:20:57 AM [facility] Value Range Interpretation Code Description Data Source(s) Body height Measured 70 in 70 in [facility] ID Date Data Source [id number] 12/20/2019 10:34:29 AM [facility] Value Range Interpretation Code Description Data Source(s) Body height Measured 70 in 70 in [facility] ID Date Data Source [id number] 12/20/2019 10:04:48 AM [facility] Value Range Interpretation Code Description Data Source(s) Body height Measured 70 in 70 in [facility] ID Date Data Source [id number] 11/26/2019 03:40:34 PM [facility] Value Range Interpretation Code Description Data Source(s) WEIGHT RECORDED 270 lb 270 lb [facility] Body height Measured 70 in 70 in [facility] ID Date Data Source [id number] 05/25/2019 10:21:47 AM EST [facility] Value Range Interpretation Code Description Data Source(s) WEIGHT RECORDED 266 lb 266 lb [facility] Body height Measured 70 in 70 in [facility] Patient Treatment Plan of Care Planned Activity Planned Date Details Description Data Source (s) Stiolto Respimat 2.5-2.5 MCG/ACT Inhalation Aerosol So lution 05/15/2020 12:00:00 AM EST [employer] ([facility]) nabumetone 750 MG Oral Tablet 03/25/2020 12:00:00 AM [facility]) Tamsulosin hydrochloride 0.4 MG Oral Capsule 03/12/2020 12:00:00 AM [facility] nabumetone 750 MG Oral Tablet 02/04/2020 12:00:00 AM [facility]) nabumetone 750 MG Oral Tablet 12/27/2019 12:00:00 AM [facility]) Rosuvastatin calcium 20 MG Oral Tablet 12/24/2019 12:00:00 AM [facility] Ketoconazole 20 MG/ML Topical Cream 12/07/2019 12:00:00 AM [facility] 1.5 ML Leuprolide Acetate 15 MG/ML Prefilled Syringe 12:00:00 AM [facility] Stiolto Respimat 2.5-2.5 MCG/ACT Inhalation Aerosol So lution 10/31/2019 12:00:00 AM [facility] 200 ACTUAT Albuterol 0.09 MG/ACTUAT Metered Dose Inhal er [ProAir] 07/31/2019 12:00:00 AM EST [employer] ([facility])
== END 2020-07-23 22:02 | disposition home or self-care (01) ==
LOC: M ED 21:10
DX: R13.10 Dysphagia, unspecified (principal); I11.0 Hypertensive heart disease with heart failure; E78.5 Hyperlipidemia, unspecified; J44.9 Chronic obstructive pulmonary disease, unspecified; G47.33 Obstructive sleep apnea (adult) (pediatric); C61 Malignant neoplasm of prostate; I77.9 Disorder of arteries and arterioles, unspecified; Z87.891 Personal history of nicotine dependence; Z88.0 Allergy status to penicillin; Z79.899 Other long term (current) drug therapy

== ENCOUNTER → 2021-05-19 | Outpatient (CLI) | payer MEDICARE, OTHER ==
[~2021-05-19] MED LIST changes: +FLOM0.4C39 PO; -NABU-53 PO; +NABU-73 PO; +SIMV20TA22 PO
--- NOTE | 2021-05-19 12:52 | REP ---
INDICATION: CENTRILOBULAR EMPHYSEMA COMPARISON: 01/04/2019 TECHNIQUE: PA and lateral. FINDINGS: Mediastinum and cardiac silhouette are stable. Chronic changes related to emphysematous disease are noted along with chronic bibasilar fibroatelectatic changes. No focal consolidation. No effusion. No pneumothorax. Skeletal structures demonstrate age-related osteopenia and degenerative changes. IMPRESSION: Chronic-appearing changes. No obvious acute consolidation or effusion. <Electronically signed by Duglas Jordan > 05/19/21 2410
== END ==
LOC: M PLAIMG 11:42
PROVIDERS: ATTEND Internal Medicine Pulmonary Disease
DX: J43.2 Centrilobular emphysema (principal)

== ENCOUNTER → 2021-09-18 | Outpatient (CLI) | payer MEDICARE, OTHER ==
[~2021-09-18] MED LIST changes: +GASTROGRAFIN SOLUTION 30ML (Q9963) As Ordered ONE; +ISOVUE-370 76% 100ML VIAL As Ordered ONE
== END ==
LOC: M RAD 11:57
PROVIDERS: ATTEND Physician Assistant Medical
DX: R06.2 Wheezing (principal); R10.9 Unspecified abdominal pain; M54.2 Cervicalgia; R06.02 Shortness of breath
CPT/HCPCS: 71260; 72125; 74177; Q9963; Q9967

== ENCOUNTER → 2022-11-17 | Outpatient (CLI) | payer MEDICARE, OTHER ==
[~2022-11-17] MED LIST changes: -GASTROGRAFIN SOLUTION 30ML (Q9963) As Ordered ONE; +GASTROGRAFIN SOLUTION 30ML As Ordered ONE
== END ==
LOC: M RAD 13:18
PROVIDERS: ATTEND Physician Assistant Medical
DX: R10.9 Unspecified abdominal pain (principal)
CPT/HCPCS: 74177; Q9963; Q9967

== ENCOUNTER → 2023-05-02 | Outpatient (CLI) | payer MEDICARE, OTHER ==
[~2023-05-02] MED LIST changes: -GASTROGRAFIN SOLUTION 30ML As Ordered ONE; -ISOVUE-370 76% 100ML VIAL As Ordered ONE
== END ==
LOC: M RAD 16:36
PROVIDERS: ATTEND Emergency Medicine
DX: R22.42 Localized swelling, mass and lump, left lower limb (principal)

== ENCOUNTER 2023-06-01 05:57 | Inpatient (IN) | payer MEDICARE, OTHER ==
[~2023-06-01] VITALS: Ht 177.8 cm; Wt 116.9 kg
[~2023-06-01 05:57] MED LIST changes: -CRES20TA2; +CRES20TA2 PO; -EPLE25TA; +EPLE25TA PO; -FURO40TA2; +FURO40TA2 PO; -LISI20TA33; +LISI20TA33 PO
[2023-06-01 06:44] LABS: VENOUS BASE EXCESS 1.5 (-2.0-2.0); VENOUS HCO3 29.7 MMOL/L (23.0-27.0); VENOUS O2 SATURATION 54.1 % (60.0-80.0); VENOUS PARTIAL PRESSURE CO2 63.4 mmHg (38.0-50.0); VENOUS PARTIAL PRESSURE O2 31.1 mmHg (30.0-50.0); VENOUS PH 7.288 UNITS (7.330-7.430); VENOUS STANDARD HCO3 24.8 MMOL/L; VENOUS TOTAL CO2 31.6 MMOL/L (24.0-28.0)
[2023-06-01 06:56] LABS: BASO % 0.2 % (0.0-1.0); EOS # 0.1 10^3/uL (0.0-0.5); EOS % 2.9 % (0.0-3.0); HEMATOCRIT 39.7 % (42.0-52.0); HEMOGLOBIN 12.1 g/dl (13.5-17.5); LYMPH # 0.6 10^3/uL (1.5-5.0); LYMPH % 14.6 % (24.0-44.0); MEAN CORPUSCULAR HEMOGLOBIN 30.7 pg (27.0-33.0); MEAN CORPUSCULAR HGB CONC 30.5 g/dl (32.0-36.5); MEAN CORPUSCULAR VOLUME 100.8 fl (80.0-96.0); MONO # 0.4 10^3/uL (0.0-0.8); MONO % 9.7 % (2.0-8.0); NEUTROPHILS % 72.1 % (36.0-66.0); PLATELET COUNT, AUTOMATED 169 10^3/uL (150-450); RED BLOOD COUNT 3.94 10^6/uL (4.30-6.10); WHITE BLOOD COUNT 4.1 10^3/uL (4.0-10.0)
[2023-06-01 07:24] LABS: ALBUMIN 2.9 G/DL (3.2-5.2); ALKALINE PHOSPHATASE 81 U/L (46-116); ALT/SGPT 24 U/L (7.0-40); AST/SGOT 27 U/L (<34); BILIRUBIN,DIRECT 0.2 MG/DL (<0.4); BILIRUBIN,TOTAL 0.4 MG/DL (0.3-1.2); BLOOD UREA NITROGEN 12 MG/DL (9-23); CALCIUM LEVEL 8.4 MG/DL (8.3-10.6); CARBON DIOXIDE LEVEL 29 MMOL/L (20-31); CHLORIDE LEVEL 109 MMOL/L (98-107); CPK CREATINE PHOSPHOKINASE 59 U/L (46-171); CREATININE FOR GFR 0.86 MG/DL (0.70-1.30); GLOMERULAR FILTRATION RATE > 60.0 (>35); GLUCOSE, FASTING 114 MG/DL (74-106); MB/CK RELATIVE INDEX 1.69 (< OR =4); POTASSIUM SERUM 4.2 MMOL/L (3.5-5.1); SODIUM LEVEL 144 MMOL/L (136-145); TOTAL PROTEIN 5.9 G/DL (5.7-8.2)
[2023-06-01 07:27] LABS: THYROID STIMULATING HORMONE 2.337 uIU/ML (0.55-4.78)
[2023-06-01] MEDS ORDERED: methylPREDNISolone 125MG 2ML VIAL IV ONE (08:25)
[2023-06-01] MEDS: IPRATROPIUM 0.5MG/ALBUTEROL 2.5MG INH SOL UD 3ML (DUONEB) NEB PRN ×3 (08:53→09:27)
[2023-06-01 09:05] LABS: ABG BASE EXCESS -1.1 (-2.0-2.0); ABG HCO3 24.2 MMOL/L (22.0-26.0); ABG O2 SATURATION 96.3 % (95.0-99.0); ABG PARTIAL PRESSURE O2 85.2 mmHg (75.0-100.0); ABG STANDARD HCO3 23.5 MMOL/L. (22.0-26.0); ABG TOTAL CO2 25.6 MMOL/L (23.0-31.0); ABG pH (ARTERIAL) 7.369 UNITS (7.350-7.450)
[2023-06-01] MEDS ORDERED: OSELTAMIVIR PHOSPHATE 75 MG CAP (TAMIFLU) PO ONE (09:05)
[2023-06-01] MEDS ORDERED: MED REC IN PROGRESS XX SCH (10:50)
[2023-06-01] MEDS ORDERED: IPRATROPIUM 0.5MG/ALBUTEROL 2.5MG INH SOL UD 3ML (DUONEB) NEB PRN (11:25)
[2023-06-01] MEDS ORDERED: ALBU2.5V10 INH (11:34)
[2023-06-01] MEDS ORDERED: AMOX875T2 PO (11:34)
[2023-06-01] MEDS ORDERED: ASPI-161 PO (11:34)
[2023-06-01] MEDS ORDERED: METO1TAB7 PO (11:34)
[2023-06-01] MEDS ORDERED: JARD1TAB PO (11:34)
[2023-06-01] MEDS ORDERED: PROA1AER2 INH (11:34)
[2023-06-01] MEDS ORDERED: PRES10CA2 PO (11:34)
[2023-06-01] MEDS ORDERED: FLUT22IN INH (12:47)
[2023-06-01] MEDS ORDERED: STIO1AER INH (12:47)
[2023-06-01] MEDS ORDERED: HOME MED LIST COMPLETE! XX SCH (12:50)
[2023-06-01] MEDS: IPRATROPIUM 0.5MG/ALBUTEROL 2.5MG INH SOL UD 3ML (DUONEB) NEB SCH ×2 (13:41→19:46)
[2023-06-01 14:05] LABS: HEMATOCRIT 39.5 % (42.0-52.0); HEMOGLOBIN 12.3 g/dl (13.5-17.5)
[2023-06-01] MEDS: PANTOPRAZOLE 40MG TAB (PROTONIX) PO SCH (14:28)
[2023-06-01] MEDS: methylPREDNISolone 40MG 1ML VIAL IV SCH ×2 (14:28→19:58)
[2023-06-01 14:57] VITALS: BP 135/59; TEMP 97.8; O2SAT 95
[2023-06-01 15:45] VITALS: BP 146/71; TEMP 97.5; O2SAT 93
[2023-06-01] MEDS: FUROSEMIDE 40MG/4ML VIAL IV SCH (16:27)
[2023-06-01] MEDS: ASPIRIN 81MG ENTERIC TABLET PO SCH (16:28)
[2023-06-01] MEDS: METOPROLOL SUCC (TopROL XL) 50MG **XL** TAB PO SCH (16:31)
[2023-06-01] MEDS: FLUTICASONE HFA 220 MCG 12 GM INHALER (FLOVENT) INH SCH (19:46)
[2023-06-01 20:04] VITALS: BP 110/58; TEMP 97.5; O2SAT 94
[2023-06-01] MEDS: OSELTAMIVIR PHOSPHATE 75 MG CAP (TAMIFLU) PO SCH (21:32)
[2023-06-01] MEDS: ROSUVASTATIN 10 MG TAB (CRESTOR) PO SCH (21:32)
[2023-06-01 23:48] VITALS: BP 117/65; TEMP 97.5; O2SAT 93
[2023-06-02] MEDS: IPRATROPIUM 0.5MG/ALBUTEROL 2.5MG INH SOL UD 3ML (DUONEB) NEB SCH ×4 (00:39→19:50)
[2023-06-02] MEDS: methylPREDNISolone 40MG 1ML VIAL IV SCH ×3 (02:17→20:28)
[2023-06-02 04:00] VITALS: BP 115/58; TEMP 97.9; O2SAT 91
[2023-06-02 06:22] LABS: HEMATOCRIT 37.3 % (42.0-52.0); HEMOGLOBIN 11.6 g/dl (13.5-17.5); LYMPH # 0.3 10^3/uL (1.5-5.0); LYMPH % 7.2 % (24.0-44.0); MEAN CORPUSCULAR HEMOGLOBIN 30.7 pg (27.0-33.0); MEAN CORPUSCULAR HGB CONC 31.1 g/dl (32.0-36.5); MEAN CORPUSCULAR VOLUME 98.7 fl (80.0-96.0); MONO # 0.2 10^3/uL (0.0-0.8); MONO % 3.5 % (2.0-8.0); NEUTROPHILS # 4.1 10^3/uL (1.5-8.5); NEUTROPHILS % 89.1 % (36.0-66.0); PLATELET COUNT, AUTOMATED 178 10^3/uL (150-450); RED BLOOD COUNT 3.78 10^6/uL (4.30-6.10); WHITE BLOOD COUNT 4.6 10^3/uL (4.0-10.0)
[2023-06-02 06:45] LABS: BLOOD UREA NITROGEN 18 MG/DL (9-23); CALCIUM LEVEL 8.4 MG/DL (8.3-10.6); CARBON DIOXIDE LEVEL 27 MMOL/L (20-31); CHLORIDE LEVEL 109 MMOL/L (98-107); CREATININE FOR GFR 0.94 MG/DL (0.70-1.30); GLOMERULAR FILTRATION RATE > 60.0 (>35); GLUCOSE, FASTING 170 MG/DL (74-106); MAGNESIUM LEVEL 2.2 MG/DL (1.8-2.4); POTASSIUM SERUM 4.1 MMOL/L (3.5-5.1); SODIUM LEVEL 143 MMOL/L (136-145)
[2023-06-02] MEDS: FLUTICASONE HFA 220 MCG 12 GM INHALER (FLOVENT) INH SCH ×2 (07:33→19:50)
[2023-06-02 08:00] VITALS: BP 129/60; TEMP 97.1; O2SAT 93
[2023-06-02] MEDS ORDERED: MIRALAX *UNIT DOSE* 17GM PACKET PO PRN (08:45)
[2023-06-02] MEDS ORDERED: MOM 30ML SUSPENSION UDC PO PRN (08:45)
[2023-06-02] MEDS: FUROSEMIDE 40MG/4ML VIAL IV SCH ×2 (09:00→16:43)
[2023-06-02] MEDS ORDERED: ENOXAPARIN 40MG/0.4ML SYRINGE (J1650 PER 10MG) SC SCH (09:00)
[2023-06-02] MEDS: ENOXAPARIN 40MG/0.4ML SYRINGE (J1650 PER 10MG) SC SCH (09:00)
[2023-06-02] MEDS: ASPIRIN 81MG ENTERIC TABLET PO SCH (09:01)
[2023-06-02] MEDS: PANTOPRAZOLE 40MG TAB (PROTONIX) PO SCH (09:01)
[2023-06-02] MEDS: SENOKOT S TAB PO SCH ×2 (09:01→20:28)
[2023-06-02] MEDS: OSELTAMIVIR PHOSPHATE 75 MG CAP (TAMIFLU) PO SCH ×2 (09:01→20:29)
[2023-06-02] MEDS: METOPROLOL SUCC (TopROL XL) 50MG **XL** TAB PO SCH (09:04)
[2023-06-02 12:00] VITALS: BP 126/58; TEMP 97.2; O2SAT 92
[2023-06-02 16:00] VITALS: BP 116/57; TEMP 96.2; O2SAT 94
[2023-06-02] MEDS: BENZONATATE 100MG CAPSULE PO PRN (16:43)
[2023-06-02 20:00] VITALS: BP 129/55; TEMP 97.8; O2SAT 93
[2023-06-02] MEDS: ROSUVASTATIN 10 MG TAB (CRESTOR) PO SCH (20:28)
[2023-06-03] VITALS (7 sets, daily range): BP systolic 119–136; BP diastolic 55–80; TEMP 97.2–99; O2SAT 90–95
[2023-06-03] MEDS: IPRATROPIUM 0.5MG/ALBUTEROL 2.5MG INH SOL UD 3ML (DUONEB) NEB SCH ×4 (01:32→19:41)
[2023-06-03 07:38] LABS: BASO % 0.1 % (0.0-1.0); HEMATOCRIT 38.8 % (42.0-52.0); HEMOGLOBIN 12.4 g/dl (13.5-17.5); LYMPH # 0.5 10^3/uL (1.5-5.0); LYMPH % 4.6 % (24.0-44.0); MEAN CORPUSCULAR HEMOGLOBIN 31.1 pg (27.0-33.0); MEAN CORPUSCULAR VOLUME 97.2 fl (80.0-96.0); MONO # 0.5 10^3/uL (0.0-0.8); MONO % 4.2 % (2.0-8.0); NEUTROPHILS # 10.5 10^3/uL (1.5-8.5); NEUTROPHILS % 90.7 % (36.0-66.0); PLATELET COUNT, AUTOMATED 231 10^3/uL (150-450); RED BLOOD COUNT 3.99 10^6/uL (4.30-6.10); WHITE BLOOD COUNT 11.6 10^3/uL (4.0-10.0)
[2023-06-03] MEDS: FLUTICASONE HFA 220 MCG 12 GM INHALER (FLOVENT) INH SCH ×2 (08:06→19:41)
[2023-06-03 08:23] LABS: BLOOD UREA NITROGEN 36 MG/DL (9-23); CALCIUM LEVEL 8.1 MG/DL (8.3-10.6); CARBON DIOXIDE LEVEL 28 MMOL/L (20-31); CHLORIDE LEVEL 109 MMOL/L (98-107); CREATININE FOR GFR 0.99 MG/DL (0.70-1.30); GLOMERULAR FILTRATION RATE > 60.0 (>35); GLUCOSE, FASTING 150 MG/DL (74-106); MAGNESIUM LEVEL 2.2 MG/DL (1.8-2.4); POTASSIUM SERUM 4.2 MMOL/L (3.5-5.1); SODIUM LEVEL 145 MMOL/L (136-145)
[2023-06-03] MEDS: BENZONATATE 100MG CAPSULE PO PRN ×3 (08:58→21:00)
[2023-06-03] MEDS: methylPREDNISolone 40MG 1ML VIAL IV SCH ×2 (08:58→20:54)
[2023-06-03] MEDS: FUROSEMIDE 40MG/4ML VIAL IV SCH ×2 (08:59→16:16)
[2023-06-03] MEDS: OSELTAMIVIR PHOSPHATE 75 MG CAP (TAMIFLU) PO SCH ×2 (08:59→20:54)
[2023-06-03] MEDS: ASPIRIN 81MG ENTERIC TABLET PO SCH (08:59)
[2023-06-03] MEDS: SENOKOT S TAB PO SCH ×2 (08:59→20:55)
[2023-06-03] MEDS: PANTOPRAZOLE 40MG TAB (PROTONIX) PO SCH (09:00)
[2023-06-03] MEDS: METOPROLOL SUCC (TopROL XL) 50MG **XL** TAB PO SCH (09:03)
[2023-06-03] MEDS: ENOXAPARIN 40MG/0.4ML SYRINGE (J1650 PER 10MG) SC SCH (09:04)
[2023-06-03] MEDS: cefTRIAXone SOD 1 GM in D5W MINI-BAG PLUS 50 ML IV SCH (09:08)
[2023-06-03 09:36] LABS: PROCALCITONIN 0.05 ng/ml
[2023-06-03] MEDS ORDERED: DOXYCYCLINE HYCLATE 100 MG in D5W MINI-BAG PLUS 100 ML IV SCH (10:00)
[2023-06-03] MEDS: guaiFENesin 200 MG TAB PO PRN ×2 (14:03→21:00)
[2023-06-03] MEDS: DOXYCYCLINE HYCLATE 100MG TABLET PO SCH (20:54)
[2023-06-03] MEDS: ROSUVASTATIN 10 MG TAB (CRESTOR) PO SCH (20:54)
[2023-06-04] MEDS: IPRATROPIUM 0.5MG/ALBUTEROL 2.5MG INH SOL UD 3ML (DUONEB) NEB SCH ×4 (01:23→19:13)
[2023-06-04 05:43] LABS: HEMATOCRIT 37.8 % (42.0-52.0); LYMPH # 0.5 10^3/uL (1.5-5.0); LYMPH % 5.3 % (24.0-44.0); MEAN CORPUSCULAR HEMOGLOBIN 30.8 pg (27.0-33.0); MEAN CORPUSCULAR HGB CONC 31.7 g/dl (32.0-36.5); MEAN CORPUSCULAR VOLUME 96.9 fl (80.0-96.0); MONO # 0.3 10^3/uL (0.0-0.8); MONO % 3.6 % (2.0-8.0); NEUTROPHILS # 8.6 10^3/uL (1.5-8.5); NEUTROPHILS % 90.5 % (36.0-66.0); PLATELET COUNT, AUTOMATED 224 10^3/uL (150-450); WHITE BLOOD COUNT 9.5 10^3/uL (4.0-10.0)
[2023-06-04 05:50] VITALS: BP 142/78; TEMP 97.3; O2SAT 88
[2023-06-04 06:08] LABS: BLOOD UREA NITROGEN 38 MG/DL (9-23); CALCIUM LEVEL 8.2 MG/DL (8.3-10.6); CARBON DIOXIDE LEVEL 30 MMOL/L (20-31); CHLORIDE LEVEL 107 MMOL/L (98-107); CREATININE FOR GFR 0.94 MG/DL (0.70-1.30); GLOMERULAR FILTRATION RATE > 60.0 (>35); GLUCOSE, FASTING 161 MG/DL (74-106); POTASSIUM SERUM 4.1 MMOL/L (3.5-5.1); SODIUM LEVEL 145 MMOL/L (136-145)
[2023-06-04 06:30] VITALS: O2SAT 86
[2023-06-04 06:31] VITALS: O2SAT 89
[2023-06-04] MEDS: FLUTICASONE HFA 220 MCG 12 GM INHALER (FLOVENT) INH SCH ×2 (07:46→19:12)
[2023-06-04] MEDS: ASPIRIN 81MG ENTERIC TABLET PO SCH (10:16)
[2023-06-04] MEDS: DOXYCYCLINE HYCLATE 100MG TABLET PO SCH ×2 (10:17→20:01)
[2023-06-04] MEDS: BENZONATATE 100MG CAPSULE PO PRN (10:17)
[2023-06-04] MEDS: SENOKOT S TAB PO SCH ×2 (10:17→20:02)
[2023-06-04] MEDS: OSELTAMIVIR PHOSPHATE 75 MG CAP (TAMIFLU) PO SCH ×2 (10:17→20:02)
[2023-06-04] MEDS: PANTOPRAZOLE 40MG TAB (PROTONIX) PO SCH (10:17)
[2023-06-04] MEDS: LACTOBACILLUS ACIDOPHILUS CAP (BACID) PO SCH ×2 (10:18→18:13)
[2023-06-04] MEDS: ENOXAPARIN 40MG/0.4ML SYRINGE (J1650 PER 10MG) SC SCH (10:18)
[2023-06-04] MEDS: methylPREDNISolone 40MG 1ML VIAL IV SCH ×2 (10:18→20:01)
[2023-06-04] MEDS: FUROSEMIDE 40MG/4ML VIAL IV SCH (10:18)
[2023-06-04] MEDS: METOPROLOL SUCC (TopROL XL) 50MG **XL** TAB PO SCH (10:19)
[2023-06-04] MEDS: cefTRIAXone SOD 1 GM in D5W MINI-BAG PLUS 50 ML IV SCH (10:19)
[2023-06-04 14:00] VITALS: BP 134/70; TEMP 97.5; O2SAT 91
[2023-06-04] MEDS: NYSTATIN 500,000U/5ML SUSP UDC PO SCH ×2 (18:13→20:01)
[2023-06-04] MEDS: DIMETHICONE 2% OINTMENT(VANICREAM) 70GM TUBE TOP SCH (20:01)
[2023-06-04] MEDS: ROSUVASTATIN 10 MG TAB (CRESTOR) PO SCH (20:02)
[2023-06-04] MEDS: FUROSEMIDE 40 MG TAB PO SCH (20:03)
[2023-06-04 21:20] VITALS: BP 134/69; TEMP 97.5; O2SAT 90
[2023-06-05] MEDS: IPRATROPIUM 0.5MG/ALBUTEROL 2.5MG INH SOL UD 3ML (DUONEB) NEB SCH ×4 (01:42→18:56)
[2023-06-05 05:42] LABS: BASO % 0.1 % (0.0-1.0); HEMATOCRIT 39.4 % (42.0-52.0); HEMOGLOBIN 12.1 g/dl (13.5-17.5); LYMPH # 0.4 10^3/uL (1.5-5.0); LYMPH % 5.3 % (24.0-44.0); MEAN CORPUSCULAR HGB CONC 30.7 g/dl (32.0-36.5); MEAN CORPUSCULAR VOLUME 97.5 fl (80.0-96.0); MONO # 0.4 10^3/uL (0.0-0.8); MONO % 5.3 % (2.0-8.0); NEUTROPHILS % 87.9 % (36.0-66.0); PLATELET COUNT, AUTOMATED 219 10^3/uL (150-450); RED BLOOD COUNT 4.04 10^6/uL (4.30-6.10)
[2023-06-05 05:47] VITALS: BP 135/69; TEMP 97.2; O2SAT 90
[2023-06-05 06:09] LABS: BLOOD UREA NITROGEN 35 MG/DL (9-23); CARBON DIOXIDE LEVEL 31 MMOL/L (20-31); CHLORIDE LEVEL 108 MMOL/L (98-107); CREATININE FOR GFR 0.86 MG/DL (0.70-1.30); GLOMERULAR FILTRATION RATE > 60.0 (>35); GLUCOSE, FASTING 161 MG/DL (74-106); MAGNESIUM LEVEL 1.9 MG/DL (1.8-2.4); POTASSIUM SERUM 4.1 MMOL/L (3.5-5.1); SODIUM LEVEL 145 MMOL/L (136-145)
[2023-06-05] MEDS: FLUTICASONE HFA 220 MCG 12 GM INHALER (FLOVENT) INH SCH ×2 (08:06→18:56)
[2023-06-05] MEDS: NYSTATIN 500,000U/5ML SUSP UDC PO SCH ×4 (09:07→20:39)
[2023-06-05] MEDS: cefTRIAXone SOD 1 GM in D5W MINI-BAG PLUS 50 ML IV SCH (09:07)
[2023-06-05] MEDS: DIMETHICONE 2% OINTMENT(VANICREAM) 70GM TUBE TOP SCH ×2 (09:07→20:41)
[2023-06-05] MEDS: DOXYCYCLINE HYCLATE 100MG TABLET PO SCH ×2 (09:07→20:40)
[2023-06-05] MEDS: LACTOBACILLUS ACIDOPHILUS CAP (BACID) PO SCH ×2 (09:08→17:59)
[2023-06-05] MEDS: METOPROLOL SUCC (TopROL XL) 50MG **XL** TAB PO SCH (09:08)
[2023-06-05] MEDS: OSELTAMIVIR PHOSPHATE 75 MG CAP (TAMIFLU) PO SCH ×2 (09:08→20:39)
[2023-06-05] MEDS: methylPREDNISolone 40MG 1ML VIAL IV SCH ×2 (09:08→20:39)
[2023-06-05] MEDS: ASPIRIN 81MG ENTERIC TABLET PO SCH (09:08)
[2023-06-05] MEDS: SENOKOT S TAB PO SCH ×2 (09:08→20:39)
[2023-06-05] MEDS: PANTOPRAZOLE 40MG TAB (PROTONIX) PO SCH (09:08)
[2023-06-05] MEDS: ENOXAPARIN 40MG/0.4ML SYRINGE (J1650 PER 10MG) SC SCH (09:09)
[2023-06-05] MEDS: FUROSEMIDE 40 MG TAB PO SCH ×2 (09:09→20:40)
[2023-06-05] MEDS: guaiFENesin 200 MG TAB PO PRN (09:11)
[2023-06-05] MEDS: BENZONATATE 100MG CAPSULE PO PRN (09:11)
[2023-06-05] MEDS ORDERED: ISOVUE-370 76% 100ML VIAL As Ordered ONE (09:45)
[2023-06-05 14:00] VITALS: BP 126/61; TEMP 97.5; O2SAT 91
[2023-06-05] MEDS: ROSUVASTATIN 10 MG TAB (CRESTOR) PO SCH (20:40)
[2023-06-05 21:00] VITALS: BP 127/76; TEMP 97.3; O2SAT 93
[2023-06-06] VITALS (8 sets, daily range): BP systolic 116–137; BP diastolic 48–63; TEMP 97.2–97.5; O2SAT 83–92
[2023-06-06] MEDS: IPRATROPIUM 0.5MG/ALBUTEROL 2.5MG INH SOL UD 3ML (DUONEB) NEB SCH ×4 (01:18→19:15)
[2023-06-06] MEDS: FLUTICASONE HFA 220 MCG 12 GM INHALER (FLOVENT) INH SCH ×2 (07:12→19:15)
[2023-06-06 07:15] LABS: BASO % 0.1 % (0.0-1.0); HEMATOCRIT 37.8 % (42.0-52.0); HEMOGLOBIN 12.2 g/dl (13.5-17.5); LYMPH # 0.5 10^3/uL (1.5-5.0); LYMPH % 6.4 % (24.0-44.0); MEAN CORPUSCULAR HEMOGLOBIN 31.5 pg (27.0-33.0); MEAN CORPUSCULAR HGB CONC 32.3 g/dl (32.0-36.5); MEAN CORPUSCULAR VOLUME 97.7 fl (80.0-96.0); MONO # 0.4 10^3/uL (0.0-0.8); MONO % 5.5 % (2.0-8.0); NEUTROPHILS # 6.8 10^3/uL (1.5-8.5); NEUTROPHILS % 85.9 % (36.0-66.0); PLATELET COUNT, AUTOMATED 215 10^3/uL (150-450); RED BLOOD COUNT 3.87 10^6/uL (4.30-6.10)
[2023-06-06 07:46] LABS: C REACTIVE PROTEIN QUANTITATIV < 0.40 MG/DL (<1.0)
[2023-06-06 07:47] LABS: BLOOD UREA NITROGEN 32 MG/DL (9-23); CALCIUM LEVEL 8.1 MG/DL (8.3-10.6); CARBON DIOXIDE LEVEL 33 MMOL/L (20-31); CHLORIDE LEVEL 107 MMOL/L (98-107); CREATININE FOR GFR 0.83 MG/DL (0.70-1.30); GLOMERULAR FILTRATION RATE > 60.0 (>35); GLUCOSE, FASTING 149 MG/DL (74-106); MAGNESIUM LEVEL 1.9 MG/DL (1.8-2.4); POTASSIUM SERUM 4.3 MMOL/L (3.5-5.1); SODIUM LEVEL 145 MMOL/L (136-145)
[2023-06-06] MEDS: LACTOBACILLUS ACIDOPHILUS CAP (BACID) PO SCH ×2 (08:33→18:04)
[2023-06-06] MEDS: ASPIRIN 81MG ENTERIC TABLET PO SCH (08:33)
[2023-06-06] MEDS: SENOKOT S TAB PO SCH ×2 (08:33→21:27)
[2023-06-06] MEDS: OSELTAMIVIR PHOSPHATE 75 MG CAP (TAMIFLU) PO SCH (08:33)
[2023-06-06] MEDS: NYSTATIN 500,000U/5ML SUSP UDC PO SCH ×4 (08:33→21:27)
[2023-06-06] MEDS: DOXYCYCLINE HYCLATE 100MG TABLET PO SCH ×2 (08:34→21:27)
[2023-06-06] MEDS: cefTRIAXone SOD 1 GM in D5W MINI-BAG PLUS 50 ML IV SCH (08:34)
[2023-06-06] MEDS: BENZONATATE 100MG CAPSULE PO PRN (08:34)
[2023-06-06] MEDS: PANTOPRAZOLE 40MG TAB (PROTONIX) PO SCH (08:34)
[2023-06-06] MEDS: DIMETHICONE 2% OINTMENT(VANICREAM) 70GM TUBE TOP SCH ×2 (08:34→21:27)
[2023-06-06] MEDS: methylPREDNISolone 40MG 1ML VIAL IV SCH (08:35)
[2023-06-06] MEDS: ENOXAPARIN 40MG/0.4ML SYRINGE (J1650 PER 10MG) SC SCH (08:35)
[2023-06-06] MEDS: FUROSEMIDE 40 MG TAB PO SCH ×2 (08:35→21:27)
[2023-06-06] MEDS: METOPROLOL SUCC (TopROL XL) 50MG **XL** TAB PO SCH (08:36)
[2023-06-06 16:17] LABS: HEMATOCRIT 39.8 % (42.0-52.0); HEMOGLOBIN 12.5 g/dl (13.5-17.5)
[2023-06-06] MEDS: ROSUVASTATIN 10 MG TAB (CRESTOR) PO SCH (21:27)
[2023-06-07 00:42] LABS: HEMATOCRIT 38.1 % (42.0-52.0); HEMOGLOBIN 11.9 g/dl (13.5-17.5)
[2023-06-07] MEDS: IPRATROPIUM 0.5MG/ALBUTEROL 2.5MG INH SOL UD 3ML (DUONEB) NEB SCH ×3 (01:12→13:09)
[2023-06-07 05:32] LABS: BASO % 0.1 % (0.0-1.0); EOS % 0.2 % (0.0-3.0); HEMATOCRIT 38.4 % (42.0-52.0); HEMOGLOBIN 12.2 g/dl (13.5-17.5); LYMPH # 0.9 10^3/uL (1.5-5.0); LYMPH % 10.1 % (24.0-44.0); MEAN CORPUSCULAR HEMOGLOBIN 30.9 pg (27.0-33.0); MEAN CORPUSCULAR HGB CONC 31.8 g/dl (32.0-36.5); MEAN CORPUSCULAR VOLUME 97.2 fl (80.0-96.0); MONO # 0.7 10^3/uL (0.0-0.8); MONO % 7.9 % (2.0-8.0); NEUTROPHILS % 79.1 % (36.0-66.0); PLATELET COUNT, AUTOMATED 211 10^3/uL (150-450); RED BLOOD COUNT 3.95 10^6/uL (4.30-6.10); WHITE BLOOD COUNT 8.9 10^3/uL (4.0-10.0)
[2023-06-07 05:49] VITALS: BP 131/64; TEMP 97.7; O2SAT 93
[2023-06-07 06:04] LABS: C REACTIVE PROTEIN QUANTITATIV < 0.40 MG/DL (<1.0)
[2023-06-07 06:06] LABS: BLOOD UREA NITROGEN 33 MG/DL (9-23); CALCIUM LEVEL 8.1 MG/DL (8.3-10.6); CARBON DIOXIDE LEVEL 32 MMOL/L (20-31); CHLORIDE LEVEL 107 MMOL/L (98-107); CREATININE FOR GFR 0.88 MG/DL (0.70-1.30); GLOMERULAR FILTRATION RATE > 60.0 (>35); GLUCOSE, FASTING 111 MG/DL (74-106); MAGNESIUM LEVEL 1.8 MG/DL (1.8-2.4); POTASSIUM SERUM 3.6 MMOL/L (3.5-5.1); SODIUM LEVEL 146 MMOL/L (136-145)
[2023-06-07] MEDS: FLUTICASONE HFA 220 MCG 12 GM INHALER (FLOVENT) INH SCH (07:10)
[2023-06-07] MEDS: NYSTATIN 500,000U/5ML SUSP UDC PO SCH ×3 (08:22→16:18)
[2023-06-07] MEDS: ASPIRIN 81MG ENTERIC TABLET PO SCH (08:22)
[2023-06-07] MEDS: LACTOBACILLUS ACIDOPHILUS CAP (BACID) PO SCH (08:23)
[2023-06-07] MEDS: DOXYCYCLINE HYCLATE 100MG TABLET PO SCH (08:23)
[2023-06-07] MEDS: PANTOPRAZOLE 40MG TAB (PROTONIX) PO SCH (08:23)
[2023-06-07] MEDS: DIMETHICONE 2% OINTMENT(VANICREAM) 70GM TUBE TOP SCH (08:23)
[2023-06-07] MEDS: SENOKOT S TAB PO SCH (08:23)
[2023-06-07 08:24] VITALS: BP 117/51
[2023-06-07] MEDS: FUROSEMIDE 40 MG TAB PO SCH (08:24)
[2023-06-07] MEDS: METOPROLOL SUCC (TopROL XL) 50MG **XL** TAB PO SCH (08:24)
[2023-06-07] MEDS ORDERED: predniSONE 20 MG TAB PO SCH (09:00)
[2023-06-07] MEDS ORDERED: CEFDINIR 300 MG CAP (OMNICEF) PO SCH (09:00)
[2023-06-07] MEDS ORDERED: DOXY100T PO (10:53)
[2023-06-07] MEDS ORDERED: PRED10TA2 PO (10:53)
[2023-06-07] MEDS ORDERED: CEFD300CAP PO (10:53)
[2023-06-07 14:00] VITALS: BP 116/52; TEMP 97.7; O2SAT 95
== END 2023-06-07 18:00 | disposition home or self-care (01) | DRG 189 ==
LOC: M ED 05:57 → M ED INP 09:30 → ENRESERV 13:41 → M PCU 14:38 → M MSPAV 06-03 16:45
PROVIDERS: ADMIT Internal Medicine; ATTEND Internal Medicine
DX: J96.01 Acute respiratory failure with hypoxia (principal); I50.33 Acute on chronic diastolic (congestive) heart failure; J44.1 Chronic obstructive pulmonary disease with (acute) exacerbation; I11.0 Hypertensive heart disease with heart failure; J10.1 Influenza due to other identified influenza virus with other respiratory manifestations; M17.0 Bilateral primary osteoarthritis of knee; Z92.3 Personal history of irradiation; R31.9 Hematuria, unspecified; Z85.46 Personal history of malignant neoplasm of prostate; Z79.82 Long term (current) use of aspirin; Z79.899 Other long term (current) drug therapy; Z88.0 Allergy status to penicillin; Z96.651 Presence of right artificial knee joint; Z96.642 Presence of left artificial hip joint; Z87.891 Personal history of nicotine dependence; R13.10 Dysphagia, unspecified; R19.7 Diarrhea, unspecified; D53.9 Nutritional anemia, unspecified; Z66 Do not resuscitate

== ENCOUNTER 2023-06-20 11:34 | Inpatient (IN) | payer MEDICARE, OTHER ==
[~2023-06-20] VITALS: Ht 177.8 cm; Wt 113.6 kg
[~2023-06-20 11:34] MED LIST changes: +ALBU2.5V10 INH; +AMOX875T2 PO; +ASPI-161 PO; +CEFD300CAP PO; +DOXY100T PO; +FLUT22IN INH; +JARD1TAB PO; +METO1TAB7 PO; +PRES10CA2 PO; +PROA1AER2 INH; +STIO1AER INH
[2023-06-20] MEDS ORDERED: MED REC IN PROGRESS XX SCH (12:05)
[2023-06-20] MEDS ORDERED: methylPREDNISolone 125MG 2ML VIAL IV ONE (12:10)
[2023-06-20] MEDS ORDERED: LevoFLOXacin 750 MG TABLET PO ONE (12:10)
[2023-06-20] MEDS: IPRATROPIUM 0.5MG/ALBUTEROL 2.5MG INH SOL UD 3ML (DUONEB) NEB SCH ×4 (12:26→20:00)
[2023-06-20 12:39] LABS: VENOUS BASE EXCESS 6.5 (-2.0-2.0); VENOUS HCO3 32.3 MMOL/L (23.0-27.0); VENOUS O2 SATURATION 90.7 % (60.0-80.0); VENOUS PARTIAL PRESSURE CO2 51.4 mmHg (38.0-50.0); VENOUS PARTIAL PRESSURE O2 59.6 mmHg (30.0-50.0); VENOUS PH 7.416 UNITS (7.330-7.430); VENOUS STANDARD HCO3 30.2 MMOL/L; VENOUS TOTAL CO2 33.9 MMOL/L (24.0-28.0)
[2023-06-20 12:50] LABS: BASO % 0.1 % (0.0-1.0); EOS # 0.2 10^3/uL (0.0-0.5); EOS % 1.7 % (0.0-3.0); HEMATOCRIT 37.4 % (42.0-52.0); HEMOGLOBIN 11.6 g/dl (13.5-17.5); LYMPH # 0.6 10^3/uL (1.5-5.0); LYMPH % 6.9 % (24.0-44.0); MEAN CORPUSCULAR HEMOGLOBIN 30.5 pg (27.0-33.0); MEAN CORPUSCULAR VOLUME 98.4 fl (80.0-96.0); MONO # 0.6 10^3/uL (0.0-0.8); MONO % 6.1 % (2.0-8.0); NEUTROPHILS # 7.6 10^3/uL (1.5-8.5); NEUTROPHILS % 84.8 % (36.0-66.0); PLATELET COUNT, AUTOMATED 125 10^3/uL (150-450)
[2023-06-20 13:13] LABS: ALBUMIN 2.6 G/DL (3.2-5.2); ALKALINE PHOSPHATASE 60 U/L (46-116); ALT/SGPT 17 U/L (7.0-40); AST/SGOT 16 U/L (<34); BILIRUBIN,DIRECT 0.2 MG/DL (<0.4); BILIRUBIN,TOTAL 0.7 MG/DL (0.3-1.2); BLOOD UREA NITROGEN 29 MG/DL (9-23); CALCIUM LEVEL 8.4 MG/DL (8.3-10.6); CARBON DIOXIDE LEVEL 36 MMOL/L (20-31); CHLORIDE LEVEL 101 MMOL/L (98-107); CREATININE FOR GFR 1.01 MG/DL (0.70-1.30); GLOMERULAR FILTRATION RATE > 60.0 (>35); GLUCOSE, FASTING 142 MG/DL (74-106); POTASSIUM SERUM 3.9 MMOL/L (3.5-5.1); SODIUM LEVEL 140 MMOL/L (136-145); TOTAL PROTEIN 5.5 G/DL (5.7-8.2)
[2023-06-20 13:15] LABS: THYROID STIMULATING HORMONE 1.948 uIU/ML (0.55-4.78); THYROXINE (T4) 9.7 UG/DL (4.5-10.9)
[2023-06-20 15:17] LABS: INR 1.09; PROTHROMBIN TIME 13.8 SECONDS (12.5-14.5)
[2023-06-20 15:18] LABS: PARTIAL THROMBOPLASTIN TIME 24.1 SECONDS (24.8-34.2)
[2023-06-20] MEDS ORDERED: TORS20TA2 PO (15:49)
[2023-06-20] MEDS ORDERED: HOME MED LIST COMPLETE! XX SCH (16:00)
[2023-06-20] MEDS ORDERED: FUROSEMIDE 40MG/4ML VIAL IV SCH (17:00)
[2023-06-21] MEDS: FORMOTEROL FUMARATE 20 MCG/2 ML INHALATION SOLUTION (PERFOROMIST) INH SCH ×3 (02:48→19:03)
[2023-06-21] MEDS: IPRATROPIUM 0.5MG/ALBUTEROL 2.5MG INH SOL UD 3ML (DUONEB) NEB SCH ×4 (02:48→19:03)
[2023-06-21 04:31] VITALS: BP 116/51; TEMP 98.1; O2SAT 96
[2023-06-21] MEDS: ROSUVASTATIN 10 MG TAB (CRESTOR) PO SCH ×2 (05:18→21:48)
[2023-06-21 06:27] LABS: BASO % 0.1 % (0.0-1.0); HEMATOCRIT 36.2 % (42.0-52.0); HEMOGLOBIN 11.2 g/dl (13.5-17.5); LYMPH # 0.3 10^3/uL (1.5-5.0); LYMPH % 2.7 % (24.0-44.0); MEAN CORPUSCULAR HGB CONC 30.9 g/dl (32.0-36.5); MEAN CORPUSCULAR VOLUME 97.1 fl (80.0-96.0); MONO # 0.5 10^3/uL (0.0-0.8); MONO % 4.4 % (2.0-8.0); NEUTROPHILS # 10.1 10^3/uL (1.5-8.5); NEUTROPHILS % 92.3 % (36.0-66.0); PLATELET COUNT, AUTOMATED 126 10^3/uL (150-450); RED BLOOD COUNT 3.73 10^6/uL (4.30-6.10); WHITE BLOOD COUNT 10.9 10^3/uL (4.0-10.0)
[2023-06-21 06:53] LABS: CALCIUM LEVEL 8.4 MG/DL (8.3-10.6); CREATININE FOR GFR 1.67 MG/DL (0.70-1.30); GLOMERULAR FILTRATION RATE 41.8 (>35); POTASSIUM SERUM 3.9 MMOL/L (3.5-5.1)
[2023-06-21] MEDS: RIVAROXABAN 10MG TAB (XARELTO) PO SCH (08:18)
[2023-06-21] MEDS: ASPIRIN 81MG ENTERIC TABLET PO SCH (08:19)
[2023-06-21] MEDS ORDERED: LevoFLOXacin 750 MG TABLET PO SCH (12:00)
[2023-06-21 14:00] VITALS: BP 99/49; TEMP 98.2; O2SAT 93
[2023-06-21] MEDS: LACTOBACILLUS ACIDOPHILUS CAP (BACID) PO SCH (18:25)
[2023-06-21 21:50] VITALS: BP 100/55; TEMP 97.5; O2SAT 94
[2023-06-22] MEDS: IPRATROPIUM 0.5MG/ALBUTEROL 2.5MG INH SOL UD 3ML (DUONEB) NEB SCH ×4 (02:36→19:37)
[2023-06-22 06:03] VITALS: BP 98/57; TEMP 98.1; O2SAT 98
[2023-06-22 06:17] LABS: BASO % 0.2 % (0.0-1.0); EOS # 0.1 10^3/uL (0.0-0.5); EOS % 1.3 % (0.0-3.0); HEMATOCRIT 34.1 % (42.0-52.0); HEMOGLOBIN 10.8 g/dl (13.5-17.5); LYMPH # 0.8 10^3/uL (1.5-5.0); LYMPH % 8.2 % (24.0-44.0); MEAN CORPUSCULAR HEMOGLOBIN 30.6 pg (27.0-33.0); MEAN CORPUSCULAR HGB CONC 31.7 g/dl (32.0-36.5); MEAN CORPUSCULAR VOLUME 96.6 fl (80.0-96.0); MONO # 0.8 10^3/uL (0.0-0.8); MONO % 7.6 % (2.0-8.0); NEUTROPHILS # 8.1 10^3/uL (1.5-8.5); NEUTROPHILS % 82.3 % (36.0-66.0); PLATELET COUNT, AUTOMATED 116 10^3/uL (150-450); RED BLOOD COUNT 3.53 10^6/uL (4.30-6.10); WHITE BLOOD COUNT 9.9 10^3/uL (4.0-10.0)
[2023-06-22 06:49] LABS: CALCIUM LEVEL 8.2 MG/DL (8.3-10.6); CREATININE FOR GFR 1.91 MG/DL (0.70-1.30); GLOMERULAR FILTRATION RATE 35.8 (>35); POTASSIUM SERUM 3.6 MMOL/L (3.5-5.1)
[2023-06-22] MEDS ORDERED: NS 1,000 ML IV ONE (07:25)
[2023-06-22] MEDS: FORMOTEROL FUMARATE 20 MCG/2 ML INHALATION SOLUTION (PERFOROMIST) INH SCH ×2 (07:35→19:37)
[2023-06-22] MEDS: LACTOBACILLUS ACIDOPHILUS CAP (BACID) PO SCH ×2 (08:24→17:21)
[2023-06-22] MEDS: ASPIRIN 81MG ENTERIC TABLET PO SCH (08:24)
[2023-06-22] MEDS: RIVAROXABAN 10MG TAB (XARELTO) PO SCH (08:24)
[2023-06-22 14:00] VITALS: BP 104/56; TEMP 97.7; O2SAT 95
[2023-06-22 19:22] VITALS: BP 106/56; TEMP 97.7; O2SAT 93
[2023-06-22 19:34] VITALS: O2SAT 94
[2023-06-22] MEDS: ROSUVASTATIN 10 MG TAB (CRESTOR) PO SCH (20:27)
[2023-06-23 01:19] VITALS: O2SAT 95
[2023-06-23] MEDS: IPRATROPIUM 0.5MG/ALBUTEROL 2.5MG INH SOL UD 3ML (DUONEB) NEB SCH ×4 (01:23→19:35)
[2023-06-23 05:40] VITALS: BP 128/70; TEMP 98.2; O2SAT 99
[2023-06-23 06:07] LABS: BASO % 0.3 % (0.0-1.0); EOS # 0.1 10^3/uL (0.0-0.5); EOS % 1.9 % (0.0-3.0); HEMATOCRIT 34.6 % (42.0-52.0); HEMOGLOBIN 10.8 g/dl (13.5-17.5); LYMPH # 0.7 10^3/uL (1.5-5.0); MEAN CORPUSCULAR HEMOGLOBIN 30.3 pg (27.0-33.0); MEAN CORPUSCULAR HGB CONC 31.2 g/dl (32.0-36.5); MEAN CORPUSCULAR VOLUME 97.2 fl (80.0-96.0); MONO # 0.6 10^3/uL (0.0-0.8); MONO % 7.9 % (2.0-8.0); NEUTROPHILS # 5.8 10^3/uL (1.5-8.5); NEUTROPHILS % 80.3 % (36.0-66.0); PLATELET COUNT, AUTOMATED 103 10^3/uL (150-450); RED BLOOD COUNT 3.56 10^6/uL (4.30-6.10); WHITE BLOOD COUNT 7.2 10^3/uL (4.0-10.0)
[2023-06-23 06:29] LABS: CALCIUM LEVEL 8.4 MG/DL (8.3-10.6); CREATININE FOR GFR 1.33 MG/DL (0.70-1.30); GLOMERULAR FILTRATION RATE 54.4 (>35)
[2023-06-23] MEDS: RIVAROXABAN 10MG TAB (XARELTO) PO SCH (07:42)
[2023-06-23] MEDS: LACTOBACILLUS ACIDOPHILUS CAP (BACID) PO SCH ×2 (07:42→17:23)
[2023-06-23] MEDS: ASPIRIN 81MG ENTERIC TABLET PO SCH (07:42)
[2023-06-23] MEDS: FORMOTEROL FUMARATE 20 MCG/2 ML INHALATION SOLUTION (PERFOROMIST) INH SCH ×2 (09:00→19:35)
[2023-06-23] MEDS ORDERED: LevoFLOXacin 750 MG TABLET PO SCH (12:00)
[2023-06-23] MEDS ORDERED: MOM 30ML SUSPENSION UDC PO ONE (12:55)
[2023-06-23 14:00] VITALS: BP 116/69; TEMP 97.5; O2SAT 95
[2023-06-23 20:30] VITALS: BP 144/79; TEMP 97.5; O2SAT 95
[2023-06-23] MEDS: SENOKOT S TAB PO SCH (21:12)
[2023-06-23] MEDS: ROSUVASTATIN 10 MG TAB (CRESTOR) PO SCH (21:12)
[2023-06-24] MEDS: IPRATROPIUM 0.5MG/ALBUTEROL 2.5MG INH SOL UD 3ML (DUONEB) NEB SCH ×2 (01:03→07:23)
[2023-06-24 05:04] VITALS: BP 142/79; TEMP 97.9; O2SAT 95
[2023-06-24 05:48] LABS: EOS # 0.1 10^3/uL (0.0-0.5); EOS % 2.1 % (0.0-3.0); HEMATOCRIT 34.7 % (42.0-52.0); HEMOGLOBIN 10.7 g/dl (13.5-17.5); LYMPH # 0.6 10^3/uL (1.5-5.0); LYMPH % 10.3 % (24.0-44.0); MEAN CORPUSCULAR HEMOGLOBIN 29.9 pg (27.0-33.0); MEAN CORPUSCULAR HGB CONC 30.8 g/dl (32.0-36.5); MEAN CORPUSCULAR VOLUME 96.9 fl (80.0-96.0); MONO # 0.4 10^3/uL (0.0-0.8); MONO % 6.7 % (2.0-8.0); NEUTROPHILS # 4.9 10^3/uL (1.5-8.5); NEUTROPHILS % 80.4 % (36.0-66.0); PLATELET COUNT, AUTOMATED 112 10^3/uL (150-450); RED BLOOD COUNT 3.58 10^6/uL (4.30-6.10); WHITE BLOOD COUNT 6.1 10^3/uL (4.0-10.0)
[2023-06-24 06:12] LABS: CALCIUM LEVEL 8.2 MG/DL (8.3-10.6); CREATININE FOR GFR 1.25 MG/DL (0.70-1.30); GLOMERULAR FILTRATION RATE 58.4 (>35); POTASSIUM SERUM 4.4 MMOL/L (3.5-5.1)
[2023-06-24] MEDS: FORMOTEROL FUMARATE 20 MCG/2 ML INHALATION SOLUTION (PERFOROMIST) INH SCH (07:23)
[2023-06-24] MEDS: LACTOBACILLUS ACIDOPHILUS CAP (BACID) PO SCH (07:42)
[2023-06-24] MEDS: SENOKOT S TAB PO SCH (07:42)
[2023-06-24] MEDS: RIVAROXABAN 10MG TAB (XARELTO) PO SCH (07:42)
[2023-06-24] MEDS: ASPIRIN 81MG ENTERIC TABLET PO SCH (07:42)
[2023-06-24] MEDS ORDERED: TIOTROPIUM INHALER/CAPSULE (SPIRIVA) INH SCH (08:00)
[2023-06-24 08:47] VITALS: BP 142/79
[2023-06-24] MEDS ORDERED: TORSEMIDE 20 MG TAB PO SCH (09:00)
[2023-06-24] MEDS ORDERED: METOPROLOL SUCC (TopROL XL) 50MG **XL** TAB PO SCH (09:00)
[2023-06-24] MEDS ORDERED: RISATAB3 PO (12:51)
[2023-06-24] MEDS ORDERED: LEVO1TAB40 PO (12:51)
[2023-06-24] MEDS ORDERED: SYMBICORT 160/4.5MCG INHALER 6GM INH SCH (20:00)
== END 2023-06-24 13:52 | disposition home or self-care (01) | DRG 193 ==
LOC: M ED 11:34 → M ED INP 13:50 → M MSPAV 06-21 04:31
PROVIDERS: ADMIT Internal Medicine Nephrology; ATTEND Internal Medicine Nephrology
DX: J18.9 Pneumonia, unspecified organism (principal); I50.33 Acute on chronic diastolic (congestive) heart failure; J96.11 Chronic respiratory failure with hypoxia; J44.1 Chronic obstructive pulmonary disease with (acute) exacerbation; J98.11 Atelectasis; J44.0 Chronic obstructive pulmonary disease with (acute) lower respiratory infection; N17.9 Acute kidney failure, unspecified; L03.116 Cellulitis of left lower limb; I11.0 Hypertensive heart disease with heart failure; G47.33 Obstructive sleep apnea (adult) (pediatric); E78.5 Hyperlipidemia, unspecified; K59.00 Constipation, unspecified; R19.7 Diarrhea, unspecified; K76.89 Other specified diseases of liver; Z92.3 Personal history of irradiation; Z96.652 Presence of left artificial knee joint; Z96.642 Presence of left artificial hip joint; I65.23 Occlusion and stenosis of bilateral carotid arteries; M17.0 Bilateral primary osteoarthritis of knee; Z85.46 Personal history of malignant neoplasm of prostate; E66.9 Obesity, unspecified; Z99.81 Dependence on supplemental oxygen; Z88.0 Allergy status to penicillin; Z79.82 Long term (current) use of aspirin; Z79.899 Other long term (current) drug therapy

== ENCOUNTER → 2023-07-05 | Outpatient (REF) | payer MEDICARE, OTHER ==
[~2023-07-05] MED LIST changes: +LEVO1TAB40 PO; +RISATAB3 PO; +TORS20TA2 PO
== END ==
LOC: M LAB REF 13:08
PROVIDERS: ATTEND Physician Assistant Medical
DX: R19.7 Diarrhea, unspecified (principal)

== ENCOUNTER → 2023-07-06 | Outpatient (REF) | payer MEDICARE, OTHER ==
[2023-07-06 14:12] LABS: APPEARANCE, URINE CLEAR (CLEAR); BACTERIA, URINE AUTO NEGATIVE (NEGATIVE); BILIRUBIN, URINE AUTO NEGATIVE (NEGATIVE); BLOOD, URINE BLOOD NEGATIVE (NEGATIVE); COLOR, URINE YELLOW (YELLOW); GLUCOSE, URINE (UA) AUTO NEGATIVE (NEGATIVE); KETONE, URINE AUTO NEGATIVE (NEGATIVE); LEUKOCYTE ESTERASE, URINE AUTO NEGATIVE (NEGATIVE); MUCUS, URINE SMALL (NEGATIVE); NITRITE, URINE AUTO NEGATIVE (NEGATIVE); PROTEIN, URINE AUTO NEGATIVE (NEGATIVE); RBC, URINE AUTO 0 /HPF (0-3); SPECIFIC GRAVITY URINE AUTO 1.015 (1.002-1.035); SQUAMOUS EPITHELIAL CELL UR AU 2 /HPF (0-6); UROBILINOGEN, URINE AUTO 0.2 mg/dL (0.0-2.0); WBC, URINE AUTO 3 /HPF (0-3)
== END ==
LOC: M LAB REF 13:05
PROVIDERS: ATTEND Physician Assistant Medical
DX: R19.7 Diarrhea, unspecified (principal); N39.0 Urinary tract infection, site not specified

== ENCOUNTER → 2023-07-07 | Outpatient (REF) | payer MEDICARE, OTHER ==
[2023-07-07 14:19] LABS: LIPASE 18 U/L (12-53)
[2023-07-07 14:20] LABS: AMYLASE 35 U/L (30-118)
[2023-07-07 14:21] LABS: ALBUMIN 2.3 G/DL (3.2-5.2); ALKALINE PHOSPHATASE 56 U/L (46-116); ALT/SGPT 11 U/L (7.0-40); AST/SGOT < 8 U/L (<34); BILIRUBIN,TOTAL 0.6 MG/DL (0.3-1.2); BLOOD UREA NITROGEN 20 MG/DL (9-23); CALCIUM LEVEL 7.8 MG/DL (8.3-10.6); CARBON DIOXIDE LEVEL 34 MMOL/L (20-31); CHLORIDE LEVEL 101 MMOL/L (98-107); CREATININE FOR GFR 1.02 MG/DL (0.70-1.30); GLOMERULAR FILTRATION RATE > 60.0 (>35); GLUCOSE, FASTING 110 MG/DL (74-106); POTASSIUM SERUM 3.2 MMOL/L (3.5-5.1); SODIUM LEVEL 139 MMOL/L (136-145); TOTAL PROTEIN 5.1 G/DL (5.7-8.2)
[2023-07-07 14:22] LABS: FERRITIN 253.1 NG/ML (10.5-307.3)
[2023-07-07 14:23] LABS: THYROID STIMULATING HORMONE 2.176 uIU/ML (0.55-4.78); VITAMIN B12 LEVEL 214 PG/ML (211-911)
[2023-07-07 15:00] LABS: HEPATITIS C VIRUS ABY INDEX < 0.02 INDEX (<0.8)
[2023-07-07 15:02] LABS: HEPATITIS B CORE ANTIBODY IGM NEGATIVE (NEGATIVE)
== END ==
LOC: M LAB REF 11:42
PROVIDERS: ATTEND Physician Assistant Medical
DX: J15.9 Unspecified bacterial pneumonia (principal); E07.9 Disorder of thyroid, unspecified; D50.9 Iron deficiency anemia, unspecified

== ENCOUNTER → 2024-06-08 | Outpatient (CLI) | payer MEDICARE, OTHER ==
[~2024-06-08] MED LIST changes: -ASPI-161 PO; +ASPI-615 PO; -EPLE25TA PO; +EPLE25TA15 PO
== END ==
LOC: M RAD 11:28
PROVIDERS: ATTEND Nurse Practitioner Family
DX: L03.311 Cellulitis of abdominal wall (principal)

== ENCOUNTER → 2024-07-18 | Outpatient (CLI) | payer MEDICARE, OTHER ==
[~2024-07-18] MED LIST changes: +GASTROGRAFIN SOLUTION 30ML ONE; +ISOVUE-370 76% 100ML VIAL ONE
== END ==
LOC: M PLAIMG 13:28
PROVIDERS: ATTEND Surgery
DX: L02.211 Cutaneous abscess of abdominal wall (principal)
CPT/HCPCS: 74177; Q9963; Q9967

== ENCOUNTER → 2024-07-24 | Outpatient (CLI) | payer MEDICARE, OTHER ==
[~2024-07-24] MED LIST changes: -GASTROGRAFIN SOLUTION 30ML ONE; -ISOVUE-370 76% 100ML VIAL ONE
== END ==
LOC: M PLALAB 12:04
PROVIDERS: ATTEND Nurse Practitioner Family
DX: I50.9 Heart failure, unspecified (principal)

== ENCOUNTER → 2025-02-18 | Outpatient (CLI) | payer MEDICARE, OTHER ==
[~2025-02-18] MED LIST changes: -FLOM0.4C39 PO; +TAMS-18 PO
== END ==
LOC: M PLAIMG 14:28
PROVIDERS: ATTEND Internal Medicine Pulmonary Disease
DX: R91.8 Other nonspecific abnormal finding of lung field (principal)